=== PATIENT | male | born 1935 | race Caucasian/White ===

== ENCOUNTER 2020-07-29 10:48 | Emergency (ER) | payer MEDICARE, MEDICAID ==
--- NOTE | 2020-07-29 11:31 | EDM.PDOC ---
ED HPI GENERAL MEDICAL PROBLEM - General Chief Complaint: Chest Pain Stated Complaint: chest pain Time Seen by Provider: 07/29/20 11:10 - History of Present Illness INITIAL COMMENTS - FREE TEXT/NARRATIVE: Patient is brought to the emergency department from long-term swing bed for evaluation of chest pain. He was complaining of diffuse tightness and pain in his chest this morning. No cough or shortness of breath. No dizziness or lightheadedness. On arrival in the emergency department nurses stated he did not seem to be himself but after a few minutes, seemed fine. At this time, he denies any chest pain or tightness. No shortness of breath. No cough. No numbness or tingling. No dizziness or lightheadedness. At the time of my interview he is completely without complaints. He does have underlying dementia which is why he is in long-term swing swing bed unit. No recent illnesses. - Related Data Allergies Allergy/AdvReac Type Severity Reaction Status Date / Time iodine Allergy Hives Verified 07/29/20 10:58 Home Meds: Home Meds Pentoxifylline [TRENtal] 400 mg PO DAILY 07/21/13 [History] Memantine HCl 10 mg PO BID 07/14/19 [History] allopurinoL [Zyloprim] 300 mg PO DAILY 07/14/19 [History] Past Medical History HEENT History: Reports: Cataract, Hard of Hearing Cardiovascular History: Reports: PVD Gastrointestinal History: Reports: GERD Genitourinary History: Reports: Renal Calculus Musculoskeletal History: Reports: Gout Psychiatric History: Reports: Dementia - Infectious Disease History Infectious Disease History: Reports: Measles - Past Surgical History HEENT Surgical History: Reports: Cataract Surgery GI Surgical History: Reports: Cholecystectomy, Colonoscopy, Hernia, Inguinal Male Surgical History: Reports: Kidney Stone Extraction Musculoskeletal Surgical History: Reports: Other (See Below) Social & Family History - Family History : Reports: None Oncologic: Reports: Esophageal - Caffeine Use Caffeine Use: Reports: Coffee Other Caffeine Use: 1/2 cup occasionalloy - Living Situation & Occupation Living situation: Reports: Occupation: Retired ED ROS GENERAL - Review of Systems Review Of Systems: See Below Constitutional: Denies: Fever, Chills HEENT: Denies: Ear Pain, Rhinitis, Throat Pain Respiratory: Denies: Shortness of Breath, Pleuritic Chest Pain, Cough Cardiovascular: Reports: Chest Pain (Chest pain earlier today, he denies any pain at this time.). Denies: Palpitations GI/Abdominal: Denies: Abdominal Pain, Diarrhea, Nausea, Vomiting Neurological: Reports: Confusion. Denies: Dizziness, Headache, Paresthesia Psychiatric: Reports: Confusion. Denies: Anxiety, Depression ED EXAM, GENERAL - Physical Exam Exam: See Below Exam Limited By: No Limitations General Appearance: Alert, WD/WN, No Apparent Distress Ears: Normal External Exam, Other (Hearing aids in place) Nose: Normal Inspection Throat/Mouth: Normal Inspection Head: Atraumatic, Normocephalic Neck: No: Lymphadenopathy (L), Lymphadenopathy (R) Respiratory/Chest: No Respiratory Distress, Lungs Clear, Normal Breath Sounds Cardiovascular: Regular Rate, Rhythm, No Edema, No Murmur GI/Abdominal: Normal Bowel Sounds, Soft, Non-Tender, No Mass Neurological: Alert, Oriented (Oriented to person and place.), Memory Loss Recent Events Psychiatric: Normal Affect, Normal Mood Skin Exam: Warm, Dry #1 Interpretation EKG Date: 07/29/20 Time: 11:05 Rhythm: NSR Rate (Beats/Min): 60 QRS: Wide ST-T: Normal QT: Normal Comparison: NA - No Prior EKG EKG Interpretation Comments: First-degree A-V block right bundle branch block. Course - Vital Signs Last Recorded V/S: Last Vital Signs Temp 36.4 C 07/29/20 10:52 Pulse 61 07/29/20 10:52 Resp 16 07/29/20 10:52 BP 149/89 H 07/29/20 10:52 Pulse Ox 98 07/29/20 10:52 - Orders/Labs/Meds Orders: Active Orders 24 hr Category Date Time Status Cardiac Monitoring [RC] . DIRECTED Care 07/29/20 11:53 Active EKG Documentation Completion [RC] ASDIRECTED Care 07/29/20 10:52 Active CXR [Chest 2V] [CR] Stat Exams 07/29/20 11:26 Ordered CBC WITH AUTO DIFF [HEME] Stat Lab 07/29/20 11:10 Ordered CMP [COMPREHENSIVE METABOLIC PN,CMP] [CHEM] Stat Lab 07/29/20 11:10 Ordered INR,PT,PROTHROMBIN TIME [COAG] Stat Lab 07/29/20 12:00 Ordered TROPONIN I [CHEM] Stat Lab 07/29/20 11:10 Ordered Sodium Chloride 0.9% [Saline Flush] Med 07/29/20 11:53 Active 10 ml FLUSH ASDIRECTED PRN Saline Lock Insert [OM.PC] Routine Oth 07/29/20 11:53 Ordered Medication Orders Sodium Chloride (Saline Flush) 10 ml FLUSH ASDIRECTED PRN PRN Reason: Keep Vein Open Labs: Laboratory Tests 07/29/20 07/29/20 07/29/20 Range/Units 11:11 11:11 11:11 WBC 8.4 (4.0-10.2) K/uL RBC 4.78 (4.33-5.41) M/uL Hgb 15.5 (13.1-16.8) g/dL Hct 46.7 (39.0-49.0) % MCV 97.7 (84.0-98.0) fL MCH 32.4 (28.2-33.3) pg MCHC 33.2 (31.7-36.0) g/dL RDW 12.7 (11.2-14.1) % Plt Count 151 (150-350) K/uL Neut % (Auto) 73.1 (45.0-80.0) % Lymph % (Auto) 11.7 (10.0-50.0) % [place] % (Auto) 11.0 (2.0-14.0) % Eos % (Auto) 3.7 (0.0-5.0) % Baso % (Auto) 0.5 (0.0-2.0) % Neut # (Auto) 6.10 (1.40-7.00) K/uL Lymph # (Auto) 0.98 (0.50-3.50) K/uL [place] # (Auto) 0.92 (0.00-1.00) K/uL Eos # (Auto) 0.31 (0.00-0.50) K/uL Baso # (Auto) 0.04 (0.00-0.20) K/uL PT 10.4 (9.5-12.0) SEC INR 1.0 Sodium 138 (136-145) mmol/L Potassium 4.0 (3.5-5.1) mmol/L Chloride 103 (98-107) mmol/L Carbon Dioxide 28.5 (21.0-32.0) mmol/L BUN 21 H (7-18) mg/dL Creatinine 1.07 (0.51-1.17) mg/dL Est Cr Clr Drug Dosing TNP Estimated GFR (MDRD) > 60 mL/min Glucose 105 (74-106) mg/dL Calcium 8.9 (8.5-10.1) mg/dL Total Bilirubin 0.4 (0.2-1.0) mg/dL AST 36 (15-37) U/L ALT 23 (12-78) U/L Alkaline Phosphatase 80 (46-116) IU/L Troponin I 0.140 H* (0.000-0.056) ng/mL Total Protein 6.7 (6.4-8.2) g/dL Albumin 3.5 (3.4-5.0) g/dL Meds: Medications Generic Name Dose Route Start Last Admin Trade Name Freq PRN Reason Stop Dose Admin Sodium Chloride 10 ml 07/29/20 11:53 Saline Flush FLUSH ASDIRECTED PRN Keep Vein Open - Radiology Interpretation Free Text/Narrative:: 2 views of the chest show normal cardiac silhouette. Lungs are well expanded. No infiltrates. No masses. No free air. - Re-Assessments/Exams Free Text/Narrative Re-Assessment/Exam: 07/29/20 12:03 Patient remain completely asymptomatic in the emergency department with no complaints of chest pain or tightness. Labs are fairly unremarkable other than elevated troponin I at 0.140. Will discharge back to swing bed unit, and repeat EKG and troponin IN 3 hours. Departure - Departure Time of Disposition: 12:04 Disposition: DC/Tfer W/I [facility] [place] [id number] Condition: Good Clinical Impression: Chest pain - Discharge Information *PRESCRIPTION DRUG MONITORING PROGRAM REVIEWED*: Not Applicable *COPY OF PRESCRIPTION DRUG MONITORING REPORT IN PATIENT BRANN[place]: Not Applicable Instructions: Nonspecific Chest Pain, Adult Referrals: Roseann Neil NP [Primary Care Provider] - Forms: ED Department Discharge Additional Instructions: Discharge to swing bed unit. Repeat EKG and troponin I approximately 2 PM. 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 SNOMED Code(s): 09760147 Code(s): G30.9 - ALZHEIMER'S DISEASE, UNSPECIFIED; F02.80 - DEMENTIA IN OTH DISEASES CLASSD ELSWHR W/O BEHAVRL DISTURB Status: Acute Qualifiers: Alzheimer's disease onset: unspecified onset Qualified Code(s): G30.9 - Alzheimer's disease, unspecified; F02.80 - Dementia in other diseases classified elsewhere without behavioral disturbance (2) Chest pain SNOMED Code(s): 34678367 Code(s): R07.9 - CHEST PAIN, UNSPECIFIED Status: Acute - Problem List Review Problem List Initiated/Reviewed/Updated: Yes - My Orders Last 24 Hours: My Active Orders 07/29/20 10:52 EKG Documentation Completion [RC] ASDIRECTED 07/29/20 11:10 CBC WITH AUTO DIFF [HEME] Stat CMP [COMPREHENSIVE METABOLIC PN,CMP] [CHEM] Stat TROPONIN I [CHEM] Stat 07/29/20 11:26 CXR [Chest 2V] [CR] Stat 07/29/20 11:53 Cardiac Monitoring [RC] . DIRECTED Sodium Chloride 0.9% [Saline Flush] 10 ml FLUSH ASDIRECTED PRN Saline Lock Insert [OM.PC] Routine 07/29/20 12:00 INR,PT,PROTHROMBIN TIME [COAG] Stat - Assessment/Plan Last 24 Hours: My Active Orders 07/29/20 10:52 EKG Documentation Completion [RC] ASDIRECTED 07/29/20 11:10 CBC WITH AUTO DIFF [HEME] Stat CMP [COMPREHENSIVE METABOLIC PN,CMP] [CHEM] Stat TROPONIN I [CHEM] Stat 07/29/20 11:26 CXR [Chest 2V] [CR] Stat 07/29/20 11:53 Cardiac Monitoring [RC] . DIRECTED Sodium Chloride 0.9% [Saline Flush] 10 ml FLUSH ASDIRECTED PRN Saline Lock Insert [OM.PC] Routine 07/29/20 12:00 INR,PT,PROTHROMBIN TIME [COAG] Stat Plan: Discharge to swing bed unit. Repeat EKG and troponin I approximately 2 PM.
[2020-07-29 11:41] LABS: CHLORIDE,CL 103 mmol/L (98-107); SODIUM,NA 138 mmol/L (136-145)
[2020-07-29] MEDS ORDERED: Sodium Chloride 0.9% 10 ML Syringe FLUSH PRN (11:53)
[2020-07-29 12:48] VITALS: BP 149/70; PULSE 68
== END 2020-07-29 12:25 | disposition swing bed (61) ==
LOC: LL.ED 10:48
DX: R07.89 Other chest pain (principal); F03.90 Unspecified dementia, unspecified severity, without behavioral disturbance, psychotic disturbance, mood disturbance, and anxiety; M10.9 Gout, unspecified; Z91.048 Other nonmedicinal substance allergy status; Z79.899 Other long term (current) drug therapy
CPT/HCPCS: 36415; 71046; 80053; 84484; 85025; 85610; 93005; 93010; 99284; 99285-25

== ENCOUNTER 2020-08-02 12:13 | Emergency (ER) | payer MEDICARE, MEDICAID ==
[2020-08-02 12:59] LABS: CHLORIDE,CL 101 mmol/L (98-107); SODIUM,NA 135 mmol/L (136-145)
--- NOTE | 2020-08-02 13:07 | EDM.PDOC ---
ED HPI GENERAL MEDICAL PROBLEM - General Chief Complaint: Chest Pain Stated Complaint: SOB, CP Time Seen by Provider: 08/02/20 12:23 Source of Information: Reports: Patient, RN Notes Reviewed - History of Present Illness INITIAL COMMENTS - FREE TEXT/NARRATIVE: Pt sent to ER from swing bed for chest pain Pt states he currently is not having any pain Pt seen in ER several days ago for same Troponin then was 0.140 Pt evaluated and sent back to swing bed at that time Onset: Gradual Duration: Intermittent Location: Reports: Chest - Related Data Allergies Allergy/AdvReac Type Severity Reaction Status Date / Time iodine Allergy Hives Verified 08/02/20 12:15 Home Meds: Home Meds Pentoxifylline [TRENtal] 400 mg PO DAILY 07/21/13 [History] Memantine HCl 10 mg PO BID 07/14/19 [History] allopurinoL [Zyloprim] 300 mg PO DAILY 07/14/19 [History] Past Medical History HEENT History: Reports: Cataract, Hard of Hearing Cardiovascular History: Reports: PVD Gastrointestinal History: Reports: GERD Genitourinary History: Reports: Renal Calculus Musculoskeletal History: Reports: Gout Psychiatric History: Reports: Dementia - Infectious Disease History Infectious Disease History: Reports: Measles - Past Surgical History HEENT Surgical History: Reports: Cataract Surgery GI Surgical History: Reports: Cholecystectomy, Colonoscopy, Hernia, Inguinal Male Surgical History: Reports: Kidney Stone Extraction Musculoskeletal Surgical History: Reports: Other (See Below) Other Musculoskeletal Surgeries/Procedures:: left elbow Social & Family History - Family History : Reports: None Oncologic: Reports: Esophageal - Tobacco Use Tobacco Use Status *Q: Former Tobacco User Years of Tobacco use: 40 Used Tobacco, but Quit: Yes Month/Year Tobacco Last Used: 1979 - Caffeine Use Caffeine Use: Reports: Coffee Other Caffeine Use: 1/2 cup occasionalloy - Recreational Drug Use Recreational Drug Use: No - Living Situation & Occupation Living situation: Reports: Occupation: Retired ED ROS GENERAL - Review of Systems Review Of Systems: See Below HEENT: Reports: No Symptoms Respiratory: Reports: No Symptoms Cardiovascular: Reports: Chest Pain GI/Abdominal: Reports: No Symptoms Musculoskeletal: Reports: No Symptoms ED EXAM, GENERAL - Physical Exam Exam: See Below General Appearance: Alert, WD/WN, No Apparent Distress Neck: Supple Respiratory/Chest: Lungs Clear Cardiovascular: Regular Rate, Rhythm GI/Abdominal: Soft, Non-Tender Course - Vital Signs Last Recorded V/S: Last Vital Signs Temp 97.7 F 08/02/20 12:16 Pulse 63 08/02/20 12:16 Resp 18 08/02/20 12:16 BP 143/85 H 08/02/20 12:16 Pulse Ox 99 08/02/20 12:16 - Orders/Labs/Meds Orders: Active Orders 24 hr Category Date Time Status EKG Documentation Completion [RC] ASDIRECTED Care 08/02/20 12:21 Active EKG 12 Lead [EK] Stat Ther 08/02/20 12:21 Ordered Labs: Laboratory Tests 08/02/20 08/02/20 Range/Units 12:30 12:30 WBC 8.5 (4.0-10.2) K/uL RBC 4.57 (4.33-5.41) M/uL Hgb 14.9 (13.1-16.8) g/dL Hct 44.2 (39.0-49.0) % MCV 96.7 (84.0-98.0) fL MCH 32.6 (28.2-33.3) pg MCHC 33.7 (31.7-36.0) g/dL RDW 12.4 (11.2-14.1) % Plt Count 155 (150-350) K/uL Neut % (Auto) 73.5 (45.0-80.0) % Lymph % (Auto) 10.9 (10.0-50.0) % [place] % (Auto) 11.7 (2.0-14.0) % Eos % (Auto) 3.4 (0.0-5.0) % Baso % (Auto) 0.5 (0.0-2.0) % Neut # (Auto) 6.22 (1.40-7.00) K/uL Lymph # (Auto) 0.92 (0.50-3.50) K/uL [place] # (Auto) 0.99 (0.00-1.00) K/uL Eos # (Auto) 0.29 (0.00-0.50) K/uL Baso # (Auto) 0.04 (0.00-0.20) K/uL Sodium 135 L (136-145) mmol/L Potassium 3.9 (3.5-5.1) mmol/L Chloride 101 (98-107) mmol/L Carbon Dioxide 26.5 (21.0-32.0) mmol/L BUN 22 H (7-18) mg/dL Creatinine 1.07 (0.51-1.17) mg/dL Est Cr Clr Drug Dosing TNP Estimated GFR (MDRD) > 60 mL/min Glucose 103 (74-106) mg/dL Calcium 8.8 (8.5-10.1) mg/dL Total Bilirubin 0.4 (0.2-1.0) mg/dL AST 37 (15-37) U/L ALT 22 (12-78) U/L Alkaline Phosphatase 76 (46-116) IU/L Troponin I 0.129 H* (0.000-0.056) ng/mL Total Protein 6.6 (6.4-8.2) g/dL Albumin 3.4 (3.4-5.0) g/dL - Re-Assessments/Exams Free Text/Narrative Re-Assessment/Exam: 08/02/20 13:06 Pt asymptomatic in ER Tropnin today 0.124 which is lower than several days ago pt to swing bed Departure - Departure Time of Disposition: 13:10 Disposition: DC/Tfer to SNF 03 Reason for Transfer *Q: Other Clinical Impression: Chest pain Qualifiers: Chest pain type: unspecified Qualified Code(s): R07.9 - Chest pain, unspecified Referrals: Roseann Neil NP [Primary Care Provider] - Additional Instructions: Follow up in clinic Sepsis Event Note (ED) - Evaluation Sepsis Screening Result: No Definite Risk - Focused Exam Vital Signs: Vital Signs Temp Pulse Resp BP Pulse Ox 08/02/20 12:16 97.7 F 63 18 143/85 H 99 - My Orders Last 24 Hours: My Active Orders 08/02/20 12:21 EKG Documentation Completion [RC] ASDIRECTED EKG 12 Lead [EK] Stat - Assessment/Plan Last 24 Hours: My Active Orders 08/02/20 12:21 EKG Documentation Completion [RC] ASDIRECTED EKG 12 Lead [EK] Stat
[2020-08-02 13:39] VITALS: PULSE 64
[2020-08-02 13:42] VITALS: BP 131/75
== END 2020-08-02 13:07 | disposition swing bed (61) ==
LOC: LL.ED 12:13
DX: R07.9 Chest pain, unspecified (principal); M10.9 Gout, unspecified; F03.90 Unspecified dementia, unspecified severity, without behavioral disturbance, psychotic disturbance, mood disturbance, and anxiety; Z91.048 Other nonmedicinal substance allergy status; Z79.899 Other long term (current) drug therapy; Z87.891 Personal history of nicotine dependence
CPT/HCPCS: 36415; 80053; 84484; 85025; 93005; 99283; 99285-25

== ENCOUNTER 2021-01-24 08:40 | Inpatient (IN) | payer MEDICAID, MEDICARE ==
[2021-01-25] MEDS ORDERED: Nitroglycerin 0.4 MG Tab.SL SL PRN (07:41)
[2021-01-25] MEDS ORDERED: guaiFENesin 100 MG/5 ML Soln 10 ML UD Cup PO PRN (08:00)
[2021-01-25] MEDS ORDERED: traMADol 50 MG Tab PO PRN (08:00)
[2021-01-25] MEDS: ALLOPURINOL 300 MG PO SCH (11:51)
[2021-01-25] MEDS: Memantine 10 MG Tab PO SCH (17:23)
[2021-01-26] MEDS: Memantine 10 MG Tab PO SCH ×2 (08:17→17:15)
[2021-01-26] MEDS: ALLOPURINOL 300 MG PO SCH (08:17)
[2021-01-26] MEDS: Pentoxifylline 400 MG Tab.ER PO SCH (08:18)
[2021-01-27] MEDS: ALLOPURINOL 300 MG PO SCH (07:26)
[2021-01-27] MEDS: Memantine 10 MG Tab PO SCH ×2 (07:27→17:10)
[2021-01-27] MEDS: Pentoxifylline 400 MG Tab.ER PO SCH (07:27)
[2021-01-28] MEDS: ALLOPURINOL 300 MG PO SCH (08:25)
[2021-01-28] MEDS: Memantine 10 MG Tab PO SCH ×2 (08:25→17:27)
[2021-01-28] MEDS: Pentoxifylline 400 MG Tab.ER PO SCH (08:25)
[2021-01-29] MEDS: Pentoxifylline 400 MG Tab.ER PO SCH (08:35)
[2021-01-29] MEDS: ALLOPURINOL 300 MG PO SCH (08:35)
[2021-01-29] MEDS: Memantine 10 MG Tab PO SCH ×2 (08:35→17:24)
[2021-01-30] MEDS: ALLOPURINOL 300 MG PO SCH (08:07)
[2021-01-30] MEDS: Memantine 10 MG Tab PO SCH ×2 (08:07→17:44)
[2021-01-30] MEDS: Pentoxifylline 400 MG Tab.ER PO SCH (08:07)
[2021-01-31] MEDS: Pentoxifylline 400 MG Tab.ER PO SCH (07:46)
[2021-01-31] MEDS: Memantine 10 MG Tab PO SCH ×2 (07:46→17:29)
[2021-01-31] MEDS: ALLOPURINOL 300 MG PO SCH (07:46)
[2021-02-01] MEDS: Pentoxifylline 400 MG Tab.ER PO SCH (07:21)
[2021-02-01] MEDS: ALLOPURINOL 300 MG PO SCH (07:21)
[2021-02-01] MEDS: Memantine 10 MG Tab PO SCH ×2 (07:21→17:29)
[2021-02-02] MEDS: ALLOPURINOL 300 MG PO SCH (08:13)
[2021-02-02] MEDS: Memantine 10 MG Tab PO SCH ×2 (08:13→17:30)
[2021-02-02] MEDS: Pentoxifylline 400 MG Tab.ER PO SCH (08:13)
[2021-02-03] MEDS: Pentoxifylline 400 MG Tab.ER PO SCH (08:04)
[2021-02-03] MEDS: ALLOPURINOL 300 MG PO SCH (08:04)
[2021-02-03] MEDS: Memantine 10 MG Tab PO SCH ×2 (08:04→17:24)
[2021-02-04] MEDS: ALLOPURINOL 300 MG PO SCH (08:24)
[2021-02-04] MEDS: Pentoxifylline 400 MG Tab.ER PO SCH (08:24)
[2021-02-04] MEDS: Memantine 10 MG Tab PO SCH ×2 (08:24→17:55)
[2021-02-05] MEDS: Memantine 10 MG Tab PO SCH ×2 (07:37→17:28)
[2021-02-05] MEDS: Pentoxifylline 400 MG Tab.ER PO SCH (07:37)
[2021-02-05] MEDS: ALLOPURINOL 300 MG PO SCH (07:38)
[2021-02-06] MEDS: ALLOPURINOL 300 MG PO SCH (08:08)
[2021-02-06] MEDS: Memantine 10 MG Tab PO SCH ×2 (08:08→17:27)
[2021-02-06] MEDS: Pentoxifylline 400 MG Tab.ER PO SCH (08:08)
[2021-02-07] MEDS: ALLOPURINOL 300 MG PO SCH (07:51)
[2021-02-07] MEDS: Pentoxifylline 400 MG Tab.ER PO SCH (07:51)
[2021-02-07] MEDS: Memantine 10 MG Tab PO SCH ×2 (07:51→17:48)
[2021-02-08] MEDS: Memantine 10 MG Tab PO SCH ×2 (07:40→17:55)
[2021-02-08] MEDS: ALLOPURINOL 300 MG PO SCH (07:40)
[2021-02-08] MEDS: Pentoxifylline 400 MG Tab.ER PO SCH (07:40)
[2021-02-09] MEDS: Memantine 10 MG Tab PO SCH ×2 (10:48→17:14)
[2021-02-09] MEDS: ALLOPURINOL 300 MG PO SCH (10:48)
[2021-02-09] MEDS: Pentoxifylline 400 MG Tab.ER PO SCH (10:48)
[2021-02-10] MEDS: Memantine 10 MG Tab PO SCH ×2 (07:52→17:11)
[2021-02-10] MEDS: Pentoxifylline 400 MG Tab.ER PO SCH (07:52)
[2021-02-10] MEDS: ALLOPURINOL 300 MG PO SCH (07:52)
[2021-02-11] MEDS: Pentoxifylline 400 MG Tab.ER PO SCH (07:35)
[2021-02-11] MEDS: ALLOPURINOL 300 MG PO SCH (07:35)
[2021-02-11] MEDS: Memantine 10 MG Tab PO SCH ×2 (07:35→17:14)
[2021-02-12] MEDS: Pentoxifylline 400 MG Tab.ER PO SCH (08:26)
[2021-02-12] MEDS: ALLOPURINOL 300 MG PO SCH (08:26)
[2021-02-12] MEDS: Memantine 10 MG Tab PO SCH ×2 (08:26→17:55)
[2021-02-13] MEDS: Pentoxifylline 400 MG Tab.ER PO SCH (07:40)
[2021-02-13] MEDS: ALLOPURINOL 300 MG PO SCH (07:40)
[2021-02-13] MEDS: Memantine 10 MG Tab PO SCH ×2 (07:40→17:28)
[2021-02-14] MEDS: Pentoxifylline 400 MG Tab.ER PO SCH (08:17)
[2021-02-14] MEDS: ALLOPURINOL 300 MG PO SCH (08:17)
[2021-02-14] MEDS: Memantine 10 MG Tab PO SCH ×2 (08:17→17:39)
[2021-02-15] MEDS: ALLOPURINOL 300 MG PO SCH (07:43)
[2021-02-15] MEDS: Memantine 10 MG Tab PO SCH ×2 (07:43→17:20)
[2021-02-15] MEDS: Pentoxifylline 400 MG Tab.ER PO SCH (07:43)
[2021-02-16] MEDS: Memantine 10 MG Tab PO SCH ×2 (08:07→17:41)
[2021-02-16] MEDS: Pentoxifylline 400 MG Tab.ER PO SCH (08:07)
[2021-02-16] MEDS: ALLOPURINOL 300 MG PO SCH (08:07)
[2021-02-17] MEDS: Pentoxifylline 400 MG Tab.ER PO SCH (07:37)
[2021-02-17] MEDS: Memantine 10 MG Tab PO SCH ×2 (07:37→17:17)
[2021-02-17] MEDS: ALLOPURINOL 300 MG PO SCH (07:37)
[2021-02-18] MEDS: Pentoxifylline 400 MG Tab.ER PO SCH (07:43)
[2021-02-18] MEDS: ALLOPURINOL 300 MG PO SCH (07:43)
[2021-02-18] MEDS: Memantine 10 MG Tab PO SCH ×2 (07:44→17:05)
[2021-02-19] MEDS: Memantine 10 MG Tab PO SCH ×2 (07:28→17:07)
[2021-02-19] MEDS: ALLOPURINOL 300 MG PO SCH (07:28)
[2021-02-19] MEDS: Pentoxifylline 400 MG Tab.ER PO SCH (07:28)
[2021-02-20] MEDS: Memantine 10 MG Tab PO SCH ×2 (08:14→17:18)
[2021-02-20] MEDS: ALLOPURINOL 300 MG PO SCH (08:14)
[2021-02-20] MEDS: Pentoxifylline 400 MG Tab.ER PO SCH (08:14)
[2021-02-21] MEDS: Memantine 10 MG Tab PO SCH ×2 (08:07→17:34)
[2021-02-21] MEDS: ALLOPURINOL 300 MG PO SCH (08:08)
[2021-02-21] MEDS: Pentoxifylline 400 MG Tab.ER PO SCH (08:08)
[2021-02-22] MEDS: Memantine 10 MG Tab PO SCH ×2 (08:17→17:36)
[2021-02-22] MEDS: ALLOPURINOL 300 MG PO SCH (08:17)
[2021-02-22] MEDS: Pentoxifylline 400 MG Tab.ER PO SCH (08:17)
[2021-02-23] MEDS: ALLOPURINOL 300 MG PO SCH (08:33)
[2021-02-23] MEDS: Pentoxifylline 400 MG Tab.ER PO SCH (08:33)
[2021-02-23] MEDS: Memantine 10 MG Tab PO SCH ×2 (08:34→17:48)
[2021-02-24] MEDS: Memantine 10 MG Tab PO SCH ×2 (08:24→17:43)
[2021-02-24] MEDS: ALLOPURINOL 300 MG PO SCH (08:24)
[2021-02-24] MEDS: Pentoxifylline 400 MG Tab.ER PO SCH (08:24)
[2021-02-25] MEDS: Memantine 10 MG Tab PO SCH ×2 (08:05→17:55)
[2021-02-25] MEDS: Pentoxifylline 400 MG Tab.ER PO SCH (08:05)
[2021-02-25] MEDS: ALLOPURINOL 300 MG PO SCH (08:05)
[2021-02-26] MEDS: Pentoxifylline 400 MG Tab.ER PO SCH (08:16)
[2021-02-26] MEDS: ALLOPURINOL 300 MG PO SCH (08:16)
[2021-02-26] MEDS: Memantine 10 MG Tab PO SCH ×2 (08:16→17:20)
[2021-02-27] MEDS: Pentoxifylline 400 MG Tab.ER PO SCH (08:22)
[2021-02-27] MEDS: Memantine 10 MG Tab PO SCH ×2 (08:23→17:39)
[2021-02-27] MEDS: ALLOPURINOL 300 MG PO SCH (08:23)
[2021-02-28] MEDS: Memantine 10 MG Tab PO SCH ×2 (07:46→17:48)
[2021-02-28] MEDS: Pentoxifylline 400 MG Tab.ER PO SCH (07:46)
[2021-02-28] MEDS: ALLOPURINOL 300 MG PO SCH (07:46)
[2021-03-01] MEDS: Memantine 10 MG Tab PO SCH ×2 (07:39→17:24)
[2021-03-01] MEDS: ALLOPURINOL 300 MG PO SCH (07:39)
[2021-03-01] MEDS: Pentoxifylline 400 MG Tab.ER PO SCH (07:40)
[2021-03-02] MEDS: Memantine 10 MG Tab PO SCH ×2 (07:45→17:43)
[2021-03-02] MEDS: ALLOPURINOL 300 MG PO SCH (07:46)
[2021-03-02] MEDS: Pentoxifylline 400 MG Tab.ER PO SCH (07:46)
[2021-03-03] MEDS: ALLOPURINOL 300 MG PO SCH (07:43)
[2021-03-03] MEDS: Memantine 10 MG Tab PO SCH ×2 (07:43→17:10)
[2021-03-03] MEDS: Pentoxifylline 400 MG Tab.ER PO SCH (07:44)
[2021-03-04] MEDS: Memantine 10 MG Tab PO SCH ×2 (08:04→17:14)
[2021-03-04] MEDS: ALLOPURINOL 300 MG PO SCH (08:04)
[2021-03-04] MEDS: Pentoxifylline 400 MG Tab.ER PO SCH (08:04)
[2021-03-05] MEDS: ALLOPURINOL 300 MG PO SCH (07:47)
[2021-03-05] MEDS: Memantine 10 MG Tab PO SCH ×2 (07:48→17:13)
[2021-03-05] MEDS: Pentoxifylline 400 MG Tab.ER PO SCH (07:48)
[2021-03-06] MEDS: Pentoxifylline 400 MG Tab.ER PO SCH (08:27)
[2021-03-06] MEDS: ALLOPURINOL 300 MG PO SCH (08:27)
[2021-03-06] MEDS: Memantine 10 MG Tab PO SCH ×2 (08:27→17:43)
[2021-03-07] MEDS: ALLOPURINOL 300 MG PO SCH (07:40)
[2021-03-07] MEDS: Memantine 10 MG Tab PO SCH ×2 (07:40→17:34)
[2021-03-07] MEDS: Pentoxifylline 400 MG Tab.ER PO SCH (07:41)
[2021-03-08] MEDS: Pentoxifylline 400 MG Tab.ER PO SCH (08:17)
[2021-03-08] MEDS: Memantine 10 MG Tab PO SCH ×2 (08:17→17:46)
[2021-03-08] MEDS: ALLOPURINOL 300 MG PO SCH (08:17)
[2021-03-09] MEDS: Pentoxifylline 400 MG Tab.ER PO SCH (08:04)
[2021-03-09] MEDS: ALLOPURINOL 300 MG PO SCH (08:04)
[2021-03-09] MEDS: Memantine 10 MG Tab PO SCH ×2 (08:04→17:31)
[2021-03-10] MEDS: ALLOPURINOL 300 MG PO SCH (07:35)
[2021-03-10] MEDS: Pentoxifylline 400 MG Tab.ER PO SCH (07:35)
[2021-03-10] MEDS: Memantine 10 MG Tab PO SCH ×2 (07:35→17:18)
[2021-03-11] MEDS: Pentoxifylline 400 MG Tab.ER PO SCH (07:39)
[2021-03-11] MEDS: ALLOPURINOL 300 MG PO SCH (07:39)
[2021-03-11] MEDS: Memantine 10 MG Tab PO SCH ×2 (07:39→17:20)
[2021-03-12] MEDS: Memantine 10 MG Tab PO SCH ×2 (08:06→17:41)
[2021-03-12] MEDS: Pentoxifylline 400 MG Tab.ER PO SCH (08:06)
[2021-03-12] MEDS: ALLOPURINOL 300 MG PO SCH (08:07)
[2021-03-13] MEDS: ALLOPURINOL 300 MG PO SCH (07:54)
[2021-03-13] MEDS: Memantine 10 MG Tab PO SCH ×2 (07:54→17:57)
[2021-03-13] MEDS: Pentoxifylline 400 MG Tab.ER PO SCH (07:55)
[2021-03-14] MEDS: ALLOPURINOL 300 MG PO SCH (08:32)
[2021-03-14] MEDS: Memantine 10 MG Tab PO SCH ×2 (08:32→17:40)
[2021-03-14] MEDS: Pentoxifylline 400 MG Tab.ER PO SCH (08:32)
[2021-03-15] MEDS: Pentoxifylline 400 MG Tab.ER PO SCH (07:25)
[2021-03-15] MEDS: ALLOPURINOL 300 MG PO SCH (07:25)
[2021-03-15] MEDS: Memantine 10 MG Tab PO SCH ×2 (07:25→17:12)
[2021-03-16] MEDS: ALLOPURINOL 300 MG PO SCH (07:37)
[2021-03-16] MEDS: Pentoxifylline 400 MG Tab.ER PO SCH (07:37)
[2021-03-16] MEDS: Memantine 10 MG Tab PO SCH ×2 (07:37→17:58)
[2021-03-17] MEDS: Memantine 10 MG Tab PO SCH ×2 (08:18→17:55)
[2021-03-17] MEDS: ALLOPURINOL 300 MG PO SCH (08:18)
[2021-03-17] MEDS: Pentoxifylline 400 MG Tab.ER PO SCH (08:19)
[2021-03-18] MEDS: Memantine 10 MG Tab PO SCH ×2 (08:17→17:53)
[2021-03-18] MEDS: ALLOPURINOL 300 MG PO SCH (08:17)
[2021-03-18] MEDS: Pentoxifylline 400 MG Tab.ER PO SCH (08:17)
[2021-03-19] MEDS: ALLOPURINOL 300 MG PO SCH (07:37)
[2021-03-19] MEDS: Memantine 10 MG Tab PO SCH ×2 (07:38→17:11)
[2021-03-19] MEDS: Pentoxifylline 400 MG Tab.ER PO SCH (07:38)
[2021-03-20] MEDS: Memantine 10 MG Tab PO SCH ×2 (08:15→17:22)
[2021-03-20] MEDS: ALLOPURINOL 300 MG PO SCH (08:15)
[2021-03-20] MEDS: Pentoxifylline 400 MG Tab.ER PO SCH (08:16)
[2021-03-21] MEDS: Memantine 10 MG Tab PO SCH ×2 (07:55→17:52)
[2021-03-21] MEDS: ALLOPURINOL 300 MG PO SCH (07:55)
[2021-03-21] MEDS: Pentoxifylline 400 MG Tab.ER PO SCH (07:55)
[2021-03-22] MEDS: Pentoxifylline 400 MG Tab.ER PO SCH (08:09)
[2021-03-22] MEDS: Memantine 10 MG Tab PO SCH ×2 (08:09→17:38)
[2021-03-22] MEDS: ALLOPURINOL 300 MG PO SCH (08:09)
[2021-03-23] MEDS: Memantine 10 MG Tab PO SCH ×2 (08:23→17:03)
[2021-03-23] MEDS: ALLOPURINOL 300 MG PO SCH (08:24)
[2021-03-23] MEDS: Pentoxifylline 400 MG Tab.ER PO SCH (08:24)
[2021-03-24] MEDS: ALLOPURINOL 300 MG PO SCH (07:53)
[2021-03-24] MEDS: Memantine 10 MG Tab PO SCH ×2 (07:53→17:27)
[2021-03-24] MEDS: Pentoxifylline 400 MG Tab.ER PO SCH (07:53)
[2021-03-25] MEDS: ALLOPURINOL 300 MG PO SCH (07:52)
[2021-03-25] MEDS: Memantine 10 MG Tab PO SCH ×2 (07:52→17:15)
[2021-03-25] MEDS: Pentoxifylline 400 MG Tab.ER PO SCH (07:53)
[2021-03-26] MEDS: ALLOPURINOL 300 MG PO SCH (08:12)
[2021-03-26] MEDS: Memantine 10 MG Tab PO SCH ×2 (08:12→17:32)
[2021-03-26] MEDS: Pentoxifylline 400 MG Tab.ER PO SCH (08:13)
[2021-03-27] MEDS: Pentoxifylline 400 MG Tab.ER PO SCH (07:45)
[2021-03-27] MEDS: Memantine 10 MG Tab PO SCH ×2 (07:46→17:38)
[2021-03-27] MEDS: ALLOPURINOL 300 MG PO SCH (07:46)
[2021-03-28] MEDS: Memantine 10 MG Tab PO SCH ×2 (07:59→17:10)
[2021-03-28] MEDS: ALLOPURINOL 300 MG PO SCH (07:59)
[2021-03-28] MEDS: Pentoxifylline 400 MG Tab.ER PO SCH (07:59)
[2021-03-29] MEDS: ALLOPURINOL 300 MG PO SCH (07:43)
[2021-03-29] MEDS: Pentoxifylline 400 MG Tab.ER PO SCH (07:44)
[2021-03-29] MEDS: Memantine 10 MG Tab PO SCH ×2 (07:44→18:02)
[2021-03-30] MEDS: ALLOPURINOL 300 MG PO SCH (08:08)
[2021-03-30] MEDS: Pentoxifylline 400 MG Tab.ER PO SCH (08:08)
[2021-03-30] MEDS: Memantine 10 MG Tab PO SCH ×2 (08:08→17:05)
[2021-03-31] MEDS: ALLOPURINOL 300 MG PO SCH (07:43)
[2021-03-31] MEDS: Pentoxifylline 400 MG Tab.ER PO SCH (07:43)
[2021-03-31] MEDS: Memantine 10 MG Tab PO SCH ×2 (07:44→17:14)
[2021-04-01] MEDS: Memantine 10 MG Tab PO SCH ×2 (07:52→17:06)
[2021-04-01] MEDS: ALLOPURINOL 300 MG PO SCH (07:52)
[2021-04-01] MEDS: Pentoxifylline 400 MG Tab.ER PO SCH (07:53)
[2021-04-02] MEDS: Pentoxifylline 400 MG Tab.ER PO SCH (08:21)
[2021-04-02] MEDS: ALLOPURINOL 300 MG PO SCH (08:21)
[2021-04-02] MEDS: Memantine 10 MG Tab PO SCH ×2 (08:21→18:20)
[2021-04-03] MEDS: Memantine 10 MG Tab PO SCH ×2 (07:27→17:47)
[2021-04-03] MEDS: ALLOPURINOL 300 MG PO SCH (07:27)
[2021-04-03] MEDS: Pentoxifylline 400 MG Tab.ER PO SCH (07:27)
[2021-04-04] MEDS: Pentoxifylline 400 MG Tab.ER PO SCH (08:29)
[2021-04-04] MEDS: ALLOPURINOL 300 MG PO SCH (08:29)
[2021-04-04] MEDS: Memantine 10 MG Tab PO SCH ×2 (08:29→18:06)
[2021-04-05] MEDS: Pentoxifylline 400 MG Tab.ER PO SCH (08:19)
[2021-04-05] MEDS: ALLOPURINOL 300 MG PO SCH (08:19)
[2021-04-05] MEDS: Memantine 10 MG Tab PO SCH ×2 (08:19→17:47)
[2021-04-06] MEDS: Memantine 10 MG Tab PO SCH ×2 (08:06→17:45)
[2021-04-06] MEDS: Pentoxifylline 400 MG Tab.ER PO SCH (08:06)
[2021-04-06] MEDS: ALLOPURINOL 300 MG PO SCH (08:06)
[2021-04-07] MEDS: Memantine 10 MG Tab PO SCH ×2 (08:08→17:31)
[2021-04-07] MEDS: ALLOPURINOL 300 MG PO SCH (08:08)
[2021-04-07] MEDS: Pentoxifylline 400 MG Tab.ER PO SCH (08:09)
[2021-04-08] MEDS: ALLOPURINOL 300 MG PO SCH (07:57)
[2021-04-08] MEDS: Pentoxifylline 400 MG Tab.ER PO SCH (07:57)
[2021-04-08] MEDS: Memantine 10 MG Tab PO SCH ×2 (07:57→17:29)
[2021-04-09] MEDS: ALLOPURINOL 300 MG PO SCH (08:25)
[2021-04-09] MEDS: Pentoxifylline 400 MG Tab.ER PO SCH (08:25)
[2021-04-09] MEDS: Memantine 10 MG Tab PO SCH ×2 (08:25→17:25)
[2021-04-10] MEDS: Pentoxifylline 400 MG Tab.ER PO SCH (08:09)
[2021-04-10] MEDS: Memantine 10 MG Tab PO SCH ×2 (08:09→17:49)
[2021-04-10] MEDS: ALLOPURINOL 300 MG PO SCH (08:09)
[2021-04-11] MEDS: Memantine 10 MG Tab PO SCH ×2 (08:36→18:01)
[2021-04-11] MEDS: ALLOPURINOL 300 MG PO SCH (08:36)
[2021-04-11] MEDS: Pentoxifylline 400 MG Tab.ER PO SCH (08:36)
[2021-04-12] MEDS: ALLOPURINOL 300 MG PO SCH (08:04)
[2021-04-12] MEDS: Pentoxifylline 400 MG Tab.ER PO SCH (08:04)
[2021-04-12] MEDS: Memantine 10 MG Tab PO SCH ×2 (08:04→17:15)
[2021-04-13] MEDS: ALLOPURINOL 300 MG PO SCH (07:44)
[2021-04-13] MEDS: Pentoxifylline 400 MG Tab.ER PO SCH (07:44)
[2021-04-13] MEDS: Memantine 10 MG Tab PO SCH ×2 (07:44→17:15)
[2021-04-14] MEDS: ALLOPURINOL 300 MG PO SCH (07:57)
[2021-04-14] MEDS: Pentoxifylline 400 MG Tab.ER PO SCH (07:57)
[2021-04-14] MEDS: Memantine 10 MG Tab PO SCH ×2 (07:57→17:36)
[2021-04-15] MEDS: Memantine 10 MG Tab PO SCH ×2 (08:01→17:10)
[2021-04-15] MEDS: ALLOPURINOL 300 MG PO SCH (08:01)
[2021-04-15] MEDS: Pentoxifylline 400 MG Tab.ER PO SCH (08:01)
[2021-04-16] MEDS: ALLOPURINOL 300 MG PO SCH (08:16)
[2021-04-16] MEDS: Pentoxifylline 400 MG Tab.ER PO SCH (08:16)
[2021-04-16] MEDS: Memantine 10 MG Tab PO SCH ×2 (08:16→17:11)
[2021-04-17] MEDS: Memantine 10 MG Tab PO SCH ×2 (07:54→17:13)
[2021-04-17] MEDS: Pentoxifylline 400 MG Tab.ER PO SCH (07:54)
[2021-04-17] MEDS: ALLOPURINOL 300 MG PO SCH (07:54)
[2021-04-18] MEDS: ALLOPURINOL 300 MG PO SCH (08:00)
[2021-04-18] MEDS: Pentoxifylline 400 MG Tab.ER PO SCH (08:00)
[2021-04-18] MEDS: Memantine 10 MG Tab PO SCH ×2 (08:00→17:13)
[2021-04-19] MEDS: Memantine 10 MG Tab PO SCH ×2 (07:33→17:15)
[2021-04-19] MEDS: ALLOPURINOL 300 MG PO SCH (07:33)
[2021-04-19] MEDS: Pentoxifylline 400 MG Tab.ER PO SCH (07:33)
[2021-04-20] MEDS: Pentoxifylline 400 MG Tab.ER PO SCH (08:10)
[2021-04-20] MEDS: Memantine 10 MG Tab PO SCH ×2 (08:10→17:24)
[2021-04-20] MEDS: ALLOPURINOL 300 MG PO SCH (08:10)
[2021-04-21] MEDS: Pentoxifylline 400 MG Tab.ER PO SCH (07:24)
[2021-04-21] MEDS: Memantine 10 MG Tab PO SCH ×2 (07:24→17:07)
[2021-04-21] MEDS: ALLOPURINOL 300 MG PO SCH (07:24)
[2021-04-22] MEDS: ALLOPURINOL 300 MG PO SCH (07:39)
[2021-04-22] MEDS: Pentoxifylline 400 MG Tab.ER PO SCH (07:39)
[2021-04-22] MEDS: Memantine 10 MG Tab PO SCH ×2 (07:39→17:14)
[2021-04-23] MEDS: Pentoxifylline 400 MG Tab.ER PO SCH (07:58)
[2021-04-23] MEDS: Memantine 10 MG Tab PO SCH ×2 (07:58→17:13)
[2021-04-23] MEDS: ALLOPURINOL 300 MG PO SCH (07:58)
[2021-04-24] MEDS: Pentoxifylline 400 MG Tab.ER PO SCH (08:06)
[2021-04-24] MEDS: ALLOPURINOL 300 MG PO SCH (08:06)
[2021-04-24] MEDS: Memantine 10 MG Tab PO SCH ×2 (08:06→17:10)
[2021-04-25] MEDS: Pentoxifylline 400 MG Tab.ER PO SCH (07:33)
[2021-04-25] MEDS: ALLOPURINOL 300 MG PO SCH (07:33)
[2021-04-25] MEDS: Memantine 10 MG Tab PO SCH ×2 (07:33→17:20)
[2021-04-26] MEDS: Pentoxifylline 400 MG Tab.ER PO SCH (07:42)
[2021-04-26] MEDS: Memantine 10 MG Tab PO SCH ×2 (07:42→18:02)
[2021-04-26] MEDS: ALLOPURINOL 300 MG PO SCH (07:42)
[2021-04-27] MEDS: ALLOPURINOL 300 MG PO SCH (08:13)
[2021-04-27] MEDS: Pentoxifylline 400 MG Tab.ER PO SCH (08:14)
[2021-04-27] MEDS: Memantine 10 MG Tab PO SCH ×2 (08:14→17:55)
[2021-04-28] MEDS: ALLOPURINOL 300 MG PO SCH (07:53)
[2021-04-28] MEDS: Pentoxifylline 400 MG Tab.ER PO SCH (07:53)
[2021-04-28] MEDS: Memantine 10 MG Tab PO SCH ×2 (07:53→17:03)
[2021-04-29] MEDS: Memantine 10 MG Tab PO SCH ×2 (08:22→18:01)
[2021-04-29] MEDS: ALLOPURINOL 300 MG PO SCH (08:22)
[2021-04-29] MEDS: Pentoxifylline 400 MG Tab.ER PO SCH (08:22)
[2021-04-30] MEDS: Memantine 10 MG Tab PO SCH ×2 (08:07→17:23)
[2021-04-30] MEDS: ALLOPURINOL 300 MG PO SCH (08:07)
[2021-04-30] MEDS: Pentoxifylline 400 MG Tab.ER PO SCH (08:07)
[2021-05-01] MEDS: ALLOPURINOL 300 MG PO SCH (08:21)
[2021-05-01] MEDS: Pentoxifylline 400 MG Tab.ER PO SCH (08:21)
[2021-05-01] MEDS: Memantine 10 MG Tab PO SCH ×2 (08:21→17:51)
[2021-05-02] MEDS: Pentoxifylline 400 MG Tab.ER PO SCH (08:01)
[2021-05-02] MEDS: ALLOPURINOL 300 MG PO SCH (08:01)
[2021-05-02] MEDS: Memantine 10 MG Tab PO SCH ×2 (08:01→17:38)
[2021-05-03] MEDS: ALLOPURINOL 300 MG PO SCH (08:09)
[2021-05-03] MEDS: Pentoxifylline 400 MG Tab.ER PO SCH (08:09)
[2021-05-03] MEDS: Memantine 10 MG Tab PO SCH ×2 (08:09→17:40)
[2021-05-04] MEDS: Pentoxifylline 400 MG Tab.ER PO SCH (07:35)
[2021-05-04] MEDS: Memantine 10 MG Tab PO SCH ×2 (07:35→17:20)
[2021-05-04] MEDS: ALLOPURINOL 300 MG PO SCH (07:35)
[2021-05-05] MEDS: ALLOPURINOL 300 MG PO SCH (07:28)
[2021-05-05] MEDS: Pentoxifylline 400 MG Tab.ER PO SCH (07:28)
[2021-05-05] MEDS: Memantine 10 MG Tab PO SCH ×2 (07:28→17:16)
[2021-05-06] MEDS: Pentoxifylline 400 MG Tab.ER PO SCH (07:43)
[2021-05-06] MEDS: ALLOPURINOL 300 MG PO SCH (07:43)
[2021-05-06] MEDS: Memantine 10 MG Tab PO SCH ×2 (07:43→17:17)
[2021-05-07] MEDS: ALLOPURINOL 300 MG PO SCH (08:21)
[2021-05-07] MEDS: Pentoxifylline 400 MG Tab.ER PO SCH (08:21)
[2021-05-07] MEDS: Memantine 10 MG Tab PO SCH ×2 (08:21→17:33)
[2021-05-08] MEDS: ALLOPURINOL 300 MG PO SCH (08:14)
[2021-05-08] MEDS: Memantine 10 MG Tab PO SCH ×2 (08:14→17:41)
[2021-05-08] MEDS: Pentoxifylline 400 MG Tab.ER PO SCH (08:14)
[2021-05-09] MEDS: Memantine 10 MG Tab PO SCH ×2 (07:51→17:05)
[2021-05-09] MEDS: Pentoxifylline 400 MG Tab.ER PO SCH (07:51)
[2021-05-09] MEDS: ALLOPURINOL 300 MG PO SCH (07:51)
[2021-05-09] MEDS: Acetaminophen 325 MG Tab PO PRN (21:08)
[2021-05-10] MEDS: Memantine 10 MG Tab PO SCH ×2 (07:57→17:21)
[2021-05-10] MEDS: Pentoxifylline 400 MG Tab.ER PO SCH (07:57)
[2021-05-10] MEDS: ALLOPURINOL 300 MG PO SCH (07:57)
[2021-05-11] MEDS: ALLOPURINOL 300 MG PO SCH (08:05)
[2021-05-11] MEDS: Memantine 10 MG Tab PO SCH ×2 (08:06→17:22)
[2021-05-11] MEDS: Pentoxifylline 400 MG Tab.ER PO SCH (08:06)
[2021-05-12] MEDS: Memantine 10 MG Tab PO SCH ×2 (07:55→17:07)
[2021-05-12] MEDS: Pentoxifylline 400 MG Tab.ER PO SCH (07:55)
[2021-05-12] MEDS: ALLOPURINOL 300 MG PO SCH (07:55)
[2021-05-13] MEDS: Memantine 10 MG Tab PO SCH ×2 (08:03→17:09)
[2021-05-13] MEDS: ALLOPURINOL 300 MG PO SCH (08:03)
[2021-05-13] MEDS: Pentoxifylline 400 MG Tab.ER PO SCH (08:03)
[2021-05-14] MEDS: Memantine 10 MG Tab PO SCH ×2 (08:00→17:28)
[2021-05-14] MEDS: Pentoxifylline 400 MG Tab.ER PO SCH (08:00)
[2021-05-14] MEDS: ALLOPURINOL 300 MG PO SCH (08:00)
[2021-05-15] MEDS: ALLOPURINOL 300 MG PO SCH (07:47)
[2021-05-15] MEDS: Pentoxifylline 400 MG Tab.ER PO SCH (07:47)
[2021-05-15] MEDS: Memantine 10 MG Tab PO SCH ×2 (07:47→17:06)
[2021-05-16] MEDS: ALLOPURINOL 300 MG PO SCH (08:18)
[2021-05-16] MEDS: Pentoxifylline 400 MG Tab.ER PO SCH (08:18)
[2021-05-16] MEDS: Memantine 10 MG Tab PO SCH ×2 (08:18→17:13)
[2021-05-17] MEDS: ALLOPURINOL 300 MG PO SCH (07:43)
[2021-05-17] MEDS: Memantine 10 MG Tab PO SCH ×2 (07:44→17:11)
[2021-05-17] MEDS: Pentoxifylline 400 MG Tab.ER PO SCH (07:44)
[2021-05-18] MEDS: Memantine 10 MG Tab PO SCH ×2 (08:16→17:45)
[2021-05-18] MEDS: ALLOPURINOL 300 MG PO SCH (08:16)
[2021-05-18] MEDS: Pentoxifylline 400 MG Tab.ER PO SCH (08:16)
[2021-05-19] MEDS: Pentoxifylline 400 MG Tab.ER PO SCH (07:30)
[2021-05-19] MEDS: ALLOPURINOL 300 MG PO SCH (07:30)
[2021-05-19] MEDS: Memantine 10 MG Tab PO SCH ×2 (07:30→17:29)
[2021-05-20] MEDS: Pentoxifylline 400 MG Tab.ER PO SCH (08:20)
[2021-05-20] MEDS: ALLOPURINOL 300 MG PO SCH (08:20)
[2021-05-20] MEDS: Memantine 10 MG Tab PO SCH ×2 (08:20→17:45)
[2021-05-21] MEDS: ALLOPURINOL 300 MG PO SCH (07:59)
[2021-05-21] MEDS: Pentoxifylline 400 MG Tab.ER PO SCH (07:59)
[2021-05-21] MEDS: Memantine 10 MG Tab PO SCH ×2 (07:59→17:27)
[2021-05-22] MEDS: Pentoxifylline 400 MG Tab.ER PO SCH (08:01)
[2021-05-22] MEDS: ALLOPURINOL 300 MG PO SCH (08:01)
[2021-05-22] MEDS: Memantine 10 MG Tab PO SCH ×2 (08:01→17:09)
[2021-05-23] MEDS: Pentoxifylline 400 MG Tab.ER PO SCH (08:12)
[2021-05-23] MEDS: ALLOPURINOL 300 MG PO SCH (08:12)
[2021-05-23] MEDS: Memantine 10 MG Tab PO SCH ×2 (08:12→17:35)
[2021-05-24] MEDS: Pentoxifylline 400 MG Tab.ER PO SCH (08:21)
[2021-05-24] MEDS: Memantine 10 MG Tab PO SCH ×2 (08:21→17:48)
[2021-05-24] MEDS: ALLOPURINOL 300 MG PO SCH (08:22)
[2021-05-25] MEDS: Pentoxifylline 400 MG Tab.ER PO SCH (07:59)
[2021-05-25] MEDS: ALLOPURINOL 300 MG PO SCH (07:59)
[2021-05-25] MEDS: Memantine 10 MG Tab PO SCH ×2 (07:59→17:26)
[2021-05-26] MEDS: ALLOPURINOL 300 MG PO SCH (08:01)
[2021-05-26] MEDS: Pentoxifylline 400 MG Tab.ER PO SCH (08:02)
[2021-05-26] MEDS: Memantine 10 MG Tab PO SCH ×2 (08:02→17:30)
[2021-05-27] MEDS: Memantine 10 MG Tab PO SCH ×2 (07:46→17:11)
[2021-05-27] MEDS: ALLOPURINOL 300 MG PO SCH (07:46)
[2021-05-27] MEDS: Pentoxifylline 400 MG Tab.ER PO SCH (07:46)
[2021-05-28] MEDS: Pentoxifylline 400 MG Tab.ER PO SCH (07:59)
[2021-05-28] MEDS: ALLOPURINOL 300 MG PO SCH (07:59)
[2021-05-28] MEDS: Memantine 10 MG Tab PO SCH ×2 (07:59→17:21)
[2021-05-29] MEDS: Memantine 10 MG Tab PO SCH ×2 (08:30→17:28)
[2021-05-29] MEDS: ALLOPURINOL 300 MG PO SCH (08:30)
[2021-05-29] MEDS: Pentoxifylline 400 MG Tab.ER PO SCH (08:31)
[2021-05-30] MEDS: ALLOPURINOL 300 MG PO SCH (08:16)
[2021-05-30] MEDS: Pentoxifylline 400 MG Tab.ER PO SCH (08:17)
[2021-05-30] MEDS: Memantine 10 MG Tab PO SCH ×2 (08:17→17:34)
[2021-05-31] MEDS: Memantine 10 MG Tab PO SCH ×2 (07:58→17:15)
[2021-05-31] MEDS: ALLOPURINOL 300 MG PO SCH (07:58)
[2021-05-31] MEDS: Pentoxifylline 400 MG Tab.ER PO SCH (07:59)
[2021-06-01] MEDS: Pentoxifylline 400 MG Tab.ER PO SCH (08:09)
[2021-06-01] MEDS: Memantine 10 MG Tab PO SCH ×2 (08:09→17:16)
[2021-06-01] MEDS: ALLOPURINOL 300 MG PO SCH (08:09)
[2021-06-01] MEDS ORDERED: COVID-19 VACC,MRNA(MODERNA)/PF 100 MCG/0.5 mL - 7.5 mL MDV IM ONE (10:30)
[2021-06-02] MEDS: ALLOPURINOL 300 MG PO SCH (08:05)
[2021-06-02] MEDS: Pentoxifylline 400 MG Tab.ER PO SCH (08:05)
[2021-06-02] MEDS: Memantine 10 MG Tab PO SCH ×2 (08:05→17:04)
[2021-06-03] MEDS: Pentoxifylline 400 MG Tab.ER PO SCH (08:21)
[2021-06-03] MEDS: ALLOPURINOL 300 MG PO SCH (08:21)
[2021-06-03] MEDS: Memantine 10 MG Tab PO SCH ×2 (08:21→17:32)
[2021-06-04] MEDS: Memantine 10 MG Tab PO SCH ×2 (08:04→17:22)
[2021-06-04] MEDS: ALLOPURINOL 300 MG PO SCH (08:04)
[2021-06-04] MEDS: Pentoxifylline 400 MG Tab.ER PO SCH (08:04)
[2021-06-05] MEDS: Memantine 10 MG Tab PO SCH ×2 (07:42→17:18)
[2021-06-05] MEDS: Pentoxifylline 400 MG Tab.ER PO SCH (07:42)
[2021-06-05] MEDS: ALLOPURINOL 300 MG PO SCH (07:42)
[2021-06-06] MEDS: Memantine 10 MG Tab PO SCH ×2 (08:04→17:02)
[2021-06-06] MEDS: ALLOPURINOL 300 MG PO SCH (08:04)
[2021-06-06] MEDS: Pentoxifylline 400 MG Tab.ER PO SCH (08:04)
[2021-06-07] MEDS: ALLOPURINOL 300 MG PO SCH (08:21)
[2021-06-07] MEDS: Memantine 10 MG Tab PO SCH ×2 (08:21→17:41)
[2021-06-07] MEDS: Pentoxifylline 400 MG Tab.ER PO SCH (08:22)
[2021-06-07] MEDS: CEPHALEXIN 500MG CAPS PO SCH (19:28)
[2021-06-08] MEDS: CEPHALEXIN 500MG CAPS PO SCH ×3 (08:14→17:15)
[2021-06-08] MEDS: Memantine 10 MG Tab PO SCH ×2 (08:14→17:15)
[2021-06-08] MEDS: Pentoxifylline 400 MG Tab.ER PO SCH (08:14)
[2021-06-08] MEDS: ALLOPURINOL 300 MG PO SCH (08:14)
[2021-06-09] MEDS: CEPHALEXIN 500MG CAPS PO SCH ×3 (07:46→17:51)
[2021-06-09] MEDS: Pentoxifylline 400 MG Tab.ER PO SCH (07:46)
[2021-06-09] MEDS: Memantine 10 MG Tab PO SCH ×2 (07:46→17:51)
[2021-06-09] MEDS: ALLOPURINOL 300 MG PO SCH (07:47)
[2021-06-10] MEDS: Pentoxifylline 400 MG Tab.ER PO SCH (08:56)
[2021-06-10] MEDS: Memantine 10 MG Tab PO SCH ×2 (08:56→17:39)
[2021-06-10] MEDS: CEPHALEXIN 500MG CAPS PO SCH ×3 (08:56→17:39)
[2021-06-10] MEDS: ALLOPURINOL 300 MG PO SCH (08:56)
[2021-06-11] MEDS: ALLOPURINOL 300 MG PO SCH (08:02)
[2021-06-11] MEDS: CEPHALEXIN 500MG CAPS PO SCH ×3 (08:03→17:13)
[2021-06-11] MEDS: Memantine 10 MG Tab PO SCH ×2 (08:03→17:13)
[2021-06-11] MEDS: Pentoxifylline 400 MG Tab.ER PO SCH (08:03)
[2021-06-12] MEDS: ALLOPURINOL 300 MG PO SCH (08:12)
[2021-06-12] MEDS: Memantine 10 MG Tab PO SCH ×2 (08:12→17:20)
[2021-06-12] MEDS: Pentoxifylline 400 MG Tab.ER PO SCH (08:13)
[2021-06-12] MEDS: CEPHALEXIN 500MG CAPS PO SCH ×3 (08:13→17:21)
[2021-06-13] MEDS: ALLOPURINOL 300 MG PO SCH (08:22)
[2021-06-13] MEDS: CEPHALEXIN 500MG CAPS PO SCH ×3 (08:22→17:37)
[2021-06-13] MEDS: Pentoxifylline 400 MG Tab.ER PO SCH (08:22)
[2021-06-13] MEDS: Memantine 10 MG Tab PO SCH ×2 (08:22→17:38)
[2021-06-14] MEDS: ALLOPURINOL 300 MG PO SCH (08:06)
[2021-06-14] MEDS: Pentoxifylline 400 MG Tab.ER PO SCH (08:06)
[2021-06-14] MEDS: CEPHALEXIN 500MG CAPS PO SCH ×3 (08:06→17:04)
[2021-06-14] MEDS: Memantine 10 MG Tab PO SCH ×2 (08:06→17:04)
[2021-06-14] MEDS: Carbamide Peroxide 6.5% Otic Soln 15 ML Bottle EARBOTH SCH (18:51)
[2021-06-15] MEDS: Carbamide Peroxide 6.5% Otic Soln 15 ML Bottle EARBOTH SCH (07:55)
[2021-06-15] MEDS: ALLOPURINOL 300 MG PO SCH (07:55)
[2021-06-15] MEDS: Memantine 10 MG Tab PO SCH ×2 (07:55→17:18)
[2021-06-15] MEDS: Pentoxifylline 400 MG Tab.ER PO SCH (07:56)
[2021-06-15] MEDS: CEPHALEXIN 500MG CAPS PO SCH ×3 (07:56→17:18)
[2021-06-15] MEDS ORDERED: Carbamide Peroxide 6.5% Otic Soln 15 ML Bottle EARBOTH SCH (20:00)
[2021-06-16] MEDS: ALLOPURINOL 300 MG PO SCH (08:04)
[2021-06-16] MEDS: CEPHALEXIN 500MG CAPS PO SCH ×3 (08:04→17:09)
[2021-06-16] MEDS: Memantine 10 MG Tab PO SCH ×2 (08:04→17:09)
[2021-06-16] MEDS: Pentoxifylline 400 MG Tab.ER PO SCH (08:04)
[2021-06-17] MEDS: Memantine 10 MG Tab PO SCH ×2 (07:59→17:20)
[2021-06-17] MEDS: ALLOPURINOL 300 MG PO SCH (07:59)
[2021-06-17] MEDS: CEPHALEXIN 500MG CAPS PO SCH ×2 (07:59→11:13)
[2021-06-17] MEDS: Pentoxifylline 400 MG Tab.ER PO SCH (08:00)
[2021-06-18] MEDS: Memantine 10 MG Tab PO SCH ×2 (07:57→17:19)
[2021-06-18] MEDS: ALLOPURINOL 300 MG PO SCH (07:57)
[2021-06-18] MEDS: Pentoxifylline 400 MG Tab.ER PO SCH (07:57)
[2021-06-19] MEDS: ALLOPURINOL 300 MG PO SCH (08:02)
[2021-06-19] MEDS: Memantine 10 MG Tab PO SCH ×2 (08:02→17:11)
[2021-06-19] MEDS: Pentoxifylline 400 MG Tab.ER PO SCH (08:02)
[2021-06-20] MEDS: ALLOPURINOL 300 MG PO SCH (08:19)
[2021-06-20] MEDS: Pentoxifylline 400 MG Tab.ER PO SCH (08:20)
[2021-06-20] MEDS: Memantine 10 MG Tab PO SCH ×2 (08:20→17:12)
[2021-06-21] MEDS: Pentoxifylline 400 MG Tab.ER PO SCH (07:32)
[2021-06-21] MEDS: ALLOPURINOL 300 MG PO SCH (07:32)
[2021-06-21] MEDS: Memantine 10 MG Tab PO SCH ×2 (07:32→17:19)
[2021-06-22] MEDS: ALLOPURINOL 300 MG PO SCH (08:07)
[2021-06-22] MEDS: Pentoxifylline 400 MG Tab.ER PO SCH (08:07)
[2021-06-22] MEDS: Memantine 10 MG Tab PO SCH ×2 (08:07→17:04)
[2021-06-23] MEDS: Pentoxifylline 400 MG Tab.ER PO SCH (08:01)
[2021-06-23] MEDS: Memantine 10 MG Tab PO SCH ×2 (08:01→17:06)
[2021-06-23] MEDS: ALLOPURINOL 300 MG PO SCH (08:01)
[2021-06-24] MEDS: Pentoxifylline 400 MG Tab.ER PO SCH (07:41)
[2021-06-24] MEDS: Memantine 10 MG Tab PO SCH ×2 (07:41→17:09)
[2021-06-24] MEDS: ALLOPURINOL 300 MG PO SCH (07:41)
[2021-06-25] MEDS: ALLOPURINOL 300 MG PO SCH (08:26)
[2021-06-25] MEDS: Memantine 10 MG Tab PO SCH ×2 (08:26→17:08)
[2021-06-25] MEDS: Pentoxifylline 400 MG Tab.ER PO SCH (08:26)
[2021-06-26] MEDS: Memantine 10 MG Tab PO SCH ×2 (07:55→17:22)
[2021-06-26] MEDS: ALLOPURINOL 300 MG PO SCH (07:55)
[2021-06-26] MEDS: Pentoxifylline 400 MG Tab.ER PO SCH (07:55)
[2021-06-27] MEDS: ALLOPURINOL 300 MG PO SCH (08:07)
[2021-06-27] MEDS: Pentoxifylline 400 MG Tab.ER PO SCH (08:07)
[2021-06-27] MEDS: Memantine 10 MG Tab PO SCH ×2 (08:07→17:11)
[2021-06-28] MEDS: ALLOPURINOL 300 MG PO SCH (08:05)
[2021-06-28] MEDS: Pentoxifylline 400 MG Tab.ER PO SCH (08:06)
[2021-06-28] MEDS: Memantine 10 MG Tab PO SCH ×2 (08:06→17:21)
[2021-06-29] MEDS: Pentoxifylline 400 MG Tab.ER PO SCH (08:00)
[2021-06-29] MEDS: Memantine 10 MG Tab PO SCH ×2 (08:00→17:00)
[2021-06-29] MEDS: ALLOPURINOL 300 MG PO SCH (08:00)
[2021-06-30] MEDS: Memantine 10 MG Tab PO SCH ×2 (08:12→17:31)
[2021-06-30] MEDS: ALLOPURINOL 300 MG PO SCH (08:12)
[2021-06-30] MEDS: Pentoxifylline 400 MG Tab.ER PO SCH (08:13)
[2021-07-01] MEDS: ALLOPURINOL 300 MG PO SCH (08:15)
[2021-07-01] MEDS: Pentoxifylline 400 MG Tab.ER PO SCH (08:15)
[2021-07-01] MEDS: Memantine 10 MG Tab PO SCH ×2 (08:15→17:39)
[2021-07-02] MEDS: Memantine 10 MG Tab PO SCH ×2 (08:28→17:34)
[2021-07-02] MEDS: ALLOPURINOL 300 MG PO SCH (08:28)
[2021-07-02] MEDS: Pentoxifylline 400 MG Tab.ER PO SCH (08:28)
[2021-07-03] MEDS: ALLOPURINOL 300 MG PO SCH (08:06)
[2021-07-03] MEDS: Pentoxifylline 400 MG Tab.ER PO SCH (08:06)
[2021-07-03] MEDS: Memantine 10 MG Tab PO SCH ×2 (08:06→17:30)
[2021-07-04] MEDS: Pentoxifylline 400 MG Tab.ER PO SCH (08:07)
[2021-07-04] MEDS: Memantine 10 MG Tab PO SCH ×2 (08:07→17:31)
[2021-07-04] MEDS: ALLOPURINOL 300 MG PO SCH (08:07)
[2021-07-05] MEDS: ALLOPURINOL 300 MG PO SCH (08:23)
[2021-07-05] MEDS: Memantine 10 MG Tab PO SCH ×2 (08:23→17:52)
[2021-07-05] MEDS: Pentoxifylline 400 MG Tab.ER PO SCH (08:24)
[2021-07-06] MEDS: ALLOPURINOL 300 MG PO SCH (08:09)
[2021-07-06] MEDS: Pentoxifylline 400 MG Tab.ER PO SCH (08:10)
[2021-07-06] MEDS: Memantine 10 MG Tab PO SCH ×2 (08:10→17:13)
[2021-07-07] MEDS: Memantine 10 MG Tab PO SCH ×2 (08:06→17:09)
[2021-07-07] MEDS: Pentoxifylline 400 MG Tab.ER PO SCH (08:06)
[2021-07-07] MEDS: ALLOPURINOL 300 MG PO SCH (08:06)
[2021-07-08] MEDS: ALLOPURINOL 300 MG PO SCH (07:36)
[2021-07-08] MEDS: Pentoxifylline 400 MG Tab.ER PO SCH (07:37)
[2021-07-08] MEDS: Memantine 10 MG Tab PO SCH ×2 (07:37→17:10)
[2021-07-09] MEDS: Memantine 10 MG Tab PO SCH ×2 (08:04→17:12)
[2021-07-09] MEDS: Pentoxifylline 400 MG Tab.ER PO SCH (08:04)
[2021-07-09] MEDS: ALLOPURINOL 300 MG PO SCH (08:04)
[2021-07-10] MEDS: Pentoxifylline 400 MG Tab.ER PO SCH (08:03)
[2021-07-10] MEDS: Memantine 10 MG Tab PO SCH ×2 (08:03→17:08)
[2021-07-10] MEDS: ALLOPURINOL 300 MG PO SCH (08:03)
[2021-07-11] MEDS: Memantine 10 MG Tab PO SCH ×2 (07:55→17:23)
[2021-07-11] MEDS: ALLOPURINOL 300 MG PO SCH (07:55)
[2021-07-11] MEDS: Pentoxifylline 400 MG Tab.ER PO SCH (07:56)
[2021-07-12] MEDS: ALLOPURINOL 300 MG PO SCH (08:16)
[2021-07-12] MEDS: Pentoxifylline 400 MG Tab.ER PO SCH (08:17)
[2021-07-12] MEDS: Memantine 10 MG Tab PO SCH ×2 (08:17→17:29)
[2021-07-13] MEDS: ALLOPURINOL 300 MG PO SCH (07:52)
[2021-07-13] MEDS: Pentoxifylline 400 MG Tab.ER PO SCH (07:52)
[2021-07-13] MEDS: Memantine 10 MG Tab PO SCH ×2 (07:52→17:06)
[2021-07-14] MEDS: Memantine 10 MG Tab PO SCH ×2 (07:41→17:01)
[2021-07-14] MEDS: ALLOPURINOL 300 MG PO SCH (07:41)
[2021-07-14] MEDS: Pentoxifylline 400 MG Tab.ER PO SCH (07:41)
[2021-07-15] MEDS: Memantine 10 MG Tab PO SCH ×2 (08:11→17:37)
[2021-07-15] MEDS: ALLOPURINOL 300 MG PO SCH (08:11)
[2021-07-15] MEDS: Pentoxifylline 400 MG Tab.ER PO SCH (08:11)
[2021-07-16] MEDS: ALLOPURINOL 300 MG PO SCH (07:55)
[2021-07-16] MEDS: Memantine 10 MG Tab PO SCH ×2 (07:56→17:29)
[2021-07-16] MEDS: Pentoxifylline 400 MG Tab.ER PO SCH (07:56)
[2021-07-17] MEDS: ALLOPURINOL 300 MG PO SCH (08:03)
[2021-07-17] MEDS: Pentoxifylline 400 MG Tab.ER PO SCH (08:04)
[2021-07-17] MEDS: Memantine 10 MG Tab PO SCH ×2 (08:04→17:19)
[2021-07-18] MEDS: Memantine 10 MG Tab PO SCH ×2 (08:01→17:20)
[2021-07-18] MEDS: ALLOPURINOL 300 MG PO SCH (08:01)
[2021-07-18] MEDS: Pentoxifylline 400 MG Tab.ER PO SCH (08:01)
[2021-07-19] MEDS: Pentoxifylline 400 MG Tab.ER PO SCH (08:12)
[2021-07-19] MEDS: ALLOPURINOL 300 MG PO SCH (08:13)
[2021-07-19] MEDS: Memantine 10 MG Tab PO SCH ×2 (08:13→17:44)
[2021-07-20] MEDS: ALLOPURINOL 300 MG PO SCH (08:07)
[2021-07-20] MEDS: Memantine 10 MG Tab PO SCH ×2 (08:08→17:38)
[2021-07-20] MEDS: Pentoxifylline 400 MG Tab.ER PO SCH (08:08)
[2021-07-21] MEDS: Memantine 10 MG Tab PO SCH ×2 (08:08→17:25)
[2021-07-21] MEDS: Pentoxifylline 400 MG Tab.ER PO SCH (08:08)
[2021-07-21] MEDS: ALLOPURINOL 300 MG PO SCH (08:08)
[2021-07-22] MEDS: Memantine 10 MG Tab PO SCH ×2 (08:25→17:33)
[2021-07-22] MEDS: Pentoxifylline 400 MG Tab.ER PO SCH (08:25)
[2021-07-22] MEDS: ALLOPURINOL 300 MG PO SCH (08:25)
[2021-07-23] MEDS: Pentoxifylline 400 MG Tab.ER PO SCH (07:59)
[2021-07-23] MEDS: ALLOPURINOL 300 MG PO SCH (07:59)
[2021-07-23] MEDS: Memantine 10 MG Tab PO SCH ×2 (07:59→17:11)
[2021-07-24] MEDS: Pentoxifylline 400 MG Tab.ER PO SCH (08:03)
[2021-07-24] MEDS: Memantine 10 MG Tab PO SCH ×2 (08:03→17:00)
[2021-07-24] MEDS: ALLOPURINOL 300 MG PO SCH (08:03)
[2021-07-25] MEDS: ALLOPURINOL 300 MG PO SCH (08:13)
[2021-07-25] MEDS: Pentoxifylline 400 MG Tab.ER PO SCH (08:14)
[2021-07-25] MEDS: Memantine 10 MG Tab PO SCH ×2 (08:14→17:21)
[2021-07-26] MEDS: ALLOPURINOL 300 MG PO SCH (08:00)
[2021-07-26] MEDS: Memantine 10 MG Tab PO SCH ×2 (08:00→17:53)
[2021-07-26] MEDS: Pentoxifylline 400 MG Tab.ER PO SCH (08:00)
[2021-07-27] MEDS: ALLOPURINOL 300 MG PO SCH (07:47)
[2021-07-27] MEDS: Memantine 10 MG Tab PO SCH ×2 (07:47→17:15)
[2021-07-27] MEDS: Pentoxifylline 400 MG Tab.ER PO SCH (07:47)
[2021-07-28] MEDS: ALLOPURINOL 300 MG PO SCH (07:25)
[2021-07-28] MEDS: Memantine 10 MG Tab PO SCH ×2 (07:25→17:12)
[2021-07-28] MEDS: Pentoxifylline 400 MG Tab.ER PO SCH (07:25)
[2021-07-29] MEDS: Memantine 10 MG Tab PO SCH ×2 (07:30→17:09)
[2021-07-29] MEDS: Pentoxifylline 400 MG Tab.ER PO SCH (07:30)
[2021-07-29] MEDS: ALLOPURINOL 300 MG PO SCH (07:30)
[2021-07-30] MEDS: Memantine 10 MG Tab PO SCH ×2 (07:41→17:21)
[2021-07-30] MEDS: ALLOPURINOL 300 MG PO SCH (07:41)
[2021-07-30] MEDS: Pentoxifylline 400 MG Tab.ER PO SCH (07:42)
[2021-07-31] MEDS: ALLOPURINOL 300 MG PO SCH (07:55)
[2021-07-31] MEDS: Pentoxifylline 400 MG Tab.ER PO SCH (07:56)
[2021-07-31] MEDS: Memantine 10 MG Tab PO SCH ×2 (07:56→17:01)
[2021-08-01] MEDS: ALLOPURINOL 300 MG PO SCH (08:01)
[2021-08-01] MEDS: Pentoxifylline 400 MG Tab.ER PO SCH (08:01)
[2021-08-01] MEDS: Memantine 10 MG Tab PO SCH ×2 (08:01→17:11)
[2021-08-02] MEDS: ALLOPURINOL 300 MG PO SCH (08:03)
[2021-08-02] MEDS: Memantine 10 MG Tab PO SCH ×2 (08:04→17:10)
[2021-08-02] MEDS: Pentoxifylline 400 MG Tab.ER PO SCH (08:04)
[2021-08-03] MEDS: ALLOPURINOL 300 MG PO SCH (08:04)
[2021-08-03] MEDS: Memantine 10 MG Tab PO SCH ×2 (08:05→17:03)
[2021-08-03] MEDS: Pentoxifylline 400 MG Tab.ER PO SCH (08:05)
[2021-08-04] MEDS: Memantine 10 MG Tab PO SCH ×2 (08:04→17:01)
[2021-08-04] MEDS: ALLOPURINOL 300 MG PO SCH (08:04)
[2021-08-04] MEDS: Pentoxifylline 400 MG Tab.ER PO SCH (08:04)
[2021-08-05] MEDS: ALLOPURINOL 300 MG PO SCH (07:44)
[2021-08-05] MEDS: Memantine 10 MG Tab PO SCH ×2 (07:44→17:05)
[2021-08-05] MEDS: Pentoxifylline 400 MG Tab.ER PO SCH (07:45)
[2021-08-06] MEDS: Pentoxifylline 400 MG Tab.ER PO SCH (07:37)
[2021-08-06] MEDS: ALLOPURINOL 300 MG PO SCH (07:37)
[2021-08-06] MEDS: Memantine 10 MG Tab PO SCH ×2 (07:37→17:04)
[2021-08-06] MEDS ORDERED: Bacitracin/Neomycin/Polymyxin B Oint 0.9 GM U/D Packet TOP PRN (20:50)
[2021-08-07] MEDS: Memantine 10 MG Tab PO SCH ×2 (07:48→17:08)
[2021-08-07] MEDS: ALLOPURINOL 300 MG PO SCH (07:48)
[2021-08-07] MEDS: Pentoxifylline 400 MG Tab.ER PO SCH (07:48)
[2021-08-08] MEDS: Memantine 10 MG Tab PO SCH ×2 (08:01→17:21)
[2021-08-08] MEDS: Pentoxifylline 400 MG Tab.ER PO SCH (08:01)
[2021-08-08] MEDS: ALLOPURINOL 300 MG PO SCH (08:01)
[2021-08-09] MEDS: ALLOPURINOL 300 MG PO SCH (08:07)
[2021-08-09] MEDS: Memantine 10 MG Tab PO SCH ×2 (08:07→17:12)
[2021-08-09] MEDS: Pentoxifylline 400 MG Tab.ER PO SCH (08:07)
[2021-08-10] MEDS: Memantine 10 MG Tab PO SCH ×2 (07:53→17:04)
[2021-08-10] MEDS: Pentoxifylline 400 MG Tab.ER PO SCH (07:53)
[2021-08-10] MEDS: ALLOPURINOL 300 MG PO SCH (07:53)
[2021-08-11] MEDS: ALLOPURINOL 300 MG PO SCH (08:18)
[2021-08-11] MEDS: Memantine 10 MG Tab PO SCH ×2 (08:18→17:59)
[2021-08-11] MEDS: Pentoxifylline 400 MG Tab.ER PO SCH (08:18)
[2021-08-12] MEDS: Pentoxifylline 400 MG Tab.ER PO SCH (08:25)
[2021-08-12] MEDS: ALLOPURINOL 300 MG PO SCH (08:25)
[2021-08-12] MEDS: Memantine 10 MG Tab PO SCH ×2 (08:25→17:33)
[2021-08-13] MEDS: Pentoxifylline 400 MG Tab.ER PO SCH (07:56)
[2021-08-13] MEDS: Memantine 10 MG Tab PO SCH ×2 (07:56→17:16)
[2021-08-13] MEDS: ALLOPURINOL 300 MG PO SCH (07:56)
[2021-08-14] MEDS: ALLOPURINOL 300 MG PO SCH (08:31)
[2021-08-14] MEDS: Pentoxifylline 400 MG Tab.ER PO SCH (08:31)
[2021-08-14] MEDS: Memantine 10 MG Tab PO SCH ×2 (08:31→17:39)
[2021-08-15] MEDS: Memantine 10 MG Tab PO SCH ×2 (08:46→18:04)
[2021-08-15] MEDS: Pentoxifylline 400 MG Tab.ER PO SCH (08:46)
[2021-08-15] MEDS: ALLOPURINOL 300 MG PO SCH (08:46)
[2021-08-16] MEDS: ALLOPURINOL 300 MG PO SCH (08:17)
[2021-08-16] MEDS: Memantine 10 MG Tab PO SCH ×2 (08:17→17:37)
[2021-08-16] MEDS: Pentoxifylline 400 MG Tab.ER PO SCH (08:17)
[2021-08-17] MEDS: ALLOPURINOL 300 MG PO SCH (07:45)
[2021-08-17] MEDS: Pentoxifylline 400 MG Tab.ER PO SCH (07:46)
[2021-08-17] MEDS: Memantine 10 MG Tab PO SCH ×2 (07:46→17:34)
[2021-08-18] MEDS: ALLOPURINOL 300 MG PO SCH (07:34)
[2021-08-18] MEDS: Memantine 10 MG Tab PO SCH ×2 (07:34→17:16)
[2021-08-18] MEDS: Pentoxifylline 400 MG Tab.ER PO SCH (07:34)
[2021-08-19] MEDS: Pentoxifylline 400 MG Tab.ER PO SCH (08:13)
[2021-08-19] MEDS: ALLOPURINOL 300 MG PO SCH (08:13)
[2021-08-19] MEDS: Memantine 10 MG Tab PO SCH ×2 (08:13→17:24)
[2021-08-20] MEDS: Memantine 10 MG Tab PO SCH ×2 (08:00→17:11)
[2021-08-20] MEDS: ALLOPURINOL 300 MG PO SCH (08:00)
[2021-08-20] MEDS: Pentoxifylline 400 MG Tab.ER PO SCH (08:00)
[2021-08-21] MEDS: Pentoxifylline 400 MG Tab.ER PO SCH (08:20)
[2021-08-21] MEDS: Memantine 10 MG Tab PO SCH ×2 (08:20→17:13)
[2021-08-21] MEDS: ALLOPURINOL 300 MG PO SCH (08:20)
[2021-08-22] MEDS: ALLOPURINOL 300 MG PO SCH (08:11)
[2021-08-22] MEDS: Pentoxifylline 400 MG Tab.ER PO SCH (08:11)
[2021-08-22] MEDS: Memantine 10 MG Tab PO SCH ×2 (08:11→17:17)
[2021-08-23] MEDS: ALLOPURINOL 300 MG PO SCH (08:17)
[2021-08-23] MEDS: Memantine 10 MG Tab PO SCH ×2 (08:17→17:31)
[2021-08-23] MEDS: Pentoxifylline 400 MG Tab.ER PO SCH (08:18)
[2021-08-24] MEDS: Pentoxifylline 400 MG Tab.ER PO SCH (07:51)
[2021-08-24] MEDS: Memantine 10 MG Tab PO SCH ×2 (07:51→17:04)
[2021-08-24] MEDS: ALLOPURINOL 300 MG PO SCH (07:51)
[2021-08-25] MEDS: Memantine 10 MG Tab PO SCH ×2 (07:52→17:01)
[2021-08-25] MEDS: ALLOPURINOL 300 MG PO SCH (07:52)
[2021-08-25] MEDS: Pentoxifylline 400 MG Tab.ER PO SCH (07:52)
[2021-08-26] MEDS: Pentoxifylline 400 MG Tab.ER PO SCH (08:03)
[2021-08-26] MEDS: Memantine 10 MG Tab PO SCH ×2 (08:03→17:01)
[2021-08-26] MEDS: ALLOPURINOL 300 MG PO SCH (08:03)
[2021-08-27] MEDS: Pentoxifylline 400 MG Tab.ER PO SCH (07:48)
[2021-08-27] MEDS: ALLOPURINOL 300 MG PO SCH (07:48)
[2021-08-27] MEDS: Memantine 10 MG Tab PO SCH ×2 (07:48→17:20)
[2021-08-28] MEDS: ALLOPURINOL 300 MG PO SCH (07:49)
[2021-08-28] MEDS: Memantine 10 MG Tab PO SCH ×2 (07:49→17:12)
[2021-08-28] MEDS: Pentoxifylline 400 MG Tab.ER PO SCH (07:50)
[2021-08-29] MEDS: ALLOPURINOL 300 MG PO SCH (08:00)
[2021-08-29] MEDS: Pentoxifylline 400 MG Tab.ER PO SCH (08:00)
[2021-08-29] MEDS: Memantine 10 MG Tab PO SCH ×2 (08:00→17:23)
[2021-08-30] MEDS: Pentoxifylline 400 MG Tab.ER PO SCH (07:35)
[2021-08-30] MEDS: Memantine 10 MG Tab PO SCH ×2 (07:35→17:24)
[2021-08-30] MEDS: ALLOPURINOL 300 MG PO SCH (07:35)
[2021-08-31] MEDS: Memantine 10 MG Tab PO SCH ×2 (07:39→17:53)
[2021-08-31] MEDS: Pentoxifylline 400 MG Tab.ER PO SCH (07:39)
[2021-08-31] MEDS: ALLOPURINOL 300 MG PO SCH (07:39)
[2021-09-01] MEDS: Pentoxifylline 400 MG Tab.ER PO SCH (08:11)
[2021-09-01] MEDS: Memantine 10 MG Tab PO SCH ×2 (08:11→17:35)
[2021-09-01] MEDS: ALLOPURINOL 300 MG PO SCH (08:11)
[2021-09-02] MEDS: ALLOPURINOL 300 MG PO SCH (08:10)
[2021-09-02] MEDS: Pentoxifylline 400 MG Tab.ER PO SCH (08:11)
[2021-09-02] MEDS: Memantine 10 MG Tab PO SCH ×2 (08:11→17:18)
[2021-09-03] MEDS: ALLOPURINOL 300 MG PO SCH (07:35)
[2021-09-03] MEDS: Memantine 10 MG Tab PO SCH ×2 (07:35→17:15)
[2021-09-03] MEDS: Pentoxifylline 400 MG Tab.ER PO SCH (07:35)
[2021-09-04] MEDS: Memantine 10 MG Tab PO SCH ×2 (07:56→17:15)
[2021-09-04] MEDS: Pentoxifylline 400 MG Tab.ER PO SCH (07:56)
[2021-09-04] MEDS: ALLOPURINOL 300 MG PO SCH (07:56)
[2021-09-05] MEDS: Memantine 10 MG Tab PO SCH ×2 (08:01→17:39)
[2021-09-05] MEDS: ALLOPURINOL 300 MG PO SCH (08:01)
[2021-09-05] MEDS: Pentoxifylline 400 MG Tab.ER PO SCH (08:02)
[2021-09-06] MEDS: Pentoxifylline 400 MG Tab.ER PO SCH (08:00)
[2021-09-06] MEDS: ALLOPURINOL 300 MG PO SCH (08:01)
[2021-09-06] MEDS: Memantine 10 MG Tab PO SCH ×2 (08:01→17:17)
[2021-09-07] MEDS: ALLOPURINOL 300 MG PO SCH (08:03)
[2021-09-07] MEDS: Memantine 10 MG Tab PO SCH ×2 (08:03→17:04)
[2021-09-07] MEDS: Pentoxifylline 400 MG Tab.ER PO SCH (08:03)
[2021-09-08] MEDS: Memantine 10 MG Tab PO SCH ×2 (07:39→17:06)
[2021-09-08] MEDS: Pentoxifylline 400 MG Tab.ER PO SCH (07:39)
[2021-09-08] MEDS: ALLOPURINOL 300 MG PO SCH (07:39)
[2021-09-09] MEDS: Pentoxifylline 400 MG Tab.ER PO SCH (07:34)
[2021-09-09] MEDS: Memantine 10 MG Tab PO SCH ×2 (07:34→17:09)
[2021-09-09] MEDS: ALLOPURINOL 300 MG PO SCH (07:34)
[2021-09-10] MEDS: ALLOPURINOL 300 MG PO SCH (07:44)
[2021-09-10] MEDS: Memantine 10 MG Tab PO SCH ×2 (07:45→17:32)
[2021-09-10] MEDS: Pentoxifylline 400 MG Tab.ER PO SCH (07:45)
[2021-09-11] MEDS: Memantine 10 MG Tab PO SCH ×2 (07:54→17:27)
[2021-09-11] MEDS: ALLOPURINOL 300 MG PO SCH (07:54)
[2021-09-11] MEDS: Pentoxifylline 400 MG Tab.ER PO SCH (07:55)
[2021-09-12] MEDS: ALLOPURINOL 300 MG PO SCH (08:00)
[2021-09-12] MEDS: Pentoxifylline 400 MG Tab.ER PO SCH (08:00)
[2021-09-12] MEDS: Memantine 10 MG Tab PO SCH ×2 (08:00→17:17)
[2021-09-12] MEDS: Bacitracin/Neomycin/Polymyxin B Oint 0.9 GM U/D Packet TOP SCH (19:56)
[2021-09-13] MEDS: Memantine 10 MG Tab PO SCH ×2 (08:00→17:18)
[2021-09-13] MEDS: ALLOPURINOL 300 MG PO SCH (08:00)
[2021-09-13] MEDS: Pentoxifylline 400 MG Tab.ER PO SCH (08:00)
[2021-09-13] MEDS: Bacitracin/Neomycin/Polymyxin B Oint 0.9 GM U/D Packet TOP SCH ×2 (08:01→19:55)
[2021-09-14] MEDS: Memantine 10 MG Tab PO SCH ×2 (07:34→17:41)
[2021-09-14] MEDS: Pentoxifylline 400 MG Tab.ER PO SCH (07:34)
[2021-09-14] MEDS: ALLOPURINOL 300 MG PO SCH (07:34)
[2021-09-14] MEDS: Bacitracin/Neomycin/Polymyxin B Oint 0.9 GM U/D Packet TOP SCH ×2 (07:35→19:53)
[2021-09-14] MEDS: CEPHALEXIN 500MG CAPSULES PO SCH (17:41)
[2021-09-15] MEDS: ALLOPURINOL 300 MG PO SCH (08:08)
[2021-09-15] MEDS: Memantine 10 MG Tab PO SCH ×2 (08:08→17:00)
[2021-09-15] MEDS: Pentoxifylline 400 MG Tab.ER PO SCH (08:08)
[2021-09-15] MEDS: CEPHALEXIN 500MG CAPSULES PO SCH ×3 (08:10→17:00)
[2021-09-15] MEDS: Bacitracin/Neomycin/Polymyxin B Oint 0.9 GM U/D Packet TOP SCH ×2 (08:11→19:31)
[2021-09-16] MEDS: Pentoxifylline 400 MG Tab.ER PO SCH (07:57)
[2021-09-16] MEDS: ALLOPURINOL 300 MG PO SCH (07:57)
[2021-09-16] MEDS: Memantine 10 MG Tab PO SCH ×2 (07:57→17:00)
[2021-09-16] MEDS: CEPHALEXIN 500MG CAPSULES PO SCH ×3 (07:58→17:00)
[2021-09-16] MEDS: Bacitracin/Neomycin/Polymyxin B Oint 0.9 GM U/D Packet TOP SCH ×2 (07:58→19:52)
[2021-09-17] MEDS: Pentoxifylline 400 MG Tab.ER PO SCH (07:54)
[2021-09-17] MEDS: CEPHALEXIN 500MG CAPSULES PO SCH ×3 (07:54→17:07)
[2021-09-17] MEDS: ALLOPURINOL 300 MG PO SCH (07:54)
[2021-09-17] MEDS: Memantine 10 MG Tab PO SCH ×2 (07:54→17:07)
[2021-09-17] MEDS: Bacitracin/Neomycin/Polymyxin B Oint 0.9 GM U/D Packet TOP SCH ×2 (07:55→19:32)
[2021-09-18] MEDS: Memantine 10 MG Tab PO SCH ×2 (08:12→17:25)
[2021-09-18] MEDS: ALLOPURINOL 300 MG PO SCH (08:12)
[2021-09-18] MEDS: CEPHALEXIN 500MG CAPSULES PO SCH ×3 (08:12→17:26)
[2021-09-18] MEDS: Pentoxifylline 400 MG Tab.ER PO SCH (08:12)
[2021-09-18] MEDS: Bacitracin/Neomycin/Polymyxin B Oint 0.9 GM U/D Packet TOP SCH (08:18)
[2021-09-18] MEDS ORDERED: Hydrocortisone 1% Crm 30 GM Tube TOP SCH (18:00)
[2021-09-18] MEDS: Hydrocortisone 1% Crm 30 GM Tube TOP SCH (20:06)
[2021-09-19] MEDS: ALLOPURINOL 300 MG PO SCH (07:55)
[2021-09-19] MEDS: Memantine 10 MG Tab PO SCH ×2 (07:55→17:05)
[2021-09-19] MEDS: Pentoxifylline 400 MG Tab.ER PO SCH (07:56)
[2021-09-19] MEDS: CEPHALEXIN 500MG CAPSULES PO SCH ×3 (07:56→17:05)
[2021-09-19] MEDS: Hydrocortisone 1% Crm 30 GM Tube TOP SCH ×2 (07:56→20:04)
[2021-09-19 08:59] LABS: ANION GAP 8.2 meq/L (7-15)
[2021-09-20] MEDS: Hydrocortisone 1% Crm 30 GM Tube TOP SCH ×2 (08:03→19:53)
[2021-09-20] MEDS: ALLOPURINOL 300 MG PO SCH (08:03)
[2021-09-20] MEDS: Memantine 10 MG Tab PO SCH ×2 (08:03→17:22)
[2021-09-20] MEDS: CEPHALEXIN 500MG CAPSULES PO SCH ×3 (08:04→17:22)
[2021-09-20] MEDS: Pentoxifylline 400 MG Tab.ER PO SCH (08:04)
[2021-09-21] MEDS: Memantine 10 MG Tab PO SCH ×2 (08:20→17:26)
[2021-09-21] MEDS: CEPHALEXIN 500MG CAPSULES PO SCH ×3 (08:20→17:25)
[2021-09-21] MEDS: Pentoxifylline 400 MG Tab.ER PO SCH (08:20)
[2021-09-21] MEDS: ALLOPURINOL 300 MG PO SCH (08:20)
[2021-09-21] MEDS: Hydrocortisone 1% Crm 30 GM Tube TOP SCH ×2 (08:21→20:20)
[2021-09-22] MEDS: Memantine 10 MG Tab PO SCH ×2 (07:31→17:14)
[2021-09-22] MEDS: ALLOPURINOL 300 MG PO SCH (07:31)
[2021-09-22] MEDS: Pentoxifylline 400 MG Tab.ER PO SCH (07:31)
[2021-09-22] MEDS: CEPHALEXIN 500MG CAPSULES PO SCH ×3 (07:31→17:14)
[2021-09-22] MEDS: Hydrocortisone 1% Crm 30 GM Tube TOP SCH ×2 (07:32→20:19)
[2021-09-23] MEDS: Hydrocortisone 1% Crm 30 GM Tube TOP SCH ×2 (08:07→20:17)
[2021-09-23] MEDS: CEPHALEXIN 500MG CAPSULES PO SCH ×3 (08:07→17:02)
[2021-09-23] MEDS: ALLOPURINOL 300 MG PO SCH (08:07)
[2021-09-23] MEDS: Pentoxifylline 400 MG Tab.ER PO SCH (08:07)
[2021-09-23] MEDS: Memantine 10 MG Tab PO SCH ×2 (08:07→17:02)
[2021-09-24] MEDS: Pentoxifylline 400 MG Tab.ER PO SCH (07:52)
[2021-09-24] MEDS: Hydrocortisone 1% Crm 30 GM Tube TOP SCH (07:52)
[2021-09-24] MEDS: Memantine 10 MG Tab PO SCH ×2 (07:52→17:05)
[2021-09-24] MEDS: ALLOPURINOL 300 MG PO SCH (07:52)
[2021-09-24] MEDS: CEPHALEXIN 500MG CAPSULES PO SCH ×2 (07:52→11:04)
[2021-09-25] MEDS: ALLOPURINOL 300 MG PO SCH (08:21)
[2021-09-25] MEDS: Memantine 10 MG Tab PO SCH ×2 (08:21→17:34)
[2021-09-25] MEDS: Pentoxifylline 400 MG Tab.ER PO SCH (08:21)
[2021-09-26] MEDS: ALLOPURINOL 300 MG PO SCH (07:45)
[2021-09-26] MEDS: Pentoxifylline 400 MG Tab.ER PO SCH (07:45)
[2021-09-26] MEDS: Memantine 10 MG Tab PO SCH ×2 (07:45→17:15)
[2021-09-27] MEDS: Pentoxifylline 400 MG Tab.ER PO SCH (07:45)
[2021-09-27] MEDS: ALLOPURINOL 300 MG PO SCH (07:45)
[2021-09-27] MEDS: Memantine 10 MG Tab PO SCH ×2 (07:45→17:33)
[2021-09-28] MEDS: ALLOPURINOL 300 MG PO SCH (07:58)
[2021-09-28] MEDS: Pentoxifylline 400 MG Tab.ER PO SCH (07:58)
[2021-09-28] MEDS: Memantine 10 MG Tab PO SCH ×2 (07:58→17:10)
[2021-09-29] MEDS: ALLOPURINOL 300 MG PO SCH (07:54)
[2021-09-29] MEDS: Memantine 10 MG Tab PO SCH ×2 (07:54→17:21)
[2021-09-29] MEDS: Pentoxifylline 400 MG Tab.ER PO SCH (07:54)
[2021-09-30] MEDS: Pentoxifylline 400 MG Tab.ER PO SCH (08:02)
[2021-09-30] MEDS: Memantine 10 MG Tab PO SCH ×2 (08:02→17:09)
[2021-09-30] MEDS: ALLOPURINOL 300 MG PO SCH (08:02)
[2021-10-01] MEDS: Memantine 10 MG Tab PO SCH ×2 (08:01→17:09)
[2021-10-01] MEDS: ALLOPURINOL 300 MG PO SCH (08:01)
[2021-10-01] MEDS: Pentoxifylline 400 MG Tab.ER PO SCH (08:01)
[2021-10-02] MEDS: Pentoxifylline 400 MG Tab.ER PO SCH (08:09)
[2021-10-02] MEDS: ALLOPURINOL 300 MG PO SCH (08:10)
[2021-10-02] MEDS: Memantine 10 MG Tab PO SCH ×2 (08:10→17:51)
[2021-10-03] MEDS: Memantine 10 MG Tab PO SCH ×2 (07:37→17:23)
[2021-10-03] MEDS: ALLOPURINOL 300 MG PO SCH (07:37)
[2021-10-03] MEDS: Pentoxifylline 400 MG Tab.ER PO SCH (07:37)
[2021-10-04] MEDS: ALLOPURINOL 300 MG PO SCH (07:58)
[2021-10-04] MEDS: Memantine 10 MG Tab PO SCH ×2 (07:58→17:01)
[2021-10-04] MEDS: Pentoxifylline 400 MG Tab.ER PO SCH (07:59)
[2021-10-05] MEDS: ALLOPURINOL 300 MG PO SCH (08:04)
[2021-10-05] MEDS: Pentoxifylline 400 MG Tab.ER PO SCH (08:04)
[2021-10-05] MEDS: Memantine 10 MG Tab PO SCH ×2 (08:04→16:59)
[2021-10-06] MEDS: ALLOPURINOL 300 MG PO SCH (07:23)
[2021-10-06] MEDS: Pentoxifylline 400 MG Tab.ER PO SCH (07:23)
[2021-10-06] MEDS: Memantine 10 MG Tab PO SCH ×2 (07:23→17:09)
[2021-10-07] MEDS: Memantine 10 MG Tab PO SCH ×2 (07:54→17:03)
[2021-10-07] MEDS: Pentoxifylline 400 MG Tab.ER PO SCH (07:54)
[2021-10-07] MEDS: ALLOPURINOL 300 MG PO SCH (07:54)
[2021-10-07] MEDS: Carbamide Peroxide 6.5% Otic Soln 15 ML Bottle EARBOTH SCH (20:17)
[2021-10-08] MEDS: ALLOPURINOL 300 MG PO SCH (08:25)
[2021-10-08] MEDS: Carbamide Peroxide 6.5% Otic Soln 15 ML Bottle EARBOTH SCH ×3 (08:26→21:39)
[2021-10-08] MEDS: Pentoxifylline 400 MG Tab.ER PO SCH (08:26)
[2021-10-08] MEDS: Memantine 10 MG Tab PO SCH ×2 (08:26→17:48)
[2021-10-09] MEDS: ALLOPURINOL 300 MG PO SCH (08:02)
[2021-10-09] MEDS: Pentoxifylline 400 MG Tab.ER PO SCH (08:02)
[2021-10-09] MEDS: Memantine 10 MG Tab PO SCH ×2 (08:02→17:17)
[2021-10-09] MEDS: Carbamide Peroxide 6.5% Otic Soln 15 ML Bottle EARBOTH SCH ×2 (08:03→17:16)
[2021-10-10] MEDS: ALLOPURINOL 300 MG PO SCH (08:16)
[2021-10-10] MEDS: Memantine 10 MG Tab PO SCH ×2 (08:16→17:48)
[2021-10-10] MEDS: Carbamide Peroxide 6.5% Otic Soln 15 ML Bottle EARBOTH SCH (08:17)
[2021-10-10] MEDS: Pentoxifylline 400 MG Tab.ER PO SCH (08:17)
[2021-10-11] MEDS: Memantine 10 MG Tab PO SCH ×2 (08:19→17:19)
[2021-10-11] MEDS: ALLOPURINOL 300 MG PO SCH (08:19)
[2021-10-11] MEDS: Pentoxifylline 400 MG Tab.ER PO SCH (08:20)
[2021-10-12] MEDS: ALLOPURINOL 300 MG PO SCH (08:12)
[2021-10-12] MEDS: Pentoxifylline 400 MG Tab.ER PO SCH (08:12)
[2021-10-12] MEDS: Memantine 10 MG Tab PO SCH ×2 (08:12→17:01)
[2021-10-13] MEDS: Memantine 10 MG Tab PO SCH ×2 (08:25→17:09)
[2021-10-13] MEDS: Pentoxifylline 400 MG Tab.ER PO SCH (08:25)
[2021-10-13] MEDS: ALLOPURINOL 300 MG PO SCH (08:25)
[2021-10-14] MEDS: Pentoxifylline 400 MG Tab.ER PO SCH (07:56)
[2021-10-14] MEDS: Memantine 10 MG Tab PO SCH ×2 (07:56→16:59)
[2021-10-14] MEDS: ALLOPURINOL 300 MG PO SCH (07:56)
[2021-10-15] MEDS: ALLOPURINOL 300 MG PO SCH (07:39)
[2021-10-15] MEDS: Pentoxifylline 400 MG Tab.ER PO SCH (07:40)
[2021-10-15] MEDS: Memantine 10 MG Tab PO SCH ×2 (07:40→17:25)
[2021-10-16] MEDS: Memantine 10 MG Tab PO SCH ×2 (08:30→17:13)
[2021-10-16] MEDS: ALLOPURINOL 300 MG PO SCH (08:30)
[2021-10-16] MEDS: Pentoxifylline 400 MG Tab.ER PO SCH (08:30)
[2021-10-17] MEDS: Pentoxifylline 400 MG Tab.ER PO SCH (07:56)
[2021-10-17] MEDS: ALLOPURINOL 300 MG PO SCH (07:56)
[2021-10-17] MEDS: Memantine 10 MG Tab PO SCH ×2 (07:56→17:01)
[2021-10-18] MEDS: ALLOPURINOL 300 MG PO SCH (07:46)
[2021-10-18] MEDS: Memantine 10 MG Tab PO SCH ×2 (07:46→17:04)
[2021-10-18] MEDS: Pentoxifylline 400 MG Tab.ER PO SCH (07:47)
[2021-10-19] MEDS: Memantine 10 MG Tab PO SCH ×2 (07:51→17:14)
[2021-10-19] MEDS: ALLOPURINOL 300 MG PO SCH (07:51)
[2021-10-19] MEDS: Pentoxifylline 400 MG Tab.ER PO SCH (07:51)
[2021-10-20] MEDS: ALLOPURINOL 300 MG PO SCH (07:43)
[2021-10-20] MEDS: Pentoxifylline 400 MG Tab.ER PO SCH (07:44)
[2021-10-20] MEDS: Memantine 10 MG Tab PO SCH ×2 (07:44→17:03)
[2021-10-21] MEDS: Pentoxifylline 400 MG Tab.ER PO SCH (07:40)
[2021-10-21] MEDS: Memantine 10 MG Tab PO SCH ×2 (07:40→16:59)
[2021-10-21] MEDS: ALLOPURINOL 300 MG PO SCH (07:40)
[2021-10-22] MEDS: Memantine 10 MG Tab PO SCH ×2 (07:33→17:15)
[2021-10-22] MEDS: Pentoxifylline 400 MG Tab.ER PO SCH (07:33)
[2021-10-22] MEDS: ALLOPURINOL 300 MG PO SCH (07:33)
[2021-10-23] MEDS: ALLOPURINOL 300 MG PO SCH (07:21)
[2021-10-23] MEDS: Pentoxifylline 400 MG Tab.ER PO SCH (07:22)
[2021-10-23] MEDS: Memantine 10 MG Tab PO SCH ×2 (07:22→17:15)
[2021-10-24] MEDS: Memantine 10 MG Tab PO SCH ×2 (08:11→17:49)
[2021-10-24] MEDS: ALLOPURINOL 300 MG PO SCH (08:11)
[2021-10-24] MEDS: Pentoxifylline 400 MG Tab.ER PO SCH (08:11)
[2021-10-25] MEDS: Memantine 10 MG Tab PO SCH ×2 (07:28→17:20)
[2021-10-25] MEDS: Pentoxifylline 400 MG Tab.ER PO SCH (07:29)
[2021-10-25] MEDS: ALLOPURINOL 300 MG PO SCH (07:29)
[2021-10-26] MEDS: ALLOPURINOL 300 MG PO SCH (07:45)
[2021-10-26] MEDS: Memantine 10 MG Tab PO SCH ×2 (07:45→17:00)
[2021-10-26] MEDS: Pentoxifylline 400 MG Tab.ER PO SCH (07:46)
[2021-10-26] MEDS ORDERED: Tamsulosin 0.4 MG Cap.ER PO ONE (20:00)
[2021-10-27] MEDS: ALLOPURINOL 300 MG PO SCH (07:44)
[2021-10-27] MEDS: Pentoxifylline 400 MG Tab.ER PO SCH (07:44)
[2021-10-27] MEDS: Memantine 10 MG Tab PO SCH ×2 (07:44→17:32)
[2021-10-27] MEDS: Oseltamivir 30 MG Cap PO SCH (12:26)
[2021-10-28] MEDS: Pentoxifylline 400 MG Tab.ER PO SCH (07:42)
[2021-10-28] MEDS: Memantine 10 MG Tab PO SCH ×2 (07:42→17:31)
[2021-10-28] MEDS: ALLOPURINOL 300 MG PO SCH (07:42)
[2021-10-28] MEDS: Oseltamivir 30 MG Cap PO SCH (11:28)
[2021-10-29] MEDS: ALLOPURINOL 300 MG PO SCH (07:50)
[2021-10-29] MEDS: Pentoxifylline 400 MG Tab.ER PO SCH (07:50)
[2021-10-29] MEDS: Memantine 10 MG Tab PO SCH ×2 (07:50→17:06)
[2021-10-29] MEDS: Oseltamivir 30 MG Cap PO SCH (13:08)
[2021-10-30] MEDS: ALLOPURINOL 300 MG PO SCH (07:56)
[2021-10-30] MEDS: Memantine 10 MG Tab PO SCH ×2 (07:57→17:54)
[2021-10-30] MEDS: Pentoxifylline 400 MG Tab.ER PO SCH (07:57)
[2021-10-30] MEDS: Oseltamivir 30 MG Cap PO SCH (11:06)
[2021-10-30] MEDS ORDERED: Tamsulosin 0.4 MG Cap.ER PO SCH (17:15)
[2021-10-31] MEDS: Tamsulosin 0.4 MG Cap.ER #OWN MED# PO SCH (07:57)
[2021-10-31] MEDS: ALLOPURINOL 300 MG PO SCH (07:57)
[2021-10-31] MEDS: Pentoxifylline 400 MG Tab.ER PO SCH (07:57)
[2021-10-31] MEDS: Memantine 10 MG Tab PO SCH ×2 (07:57→17:24)
[2021-10-31] MEDS: Oseltamivir 30 MG Cap PO SCH (11:31)
[2021-11-01] MEDS: Memantine 10 MG Tab PO SCH ×2 (07:39→17:26)
[2021-11-01] MEDS: ALLOPURINOL 300 MG PO SCH (07:39)
[2021-11-01] MEDS: Pentoxifylline 400 MG Tab.ER PO SCH (07:39)
[2021-11-01] MEDS: Tamsulosin 0.4 MG Cap.ER #OWN MED# PO SCH (07:39)
[2021-11-01] MEDS: Oseltamivir 30 MG Cap PO SCH (11:34)
[2021-11-02] MEDS: Tamsulosin 0.4 MG Cap.ER #OWN MED# PO SCH (07:29)
[2021-11-02] MEDS: Pentoxifylline 400 MG Tab.ER PO SCH (07:29)
[2021-11-02] MEDS: ALLOPURINOL 300 MG PO SCH (07:29)
[2021-11-02] MEDS: Memantine 10 MG Tab PO SCH ×2 (07:29→17:08)
[2021-11-02] MEDS: Oseltamivir 30 MG Cap PO SCH (11:09)
[2021-11-03] MEDS: Pentoxifylline 400 MG Tab.ER PO SCH (08:05)
[2021-11-03] MEDS: Tamsulosin 0.4 MG Cap.ER #OWN MED# PO SCH (08:05)
[2021-11-03] MEDS: ALLOPURINOL 300 MG PO SCH (08:05)
[2021-11-03] MEDS: Memantine 10 MG Tab PO SCH ×2 (08:05→17:15)
[2021-11-04] MEDS: Tamsulosin 0.4 MG Cap.ER #OWN MED# PO SCH (08:07)
[2021-11-04] MEDS: ALLOPURINOL 300 MG PO SCH (08:08)
[2021-11-04] MEDS: Pentoxifylline 400 MG Tab.ER PO SCH (08:08)
[2021-11-04] MEDS: Memantine 10 MG Tab PO SCH ×2 (08:08→17:50)
[2021-11-05] MEDS: ALLOPURINOL 300 MG PO SCH (07:22)
[2021-11-05] MEDS: Tamsulosin 0.4 MG Cap.ER #OWN MED# PO SCH (07:22)
[2021-11-05] MEDS: Pentoxifylline 400 MG Tab.ER PO SCH (07:23)
[2021-11-05] MEDS: Memantine 10 MG Tab PO SCH ×2 (07:23→17:39)
[2021-11-06] MEDS: Memantine 10 MG Tab PO SCH ×2 (07:57→17:32)
[2021-11-06] MEDS: Tamsulosin 0.4 MG Cap.ER #OWN MED# PO SCH (07:57)
[2021-11-06] MEDS: ALLOPURINOL 300 MG PO SCH (07:57)
[2021-11-06] MEDS: Pentoxifylline 400 MG Tab.ER PO SCH (07:58)
[2021-11-07] MEDS: Tamsulosin 0.4 MG Cap.ER #OWN MED# PO SCH (08:27)
[2021-11-07] MEDS: Pentoxifylline 400 MG Tab.ER PO SCH (08:28)
[2021-11-07] MEDS: ALLOPURINOL 300 MG PO SCH (08:28)
[2021-11-07] MEDS: Memantine 10 MG Tab PO SCH ×2 (08:28→18:06)
[2021-11-08] MEDS: Tamsulosin 0.4 MG Cap.ER #OWN MED# PO SCH (08:26)
[2021-11-08] MEDS: Memantine 10 MG Tab PO SCH ×2 (08:26→17:15)
[2021-11-08] MEDS: Pentoxifylline 400 MG Tab.ER PO SCH (08:26)
[2021-11-08] MEDS: ALLOPURINOL 300 MG PO SCH (08:26)
[2021-11-09] MEDS: ALLOPURINOL 300 MG PO SCH (07:34)
[2021-11-09] MEDS: Memantine 10 MG Tab PO SCH ×2 (07:34→17:13)
[2021-11-09] MEDS: Tamsulosin 0.4 MG Cap.ER #OWN MED# PO SCH (07:34)
[2021-11-09] MEDS: Pentoxifylline 400 MG Tab.ER PO SCH (07:34)
[2021-11-10] MEDS: Tamsulosin 0.4 MG Cap.ER #OWN MED# PO SCH (07:44)
[2021-11-10] MEDS: ALLOPURINOL 300 MG PO SCH (07:44)
[2021-11-10] MEDS: Memantine 10 MG Tab PO SCH ×2 (07:44→17:05)
[2021-11-10] MEDS: Pentoxifylline 400 MG Tab.ER PO SCH (07:44)
[2021-11-11] MEDS: Memantine 10 MG Tab PO SCH ×2 (08:01→17:09)
[2021-11-11] MEDS: Tamsulosin 0.4 MG Cap.ER #OWN MED# PO SCH (08:01)
[2021-11-11] MEDS: ALLOPURINOL 300 MG PO SCH (08:01)
[2021-11-11] MEDS: Pentoxifylline 400 MG Tab.ER PO SCH (08:01)
[2021-11-12] MEDS: Memantine 10 MG Tab PO SCH ×2 (07:50→17:11)
[2021-11-12] MEDS: Tamsulosin 0.4 MG Cap.ER #OWN MED# PO SCH (07:50)
[2021-11-12] MEDS: ALLOPURINOL 300 MG PO SCH (07:50)
[2021-11-12] MEDS: Pentoxifylline 400 MG Tab.ER PO SCH (07:50)
[2021-11-13] MEDS: ALLOPURINOL 300 MG PO SCH (07:53)
[2021-11-13] MEDS: Tamsulosin 0.4 MG Cap.ER #OWN MED# PO SCH (07:53)
[2021-11-13] MEDS: Memantine 10 MG Tab PO SCH ×2 (07:53→17:15)
[2021-11-13] MEDS: Pentoxifylline 400 MG Tab.ER PO SCH (07:53)
[2021-11-14] MEDS: Pentoxifylline 400 MG Tab.ER PO SCH (08:22)
[2021-11-14] MEDS: Memantine 10 MG Tab PO SCH ×2 (08:22→17:38)
[2021-11-14] MEDS: Tamsulosin 0.4 MG Cap.ER #OWN MED# PO SCH (08:22)
[2021-11-14] MEDS: ALLOPURINOL 300 MG PO SCH (08:22)
[2021-11-15] MEDS: Memantine 10 MG Tab PO SCH ×2 (07:44→17:04)
[2021-11-15] MEDS: Tamsulosin 0.4 MG Cap.ER #OWN MED# PO SCH (07:44)
[2021-11-15] MEDS: ALLOPURINOL 300 MG PO SCH (07:44)
[2021-11-15] MEDS: Pentoxifylline 400 MG Tab.ER PO SCH (07:45)
[2021-11-16] MEDS: Memantine 10 MG Tab PO SCH ×2 (07:59→17:08)
[2021-11-16] MEDS: Pentoxifylline 400 MG Tab.ER PO SCH (07:59)
[2021-11-16] MEDS: ALLOPURINOL 300 MG PO SCH (07:59)
[2021-11-16] MEDS: Tamsulosin 0.4 MG Cap.ER #OWN MED# PO SCH (07:59)
[2021-11-17] MEDS: Tamsulosin 0.4 MG Cap.ER #OWN MED# PO SCH (08:51)
[2021-11-17] MEDS: Memantine 10 MG Tab PO SCH ×2 (08:51→17:06)
[2021-11-17] MEDS: ALLOPURINOL 300 MG PO SCH (08:51)
[2021-11-17] MEDS: Pentoxifylline 400 MG Tab.ER PO SCH (08:51)
[2021-11-18] MEDS: Pentoxifylline 400 MG Tab.ER PO SCH (07:50)
[2021-11-18] MEDS: ALLOPURINOL 300 MG PO SCH (07:50)
[2021-11-18] MEDS: Tamsulosin 0.4 MG Cap.ER #OWN MED# PO SCH (07:50)
[2021-11-18] MEDS: Memantine 10 MG Tab PO SCH ×2 (07:50→17:09)
[2021-11-19] MEDS: ALLOPURINOL 300 MG PO SCH (07:44)
[2021-11-19] MEDS: Tamsulosin 0.4 MG Cap.ER #OWN MED# PO SCH (07:44)
[2021-11-19] MEDS: Memantine 10 MG Tab PO SCH ×2 (07:45→17:02)
[2021-11-19] MEDS: Pentoxifylline 400 MG Tab.ER PO SCH (07:45)
[2021-11-20] MEDS: Tamsulosin 0.4 MG Cap.ER #OWN MED# PO SCH (07:59)
[2021-11-20] MEDS: Memantine 10 MG Tab PO SCH ×2 (07:59→17:08)
[2021-11-20] MEDS: Pentoxifylline 400 MG Tab.ER PO SCH (07:59)
[2021-11-20] MEDS: ALLOPURINOL 300 MG PO SCH (07:59)
[2021-11-21] MEDS: ALLOPURINOL 300 MG PO SCH (08:22)
[2021-11-21] MEDS: Tamsulosin 0.4 MG Cap.ER #OWN MED# PO SCH (08:22)
[2021-11-21] MEDS: Memantine 10 MG Tab PO SCH ×2 (08:23→17:24)
[2021-11-21] MEDS: Pentoxifylline 400 MG Tab.ER PO SCH (08:23)
[2021-11-21] MEDS: Carbamide Peroxide 6.5% Otic Soln 15 ML Bottle EARBOTH SCH (16:49)
[2021-11-22] MEDS: Carbamide Peroxide 6.5% Otic Soln 15 ML Bottle EARBOTH SCH ×2 (07:36→19:20)
[2021-11-22] MEDS: Tamsulosin 0.4 MG Cap.ER #OWN MED# PO SCH (07:36)
[2021-11-22] MEDS: ALLOPURINOL 300 MG PO SCH (07:37)
[2021-11-22] MEDS: Pentoxifylline 400 MG Tab.ER PO SCH (07:37)
[2021-11-22] MEDS: Memantine 10 MG Tab PO SCH ×2 (07:37→17:00)
[2021-11-23] MEDS: Memantine 10 MG Tab PO SCH ×2 (08:06→17:26)
[2021-11-23] MEDS: Pentoxifylline 400 MG Tab.ER PO SCH (08:06)
[2021-11-23] MEDS: Tamsulosin 0.4 MG Cap.ER #OWN MED# PO SCH (08:06)
[2021-11-23] MEDS: ALLOPURINOL 300 MG PO SCH (08:06)
[2021-11-23] MEDS: Carbamide Peroxide 6.5% Otic Soln 15 ML Bottle EARBOTH SCH ×2 (08:07→19:47)
[2021-11-24] MEDS: Tamsulosin 0.4 MG Cap.ER #OWN MED# PO SCH (07:48)
[2021-11-24] MEDS: Carbamide Peroxide 6.5% Otic Soln 15 ML Bottle EARBOTH SCH (07:48)
[2021-11-24] MEDS: Memantine 10 MG Tab PO SCH ×2 (07:48→17:03)
[2021-11-24] MEDS: ALLOPURINOL 300 MG PO SCH (07:48)
[2021-11-24] MEDS: Pentoxifylline 400 MG Tab.ER PO SCH (07:49)
[2021-11-25] MEDS: ALLOPURINOL 300 MG PO SCH (07:40)
[2021-11-25] MEDS: Tamsulosin 0.4 MG Cap.ER #OWN MED# PO SCH (07:40)
[2021-11-25] MEDS: Memantine 10 MG Tab PO SCH ×2 (07:40→17:08)
[2021-11-25] MEDS: Pentoxifylline 400 MG Tab.ER PO SCH (07:40)
[2021-11-26] MEDS: ALLOPURINOL 300 MG PO SCH (08:36)
[2021-11-26] MEDS: Pentoxifylline 400 MG Tab.ER PO SCH (08:36)
[2021-11-26] MEDS: Memantine 10 MG Tab PO SCH ×2 (08:36→17:28)
[2021-11-26] MEDS: Tamsulosin 0.4 MG Cap.ER #OWN MED# PO SCH (08:36)
[2021-11-27] MEDS: ALLOPURINOL 300 MG PO SCH (07:41)
[2021-11-27] MEDS: Memantine 10 MG Tab PO SCH ×2 (07:41→17:12)
[2021-11-27] MEDS: Pentoxifylline 400 MG Tab.ER PO SCH (07:41)
[2021-11-27] MEDS: Tamsulosin 0.4 MG Cap.ER #OWN MED# PO SCH (07:42)
[2021-11-28] MEDS: Memantine 10 MG Tab PO SCH ×2 (07:54→17:06)
[2021-11-28] MEDS: ALLOPURINOL 300 MG PO SCH (07:54)
[2021-11-28] MEDS: Tamsulosin 0.4 MG Cap.ER #OWN MED# PO SCH (07:54)
[2021-11-28] MEDS: Pentoxifylline 400 MG Tab.ER PO SCH (07:54)
[2021-11-29] MEDS: ALLOPURINOL 300 MG PO SCH (07:59)
[2021-11-29] MEDS: Pentoxifylline 400 MG Tab.ER PO SCH (07:59)
[2021-11-29] MEDS: Memantine 10 MG Tab PO SCH ×2 (07:59→17:08)
[2021-11-29] MEDS: Tamsulosin 0.4 MG Cap.ER #OWN MED# PO SCH (07:59)
[2021-11-30] MEDS: Memantine 10 MG Tab PO SCH ×2 (07:50→17:00)
[2021-11-30] MEDS: ALLOPURINOL 300 MG PO SCH (07:50)
[2021-11-30] MEDS: Tamsulosin 0.4 MG Cap.ER #OWN MED# PO SCH (07:50)
[2021-11-30] MEDS: Pentoxifylline 400 MG Tab.ER PO SCH (07:50)
[2021-12-01] MEDS: Tamsulosin 0.4 MG Cap.ER #OWN MED# PO SCH (07:58)
[2021-12-01] MEDS: ALLOPURINOL 300 MG PO SCH (07:59)
[2021-12-01] MEDS: Pentoxifylline 400 MG Tab.ER PO SCH (07:59)
[2021-12-01] MEDS: Memantine 10 MG Tab PO SCH ×2 (07:59→17:46)
[2021-12-02] MEDS: Memantine 10 MG Tab PO SCH ×2 (07:28→17:30)
[2021-12-02] MEDS: ALLOPURINOL 300 MG PO SCH (07:28)
[2021-12-02] MEDS: Pentoxifylline 400 MG Tab.ER PO SCH (07:28)
[2021-12-02] MEDS: Tamsulosin 0.4 MG Cap.ER #OWN MED# PO SCH (07:28)
[2021-12-02] MEDS: Acetaminophen 325 MG Tab PO PRN ×3 (08:09→17:35)
[2021-12-03] MEDS: Tamsulosin 0.4 MG Cap.ER #OWN MED# PO SCH (07:45)
[2021-12-03] MEDS: Memantine 10 MG Tab PO SCH ×2 (07:45→17:53)
[2021-12-03] MEDS: ALLOPURINOL 300 MG PO SCH (07:45)
[2021-12-03] MEDS: Pentoxifylline 400 MG Tab.ER PO SCH (07:46)
[2021-12-04] MEDS: ALLOPURINOL 300 MG PO SCH (08:03)
[2021-12-04] MEDS: Tamsulosin 0.4 MG Cap.ER #OWN MED# PO SCH (08:03)
[2021-12-04] MEDS: Pentoxifylline 400 MG Tab.ER PO SCH (08:04)
[2021-12-04] MEDS: Memantine 10 MG Tab PO SCH ×2 (08:04→17:14)
[2021-12-05] MEDS: Tamsulosin 0.4 MG Cap.ER #OWN MED# PO SCH (08:05)
[2021-12-05] MEDS: Pentoxifylline 400 MG Tab.ER PO SCH (08:05)
[2021-12-05] MEDS: ALLOPURINOL 300 MG PO SCH (08:05)
[2021-12-05] MEDS: Memantine 10 MG Tab PO SCH ×2 (08:05→17:16)
[2021-12-06] MEDS: Tamsulosin 0.4 MG Cap.ER #OWN MED# PO SCH (08:13)
[2021-12-06] MEDS: ALLOPURINOL 300 MG PO SCH (08:13)
[2021-12-06] MEDS: Memantine 10 MG Tab PO SCH ×2 (08:14→17:18)
[2021-12-06] MEDS: Pentoxifylline 400 MG Tab.ER PO SCH (08:14)
[2021-12-07] MEDS: Pentoxifylline 400 MG Tab.ER PO SCH (07:58)
[2021-12-07] MEDS: Memantine 10 MG Tab PO SCH ×2 (07:58→17:03)
[2021-12-07] MEDS: ALLOPURINOL 300 MG PO SCH (07:58)
[2021-12-07] MEDS: Tamsulosin 0.4 MG Cap.ER #OWN MED# PO SCH (07:58)
[2021-12-08] MEDS: Tamsulosin 0.4 MG Cap.ER #OWN MED# PO SCH (07:59)
[2021-12-08] MEDS: ALLOPURINOL 300 MG PO SCH (08:00)
[2021-12-08] MEDS: Memantine 10 MG Tab PO SCH ×2 (08:00→17:12)
[2021-12-08] MEDS: Pentoxifylline 400 MG Tab.ER PO SCH (08:00)
[2021-12-09] MEDS: Pentoxifylline 400 MG Tab.ER PO SCH (07:59)
[2021-12-09] MEDS: Tamsulosin 0.4 MG Cap.ER #OWN MED# PO SCH (07:59)
[2021-12-09] MEDS: ALLOPURINOL 300 MG PO SCH (07:59)
[2021-12-09] MEDS: Memantine 10 MG Tab PO SCH ×2 (07:59→17:05)
[2021-12-10] MEDS: Tamsulosin 0.4 MG Cap.ER #OWN MED# PO SCH (07:59)
[2021-12-10] MEDS: Memantine 10 MG Tab PO SCH ×2 (07:59→17:05)
[2021-12-10] MEDS: ALLOPURINOL 300 MG PO SCH (07:59)
[2021-12-10] MEDS: Pentoxifylline 400 MG Tab.ER PO SCH (07:59)
[2021-12-11] MEDS: Tamsulosin 0.4 MG Cap.ER #OWN MED# PO SCH (08:03)
[2021-12-11] MEDS: Memantine 10 MG Tab PO SCH ×2 (08:03→17:03)
[2021-12-11] MEDS: ALLOPURINOL 300 MG PO SCH (08:03)
[2021-12-11] MEDS: Pentoxifylline 400 MG Tab.ER PO SCH (08:04)
[2021-12-12] MEDS: Memantine 10 MG Tab PO SCH ×2 (08:01→17:45)
[2021-12-12] MEDS: Pentoxifylline 400 MG Tab.ER PO SCH (08:01)
[2021-12-12] MEDS: Tamsulosin 0.4 MG Cap.ER #OWN MED# PO SCH (08:01)
[2021-12-12] MEDS: ALLOPURINOL 300 MG PO SCH (08:01)
[2021-12-13] MEDS: Tamsulosin 0.4 MG Cap.ER #OWN MED# PO SCH (08:02)
[2021-12-13] MEDS: Memantine 10 MG Tab PO SCH ×2 (08:03→17:33)
[2021-12-13] MEDS: Pentoxifylline 400 MG Tab.ER PO SCH (08:03)
[2021-12-13] MEDS: ALLOPURINOL 300 MG PO SCH (08:03)
[2021-12-14] MEDS: Memantine 10 MG Tab PO SCH ×2 (07:35→17:17)
[2021-12-14] MEDS: Tamsulosin 0.4 MG Cap.ER #OWN MED# PO SCH (07:35)
[2021-12-14] MEDS: ALLOPURINOL 300 MG PO SCH (07:35)
[2021-12-14] MEDS: Pentoxifylline 400 MG Tab.ER PO SCH (07:36)
[2021-12-15] MEDS: ALLOPURINOL 300 MG PO SCH (07:44)
[2021-12-15] MEDS: Pentoxifylline 400 MG Tab.ER PO SCH (07:44)
[2021-12-15] MEDS: Memantine 10 MG Tab PO SCH ×2 (07:44→17:29)
[2021-12-15] MEDS: Tamsulosin 0.4 MG Cap.ER #OWN MED# PO SCH (07:44)
[2021-12-16] MEDS: Memantine 10 MG Tab PO SCH ×2 (07:37→17:28)
[2021-12-16] MEDS: Pentoxifylline 400 MG Tab.ER PO SCH (07:37)
[2021-12-16] MEDS: ALLOPURINOL 300 MG PO SCH (07:37)
[2021-12-16] MEDS: Tamsulosin 0.4 MG Cap.ER #OWN MED# PO SCH (07:37)
[2021-12-17] MEDS: ALLOPURINOL 300 MG PO SCH (08:09)
[2021-12-17] MEDS: Tamsulosin 0.4 MG Cap.ER #OWN MED# PO SCH (08:09)
[2021-12-17] MEDS: Memantine 10 MG Tab PO SCH ×2 (08:09→17:42)
[2021-12-17] MEDS: Pentoxifylline 400 MG Tab.ER PO SCH (08:10)
[2021-12-18] MEDS: Tamsulosin 0.4 MG Cap.ER #OWN MED# PO SCH (08:06)
[2021-12-18] MEDS: Memantine 10 MG Tab PO SCH ×2 (08:06→16:59)
[2021-12-18] MEDS: ALLOPURINOL 300 MG PO SCH (08:06)
[2021-12-18] MEDS: Pentoxifylline 400 MG Tab.ER PO SCH (08:07)
[2021-12-19] MEDS: Pentoxifylline 400 MG Tab.ER PO SCH (08:14)
[2021-12-19] MEDS: Memantine 10 MG Tab PO SCH ×2 (08:14→17:25)
[2021-12-19] MEDS: Tamsulosin 0.4 MG Cap.ER #OWN MED# PO SCH (08:14)
[2021-12-19] MEDS: ALLOPURINOL 300 MG PO SCH (08:14)
[2021-12-20] MEDS: Tamsulosin 0.4 MG Cap.ER #OWN MED# PO SCH (08:04)
[2021-12-20] MEDS: Memantine 10 MG Tab PO SCH ×2 (08:04→17:34)
[2021-12-20] MEDS: ALLOPURINOL 300 MG PO SCH (08:04)
[2021-12-20] MEDS: Pentoxifylline 400 MG Tab.ER PO SCH (08:04)
[2021-12-21] MEDS: Memantine 10 MG Tab PO SCH ×2 (07:59→17:31)
[2021-12-21] MEDS: ALLOPURINOL 300 MG PO SCH (07:59)
[2021-12-21] MEDS: Pentoxifylline 400 MG Tab.ER PO SCH (07:59)
[2021-12-21] MEDS: Tamsulosin 0.4 MG Cap.ER #OWN MED# PO SCH (07:59)
[2021-12-22] MEDS: Memantine 10 MG Tab PO SCH ×2 (08:01→17:10)
[2021-12-22] MEDS: Tamsulosin 0.4 MG Cap.ER #OWN MED# PO SCH (08:01)
[2021-12-22] MEDS: Pentoxifylline 400 MG Tab.ER PO SCH (08:01)
[2021-12-22] MEDS: ALLOPURINOL 300 MG PO SCH (08:01)
[2021-12-23] MEDS: Pentoxifylline 400 MG Tab.ER PO SCH (08:10)
[2021-12-23] MEDS: Memantine 10 MG Tab PO SCH ×2 (08:10→17:09)
[2021-12-23] MEDS: Tamsulosin 0.4 MG Cap.ER #OWN MED# PO SCH (08:10)
[2021-12-23] MEDS: ALLOPURINOL 300 MG PO SCH (08:10)
[2021-12-24] MEDS: Tamsulosin 0.4 MG Cap.ER #OWN MED# PO SCH (07:40)
[2021-12-24] MEDS: ALLOPURINOL 300 MG PO SCH (07:40)
[2021-12-24] MEDS: Memantine 10 MG Tab PO SCH ×2 (07:40→17:07)
[2021-12-24] MEDS: Pentoxifylline 400 MG Tab.ER PO SCH (07:41)
[2021-12-25] MEDS: ALLOPURINOL 300 MG PO SCH (07:55)
[2021-12-25] MEDS: Tamsulosin 0.4 MG Cap.ER #OWN MED# PO SCH (07:55)
[2021-12-25] MEDS: Pentoxifylline 400 MG Tab.ER PO SCH (07:55)
[2021-12-25] MEDS: Memantine 10 MG Tab PO SCH ×2 (07:55→17:10)
[2021-12-26] MEDS: Pentoxifylline 400 MG Tab.ER PO SCH (07:50)
[2021-12-26] MEDS: Tamsulosin 0.4 MG Cap.ER #OWN MED# PO SCH (07:50)
[2021-12-26] MEDS: ALLOPURINOL 300 MG PO SCH (07:50)
[2021-12-26] MEDS: Memantine 10 MG Tab PO SCH ×2 (07:50→17:29)
[2021-12-27] MEDS: Memantine 10 MG Tab PO SCH ×2 (07:59→17:29)
[2021-12-27] MEDS: Pentoxifylline 400 MG Tab.ER PO SCH (07:59)
[2021-12-27] MEDS: Tamsulosin 0.4 MG Cap.ER #OWN MED# PO SCH (07:59)
[2021-12-27] MEDS: Allopurinol 100 MG Tab PO SCH (13:21)
[2021-12-28] MEDS: Allopurinol 100 MG Tab PO SCH (07:29)
[2021-12-28] MEDS: Tamsulosin 0.4 MG Cap.ER #OWN MED# PO SCH (07:29)
[2021-12-28] MEDS: Memantine 10 MG Tab PO SCH ×2 (07:30→17:03)
[2021-12-28] MEDS: Pentoxifylline 400 MG Tab.ER PO SCH (07:30)
[2021-12-29] MEDS: Tamsulosin 0.4 MG Cap.ER #OWN MED# PO SCH (07:30)
[2021-12-29] MEDS: Pentoxifylline 400 MG Tab.ER PO SCH (07:31)
[2021-12-29] MEDS: Memantine 10 MG Tab PO SCH ×2 (07:31→17:09)
[2021-12-29] MEDS: Allopurinol 100 MG Tab PO SCH (07:31)
[2021-12-30] MEDS: Pentoxifylline 400 MG Tab.ER PO SCH (07:35)
[2021-12-30] MEDS: Tamsulosin 0.4 MG Cap.ER #OWN MED# PO SCH (07:35)
[2021-12-30] MEDS: Memantine 10 MG Tab PO SCH ×2 (07:35→17:16)
[2021-12-30] MEDS: Allopurinol 100 MG Tab PO SCH (07:35)
[2021-12-31] MEDS: Memantine 10 MG Tab PO SCH ×2 (08:26→17:57)
[2021-12-31] MEDS: Pentoxifylline 400 MG Tab.ER PO SCH (08:26)
[2021-12-31] MEDS: Tamsulosin 0.4 MG Cap.ER #OWN MED# PO SCH (08:26)
[2021-12-31] MEDS: Allopurinol 100 MG Tab PO SCH (08:26)
[2022-01-01] MEDS: Allopurinol 100 MG Tab PO SCH (07:34)
[2022-01-01] MEDS: Tamsulosin 0.4 MG Cap.ER #OWN MED# PO SCH (07:34)
[2022-01-01] MEDS: Pentoxifylline 400 MG Tab.ER PO SCH (07:34)
[2022-01-01] MEDS: Memantine 10 MG Tab PO SCH ×2 (07:34→17:28)
[2022-01-02] MEDS: Pentoxifylline 400 MG Tab.ER PO SCH (07:58)
[2022-01-02] MEDS: Memantine 10 MG Tab PO SCH ×2 (07:58→17:08)
[2022-01-02] MEDS: Allopurinol 100 MG Tab PO SCH (07:58)
[2022-01-02] MEDS: Tamsulosin 0.4 MG Cap.ER #OWN MED# PO SCH (07:58)
[2022-01-03] MEDS: Tamsulosin 0.4 MG Cap.ER #OWN MED# PO SCH (07:53)
[2022-01-03] MEDS: Pentoxifylline 400 MG Tab.ER PO SCH (07:54)
[2022-01-03] MEDS: Memantine 10 MG Tab PO SCH ×2 (07:54→17:09)
[2022-01-03] MEDS: Allopurinol 100 MG Tab PO SCH (07:54)
[2022-01-04] MEDS: Pentoxifylline 400 MG Tab.ER PO SCH (07:46)
[2022-01-04] MEDS: Memantine 10 MG Tab PO SCH ×2 (07:46→17:15)
[2022-01-04] MEDS: Tamsulosin 0.4 MG Cap.ER #OWN MED# PO SCH (07:46)
[2022-01-04] MEDS: Allopurinol 100 MG Tab PO SCH (07:47)
[2022-01-05] MEDS: Memantine 10 MG Tab PO SCH ×2 (07:40→17:07)
[2022-01-05] MEDS: Tamsulosin 0.4 MG Cap.ER #OWN MED# PO SCH (07:40)
[2022-01-05] MEDS: Pentoxifylline 400 MG Tab.ER PO SCH (07:40)
[2022-01-05] MEDS: Allopurinol 100 MG Tab PO SCH (07:40)
[2022-01-06] MEDS: Allopurinol 100 MG Tab PO SCH (07:36)
[2022-01-06] MEDS: Pentoxifylline 400 MG Tab.ER PO SCH (07:36)
[2022-01-06] MEDS: Memantine 10 MG Tab PO SCH ×2 (07:36→17:06)
[2022-01-06] MEDS: Tamsulosin 0.4 MG Cap.ER #OWN MED# PO SCH (07:36)
[2022-01-07] MEDS: Allopurinol 100 MG Tab PO SCH (07:41)
[2022-01-07] MEDS: Memantine 10 MG Tab PO SCH ×2 (07:41→17:22)
[2022-01-07] MEDS: Tamsulosin 0.4 MG Cap.ER #OWN MED# PO SCH (07:41)
[2022-01-07] MEDS: Pentoxifylline 400 MG Tab.ER PO SCH (07:41)
[2022-01-08] MEDS: Tamsulosin 0.4 MG Cap.ER #OWN MED# PO SCH (07:47)
[2022-01-08] MEDS: Pentoxifylline 400 MG Tab.ER PO SCH (07:47)
[2022-01-08] MEDS: Allopurinol 100 MG Tab PO SCH (07:47)
[2022-01-08] MEDS: Memantine 10 MG Tab PO SCH ×2 (07:47→17:26)
[2022-01-09] MEDS: Pentoxifylline 400 MG Tab.ER PO SCH (07:57)
[2022-01-09] MEDS: Tamsulosin 0.4 MG Cap.ER #OWN MED# PO SCH (07:57)
[2022-01-09] MEDS: Memantine 10 MG Tab PO SCH ×2 (07:57→17:03)
[2022-01-09] MEDS: Allopurinol 100 MG Tab PO SCH (07:58)
[2022-01-10] MEDS: Memantine 10 MG Tab PO SCH ×2 (09:12→17:51)
[2022-01-10] MEDS: Tamsulosin 0.4 MG Cap.ER #OWN MED# PO SCH (09:12)
[2022-01-10] MEDS: Pentoxifylline 400 MG Tab.ER PO SCH (09:12)
[2022-01-10] MEDS: Allopurinol 100 MG Tab PO SCH (09:13)
[2022-01-11] MEDS: Allopurinol 100 MG Tab PO SCH (08:02)
[2022-01-11] MEDS: Pentoxifylline 400 MG Tab.ER PO SCH (08:02)
[2022-01-11] MEDS: Tamsulosin 0.4 MG Cap.ER #OWN MED# PO SCH (08:02)
[2022-01-11] MEDS: Memantine 10 MG Tab PO SCH ×2 (08:02→17:09)
[2022-01-12] MEDS: Pentoxifylline 400 MG Tab.ER PO SCH (07:23)
[2022-01-12] MEDS: Memantine 10 MG Tab PO SCH ×2 (07:23→17:56)
[2022-01-12] MEDS: Tamsulosin 0.4 MG Cap.ER #OWN MED# PO SCH (07:23)
[2022-01-12] MEDS: Allopurinol 100 MG Tab PO SCH (07:24)
[2022-01-13] MEDS: Memantine 10 MG Tab PO SCH ×2 (07:57→17:06)
[2022-01-13] MEDS: Tamsulosin 0.4 MG Cap.ER #OWN MED# PO SCH (07:57)
[2022-01-13] MEDS: Pentoxifylline 400 MG Tab.ER PO SCH (07:57)
[2022-01-13] MEDS: Allopurinol 100 MG Tab PO SCH (07:57)
[2022-01-14] MEDS: Pentoxifylline 400 MG Tab.ER PO SCH (08:00)
[2022-01-14] MEDS: Memantine 10 MG Tab PO SCH ×2 (08:00→17:45)
[2022-01-14] MEDS: Allopurinol 100 MG Tab PO SCH (08:00)
[2022-01-14] MEDS: Tamsulosin 0.4 MG Cap.ER #OWN MED# PO SCH (08:00)
[2022-01-15] MEDS: Tamsulosin 0.4 MG Cap.ER #OWN MED# PO SCH (08:12)
[2022-01-15] MEDS: Pentoxifylline 400 MG Tab.ER PO SCH (08:13)
[2022-01-15] MEDS: Memantine 10 MG Tab PO SCH ×2 (08:13→17:58)
[2022-01-15] MEDS: Allopurinol 100 MG Tab PO SCH (08:13)
[2022-01-15] MEDS: Acetaminophen 325 MG Tab PO PRN (12:59)
[2022-01-16] MEDS: Pentoxifylline 400 MG Tab.ER PO SCH (08:25)
[2022-01-16] MEDS: Allopurinol 100 MG Tab PO SCH (08:25)
[2022-01-16] MEDS: Tamsulosin 0.4 MG Cap.ER #OWN MED# PO SCH (08:25)
[2022-01-16] MEDS: Memantine 10 MG Tab PO SCH ×2 (08:25→17:12)
[2022-01-16 11:28] VITALS: BP 124/67; PULSE 78
[2022-01-17] MEDS: Memantine 10 MG Tab PO SCH ×2 (08:06→17:09)
[2022-01-17] MEDS: Tamsulosin 0.4 MG Cap.ER #OWN MED# PO SCH (08:06)
[2022-01-17] MEDS: Allopurinol 100 MG Tab PO SCH (08:06)
[2022-01-17] MEDS: Pentoxifylline 400 MG Tab.ER PO SCH (08:06)
[2022-01-18] MEDS: Pentoxifylline 400 MG Tab.ER PO SCH (07:59)
[2022-01-18] MEDS: Allopurinol 100 MG Tab PO SCH (07:59)
[2022-01-18] MEDS: Memantine 10 MG Tab PO SCH ×2 (07:59→17:28)
[2022-01-18] MEDS: Tamsulosin 0.4 MG Cap.ER #OWN MED# PO SCH (07:59)
[2022-01-19] MEDS: Allopurinol 100 MG Tab PO SCH (08:05)
[2022-01-19] MEDS: Memantine 10 MG Tab PO SCH ×2 (08:05→17:12)
[2022-01-19] MEDS: Pentoxifylline 400 MG Tab.ER PO SCH (08:05)
[2022-01-19] MEDS: Tamsulosin 0.4 MG Cap.ER #OWN MED# PO SCH (08:06)
[2022-01-20] MEDS: Allopurinol 100 MG Tab PO SCH (08:04)
[2022-01-20] MEDS: Pentoxifylline 400 MG Tab.ER PO SCH (08:04)
[2022-01-20] MEDS: Tamsulosin 0.4 MG Cap.ER #OWN MED# PO SCH (08:05)
[2022-01-20] MEDS: Memantine 10 MG Tab PO SCH ×2 (08:05→17:24)
[2022-01-21] MEDS: Memantine 10 MG Tab PO SCH ×2 (07:54→17:23)
[2022-01-21] MEDS: Allopurinol 100 MG Tab PO SCH (07:54)
[2022-01-21] MEDS: Tamsulosin 0.4 MG Cap.ER #OWN MED# PO SCH (07:54)
[2022-01-21] MEDS: Pentoxifylline 400 MG Tab.ER PO SCH (07:54)
[2022-01-22] MEDS: Pentoxifylline 400 MG Tab.ER PO SCH (07:47)
[2022-01-22] MEDS: Tamsulosin 0.4 MG Cap.ER #OWN MED# PO SCH (07:47)
[2022-01-22] MEDS: Allopurinol 100 MG Tab PO SCH (07:47)
[2022-01-22] MEDS: Memantine 10 MG Tab PO SCH ×2 (07:47→17:19)
[2022-01-23] MEDS: Memantine 10 MG Tab PO SCH (07:15)
[2022-01-23] MEDS: Pentoxifylline 400 MG Tab.ER PO SCH (07:15)
[2022-01-23] MEDS: Allopurinol 100 MG Tab PO SCH (07:15)
[2022-01-23] MEDS: Tamsulosin 0.4 MG Cap.ER #OWN MED# PO SCH (07:15)
== END 2022-01-23 08:48 | disposition swing bed (61) | DRG 57 ==
LOC: LL.SWG 01-25 10:43 → UNDODISIN 01-04 22:22
PROVIDERS: ADMIT Nurse Practitioner Family; ATTEND Nurse Practitioner Family
DX: G30.1 Alzheimer's disease with late onset (principal); I20.0 Unstable angina; L03.116 Cellulitis of left lower limb; F02.80 Dementia in other diseases classified elsewhere, unspecified severity, without behavioral disturbance, psychotic disturbance, mood disturbance, and anxiety; M1A.40X0 Other secondary chronic gout, unspecified site, without tophus (tophi); I73.9 Peripheral vascular disease, unspecified; Z66 Do not resuscitate; Z23 Encounter for immunization; M17.0 Bilateral primary osteoarthritis of knee; R41.3 Other amnesia; K21.9 Gastro-esophageal reflux disease without esophagitis; K52.9 Noninfective gastroenteritis and colitis, unspecified; M19.012 Primary osteoarthritis, left shoulder; M19.011 Primary osteoarthritis, right shoulder; Z88.8 Allergy status to other drugs, medicaments and biological substances; Z79.899 Other long term (current) drug therapy; Z87.442 Personal history of urinary calculi; Z90.49 Acquired absence of other specified parts of digestive tract
CPT/HCPCS: 0064A; 36415; 80053; 81001; 84153; 84443; 84550; 85025; 90662; 91301; A9270-GY; G0008

== ENCOUNTER → 2021-01-25 10:42 | Inpatient (IN) | payer MEDICARE, MEDICAID ==
--- NOTE | 2019-07-14 14:14 | PCM.HP.2 ---
H&P History of Present Illness - General Date of Service: 07/14/19 Admit Problem/Dx: Admission Diagnosis/Problem Admission Diagnosis/Problem Alzheimer'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 Source of Information: Patient, EMS Notes Reviewed, Family History Limitations: Reports: Altered Mental Status - History of Present Illness Initial Comments - Free Text/Narative: The patient is admitted to [facility] for his Alzheimer's dementia. His is the main historian, however the patient is able to partake in a conversation. He is confused to time and place. He is known to me, he has been declining in his memory over the last couple months. He has been forgetting to take medications and needing frequent reminders with daily cares. His is a resident in [facility]. - Related Data Allergies/Adverse Reactions: Allergies Allergy/AdvReac Type Severity Reaction Status Date / Time iodine Allergy Hives Verified 07/14/14 11:07 Home Medications: Home Meds Pentoxifylline [TRENtal] 400 mg PO DAILY 07/21/13 [History] allopurinoL [Zyloprim] 100 mg PO DAILY 07/21/13 [History] Memantine HCl 5 mg PO DAILY 07/14/19 [History] allopurinoL [Zyloprim] 300 mg PO DAILY 07/14/19 [History] Past Medical History HEENT History: Reports: Cataract, Hard of Hearing Cardiovascular History: Reports: PVD Gastrointestinal History: Reports: GERD Genitourinary History: Reports: Renal Calculus Musculoskeletal History: Reports: Gout Psychiatric History: Reports: Dementia - Infectious Disease History Infectious Disease History: Reports: Measles - Past Surgical History HEENT Surgical History: Reports: Cataract Surgery GI Surgical History: Reports: Cholecystectomy, Colonoscopy, Hernia, Inguinal Male Surgical History: Reports: Kidney Stone Extraction Musculoskeletal Surgical History: Reports: Other (See Below) Social & Family History - Family History : Reports: None Oncologic: Reports: Esophageal - Tobacco Use Smoking Status *Q: Former Smoker Years of Tobacco use: 40 Packs/Tins Daily: 1 Used Tobacco, but Quit: No Second Hand Smoke Exposure: No - Caffeine Use Caffeine Use: Reports: Coffee Other Caffeine Use: 1/2 cup occasionalloy - Recreational Drug Use Recreational Drug Use: No - Living Situation & Occupation Living situation: Reports: Occupation: Retired H&P Review of Systems - Review of Systems: Review Of Systems: See Below General: Reports: No Symptoms HEENT: Reports: No Symptoms Pulmonary: Reports: No Symptoms Cardiovascular: Reports: No Symptoms Gastrointestinal: Reports: No Symptoms Genitourinary: Reports: No Symptoms Musculoskeletal: Reports: No Symptoms Skin: Reports: No Symptoms Psychiatric: Reports: Confusion Neurological: Reports: Confusion Hematologic/Lymphatic: Reports: No Symptoms Immunologic: Reports: No Symptoms Exam - Exam Exam: See Below - Vital Signs Vital Signs: Last Vital Signs Temp 98.9 F 07/14/19 13:33 Pulse 71 07/14/19 13:33 Resp 18 07/14/19 13:33 BP 133/62 07/14/19 13:33 Pulse Ox 93 L 07/14/19 13:33 Weight: 178 lb 3.2 oz - Exam General: Alert, Cooperative HEENT: Hearing Intact, Mucosa Moist & [place], Nares Patent, Normal Nasal Septum, Posterior Pharynx Clear Neck: Supple, Trachea Midline Lungs: Clear to Auscultation, Normal Respiratory Effort Cardiovascular: Regular Rate, Regular Rhythm, Normal S1, Normal S2 GI/Abdominal Exam: Normal Bowel Sounds, Soft, Non-Tender Back Exam: Normal Inspection, Full Range of Motion Extremities: Normal Inspection, Normal Range of Motion, Non-Tender, No Pedal Edema, Normal Capillary Refill Peripheral Pulses: 1+: Dorsalis Pedis (L), Dorsalis Pedis (R) Skin: Warm, Dry, Intact Neurological: Reflexes Equal Bilateral Neuro Extensive - Mental Status: Alert, Normal Mood/Affect, Disorientation to Place, Disorientation to Time, Memory Loss-Recent Events Neuro Extensive - Motor, Sensory, Reflexes: Normal Gait, Normal Reflexes Psychiatric: Alert, Normal Affect, Normal Mood Sepsis Event Note - Evaluation Sepsis Screening Result: No Definite Risk - Focused Exam Vital Signs: Vital Signs Temp Pulse Resp BP Pulse Ox 07/14/19 13:33 98.9 F 71 18 133/62 93 L Date Exam was Performed: 07/14/19 Time Exam was Performed: 14:09 - Problem List (1) Alzheimer'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 SNOMED Code(s): 89676345 ICD Code: G30.9 - ALZHEIMER'S DISEASE, UNSPECIFIED; F02.80 - DEMENTIA IN OTH DISEASES CLASSD ELSWHR W/O BEHAVRL DISTURB Status: Acute Current Visit: Yes Qualifiers: Alzheimer's disease onset: unspecified onset Qualified Code(s): G30.9 - Alzheimer's disease, unspecified; F02.80 - Dementia in other diseases classified elsewhere without behavioral disturbance (2) PAD (peripheral artery disease) SNOMED Code(s): 635159849 ICD Code: I73.9 - PERIPHERAL VASCULAR DISEASE, UNSPECIFIED Status: Acute Current Visit: Yes (3) Gout SNOMED Code(s): 08557007 ICD Code: M10.9 - GOUT, UNSPECIFIED Status: Acute Current Visit: Yes Qualifiers: Gout site: multiple sites Gout etiology: unspecified cause Chronicity: chronic Qualified Code(s): M1A.09X0 - Idiopathic chronic gout, multiple sites , without tophus (tophi) Problem List Initiated/Reviewed/Updated: Yes Orders Last 24hrs: Active Orders 24 hr Category Date Time Status Patient Status [ADT] Routine ADT 07/14/19 14:00 Ordered Ambulate [RC] ASDIRECTED Care 07/14/19 13:59 Ordered Ambulate [RC] ASDIRECTED Care 07/14/19 13:59 Ordered Intake and Output [RC] ASDIRECTED Care 07/14/19 13:59 Ordered Oxygen Therapy [RC] PRN Care 07/14/19 14:00 Ordered VTE/DVT Education [RC] PER UNIT ROUTINE Care 07/14/19 14:00 Ordered Vital Signs [RC] PER UNIT ROUTINE Care 07/14/19 14:00 Ordered Regular Diet [DIET] Diet 07/14/19 Dinner Ordered Acetaminophen [Tylenol] Med 07/14/19 13:59 Ordered 650 mg PO Q4H PRN Memantine HCl [Memantine HCl] Med 07/14/19 18:00 Ordered 5 mg PO BID Pentoxifylline [TRENtal] Med 07/15/19 08:00 Ordered 400 mg PO DAILY Sennosides [Senna] Med 07/14/19 13:59 Ordered 1 mg PO BID PRN Temazepam [Restoril] Med 07/14/19 13:59 Ordered 15 mg PO BEDTIME PRN allopurinoL [Zyloprim] Med 07/15/19 08:00 Ordered 300 mg PO DAILY guaiFENesin [Robitussin] Med 07/14/19 13:59 Ordered 100 mg PO Q4H PRN Patient May [OM.PC] Click To Edit Oth 07/14/19 13:59 Ordered Resuscitation Status Routine Resus Stat 07/14/19 13:59 Ordered Assessment/Plan Comment:: 1. Alzheimer's dementia: the patient will continue on Namenda, increase dose to 5mg twice a day. Will continue to increase the dose if the patient tolerates 2. PAD: continue on trental for the intermittent claudication 3. Gout: continue on allopurinol. Monitor kidney function PLAN: The [facility] diagnoses. The patient will continue to decline with his memory and need more assistance with daily cares. Consulted with Dr Azalia Stovall in regards to this patient and plan of care. Roseann Neil,VISUAL DISPLAY MANAGER
[2019-07-14] MEDS: MEMANTINE HCL 5 MG PO SCH (17:35)
[2019-07-15] MEDS: Pentoxifylline 400 MG Tab.ER PO SCH (07:38)
[2019-07-15] MEDS: MEMANTINE HCL 5 MG PO SCH ×2 (07:38→17:18)
[2019-07-15] MEDS: ALLOPURINOL 300 MG PO SCH (07:38)
[2019-07-15 08:03] LABS: CHLORIDE,CL 106 mmol/L (98-107); SODIUM,NA 142 mmol/L (136-145)
[2019-07-16] MEDS: MEMANTINE HCL 5 MG PO SCH ×2 (07:59→17:48)
[2019-07-16] MEDS: Pentoxifylline 400 MG Tab.ER PO SCH (07:59)
[2019-07-16] MEDS: ALLOPURINOL 300 MG PO SCH (07:59)
[2019-07-17] MEDS: MEMANTINE HCL 5 MG PO SCH ×2 (08:03→17:18)
[2019-07-17] MEDS: Pentoxifylline 400 MG Tab.ER PO SCH (08:03)
[2019-07-17] MEDS: ALLOPURINOL 300 MG PO SCH (08:03)
[2019-07-18] MEDS: Pentoxifylline 400 MG Tab.ER PO SCH (07:13)
[2019-07-18] MEDS: ALLOPURINOL 300 MG PO SCH (07:13)
[2019-07-18] MEDS: MEMANTINE HCL 5 MG PO SCH ×2 (07:13→17:09)
[2019-07-19] MEDS: Pentoxifylline 400 MG Tab.ER PO SCH (07:51)
[2019-07-19] MEDS: MEMANTINE HCL 5 MG PO SCH ×2 (07:51→17:15)
[2019-07-19] MEDS: ALLOPURINOL 300 MG PO SCH (07:51)
[2019-07-20] MEDS: MEMANTINE HCL 5 MG PO SCH ×2 (07:29→17:10)
[2019-07-20] MEDS: Pentoxifylline 400 MG Tab.ER PO SCH (07:29)
[2019-07-20] MEDS: ALLOPURINOL 300 MG PO SCH (07:29)
[2019-07-21] MEDS: MEMANTINE HCL 5 MG PO SCH ×2 (07:20→17:25)
[2019-07-21] MEDS: ALLOPURINOL 300 MG PO SCH (07:20)
[2019-07-21] MEDS: Pentoxifylline 400 MG Tab.ER PO SCH (07:21)
[2019-07-22] MEDS: MEMANTINE HCL 5 MG PO SCH ×2 (07:43→17:05)
[2019-07-22] MEDS: ALLOPURINOL 300 MG PO SCH (07:43)
[2019-07-22] MEDS: Pentoxifylline 400 MG Tab.ER PO SCH (07:44)
[2019-07-23] MEDS: ALLOPURINOL 300 MG PO SCH (08:18)
[2019-07-23] MEDS: MEMANTINE HCL 5 MG PO SCH ×2 (08:18→17:30)
[2019-07-23] MEDS: Pentoxifylline 400 MG Tab.ER PO SCH (08:19)
[2019-07-24] MEDS: ALLOPURINOL 300 MG PO SCH (07:57)
[2019-07-24] MEDS: MEMANTINE HCL 5 MG PO SCH ×2 (07:58→17:05)
[2019-07-24] MEDS: Pentoxifylline 400 MG Tab.ER PO SCH (07:58)
[2019-07-25] MEDS: MEMANTINE HCL 5 MG PO SCH ×2 (07:41→17:04)
[2019-07-25] MEDS: ALLOPURINOL 300 MG PO SCH (07:41)
[2019-07-25] MEDS: Pentoxifylline 400 MG Tab.ER PO SCH (07:41)
[2019-07-26] MEDS: MEMANTINE HCL 5 MG PO SCH ×2 (07:37→17:03)
[2019-07-26] MEDS: Pentoxifylline 400 MG Tab.ER PO SCH (07:37)
[2019-07-26] MEDS: ALLOPURINOL 300 MG PO SCH (07:37)
[2019-07-27] MEDS: ALLOPURINOL 300 MG PO SCH (07:42)
[2019-07-27] MEDS: Pentoxifylline 400 MG Tab.ER PO SCH (07:43)
[2019-07-27] MEDS: MEMANTINE HCL 5 MG PO SCH ×2 (07:43→17:22)
[2019-07-28] MEDS: Pentoxifylline 400 MG Tab.ER PO SCH (08:29)
[2019-07-28] MEDS: ALLOPURINOL 300 MG PO SCH (08:29)
[2019-07-28] MEDS: MEMANTINE HCL 5 MG PO SCH ×2 (08:29→17:13)
[2019-07-29] MEDS: ALLOPURINOL 300 MG PO SCH (07:57)
[2019-07-29] MEDS: MEMANTINE HCL 5 MG PO SCH ×2 (07:57→17:06)
[2019-07-29] MEDS: Pentoxifylline 400 MG Tab.ER PO SCH (07:58)
[2019-07-30] MEDS: ALLOPURINOL 300 MG PO SCH (08:09)
[2019-07-30] MEDS: MEMANTINE HCL 5 MG PO SCH ×2 (08:09→17:59)
[2019-07-30] MEDS: Pentoxifylline 400 MG Tab.ER PO SCH (08:09)
[2019-07-31] MEDS: MEMANTINE HCL 5 MG PO SCH ×2 (07:45→17:47)
[2019-07-31] MEDS: ALLOPURINOL 300 MG PO SCH (07:45)
[2019-07-31] MEDS: Pentoxifylline 400 MG Tab.ER PO SCH (07:45)
[2019-08-01] MEDS: ALLOPURINOL 300 MG PO SCH (08:06)
[2019-08-01] MEDS: MEMANTINE HCL 5 MG PO SCH ×2 (08:06→17:40)
[2019-08-01] MEDS: Pentoxifylline 400 MG Tab.ER PO SCH (08:07)
[2019-08-02] MEDS: ALLOPURINOL 300 MG PO SCH (07:21)
[2019-08-02] MEDS: MEMANTINE HCL 5 MG PO SCH ×2 (07:21→17:16)
[2019-08-02] MEDS: Pentoxifylline 400 MG Tab.ER PO SCH (07:22)
[2019-08-03] MEDS: MEMANTINE HCL 5 MG PO SCH ×2 (08:03→17:18)
[2019-08-03] MEDS: ALLOPURINOL 300 MG PO SCH (08:03)
[2019-08-03] MEDS: Pentoxifylline 400 MG Tab.ER PO SCH (08:04)
[2019-08-04] MEDS: MEMANTINE HCL 5 MG PO SCH ×2 (07:52→17:35)
[2019-08-04] MEDS: ALLOPURINOL 300 MG PO SCH (07:52)
[2019-08-04] MEDS: Pentoxifylline 400 MG Tab.ER PO SCH (07:53)
[2019-08-05] MEDS: ALLOPURINOL 300 MG PO SCH (08:01)
[2019-08-05] MEDS: MEMANTINE HCL 5 MG PO SCH ×2 (08:02→17:51)
[2019-08-05] MEDS: Pentoxifylline 400 MG Tab.ER PO SCH (08:02)
[2019-08-06] MEDS: MEMANTINE HCL 5 MG PO SCH ×2 (08:35→17:46)
[2019-08-06] MEDS: ALLOPURINOL 300 MG PO SCH (08:35)
[2019-08-06] MEDS: Pentoxifylline 400 MG Tab.ER PO SCH (08:36)
[2019-08-07] MEDS: MEMANTINE HCL 5 MG PO SCH ×2 (07:23→17:53)
[2019-08-07] MEDS: ALLOPURINOL 300 MG PO SCH (07:23)
[2019-08-07] MEDS: Pentoxifylline 400 MG Tab.ER PO SCH (07:24)
[2019-08-08] MEDS: ALLOPURINOL 300 MG PO SCH (07:11)
[2019-08-08] MEDS: MEMANTINE HCL 5 MG PO SCH ×2 (07:11→17:30)
[2019-08-08] MEDS: Pentoxifylline 400 MG Tab.ER PO SCH (07:12)
[2019-08-09] MEDS: ALLOPURINOL 300 MG PO SCH (08:01)
[2019-08-09] MEDS: MEMANTINE HCL 5 MG PO SCH ×2 (08:02→17:45)
[2019-08-09] MEDS: Pentoxifylline 400 MG Tab.ER PO SCH (08:02)
[2019-08-10] MEDS: ALLOPURINOL 300 MG PO SCH (08:06)
[2019-08-10] MEDS: MEMANTINE HCL 5 MG PO SCH ×2 (08:06→17:52)
[2019-08-10] MEDS: Pentoxifylline 400 MG Tab.ER PO SCH (08:07)
[2019-08-11] MEDS: ALLOPURINOL 300 MG PO SCH (08:39)
[2019-08-11] MEDS: MEMANTINE HCL 5 MG PO SCH ×2 (08:40→18:03)
[2019-08-11] MEDS: Pentoxifylline 400 MG Tab.ER PO SCH (08:40)
[2019-08-12] MEDS: ALLOPURINOL 300 MG PO SCH (07:53)
[2019-08-12] MEDS: Pentoxifylline 400 MG Tab.ER PO SCH (07:54)
[2019-08-12] MEDS: MEMANTINE HCL 5 MG PO SCH ×2 (07:54→17:11)
[2019-08-13] MEDS: ALLOPURINOL 300 MG PO SCH (07:42)
[2019-08-13] MEDS: MEMANTINE HCL 5 MG PO SCH ×2 (07:42→17:11)
[2019-08-13] MEDS: Pentoxifylline 400 MG Tab.ER PO SCH (07:43)
[2019-08-14] MEDS: ALLOPURINOL 300 MG PO SCH (07:14)
[2019-08-14] MEDS: MEMANTINE HCL 5 MG PO SCH ×2 (07:14→17:11)
[2019-08-14] MEDS: Pentoxifylline 400 MG Tab.ER PO SCH (07:15)
[2019-08-15] MEDS: ALLOPURINOL 300 MG PO SCH (07:12)
[2019-08-15] MEDS: MEMANTINE HCL 5 MG PO SCH ×2 (07:12→17:04)
[2019-08-15] MEDS: Pentoxifylline 400 MG Tab.ER PO SCH (07:12)
[2019-08-16] MEDS: ALLOPURINOL 300 MG PO SCH (07:56)
[2019-08-16] MEDS: Pentoxifylline 400 MG Tab.ER PO SCH (07:56)
[2019-08-16] MEDS: MEMANTINE HCL 5 MG PO SCH ×2 (07:56→17:07)
[2019-08-17] MEDS: ALLOPURINOL 300 MG PO SCH (07:45)
[2019-08-17] MEDS: Pentoxifylline 400 MG Tab.ER PO SCH (07:45)
[2019-08-17] MEDS: MEMANTINE HCL 5 MG PO SCH ×2 (07:45→17:27)
[2019-08-18] MEDS: ALLOPURINOL 300 MG PO SCH (07:10)
[2019-08-18] MEDS: Pentoxifylline 400 MG Tab.ER PO SCH (07:10)
[2019-08-18] MEDS: MEMANTINE HCL 5 MG PO SCH ×2 (11:32→17:03)
[2019-08-19] MEDS: Pentoxifylline 400 MG Tab.ER PO SCH (07:34)
[2019-08-19] MEDS: MEMANTINE HCL 5 MG PO SCH ×2 (07:34→17:09)
[2019-08-19] MEDS: ALLOPURINOL 300 MG PO SCH (07:34)
[2019-08-20] MEDS: Pentoxifylline 400 MG Tab.ER PO SCH (07:53)
[2019-08-20] MEDS: MEMANTINE HCL 5 MG PO SCH ×2 (07:53→17:14)
[2019-08-20] MEDS: ALLOPURINOL 300 MG PO SCH (07:53)
--- NOTE | 2019-08-20 13:55 | PCM.PN ---
- General Info Date of Service: 08/20/19 Admission Dx/Problem (Free Text): Admission Diagnosis/Problem Admission Diagnosis/Problem Alzheimer'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 Functional Status: Reports: Pain Controlled, Tolerating Diet, Ambulating - Review of Systems General: Reports: No Symptoms HEENT: Reports: No Symptoms Pulmonary: Reports: No Symptoms Cardiovascular: Reports: No Symptoms Gastrointestinal: Reports: No Symptoms Genitourinary: Reports: No Symptoms Musculoskeletal: Reports: No Symptoms Skin: Reports: No Symptoms Neurological: Reports: Confusion, Other (short term memory loss) Psychiatric: Reports: Confusion - Patient Data Vitals - Most Recent: Last Vital Signs Temp 98.4 F 08/18/19 08:00 Pulse 69 08/18/19 08:00 Resp 17 08/11/19 08:00 BP 135/65 08/18/19 08:00 Pulse Ox 90 L 08/18/19 08:00 Weight - Most Recent: 183 lb 9.615 oz I&O - Last 24 Hours: Intake & Output 08/19/19 08/20/19 08/20/19 22:59 06:59 14:59 Intake Total 420 960 Balance 420 960 Med Orders - Current: Current Medications Acetaminophen (Tylenol) 650 mg PO Q4H PRN PRN Reason: Pain (Mild 1-3)/fever Guaifenesin (Robitussin) 100 mg PO Q4H PRN PRN Reason: cough Allopurinol [ (Zyloprim] 300 Mg Tab) 300 mg PO DAILY [facility] Last Admin: 08/20/19 07:53 Dose: 300 mg Memantine Hcl [ Memantine Hcl] 5 Mg Tab 5 mg PO BID [facility] Last Admin: 08/20/19 07:53 Dose: 5 mg Pentoxifylline (Trental) 400 mg PO DAILY [facility] Last Admin: 08/20/19 07:53 Dose: 400 mg Senna (Senna) 1 mg PO BID PRN PRN Reason: Constipation Temazepam (Restoril) 15 mg PO BEDTIME PRN PRN Reason: Sleep - Exam General: Alert, Cooperative (confused to the year) HEENT: Pupils Equal Neck: Supple Lungs: Clear to Auscultation, Normal Respiratory Effort Cardiovascular: Regular Rate, Regular Rhythm GI/Abdominal Exam: Normal Bowel Sounds, Soft, Non-Tender Back Exam: Normal Inspection, Full Range of Motion Extremities: Normal Inspection, Normal Range of Motion, Non-Tender, No Pedal Edema, Normal Capillary Refill Peripheral Pulses: 1+: Dorsalis Pedis (L), Dorsalis Pedis (R) Skin: Warm, Dry, Intact Neurological: No New Focal Deficit Psy/Mental Status: Alert, Normal Affect, Normal Mood Sepsis Event Note - Evaluation Sepsis Screening Result: No Definite Risk - Problem List & Annotations (1) Alzheimer'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 SNOMED Code(s): 13853944 Code(s): G30.9 - ALZHEIMER'S DISEASE, UNSPECIFIED; F02.80 - DEMENTIA IN OTH DISEASES CLASSD ELSWHR W/O BEHAVRL DISTURB Status: Acute Current Visit: Yes Qualifiers: Alzheimer's disease onset: unspecified onset Qualified Code(s): G30.9 - Alzheimer's disease, unspecified; F02.80 - Dementia in other diseases classified elsewhere without behavioral disturbance (2) PAD (peripheral artery disease) SNOMED Code(s): 097036355 Code(s): I73.9 - PERIPHERAL VASCULAR DISEASE, UNSPECIFIED Status: Acute Current Visit: Yes (3) Gout SNOMED Code(s): 47055271 Code(s): M10.9 - GOUT, UNSPECIFIED Status: Acute Current Visit: Yes Qualifiers: Gout site: multiple sites Gout etiology: unspecified cause Chronicity: chronic Qualified Code(s): M1A.09X0 - Idiopathic chronic gout, multiple sites , without tophus (tophi) - Problem List Review Problem List Initiated/Reviewed/Updated: Yes - Plan Plan:: 1. Alzheimer's dementia: the patient will continue on Namenda, increase dose to 5mg twice a day. Will continue to increase the dose if the patient tolerates 2. PAD: continue on trental for the intermittent claudication 3. Gout: continue on allopurinol. Monitor kidney function PLAN: The patient is needing swingbed status [facility] [employer] due to his current diagnoses. The patient will continue to decline with his memory and need more assistance with daily cares. Consulted with Dr Azalia Stovall in regards to this patient and plan of care. Roseann Neil CNP 08/20/2019: 1. Alzheimer's: continue on the Namenda. It is not medically recommended for the patient to be driving due to his memory loss. The patient needs daily reminders for his ADL's and medications need to be given to him by the nurse 2. PAD: continue on Trental, patient is asymptomatic 3. Gout: Continue on Allopurinol. Last BMP was 06/2019 The patient's condition will continue to decline due to his Alzheimer's. He is needing skilled care. Roseann Neil,PUTTIER
[2019-08-21] MEDS: Pentoxifylline 400 MG Tab.ER PO SCH (08:37)
[2019-08-21] MEDS: ALLOPURINOL 300 MG PO SCH (08:37)
[2019-08-21] MEDS: MEMANTINE HCL 5 MG PO SCH ×2 (08:37→17:16)
[2019-08-22] MEDS: MEMANTINE HCL 5 MG PO SCH ×2 (08:09→17:16)
[2019-08-22] MEDS: Pentoxifylline 400 MG Tab.ER PO SCH (08:09)
[2019-08-22] MEDS: ALLOPURINOL 300 MG PO SCH (08:09)
[2019-08-23] MEDS: MEMANTINE HCL 5 MG PO SCH ×2 (07:36→17:19)
[2019-08-23] MEDS: Pentoxifylline 400 MG Tab.ER PO SCH (07:36)
[2019-08-23] MEDS: ALLOPURINOL 300 MG PO SCH (07:36)
[2019-08-24] MEDS: MEMANTINE HCL 5 MG PO SCH ×2 (07:28→17:16)
[2019-08-24] MEDS: Pentoxifylline 400 MG Tab.ER PO SCH (07:28)
[2019-08-24] MEDS: ALLOPURINOL 300 MG PO SCH (07:28)
[2019-08-25] MEDS: ALLOPURINOL 300 MG PO SCH (07:09)
[2019-08-25] MEDS: MEMANTINE HCL 5 MG PO SCH ×2 (07:09→17:09)
[2019-08-25] MEDS: Pentoxifylline 400 MG Tab.ER PO SCH (07:09)
[2019-08-26] MEDS: Pentoxifylline 400 MG Tab.ER PO SCH (07:37)
[2019-08-26] MEDS: ALLOPURINOL 300 MG PO SCH (07:37)
[2019-08-26] MEDS: MEMANTINE HCL 5 MG PO SCH ×2 (07:37→17:23)
[2019-08-27] MEDS: ALLOPURINOL 300 MG PO SCH (07:56)
[2019-08-27] MEDS: MEMANTINE HCL 5 MG PO SCH ×2 (07:56→17:45)
[2019-08-27] MEDS: Pentoxifylline 400 MG Tab.ER PO SCH (07:56)
[2019-08-28] MEDS: Pentoxifylline 400 MG Tab.ER PO SCH (07:20)
[2019-08-28] MEDS: ALLOPURINOL 300 MG PO SCH (07:20)
[2019-08-28] MEDS: MEMANTINE HCL 5 MG PO SCH ×2 (07:20→17:37)
[2019-08-29] MEDS: Pentoxifylline 400 MG Tab.ER PO SCH (07:53)
[2019-08-29] MEDS: MEMANTINE HCL 5 MG PO SCH ×2 (07:53→17:18)
[2019-08-29] MEDS: ALLOPURINOL 300 MG PO SCH (07:53)
[2019-08-30] MEDS: ALLOPURINOL 300 MG PO SCH (07:53)
[2019-08-30] MEDS: MEMANTINE HCL 5 MG PO SCH ×2 (07:54→17:18)
[2019-08-30] MEDS: Pentoxifylline 400 MG Tab.ER PO SCH (07:54)
[2019-08-31] MEDS: Pentoxifylline 400 MG Tab.ER PO SCH (07:51)
[2019-08-31] MEDS: MEMANTINE HCL 5 MG PO SCH ×2 (07:51→17:29)
[2019-08-31] MEDS: ALLOPURINOL 300 MG PO SCH (07:51)
[2019-09-01] MEDS: MEMANTINE HCL 5 MG PO SCH ×2 (08:12→17:10)
[2019-09-01] MEDS: ALLOPURINOL 300 MG PO SCH (08:12)
[2019-09-01] MEDS: Pentoxifylline 400 MG Tab.ER PO SCH (08:13)
[2019-09-02] MEDS: ALLOPURINOL 300 MG PO SCH (08:20)
[2019-09-02] MEDS: MEMANTINE HCL 5 MG PO SCH ×2 (08:21→17:51)
[2019-09-02] MEDS: Pentoxifylline 400 MG Tab.ER PO SCH (08:21)
[2019-09-03] MEDS: ALLOPURINOL 300 MG PO SCH (09:03)
[2019-09-03] MEDS: MEMANTINE HCL 5 MG PO SCH ×2 (09:03→17:45)
[2019-09-03] MEDS: Pentoxifylline 400 MG Tab.ER PO SCH (09:04)
[2019-09-04] MEDS: ALLOPURINOL 300 MG PO SCH (07:17)
[2019-09-04] MEDS: MEMANTINE HCL 5 MG PO SCH ×2 (07:17→17:10)
[2019-09-04] MEDS: Pentoxifylline 400 MG Tab.ER PO SCH (07:17)
[2019-09-05] MEDS: ALLOPURINOL 300 MG PO SCH (08:07)
[2019-09-05] MEDS: MEMANTINE HCL 5 MG PO SCH ×2 (08:08→17:43)
[2019-09-05] MEDS: Pentoxifylline 400 MG Tab.ER PO SCH (08:09)
[2019-09-06] MEDS: Pentoxifylline 400 MG Tab.ER PO SCH (08:08)
[2019-09-06] MEDS: MEMANTINE HCL 5 MG PO SCH ×2 (08:09→18:24)
[2019-09-06] MEDS: ALLOPURINOL 300 MG PO SCH (08:09)
[2019-09-07] MEDS: Pentoxifylline 400 MG Tab.ER PO SCH (08:04)
[2019-09-07] MEDS: MEMANTINE HCL 5 MG PO SCH ×2 (08:04→17:26)
[2019-09-07] MEDS: ALLOPURINOL 300 MG PO SCH (08:04)
[2019-09-08] MEDS: ALLOPURINOL 300 MG PO SCH (07:06)
[2019-09-08] MEDS: Pentoxifylline 400 MG Tab.ER PO SCH (07:06)
[2019-09-08] MEDS: MEMANTINE HCL 5 MG PO SCH ×2 (07:06→17:39)
[2019-09-09] MEDS: Pentoxifylline 400 MG Tab.ER PO SCH (08:20)
[2019-09-09] MEDS: ALLOPURINOL 300 MG PO SCH (08:20)
[2019-09-09] MEDS: MEMANTINE HCL 5 MG PO SCH ×2 (08:20→17:42)
[2019-09-10] MEDS: MEMANTINE HCL 5 MG PO SCH ×2 (07:50→17:45)
[2019-09-10] MEDS: ALLOPURINOL 300 MG PO SCH (07:50)
[2019-09-10] MEDS: Pentoxifylline 400 MG Tab.ER PO SCH (07:50)
[2019-09-11] MEDS: Pentoxifylline 400 MG Tab.ER PO SCH (08:16)
[2019-09-11] MEDS: ALLOPURINOL 300 MG PO SCH (08:16)
[2019-09-11] MEDS: MEMANTINE HCL 5 MG PO SCH ×2 (08:16→17:39)
[2019-09-12] MEDS: Pentoxifylline 400 MG Tab.ER PO SCH (08:22)
[2019-09-12] MEDS: ALLOPURINOL 300 MG PO SCH (08:23)
[2019-09-12] MEDS: MEMANTINE HCL 5 MG PO SCH ×2 (08:23→17:12)
[2019-09-13] MEDS: Pentoxifylline 400 MG Tab.ER PO SCH (08:28)
[2019-09-13] MEDS: ALLOPURINOL 300 MG PO SCH (08:28)
[2019-09-13] MEDS: MEMANTINE HCL 5 MG PO SCH ×2 (08:29→17:45)
[2019-09-14] MEDS: ALLOPURINOL 300 MG PO SCH (07:39)
[2019-09-14] MEDS: Pentoxifylline 400 MG Tab.ER PO SCH (07:39)
[2019-09-14] MEDS: MEMANTINE HCL 5 MG PO SCH ×2 (07:39→17:19)
[2019-09-15] MEDS: MEMANTINE HCL 5 MG PO SCH ×2 (08:44→17:48)
[2019-09-15] MEDS: Pentoxifylline 400 MG Tab.ER PO SCH (08:45)
[2019-09-15] MEDS: ALLOPURINOL 300 MG PO SCH (08:45)
[2019-09-16] MEDS: ALLOPURINOL 300 MG PO SCH (07:53)
[2019-09-16] MEDS: MEMANTINE HCL 5 MG PO SCH ×2 (07:54→17:43)
[2019-09-16] MEDS: Pentoxifylline 400 MG Tab.ER PO SCH (07:54)
[2019-09-17] MEDS: MEMANTINE HCL 5 MG PO SCH ×2 (07:41→17:48)
[2019-09-17] MEDS: ALLOPURINOL 300 MG PO SCH (07:41)
[2019-09-17] MEDS: Pentoxifylline 400 MG Tab.ER PO SCH (07:41)
[2019-09-18] MEDS: MEMANTINE HCL 5 MG PO SCH ×2 (07:20→18:12)
[2019-09-18] MEDS: ALLOPURINOL 300 MG PO SCH (07:20)
[2019-09-18] MEDS: Pentoxifylline 400 MG Tab.ER PO SCH (07:20)
[2019-09-19] MEDS: ALLOPURINOL 300 MG PO SCH (08:04)
[2019-09-19] MEDS: MEMANTINE HCL 5 MG PO SCH ×2 (08:04→18:02)
[2019-09-19] MEDS: Pentoxifylline 400 MG Tab.ER PO SCH (08:05)
[2019-09-20] MEDS: ALLOPURINOL 300 MG PO SCH (08:11)
[2019-09-20] MEDS: MEMANTINE HCL 5 MG PO SCH ×2 (08:12→17:01)
[2019-09-20] MEDS: Pentoxifylline 400 MG Tab.ER PO SCH (08:12)
[2019-09-21] MEDS: ALLOPURINOL 300 MG PO SCH (08:02)
[2019-09-21] MEDS: MEMANTINE HCL 5 MG PO SCH ×2 (08:02→17:13)
[2019-09-21] MEDS: Pentoxifylline 400 MG Tab.ER PO SCH (08:02)
--- NOTE | 2019-09-21 18:01 | PCM.PN ---
- General Info Date of Service: 09/21/19 Admission Dx/Problem (Free Text): Admission Diagnosis/Problem Admission Diagnosis/Problem Alzheimer'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 Functional Status: Reports: Pain Controlled, Tolerating Diet, Ambulating - Review of Systems General: Reports: No Symptoms HEENT: Reports: No Symptoms Pulmonary: Reports: No Symptoms Cardiovascular: Reports: No Symptoms Gastrointestinal: Reports: No Symptoms Genitourinary: Reports: No Symptoms Musculoskeletal: Reports: No Symptoms Skin: Reports: No Symptoms Neurological: Reports: Confusion Psychiatric: Reports: Confusion - Patient Data Vitals - Most Recent: Last Vital Signs Temp 98.1 F 09/15/19 08:00 Pulse 70 09/15/19 08:00 Resp 18 09/15/19 08:00 BP 138/70 09/15/19 08:00 Pulse Ox 95 09/15/19 08:00 Weight - Most Recent: 184 lb 10.194 oz I&O - Last 24 Hours: Intake & Output 09/21/19 09/21/19 09/21/19 06:59 14:59 22:59 Intake Total 960 480 Balance 960 480 Med Orders - Current: Current Medications Acetaminophen (Tylenol) 650 mg PO Q4H PRN PRN Reason: Pain (Mild 1-3)/fever Guaifenesin (Robitussin) 100 mg PO Q4H PRN PRN Reason: cough Allopurinol [ (Zyloprim] 300 Mg Tab) 300 mg PO DAILY [facility] Last Admin: 09/21/19 08:02 Dose: 300 mg Memantine Hcl [ Memantine Hcl] 5 Mg Tab 5 mg PO BID [facility] Last Admin: 09/21/19 17:13 Dose: 5 mg Pentoxifylline (Trental) 400 mg PO DAILY [facility] Last Admin: 09/21/19 08:02 Dose: 400 mg Senna (Senna) 1 mg PO BID PRN PRN Reason: Constipation Temazepam (Restoril) 15 mg PO BEDTIME PRN PRN Reason: Sleep - Exam General: Alert, Cooperative, No Acute Distress Neck: Supple Lungs: Clear to Auscultation, Normal Respiratory Effort Cardiovascular: Regular Rate, Regular Rhythm GI/Abdominal Exam: Normal Bowel Sounds, Soft, Non-Tender, No Organomegaly Extremities: Normal Inspection, Normal Range of Motion, Non-Tender, No Pedal Edema, Normal Capillary Refill Skin: Warm, Dry, Intact Neurological: No New Focal Deficit Psy/Mental Status: Alert, Normal Affect, Normal Mood Sepsis Event Note - Evaluation Sepsis Screening Result: No Definite Risk - Problem List & Annotations (1) Alzheimer'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 SNOMED Code(s): 89116372 Code(s): G30.9 - ALZHEIMER'S DISEASE, UNSPECIFIED; F02.80 - DEMENTIA IN OTH DISEASES CLASSD ELSWHR W/O BEHAVRL DISTURB Status: Acute Current Visit: Yes Qualifiers: Alzheimer's disease onset: unspecified onset Qualified Code(s): G30.9 - Alzheimer's disease, unspecified; F02.80 - Dementia in other diseases classified elsewhere without behavioral disturbance (2) PAD (peripheral artery disease) SNOMED Code(s): 065400104 Code(s): I73.9 - PERIPHERAL VASCULAR DISEASE, UNSPECIFIED Status: Acute Current Visit: Yes (3) Gout SNOMED Code(s): 62709433 Code(s): M10.9 - GOUT, UNSPECIFIED Status: Acute Current Visit: Yes Qualifiers: Gout site: multiple sites Gout etiology: unspecified cause Chronicity: chronic Qualified Code(s): M1A.09X0 - Idiopathic chronic gout, multiple sites , without tophus (tophi) - Problem List Review Problem List Initiated/Reviewed/Updated: Yes - Plan Plan:: 1. Alzheimer's dementia: the patient will continue on Namenda, increase dose to 5mg twice a day. Will continue to increase the dose if the patient tolerates 2. PAD: continue on trental for the intermittent claudication 3. Gout: continue on allopurinol. Monitor kidney function PLAN: The patient is needing [facility]bed [facility] due to his current diagnoses. The patient will continue to decline with his memory and need more assistance with daily cares. Consulted with Dr Azalia Stovall in regards to this patient and plan of care. Roseann Neil CNP 08/20/2019: 1. Alzheimer's: continue on the Namenda. It is not medically recommended for the patient to be driving due to his memory loss. The patient needs daily reminders for his ADL's and medications need to be given to him by the nurse 2. PAD: continue on Trental, patient is asymptomatic 3. Gout: Continue on Allopurinol. Last BMP was 06/2019 The patient's condition will continue to decline due to his Alzheimer's. He is needing skilled care. Roseann Neil CNP 09/21/2019 Patient is doing well adjusting to the swingbed. He would like to drive but he has not and it is not medically recommended for the patient to be driving. Will continue on the current medications. No behaviors noted from the nursing staff. Roseann NeilSAMPLE CARD MAKER
[2019-09-22] MEDS: MEMANTINE HCL 5 MG PO SCH ×2 (08:00→17:13)
[2019-09-22] MEDS: Pentoxifylline 400 MG Tab.ER PO SCH (08:00)
[2019-09-22] MEDS: ALLOPURINOL 300 MG PO SCH (08:00)
[2019-09-23] MEDS: MEMANTINE HCL 5 MG PO SCH ×2 (07:34→17:23)
[2019-09-23] MEDS: ALLOPURINOL 300 MG PO SCH (07:34)
[2019-09-23] MEDS: Pentoxifylline 400 MG Tab.ER PO SCH (07:34)
[2019-09-24] MEDS: MEMANTINE HCL 5 MG PO SCH ×2 (08:05→17:34)
[2019-09-24] MEDS: ALLOPURINOL 300 MG PO SCH (08:05)
[2019-09-24] MEDS: Pentoxifylline 400 MG Tab.ER PO SCH (08:05)
[2019-09-25] MEDS: ALLOPURINOL 300 MG PO SCH (07:40)
[2019-09-25] MEDS: Pentoxifylline 400 MG Tab.ER PO SCH (07:40)
[2019-09-25] MEDS: MEMANTINE HCL 5 MG PO SCH ×2 (07:40→17:10)
[2019-09-26] MEDS: MEMANTINE HCL 5 MG PO SCH ×2 (07:53→17:06)
[2019-09-26] MEDS: Pentoxifylline 400 MG Tab.ER PO SCH (07:53)
[2019-09-26] MEDS: ALLOPURINOL 300 MG PO SCH (07:53)
[2019-09-27] MEDS: MEMANTINE HCL 5 MG PO SCH ×2 (08:05→17:20)
[2019-09-27] MEDS: Pentoxifylline 400 MG Tab.ER PO SCH (08:05)
[2019-09-27] MEDS: ALLOPURINOL 300 MG PO SCH (08:05)
[2019-09-28] MEDS: Pentoxifylline 400 MG Tab.ER PO SCH (08:02)
[2019-09-28] MEDS: ALLOPURINOL 300 MG PO SCH (08:02)
[2019-09-28] MEDS: MEMANTINE HCL 5 MG PO SCH ×2 (08:02→17:10)
[2019-09-29] MEDS: MEMANTINE HCL 5 MG PO SCH ×2 (07:52→17:33)
[2019-09-29] MEDS: ALLOPURINOL 300 MG PO SCH (07:52)
[2019-09-29] MEDS: Pentoxifylline 400 MG Tab.ER PO SCH (07:53)
[2019-09-30] MEDS: Pentoxifylline 400 MG Tab.ER PO SCH (07:54)
[2019-09-30] MEDS: ALLOPURINOL 300 MG PO SCH (07:54)
[2019-09-30] MEDS: MEMANTINE HCL 5 MG PO SCH ×2 (07:54→17:24)
[2019-10-01] MEDS: ALLOPURINOL 300 MG PO SCH (07:51)
[2019-10-01] MEDS: MEMANTINE HCL 5 MG PO SCH ×2 (07:52→17:49)
[2019-10-01] MEDS: Pentoxifylline 400 MG Tab.ER PO SCH (07:52)
[2019-10-02] MEDS: Pentoxifylline 400 MG Tab.ER PO SCH (07:57)
[2019-10-02] MEDS: MEMANTINE HCL 5 MG PO SCH ×2 (07:57→17:10)
[2019-10-02] MEDS: ALLOPURINOL 300 MG PO SCH (07:58)
[2019-10-03] MEDS: ALLOPURINOL 300 MG PO SCH (08:04)
[2019-10-03] MEDS: Pentoxifylline 400 MG Tab.ER PO SCH (08:04)
[2019-10-03] MEDS: MEMANTINE HCL 5 MG PO SCH ×2 (08:04→17:17)
[2019-10-04] MEDS: ALLOPURINOL 300 MG PO SCH (07:40)
[2019-10-04] MEDS: Pentoxifylline 400 MG Tab.ER PO SCH (07:41)
[2019-10-04] MEDS: MEMANTINE HCL 5 MG PO SCH ×2 (07:41→17:44)
[2019-10-05] MEDS: ALLOPURINOL 300 MG PO SCH (07:47)
[2019-10-05] MEDS: Pentoxifylline 400 MG Tab.ER PO SCH (07:48)
[2019-10-05] MEDS: MEMANTINE HCL 5 MG PO SCH ×2 (07:48→17:04)
[2019-10-06] MEDS: MEMANTINE HCL 5 MG PO SCH ×2 (08:08→17:17)
[2019-10-06] MEDS: Pentoxifylline 400 MG Tab.ER PO SCH (08:08)
[2019-10-06] MEDS: ALLOPURINOL 300 MG PO SCH (08:08)
[2019-10-07] MEDS: MEMANTINE HCL 5 MG PO SCH ×2 (08:19→17:51)
[2019-10-07] MEDS: ALLOPURINOL 300 MG PO SCH (08:19)
[2019-10-07] MEDS: Pentoxifylline 400 MG Tab.ER PO SCH (08:20)
[2019-10-08] MEDS: Pentoxifylline 400 MG Tab.ER PO SCH (07:43)
[2019-10-08] MEDS: MEMANTINE HCL 5 MG PO SCH ×2 (07:44→17:42)
[2019-10-08] MEDS: ALLOPURINOL 300 MG PO SCH (07:44)
[2019-10-09] MEDS: MEMANTINE HCL 5 MG PO SCH ×2 (08:26→17:48)
[2019-10-09] MEDS: Pentoxifylline 400 MG Tab.ER PO SCH (08:26)
[2019-10-09] MEDS: ALLOPURINOL 300 MG PO SCH (08:26)
[2019-10-10] MEDS: ALLOPURINOL 300 MG PO SCH (08:27)
[2019-10-10] MEDS: MEMANTINE HCL 5 MG PO SCH ×2 (08:27→17:46)
[2019-10-10] MEDS: Pentoxifylline 400 MG Tab.ER PO SCH (08:27)
[2019-10-11] MEDS: MEMANTINE HCL 5 MG PO SCH ×2 (08:36→17:25)
[2019-10-11] MEDS: ALLOPURINOL 300 MG PO SCH (08:36)
[2019-10-11] MEDS: Pentoxifylline 400 MG Tab.ER PO SCH (08:36)
[2019-10-12] MEDS: MEMANTINE HCL 5 MG PO SCH ×2 (07:52→17:04)
[2019-10-12] MEDS: Pentoxifylline 400 MG Tab.ER PO SCH (07:52)
[2019-10-12] MEDS: ALLOPURINOL 300 MG PO SCH (07:52)
[2019-10-13] MEDS: MEMANTINE HCL 5 MG PO SCH ×2 (08:27→17:26)
[2019-10-13] MEDS: Pentoxifylline 400 MG Tab.ER PO SCH (08:27)
[2019-10-13] MEDS: ALLOPURINOL 300 MG PO SCH (08:27)
[2019-10-14] MEDS: Pentoxifylline 400 MG Tab.ER PO SCH (07:39)
[2019-10-14] MEDS: ALLOPURINOL 300 MG PO SCH (07:39)
[2019-10-14] MEDS: MEMANTINE HCL 5 MG PO SCH ×2 (07:39→17:48)
[2019-10-15] MEDS: MEMANTINE HCL 5 MG PO SCH ×2 (08:03→17:07)
[2019-10-15] MEDS: Pentoxifylline 400 MG Tab.ER PO SCH (08:03)
[2019-10-15] MEDS: ALLOPURINOL 300 MG PO SCH (08:03)
[2019-10-16] MEDS: MEMANTINE HCL 5 MG PO SCH ×2 (08:11→17:26)
[2019-10-16] MEDS: ALLOPURINOL 300 MG PO SCH (08:11)
[2019-10-16] MEDS: Pentoxifylline 400 MG Tab.ER PO SCH (08:11)
[2019-10-17] MEDS: MEMANTINE HCL 5 MG PO SCH ×2 (08:05→17:20)
[2019-10-17] MEDS: Pentoxifylline 400 MG Tab.ER PO SCH (08:05)
[2019-10-17] MEDS: ALLOPURINOL 300 MG PO SCH (08:05)
[2019-10-18] MEDS: Pentoxifylline 400 MG Tab.ER PO SCH (08:25)
[2019-10-18] MEDS: ALLOPURINOL 300 MG PO SCH (08:25)
[2019-10-18] MEDS: MEMANTINE HCL 5 MG PO SCH ×2 (08:25→17:26)
[2019-10-19] MEDS: ALLOPURINOL 300 MG PO SCH (08:11)
[2019-10-19] MEDS: Pentoxifylline 400 MG Tab.ER PO SCH (08:11)
[2019-10-19] MEDS: MEMANTINE HCL 5 MG PO SCH ×2 (08:11→17:14)
[2019-10-20] MEDS: MEMANTINE HCL 5 MG PO SCH ×2 (08:10→17:16)
[2019-10-20] MEDS: ALLOPURINOL 300 MG PO SCH (08:10)
[2019-10-20] MEDS: Pentoxifylline 400 MG Tab.ER PO SCH (08:10)
[2019-10-21] MEDS: ALLOPURINOL 300 MG PO SCH (08:15)
[2019-10-21] MEDS: MEMANTINE HCL 5 MG PO SCH ×2 (08:16→17:19)
[2019-10-21] MEDS: Pentoxifylline 400 MG Tab.ER PO SCH (08:16)
[2019-10-22] MEDS: Pentoxifylline 400 MG Tab.ER PO SCH (07:44)
[2019-10-22] MEDS: MEMANTINE HCL 5 MG PO SCH ×2 (07:44→17:16)
[2019-10-22] MEDS: ALLOPURINOL 300 MG PO SCH (07:44)
[2019-10-23] MEDS: ALLOPURINOL 300 MG PO SCH (08:04)
[2019-10-23] MEDS: MEMANTINE HCL 5 MG PO SCH ×2 (08:05→17:39)
[2019-10-23] MEDS: Pentoxifylline 400 MG Tab.ER PO SCH (08:05)
[2019-10-24] MEDS: Pentoxifylline 400 MG Tab.ER PO SCH (07:44)
[2019-10-24] MEDS: MEMANTINE HCL 5 MG PO SCH ×2 (07:44→17:36)
[2019-10-24] MEDS: ALLOPURINOL 300 MG PO SCH (07:45)
[2019-10-25] MEDS: Pentoxifylline 400 MG Tab.ER PO SCH (08:08)
[2019-10-25] MEDS: ALLOPURINOL 300 MG PO SCH (08:08)
[2019-10-25] MEDS: MEMANTINE HCL 5 MG PO SCH ×2 (08:08→17:17)
--- NOTE | 2019-10-25 17:18 | PCM.PN ---
- General Info Date of Service: 10/25/19 Admission Dx/Problem (Free Text): Admission Diagnosis/Problem Admission Diagnosis/Problem Alzheimer'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 Subjective Update: The patient is seen as Facetime visit due to the mead virus pandemic. History is obtained from the nurse and the patient. - Review of Systems General: Reports: No Symptoms HEENT: Reports: No Symptoms Pulmonary: Reports: No Symptoms Cardiovascular: Reports: No Symptoms Gastrointestinal: Reports: No Symptoms Genitourinary: Reports: No Symptoms Musculoskeletal: Reports: Joint Pain Skin: Reports: No Symptoms Neurological: Reports: Confusion Psychiatric: Reports: Confusion - Patient Data Vitals - Most Recent: Last Vital Signs Temp 98.5 F 10/20/19 08:00 Pulse 68 10/20/19 08:00 Resp 20 10/20/19 08:00 BP 146/80 H 10/20/19 08:00 Pulse Ox 98 10/20/19 08:00 Weight - Most Recent: 192 lb 14.4 oz I&O - Last 24 Hours: Intake & Output 10/25/19 10/25/19 10/25/19 06:59 14:59 22:59 Intake Total 1440 Balance 1440 Med Orders - Current: Current Medications Acetaminophen (Tylenol) 650 mg PO Q4H PRN PRN Reason: Pain (Mild 1-3)/fever Guaifenesin (Robitussin) 100 mg PO Q4H PRN PRN Reason: cough Allopurinol [ (Zyloprim] 300 Mg Tab) 300 mg PO DAILY [facility] Last Admin: 10/25/19 08:08 Dose: 300 mg Memantine Hcl [ Memantine Hcl] 5 Mg Tab 5 mg PO BID [facility] Last Admin: 10/25/19 08:08 Dose: 5 mg Pentoxifylline (Trental) 400 mg PO DAILY [facility] Last Admin: 10/25/19 08:08 Dose: 400 mg Senna (Senna) 1 mg PO BID PRN PRN Reason: Constipation Temazepam (Restoril) 15 mg PO BEDTIME PRN PRN Reason: Sleep Comments:: Unable to do physical examination due to FaceTime visit and pandemic - Exam General: Alert, Cooperative Psy/Mental Status: Alert, Normal Affect (patient appears happy and no concerns per nursing staff) Sepsis Event Note - Evaluation Sepsis Screening Result: No Definite Risk - Problem List & Annotations (1) Alzheimer'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 SNOMED Code(s): 90824276 Code(s): G30.9 - ALZHEIMER'S DISEASE, UNSPECIFIED; F02.80 - DEMENTIA IN OTH DISEASES CLASSD ELSWHR W/O BEHAVRL DISTURB Status: Acute Current Visit: Yes Qualifiers: Alzheimer's disease onset: unspecified onset Qualified Code(s): G30.9 - Alzheimer's disease, unspecified; F02.80 - Dementia in other diseases classified elsewhere without behavioral disturbance (2) PAD (peripheral artery disease) SNOMED Code(s): 213957101 Code(s): I73.9 - PERIPHERAL VASCULAR DISEASE, UNSPECIFIED Status: Acute Current Visit: Yes (3) Gout SNOMED Code(s): 43349486 Code(s): M10.9 - GOUT, UNSPECIFIED Status: Acute Current Visit: Yes Qualifiers: Gout site: multiple sites Gout etiology: unspecified cause Chronicity: chronic Qualified Code(s): M1A.09X0 - Idiopathic chronic gout, multiple sites , without tophus (tophi) - Problem List Review Problem List Initiated/Reviewed/Updated: Yes - Plan Plan:: 1. Alzheimer's dementia: the patient will continue on Namenda, increase dose to 5mg twice a day. Will continue to increase the dose if the patient tolerates 2. PAD: continue on trental for the intermittent claudication 3. Gout: continue on allopurinol. Monitor kidney function PLAN: The patient is needing swingbed status [employer] due to his current diagnoses. The patient will continue to decline with his memory and need more assistance with daily cares. Consulted with Dr Azalia Stovall in regards to this patient and plan of care. Roseann Neil CNP 08/20/2019: 1. Alzheimer's: continue on the Namenda. It is not medically recommended for the patient to be driving due to his memory loss. The patient needs daily reminders for his ADL's and medications need to be given to him by the nurse 2. PAD: continue on Trental, patient is asymptomatic 3. Gout: Continue on Allopurinol. Last BMP was 06/2019 The patient's condition will continue to decline due to his Alzheimer's. He is needing skilled care. Roseann Neil CNP 09/21/2019 Patient is doing well adjusting to the swingbed. He would like to drive but he has not and it is not medically recommended for the patient to be driving. Will continue on the current medications. No behaviors noted from the nursing staff. Roseann Neil CNP 10/25/2019 Patient seen by face time visit due to the mead virus pandemic. The patient is smiling and joking and does not have any concerns however he is a limited historian due to his Alzheimer's. The nurse is available during the face time visit denies any concerns with the patient. The nurse states that the patient' s moods have been stable. He recently went for a long walk and complained of his legs hurting other than that there are no concerns per the nursing staff. 1. Alzheimer's dementia continue on the Namenda 2. PAD continue on Trental, no issues at this time 3. Gout continue on allopurinol and monitor kidney function. Patient does continue to need alf care due to his Alzheimer's which will progressively worsened. Roseann NeilCOMPENSATION ADMINISTRATOR
[2019-10-26] MEDS: ALLOPURINOL 300 MG PO SCH (07:53)
[2019-10-26] MEDS: MEMANTINE HCL 5 MG PO SCH ×2 (07:54→17:25)
[2019-10-26] MEDS: Pentoxifylline 400 MG Tab.ER PO SCH (07:55)
[2019-10-27] MEDS: Pentoxifylline 400 MG Tab.ER PO SCH (08:35)
[2019-10-27] MEDS: MEMANTINE HCL 5 MG PO SCH ×2 (08:35→17:41)
[2019-10-27] MEDS: ALLOPURINOL 300 MG PO SCH (08:35)
[2019-10-28] MEDS: Pentoxifylline 400 MG Tab.ER PO SCH (08:23)
[2019-10-28] MEDS: MEMANTINE HCL 5 MG PO SCH ×2 (08:23→17:20)
[2019-10-28] MEDS: ALLOPURINOL 300 MG PO SCH (08:23)
[2019-10-29] MEDS: MEMANTINE HCL 5 MG PO SCH ×2 (07:49→17:27)
[2019-10-29] MEDS: Pentoxifylline 400 MG Tab.ER PO SCH (07:50)
[2019-10-29] MEDS: ALLOPURINOL 300 MG PO SCH (07:51)
[2019-10-30] MEDS: ALLOPURINOL 300 MG PO SCH (08:11)
[2019-10-30] MEDS: Pentoxifylline 400 MG Tab.ER PO SCH (08:11)
[2019-10-30] MEDS: MEMANTINE HCL 5 MG PO SCH ×2 (08:11→17:33)
[2019-10-31] MEDS: ALLOPURINOL 300 MG PO SCH (07:35)
[2019-10-31] MEDS: MEMANTINE HCL 5 MG PO SCH ×2 (07:36→17:27)
[2019-10-31] MEDS: Pentoxifylline 400 MG Tab.ER PO SCH (07:36)
[2019-11-01] MEDS: Pentoxifylline 400 MG Tab.ER PO SCH (07:39)
[2019-11-01] MEDS: ALLOPURINOL 300 MG PO SCH (07:39)
[2019-11-01] MEDS: MEMANTINE HCL 5 MG PO SCH ×2 (07:39→17:09)
[2019-11-02] MEDS: ALLOPURINOL 300 MG PO SCH (07:59)
[2019-11-02] MEDS: Pentoxifylline 400 MG Tab.ER PO SCH (07:59)
[2019-11-02] MEDS: MEMANTINE HCL 5 MG PO SCH ×2 (07:59→17:35)
[2019-11-03] MEDS: Pentoxifylline 400 MG Tab.ER PO SCH (08:51)
[2019-11-03] MEDS: MEMANTINE HCL 5 MG PO SCH ×2 (08:51→17:21)
[2019-11-03] MEDS: ALLOPURINOL 300 MG PO SCH (08:51)
[2019-11-04] MEDS: ALLOPURINOL 300 MG PO SCH (08:27)
[2019-11-04] MEDS: MEMANTINE HCL 5 MG PO SCH ×2 (08:27→17:41)
[2019-11-04] MEDS: Pentoxifylline 400 MG Tab.ER PO SCH (08:27)
[2019-11-05] MEDS: MEMANTINE HCL 5 MG PO SCH ×2 (07:42→17:47)
[2019-11-05] MEDS: Pentoxifylline 400 MG Tab.ER PO SCH (07:42)
[2019-11-05] MEDS: ALLOPURINOL 300 MG PO SCH (07:43)
[2019-11-06] MEDS: ALLOPURINOL 300 MG PO SCH (07:51)
[2019-11-06] MEDS: Pentoxifylline 400 MG Tab.ER PO SCH (07:51)
[2019-11-06] MEDS: MEMANTINE HCL 5 MG PO SCH ×2 (07:51→17:07)
[2019-11-07] MEDS: MEMANTINE HCL 5 MG PO SCH ×2 (08:03→17:07)
[2019-11-07] MEDS: ALLOPURINOL 300 MG PO SCH (08:03)
[2019-11-07] MEDS: Pentoxifylline 400 MG Tab.ER PO SCH (08:03)
[2019-11-08] MEDS: ALLOPURINOL 300 MG PO SCH (07:48)
[2019-11-08] MEDS: MEMANTINE HCL 5 MG PO SCH ×2 (07:48→17:29)
[2019-11-08] MEDS: Pentoxifylline 400 MG Tab.ER PO SCH (07:49)
[2019-11-09] MEDS: ALLOPURINOL 300 MG PO SCH (08:11)
[2019-11-09] MEDS: MEMANTINE HCL 5 MG PO SCH ×2 (08:12→17:06)
[2019-11-09] MEDS: Pentoxifylline 400 MG Tab.ER PO SCH (08:12)
[2019-11-10] MEDS: ALLOPURINOL 300 MG PO SCH (08:25)
[2019-11-10] MEDS: MEMANTINE HCL 5 MG PO SCH ×2 (08:25→17:24)
[2019-11-10] MEDS: Pentoxifylline 400 MG Tab.ER PO SCH (08:25)
[2019-11-11] MEDS: Pentoxifylline 400 MG Tab.ER PO SCH (08:07)
[2019-11-11] MEDS: MEMANTINE HCL 5 MG PO SCH ×2 (08:08→17:11)
[2019-11-11] MEDS: ALLOPURINOL 300 MG PO SCH (08:08)
[2019-11-12] MEDS: ALLOPURINOL 300 MG PO SCH (07:49)
[2019-11-12] MEDS: MEMANTINE HCL 5 MG PO SCH ×2 (07:50→17:07)
[2019-11-12] MEDS: Pentoxifylline 400 MG Tab.ER PO SCH (07:50)
[2019-11-13] MEDS: MEMANTINE HCL 5 MG PO SCH ×2 (08:41→17:22)
[2019-11-13] MEDS: Pentoxifylline 400 MG Tab.ER PO SCH (08:41)
[2019-11-13] MEDS: ALLOPURINOL 300 MG PO SCH (08:42)
[2019-11-14] MEDS: ALLOPURINOL 300 MG PO SCH (08:10)
[2019-11-14] MEDS: MEMANTINE HCL 5 MG PO SCH ×2 (08:10→17:37)
[2019-11-14] MEDS: Pentoxifylline 400 MG Tab.ER PO SCH (08:10)
[2019-11-15] MEDS: ALLOPURINOL 300 MG PO SCH (08:19)
[2019-11-15] MEDS: MEMANTINE HCL 5 MG PO SCH ×2 (08:19→17:09)
[2019-11-15] MEDS: Pentoxifylline 400 MG Tab.ER PO SCH (08:19)
[2019-11-16] MEDS: ALLOPURINOL 300 MG PO SCH (08:13)
[2019-11-16] MEDS: Pentoxifylline 400 MG Tab.ER PO SCH (08:13)
[2019-11-16] MEDS: MEMANTINE HCL 5 MG PO SCH ×2 (08:13→17:06)
[2019-11-17] MEDS: ALLOPURINOL 300 MG PO SCH (08:12)
[2019-11-17] MEDS: Pentoxifylline 400 MG Tab.ER PO SCH (08:13)
[2019-11-17] MEDS: MEMANTINE HCL 5 MG PO SCH ×2 (08:13→17:34)
[2019-11-18] MEDS: ALLOPURINOL 300 MG PO SCH (08:29)
[2019-11-18] MEDS: Pentoxifylline 400 MG Tab.ER PO SCH (08:29)
[2019-11-18] MEDS: MEMANTINE HCL 5 MG PO SCH ×2 (08:29→17:39)
[2019-11-19] MEDS: Pentoxifylline 400 MG Tab.ER PO SCH (07:42)
[2019-11-19] MEDS: MEMANTINE HCL 5 MG PO SCH ×2 (07:43→17:10)
[2019-11-19] MEDS: ALLOPURINOL 300 MG PO SCH (07:43)
[2019-11-20] MEDS: MEMANTINE HCL 5 MG PO SCH ×2 (08:16→17:53)
[2019-11-20] MEDS: Pentoxifylline 400 MG Tab.ER PO SCH (08:16)
[2019-11-20] MEDS: ALLOPURINOL 300 MG PO SCH (08:16)
[2019-11-21] MEDS: Pentoxifylline 400 MG Tab.ER PO SCH (08:01)
[2019-11-21] MEDS: ALLOPURINOL 300 MG PO SCH (08:01)
[2019-11-21] MEDS: MEMANTINE HCL 5 MG PO SCH ×2 (08:01→17:19)
[2019-11-22] MEDS: MEMANTINE HCL 5 MG PO SCH ×2 (07:55→17:13)
[2019-11-22] MEDS: ALLOPURINOL 300 MG PO SCH (07:55)
[2019-11-22] MEDS: Pentoxifylline 400 MG Tab.ER PO SCH (07:55)
[2019-11-23] MEDS: MEMANTINE HCL 5 MG PO SCH ×2 (08:05→17:10)
[2019-11-23] MEDS: Pentoxifylline 400 MG Tab.ER PO SCH (08:05)
[2019-11-23] MEDS: ALLOPURINOL 300 MG PO SCH (08:05)
[2019-11-24] MEDS: ALLOPURINOL 300 MG PO SCH (08:14)
[2019-11-24] MEDS: Pentoxifylline 400 MG Tab.ER PO SCH (08:14)
[2019-11-24] MEDS: MEMANTINE HCL 5 MG PO SCH ×2 (08:15→17:10)
[2019-11-25] MEDS: ALLOPURINOL 300 MG PO SCH (08:02)
[2019-11-25] MEDS: Pentoxifylline 400 MG Tab.ER PO SCH (08:02)
[2019-11-25] MEDS: MEMANTINE HCL 5 MG PO SCH ×2 (08:03→17:39)
[2019-11-26] MEDS: MEMANTINE HCL 5 MG PO SCH ×2 (08:13→17:26)
[2019-11-26] MEDS: ALLOPURINOL 300 MG PO SCH (08:13)
[2019-11-26] MEDS: Pentoxifylline 400 MG Tab.ER PO SCH (08:13)
[2019-11-27] MEDS: ALLOPURINOL 300 MG PO SCH (07:46)
[2019-11-27] MEDS: Pentoxifylline 400 MG Tab.ER PO SCH (07:47)
[2019-11-27] MEDS: MEMANTINE HCL 5 MG PO SCH ×2 (07:47→17:11)
[2019-11-28] MEDS: ALLOPURINOL 300 MG PO SCH (07:35)
[2019-11-28] MEDS: MEMANTINE HCL 5 MG PO SCH ×2 (07:35→17:14)
[2019-11-28] MEDS: Pentoxifylline 400 MG Tab.ER PO SCH (07:35)
[2019-11-29] MEDS: Pentoxifylline 400 MG Tab.ER PO SCH (08:16)
[2019-11-29] MEDS: ALLOPURINOL 300 MG PO SCH (08:16)
[2019-11-29] MEDS: MEMANTINE HCL 5 MG PO SCH ×2 (08:16→17:18)
[2019-11-30] MEDS: Pentoxifylline 400 MG Tab.ER PO SCH (08:01)
[2019-11-30] MEDS: MEMANTINE HCL 5 MG PO SCH ×2 (08:01→17:03)
[2019-11-30] MEDS: ALLOPURINOL 300 MG PO SCH (08:01)
[2019-12-01] MEDS: Pentoxifylline 400 MG Tab.ER PO SCH (08:11)
[2019-12-01] MEDS: MEMANTINE HCL 5 MG PO SCH ×2 (08:11→17:25)
[2019-12-01] MEDS: ALLOPURINOL 300 MG PO SCH (08:11)
[2019-12-02] MEDS: MEMANTINE HCL 5 MG PO SCH ×2 (08:33→17:32)
[2019-12-02] MEDS: Pentoxifylline 400 MG Tab.ER PO SCH (08:33)
[2019-12-02] MEDS: ALLOPURINOL 300 MG PO SCH (08:33)
[2019-12-03] MEDS: Pentoxifylline 400 MG Tab.ER PO SCH (07:20)
[2019-12-03] MEDS: ALLOPURINOL 300 MG PO SCH (07:21)
[2019-12-03] MEDS: MEMANTINE HCL 5 MG PO SCH ×2 (07:21→17:15)
[2019-12-04] MEDS: ALLOPURINOL 300 MG PO SCH (07:36)
[2019-12-04] MEDS: Pentoxifylline 400 MG Tab.ER PO SCH (07:36)
[2019-12-04] MEDS: MEMANTINE HCL 5 MG PO SCH ×2 (07:36→17:21)
[2019-12-05] MEDS: ALLOPURINOL 300 MG PO SCH (07:48)
[2019-12-05] MEDS: Pentoxifylline 400 MG Tab.ER PO SCH (07:48)
[2019-12-05] MEDS: MEMANTINE HCL 5 MG PO SCH ×2 (07:48→17:07)
[2019-12-06] MEDS: ALLOPURINOL 300 MG PO SCH (08:15)
[2019-12-06] MEDS: MEMANTINE HCL 5 MG PO SCH ×2 (08:16→17:05)
[2019-12-06] MEDS: Pentoxifylline 400 MG Tab.ER PO SCH (08:16)
[2019-12-07] MEDS: Pentoxifylline 400 MG Tab.ER PO SCH (07:54)
[2019-12-07] MEDS: MEMANTINE HCL 5 MG PO SCH ×2 (07:54→17:16)
[2019-12-07] MEDS: ALLOPURINOL 300 MG PO SCH (07:55)
[2019-12-08] MEDS: ALLOPURINOL 300 MG PO SCH (07:52)
[2019-12-08] MEDS: MEMANTINE HCL 5 MG PO SCH ×2 (07:53→17:15)
[2019-12-08] MEDS: Pentoxifylline 400 MG Tab.ER PO SCH (07:53)
--- NOTE | 2019-12-08 16:53 | PCM.PN ---
- General Info Date of Service: 12/08/19 Admission Dx/Problem (Free Text): Admission Diagnosis/Problem Admission Diagnosis/Problem Alzheimer'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 Subjective Update: The patient is seen as Facetime visit due to the mead virus pandemic. History is obtained from the nurse and the patient.The nurse states that the patient has been having increased agitation at times. his who is a resident in [facility] states the patient does become upset with her at times and then will go back to his room. Functional Status: Reports: Pain Controlled, Tolerating Diet, Ambulating - Review of Systems General: Reports: No Symptoms HEENT: Reports: No Symptoms Pulmonary: Reports: No Symptoms Cardiovascular: Reports: No Symptoms Gastrointestinal: Reports: No Symptoms Genitourinary: Reports: No Symptoms Musculoskeletal: Reports: No Symptoms Skin: Reports: No Symptoms Neurological: Reports: No Symptoms Psychiatric: Reports: Confusion, Agitation - Patient Data Vitals - Most Recent: Last Vital Signs Temp 99.1 F 12/08/19 13:20 Pulse 61 12/08/19 13:20 Resp 20 12/08/19 13:20 BP 141/75 H 12/08/19 13:20 Pulse Ox 97 12/08/19 13:20 Weight - Most Recent: 195 lb I&O - Last 24 Hours: Intake & Output 12/08/19 12/08/19 12/08/19 06:59 14:59 22:59 Intake Total 660 Balance 660 Med Orders - Current: Current Medications Acetaminophen (Tylenol) 650 mg PO Q4H PRN PRN Reason: Pain (Mild 1-3)/fever Guaifenesin (Robitussin) 100 mg PO Q4H PRN PRN Reason: cough Allopurinol [ (Zyloprim] 300 Mg Tab) 300 mg PO DAILY [facility] Last Admin: 12/08/19 07:52 Dose: 300 mg Memantine Hcl [ Memantine Hcl] 5 Mg Tab 5 mg PO BID [facility] Last Admin: 12/08/19 07:53 Dose: 5 mg Pentoxifylline (Trental) 400 mg PO DAILY [facility] Last Admin: 12/08/19 07:53 Dose: 400 mg Senna (Senna) 1 mg PO BID PRN PRN Reason: Constipation Temazepam (Restoril) 15 mg PO BEDTIME PRN PRN Reason: Sleep - Exam General: Alert, Cooperative, No Acute Distress HEENT: Pupils Equal Lungs: Normal Respiratory Effort GI/Abdominal Exam: Normal Bowel Sounds, Soft, Non-Tender Extremities: Normal Inspection, No Pedal Edema Skin: Warm, Dry, Intact Psy/Mental Status: Alert, Normal Affect, Normal Mood Sepsis Event Note - Evaluation Sepsis Screening Result: No Definite Risk - Focused Exam Vital Signs: Vital Signs Temp Pulse Resp BP Pulse Ox 12/08/19 13:20 99.1 F 61 20 141/75 H 97 12/08/19 08:00 98 F Date Exam was Performed: 12/08/19 Time Exam was Performed: 17:24 - Problem List & Annotations (1) Alzheimer'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 SNOMED Code(s): 61139936 Code(s): G30.9 - ALZHEIMER'S DISEASE, UNSPECIFIED; F02.80 - DEMENTIA IN OTH DISEASES CLASSD ELSWHR W/O BEHAVRL DISTURB Status: Acute Current Visit: Yes Qualifiers: Alzheimer's disease onset: unspecified onset Qualified Code(s): G30.9 - Alzheimer's disease, unspecified; F02.80 - Dementia in other diseases classified elsewhere without behavioral disturbance (2) PAD (peripheral artery disease) SNOMED Code(s): 615150553 Code(s): I73.9 - PERIPHERAL VASCULAR DISEASE, UNSPECIFIED Status: Acute Current Visit: Yes (3) Gout SNOMED Code(s): 19627139 Code(s): M10.9 - GOUT, UNSPECIFIED Status: Acute Current Visit: Yes Qualifiers: Gout site: multiple sites Gout etiology: unspecified cause Chronicity: chronic Qualified Code(s): M1A.09X0 - Idiopathic chronic gout, multiple sites, without tophus (tophi) - Problem List Review Problem List Initiated/Reviewed/Updated: Yes - Plan Plan:: 1. Alzheimer's dementia: the patient will continue on Namenda, increase dose to 5mg twice a day. Will continue to increase the dose if the patient tolerates 2. PAD: continue on trental for the intermittent claudication 3. Gout: continue on allopurinol. 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 The patient will continue to decline with his memory and need more assistance with daily cares. Consulted with Dr Azalia Stovall in regards to this patient and plan of care. Roseann Neil CNP 08/20/2019: 1. Alzheimer's: continue on the Namenda. It is not medically recommended for the patient to be driving due to his memory loss. The patient needs daily reminders for his ADL's and medications need to be given to him by the nurse 2. PAD: continue on Trental, patient is asymptomatic 3. Gout: Continue on Allopurinol. Last BMP was 06/2019 The patient's condition will continue to decline due to his Alzheimer's. He is needing skilled care. Roseann Neil CNP 09/21/2019 Patient is doing well adjusting to the swingbed. He would like to drive but he has not and it is not medically recommended for the patient to be driving. Will continue on the current medications. No behaviors noted from the nursing staff. Roseann Neil CNP 10/25/2019 Patient seen by face time visit due to the mead virus pandemic. The patient is smiling and joking and does not have any concerns however he is a limited historian due to his Alzheimer's. The nurse is available during the face time visit denies any concerns with the patient. The nurse states that the patient's moods have been stable. He recently went for a long walk and complained of his legs hurting other than that there are no concerns per the nursing staff. 1. Alzheimer's dementia continue on the Namenda 2. PAD continue on Trental, no issues at this time 3. Gout continue on allopurinol and monitor kidney function. Patient does continue to need snf care due to his Alzheimer's which will progressively worsened. Roseann Neil CNP 12/08/2019 Patient seen by face time visit due to the mead virus. The patient is a limited historian due to his Alzheimer's. The nurse is available during the face time visit states the patient has been more agitated with not being able to go outside and drive his car. The nursing staff does try to take the patient out for a walk when they can. This helps to settle his moods. 1. Alzheimer's dementia continue on the Namenda but increase slowly to 10mg twice a day. 2. PAD continue on Trental, no issues at this time 3. Gout continue on allopurinol and monitor kidney function. Continue to monitor moods and hopefully the patient will show improvement with h is agitation with the increase dose of Namenda, Total time 1625 is start time and end time is 1645. Roseann Neil,EQUIPMENT DRIVER
[2019-12-09] MEDS: ALLOPURINOL 300 MG PO SCH (08:06)
[2019-12-09] MEDS: Pentoxifylline 400 MG Tab.ER PO SCH (08:06)
[2019-12-09] MEDS: MEMANTINE 5 MG PO SCH (17:10)
[2019-12-10] MEDS: ALLOPURINOL 300 MG PO SCH (08:08)
[2019-12-10] MEDS: Pentoxifylline 400 MG Tab.ER PO SCH (08:09)
[2019-12-10] MEDS: Memantine 10 MG Tab PO SCH (08:11)
[2019-12-10] MEDS: MEMANTINE 5 MG PO SCH (17:26)
[2019-12-11] MEDS: Pentoxifylline 400 MG Tab.ER PO SCH (08:26)
[2019-12-11] MEDS: ALLOPURINOL 300 MG PO SCH (08:26)
[2019-12-11] MEDS: Memantine 10 MG Tab PO SCH (08:26)
[2019-12-11] MEDS: MEMANTINE 5 MG PO SCH (17:39)
[2019-12-12] MEDS: ALLOPURINOL 300 MG PO SCH (08:04)
[2019-12-12] MEDS: Memantine 10 MG Tab PO SCH (08:04)
[2019-12-12] MEDS: Pentoxifylline 400 MG Tab.ER PO SCH (08:05)
[2019-12-12] MEDS: MEMANTINE 5 MG PO SCH (17:40)
[2019-12-13] MEDS: Memantine 10 MG Tab PO SCH (07:42)
[2019-12-13] MEDS: ALLOPURINOL 300 MG PO SCH (07:42)
[2019-12-13] MEDS: Pentoxifylline 400 MG Tab.ER PO SCH (07:43)
[2019-12-13] MEDS: MEMANTINE 5 MG PO SCH (17:07)
[2019-12-14] MEDS: Pentoxifylline 400 MG Tab.ER PO SCH (07:28)
[2019-12-14] MEDS: Memantine 10 MG Tab PO SCH (07:28)
[2019-12-14] MEDS: ALLOPURINOL 300 MG PO SCH (07:28)
[2019-12-14] MEDS: MEMANTINE 5 MG PO SCH (17:19)
[2019-12-15] MEDS: Pentoxifylline 400 MG Tab.ER PO SCH (08:45)
[2019-12-15] MEDS: Memantine 10 MG Tab PO SCH (08:45)
[2019-12-15] MEDS: ALLOPURINOL 300 MG PO SCH (08:45)
[2019-12-15] MEDS: MEMANTINE 5 MG PO SCH (17:18)
[2019-12-16] MEDS: ALLOPURINOL 300 MG PO SCH (07:33)
[2019-12-16] MEDS: Memantine 10 MG Tab PO SCH ×2 (07:34→17:38)
[2019-12-16] MEDS: Pentoxifylline 400 MG Tab.ER PO SCH (07:34)
[2019-12-17] MEDS: ALLOPURINOL 300 MG PO SCH (08:07)
[2019-12-17] MEDS: Memantine 10 MG Tab PO SCH ×2 (08:07→17:36)
[2019-12-17] MEDS: Pentoxifylline 400 MG Tab.ER PO SCH (08:07)
[2019-12-18] MEDS: Pentoxifylline 400 MG Tab.ER PO SCH (07:50)
[2019-12-18] MEDS: ALLOPURINOL 300 MG PO SCH (07:50)
[2019-12-18] MEDS: Memantine 10 MG Tab PO SCH ×2 (07:50→17:13)
[2019-12-19] MEDS: Memantine 10 MG Tab PO SCH ×2 (07:51→17:07)
[2019-12-19] MEDS: ALLOPURINOL 300 MG PO SCH (07:51)
[2019-12-19] MEDS: Pentoxifylline 400 MG Tab.ER PO SCH (07:51)
[2019-12-20] MEDS: Memantine 10 MG Tab PO SCH ×2 (07:41→17:15)
[2019-12-20] MEDS: ALLOPURINOL 300 MG PO SCH (07:41)
[2019-12-20] MEDS: Pentoxifylline 400 MG Tab.ER PO SCH (07:42)
[2019-12-21] MEDS: Pentoxifylline 400 MG Tab.ER PO SCH (07:39)
[2019-12-21] MEDS: ALLOPURINOL 300 MG PO SCH (07:39)
[2019-12-21] MEDS: Memantine 10 MG Tab PO SCH ×2 (07:39→17:15)
[2019-12-22] MEDS: Pentoxifylline 400 MG Tab.ER PO SCH (07:51)
[2019-12-22] MEDS: Memantine 10 MG Tab PO SCH ×2 (07:51→17:25)
[2019-12-22] MEDS: ALLOPURINOL 300 MG PO SCH (07:51)
[2019-12-23] MEDS: Memantine 10 MG Tab PO SCH ×2 (07:57→17:36)
[2019-12-23] MEDS: Pentoxifylline 400 MG Tab.ER PO SCH (07:57)
[2019-12-23] MEDS: ALLOPURINOL 300 MG PO SCH (07:57)
[2019-12-24] MEDS: ALLOPURINOL 300 MG PO SCH (07:54)
[2019-12-24] MEDS: Pentoxifylline 400 MG Tab.ER PO SCH (07:54)
[2019-12-24] MEDS: Memantine 10 MG Tab PO SCH ×2 (07:54→17:33)
[2019-12-25] MEDS: Pentoxifylline 400 MG Tab.ER PO SCH (07:49)
[2019-12-25] MEDS: ALLOPURINOL 300 MG PO SCH (07:49)
[2019-12-25] MEDS: Memantine 10 MG Tab PO SCH ×2 (07:49→17:16)
[2019-12-26] MEDS: ALLOPURINOL 300 MG PO SCH (08:00)
[2019-12-26] MEDS: Pentoxifylline 400 MG Tab.ER PO SCH (08:00)
[2019-12-26] MEDS: Memantine 10 MG Tab PO SCH ×2 (08:00→17:29)
[2019-12-27] MEDS: ALLOPURINOL 300 MG PO SCH (07:25)
[2019-12-27] MEDS: Pentoxifylline 400 MG Tab.ER PO SCH (07:25)
[2019-12-27] MEDS: Memantine 10 MG Tab PO SCH ×2 (07:25→17:18)
[2019-12-28] MEDS: Pentoxifylline 400 MG Tab.ER PO SCH (07:35)
[2019-12-28] MEDS: ALLOPURINOL 300 MG PO SCH (07:35)
[2019-12-28] MEDS: Memantine 10 MG Tab PO SCH ×2 (07:35→17:11)
[2019-12-29] MEDS: ALLOPURINOL 300 MG PO SCH (08:01)
[2019-12-29] MEDS: Memantine 10 MG Tab PO SCH ×2 (08:01→17:09)
[2019-12-29] MEDS: Pentoxifylline 400 MG Tab.ER PO SCH (08:01)
[2019-12-30] MEDS: ALLOPURINOL 300 MG PO SCH (07:35)
[2019-12-30] MEDS: Memantine 10 MG Tab PO SCH ×2 (07:36→17:34)
[2019-12-30] MEDS: Pentoxifylline 400 MG Tab.ER PO SCH (07:36)
[2019-12-31] MEDS: Memantine 10 MG Tab PO SCH ×2 (07:41→17:54)
[2019-12-31] MEDS: Pentoxifylline 400 MG Tab.ER PO SCH (07:41)
[2019-12-31] MEDS: ALLOPURINOL 300 MG PO SCH (07:41)
[2020-01-01] MEDS: Pentoxifylline 400 MG Tab.ER PO SCH (07:41)
[2020-01-01] MEDS: Memantine 10 MG Tab PO SCH ×2 (07:42→17:20)
[2020-01-01] MEDS: ALLOPURINOL 300 MG PO SCH (07:42)
[2020-01-02] MEDS: Memantine 10 MG Tab PO SCH ×2 (07:33→18:10)
[2020-01-02] MEDS: ALLOPURINOL 300 MG PO SCH (07:33)
[2020-01-02] MEDS: Pentoxifylline 400 MG Tab.ER PO SCH (07:33)
[2020-01-03] MEDS: Pentoxifylline 400 MG Tab.ER PO SCH (07:25)
[2020-01-03] MEDS: Memantine 10 MG Tab PO SCH ×2 (07:25→17:18)
[2020-01-03] MEDS: ALLOPURINOL 300 MG PO SCH (07:25)
[2020-01-04] MEDS: Memantine 10 MG Tab PO SCH ×2 (07:27→17:09)
[2020-01-04] MEDS: Pentoxifylline 400 MG Tab.ER PO SCH (07:27)
[2020-01-04] MEDS: ALLOPURINOL 300 MG PO SCH (07:27)
[2020-01-05] MEDS: Pentoxifylline 400 MG Tab.ER PO SCH (08:18)
[2020-01-05] MEDS: ALLOPURINOL 300 MG PO SCH (08:18)
[2020-01-05] MEDS: Memantine 10 MG Tab PO SCH ×2 (08:18→17:04)
[2020-01-06] MEDS: Memantine 10 MG Tab PO SCH ×2 (08:10→17:27)
[2020-01-06] MEDS: Pentoxifylline 400 MG Tab.ER PO SCH (08:10)
[2020-01-06] MEDS: ALLOPURINOL 300 MG PO SCH (08:10)
[2020-01-07] MEDS: Pentoxifylline 400 MG Tab.ER PO SCH (07:45)
[2020-01-07] MEDS: ALLOPURINOL 300 MG PO SCH (07:45)
[2020-01-07] MEDS: Memantine 10 MG Tab PO SCH ×2 (07:45→17:10)
[2020-01-08] MEDS: Memantine 10 MG Tab PO SCH ×2 (08:01→17:16)
[2020-01-08] MEDS: ALLOPURINOL 300 MG PO SCH (08:01)
[2020-01-08] MEDS: Pentoxifylline 400 MG Tab.ER PO SCH (08:01)
[2020-01-09] MEDS: Pentoxifylline 400 MG Tab.ER PO SCH (07:35)
[2020-01-09] MEDS: ALLOPURINOL 300 MG PO SCH (07:35)
[2020-01-09] MEDS: Memantine 10 MG Tab PO SCH ×2 (07:35→17:30)
[2020-01-10] MEDS: Pentoxifylline 400 MG Tab.ER PO SCH (07:50)
[2020-01-10] MEDS: ALLOPURINOL 300 MG PO SCH (07:50)
[2020-01-10] MEDS: Memantine 10 MG Tab PO SCH ×2 (07:50→17:18)
[2020-01-11] MEDS: ALLOPURINOL 300 MG PO SCH (07:58)
[2020-01-11] MEDS: Pentoxifylline 400 MG Tab.ER PO SCH (07:58)
[2020-01-11] MEDS: Memantine 10 MG Tab PO SCH ×2 (07:58→17:17)
[2020-01-12] MEDS: Memantine 10 MG Tab PO SCH ×2 (08:23→17:15)
[2020-01-12] MEDS: Pentoxifylline 400 MG Tab.ER PO SCH (08:23)
[2020-01-12] MEDS: ALLOPURINOL 300 MG PO SCH (08:23)
[2020-01-13] MEDS: ALLOPURINOL 300 MG PO SCH (07:50)
[2020-01-13] MEDS: Pentoxifylline 400 MG Tab.ER PO SCH (07:50)
[2020-01-13] MEDS: Memantine 10 MG Tab PO SCH ×2 (07:50→17:43)
[2020-01-14] MEDS: Memantine 10 MG Tab PO SCH ×2 (07:49→17:38)
[2020-01-14] MEDS: ALLOPURINOL 300 MG PO SCH (07:49)
[2020-01-14] MEDS: Pentoxifylline 400 MG Tab.ER PO SCH (07:49)
[2020-01-15] MEDS: Memantine 10 MG Tab PO SCH ×2 (08:08→17:42)
[2020-01-15] MEDS: ALLOPURINOL 300 MG PO SCH (08:08)
[2020-01-15] MEDS: Pentoxifylline 400 MG Tab.ER PO SCH (08:08)
[2020-01-16] MEDS: Pentoxifylline 400 MG Tab.ER PO SCH (08:07)
[2020-01-16] MEDS: Memantine 10 MG Tab PO SCH ×2 (08:07→17:32)
[2020-01-16] MEDS: ALLOPURINOL 300 MG PO SCH (08:07)
[2020-01-17] MEDS: ALLOPURINOL 300 MG PO SCH (07:23)
[2020-01-17] MEDS: Pentoxifylline 400 MG Tab.ER PO SCH (07:23)
[2020-01-17] MEDS: Memantine 10 MG Tab PO SCH ×2 (07:23→17:16)
[2020-01-18] MEDS: Pentoxifylline 400 MG Tab.ER PO SCH (07:48)
[2020-01-18] MEDS: ALLOPURINOL 300 MG PO SCH (07:48)
[2020-01-18] MEDS: Memantine 10 MG Tab PO SCH ×2 (07:48→17:02)
[2020-01-19] MEDS: ALLOPURINOL 300 MG PO SCH (07:59)
[2020-01-19] MEDS: Memantine 10 MG Tab PO SCH ×2 (08:00→17:48)
[2020-01-19] MEDS: Pentoxifylline 400 MG Tab.ER PO SCH (08:00)
[2020-01-20] MEDS: Memantine 10 MG Tab PO SCH ×2 (07:59→17:13)
[2020-01-20] MEDS: Pentoxifylline 400 MG Tab.ER PO SCH (07:59)
[2020-01-20] MEDS: ALLOPURINOL 300 MG PO SCH (07:59)
[2020-01-21] MEDS: Memantine 10 MG Tab PO SCH ×2 (07:49→17:32)
[2020-01-21] MEDS: Pentoxifylline 400 MG Tab.ER PO SCH (07:49)
[2020-01-21] MEDS: ALLOPURINOL 300 MG PO SCH (07:49)
[2020-01-22] MEDS: Memantine 10 MG Tab PO SCH ×2 (07:30→17:26)
[2020-01-22] MEDS: ALLOPURINOL 300 MG PO SCH (07:30)
[2020-01-22] MEDS: Pentoxifylline 400 MG Tab.ER PO SCH (07:30)
[2020-01-23] MEDS: Pentoxifylline 400 MG Tab.ER PO SCH (08:19)
[2020-01-23] MEDS: ALLOPURINOL 300 MG PO SCH (08:19)
[2020-01-23] MEDS: Memantine 10 MG Tab PO SCH ×2 (08:19→17:32)
[2020-01-24] MEDS: ALLOPURINOL 300 MG PO SCH (08:04)
[2020-01-24] MEDS: Memantine 10 MG Tab PO SCH ×2 (08:04→17:20)
[2020-01-24] MEDS: Pentoxifylline 400 MG Tab.ER PO SCH (08:05)
[2020-01-25] MEDS: Memantine 10 MG Tab PO SCH ×2 (08:06→17:24)
[2020-01-25] MEDS: Pentoxifylline 400 MG Tab.ER PO SCH (08:06)
[2020-01-25] MEDS: ALLOPURINOL 300 MG PO SCH (08:06)
[2020-01-26] MEDS: Pentoxifylline 400 MG Tab.ER PO SCH (08:17)
[2020-01-26] MEDS: ALLOPURINOL 300 MG PO SCH (08:17)
[2020-01-26] MEDS: Memantine 10 MG Tab PO SCH ×2 (08:17→17:51)
[2020-01-27] MEDS: Pentoxifylline 400 MG Tab.ER PO SCH (08:18)
[2020-01-27] MEDS: Memantine 10 MG Tab PO SCH ×2 (08:18→17:43)
[2020-01-27] MEDS: ALLOPURINOL 300 MG PO SCH (08:18)
[2020-01-28] MEDS: ALLOPURINOL 300 MG PO SCH (07:51)
[2020-01-28] MEDS: Memantine 10 MG Tab PO SCH ×2 (07:52→17:23)
[2020-01-28] MEDS: Pentoxifylline 400 MG Tab.ER PO SCH (07:52)
[2020-01-29] MEDS: ALLOPURINOL 300 MG PO SCH (07:12)
[2020-01-29] MEDS: Pentoxifylline 400 MG Tab.ER PO SCH (07:12)
[2020-01-29] MEDS: Memantine 10 MG Tab PO SCH ×2 (07:12→17:15)
[2020-01-30] MEDS: Pentoxifylline 400 MG Tab.ER PO SCH (07:38)
[2020-01-30] MEDS: ALLOPURINOL 300 MG PO SCH (07:38)
[2020-01-30] MEDS: Memantine 10 MG Tab PO SCH ×2 (07:38→17:10)
[2020-01-31] MEDS: Pentoxifylline 400 MG Tab.ER PO SCH (07:40)
[2020-01-31] MEDS: ALLOPURINOL 300 MG PO SCH (07:40)
[2020-01-31] MEDS: Memantine 10 MG Tab PO SCH ×2 (07:40→17:13)
[2020-02-01] MEDS: Memantine 10 MG Tab PO SCH ×2 (08:03→17:13)
[2020-02-01] MEDS: ALLOPURINOL 300 MG PO SCH (08:03)
[2020-02-01] MEDS: Pentoxifylline 400 MG Tab.ER PO SCH (08:03)
[2020-02-02] MEDS: Pentoxifylline 400 MG Tab.ER PO SCH (08:39)
[2020-02-02] MEDS: Memantine 10 MG Tab PO SCH ×2 (08:39→17:47)
[2020-02-02] MEDS: ALLOPURINOL 300 MG PO SCH (08:39)
[2020-02-03] MEDS: Pentoxifylline 400 MG Tab.ER PO SCH (07:44)
[2020-02-03] MEDS: Memantine 10 MG Tab PO SCH ×2 (07:44→17:47)
[2020-02-03] MEDS: ALLOPURINOL 300 MG PO SCH (07:44)
[2020-02-04] MEDS: Memantine 10 MG Tab PO SCH ×2 (07:48→17:22)
[2020-02-04] MEDS: ALLOPURINOL 300 MG PO SCH (07:48)
[2020-02-04] MEDS: Pentoxifylline 400 MG Tab.ER PO SCH (07:48)
[2020-02-05] MEDS: Pentoxifylline 400 MG Tab.ER PO SCH (08:07)
[2020-02-05] MEDS: ALLOPURINOL 300 MG PO SCH (08:07)
[2020-02-05] MEDS: Memantine 10 MG Tab PO SCH ×2 (08:07→17:13)
[2020-02-06] MEDS: ALLOPURINOL 300 MG PO SCH (07:48)
[2020-02-06] MEDS: Pentoxifylline 400 MG Tab.ER PO SCH (07:48)
[2020-02-06] MEDS: Memantine 10 MG Tab PO SCH ×2 (07:48→17:34)
[2020-02-07] MEDS: Memantine 10 MG Tab PO SCH ×2 (07:31→18:37)
[2020-02-07] MEDS: Pentoxifylline 400 MG Tab.ER PO SCH (07:31)
[2020-02-07] MEDS: ALLOPURINOL 300 MG PO SCH (07:31)
[2020-02-08] MEDS: Pentoxifylline 400 MG Tab.ER PO SCH (08:11)
[2020-02-08] MEDS: ALLOPURINOL 300 MG PO SCH (08:11)
[2020-02-08] MEDS: Memantine 10 MG Tab PO SCH ×2 (08:11→17:33)
[2020-02-09] MEDS: ALLOPURINOL 300 MG PO SCH (08:00)
[2020-02-09] MEDS: Pentoxifylline 400 MG Tab.ER PO SCH (08:00)
[2020-02-09] MEDS: Memantine 10 MG Tab PO SCH ×2 (08:00→17:36)
[2020-02-10] MEDS: Pentoxifylline 400 MG Tab.ER PO SCH (07:54)
[2020-02-10] MEDS: ALLOPURINOL 300 MG PO SCH (07:54)
[2020-02-10] MEDS: Memantine 10 MG Tab PO SCH ×2 (07:54→17:12)
[2020-02-11] MEDS: Pentoxifylline 400 MG Tab.ER PO SCH (08:13)
[2020-02-11] MEDS: ALLOPURINOL 300 MG PO SCH (08:13)
[2020-02-11] MEDS: Memantine 10 MG Tab PO SCH ×2 (08:13→17:08)
[2020-02-12] MEDS: ALLOPURINOL 300 MG PO SCH (08:18)
[2020-02-12] MEDS: Pentoxifylline 400 MG Tab.ER PO SCH (08:18)
[2020-02-12] MEDS: Memantine 10 MG Tab PO SCH ×2 (08:18→17:44)
[2020-02-13] MEDS: Pentoxifylline 400 MG Tab.ER PO SCH (07:53)
[2020-02-13] MEDS: ALLOPURINOL 300 MG PO SCH (07:53)
[2020-02-13] MEDS: Memantine 10 MG Tab PO SCH ×2 (07:54→17:35)
[2020-02-14] MEDS: Memantine 10 MG Tab PO SCH ×2 (08:17→17:09)
[2020-02-14] MEDS: ALLOPURINOL 300 MG PO SCH (08:18)
[2020-02-14] MEDS: Pentoxifylline 400 MG Tab.ER PO SCH (08:18)
[2020-02-15] MEDS: Pentoxifylline 400 MG Tab.ER PO SCH (08:26)
[2020-02-15] MEDS: Memantine 10 MG Tab PO SCH ×2 (08:26→17:34)
[2020-02-15] MEDS: ALLOPURINOL 300 MG PO SCH (08:26)
--- NOTE | 2020-02-15 17:17 | PCM.PN ---
- General Info Date of Service: 02/15/20 Admission Dx/Problem (Free Text): Admission Diagnosis/Problem Admission Diagnosis/Problem Alzheimer'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 Subjective Update: Patient states he is feeling good, he has some short term memory loss but has no other complaints. He likes to go out and sit outside. He states having a small garden outside. His states his memory is declining especially being in isolation with the COVID virus. Functional Status: Reports: Pain Controlled, Tolerating Diet - Review of Systems General: Reports: No Symptoms HEENT: Reports: No Symptoms Pulmonary: Reports: No Symptoms Cardiovascular: Reports: No Symptoms Gastrointestinal: Reports: No Symptoms Genitourinary: Reports: No Symptoms Musculoskeletal: Reports: No Symptoms Skin: Reports: No Symptoms Neurological: Reports: Confusion Psychiatric: Reports: Confusion - Patient Data Vitals - Most Recent: Last Vital Signs Temp 96.8 F L 02/15/20 08:00 Pulse 76 02/09/20 13:18 Resp 16 02/09/20 13:18 BP 140/84 02/09/20 13:18 Pulse Ox 96 02/09/20 13:18 Weight - Most Recent: 199 lb 8 oz I&O - Last 24 Hours: Intake & Output 02/15/20 02/15/20 02/15/20 06:59 14:59 22:59 Intake Total 356 Balance 356 Med Orders - Current: Current Medications Acetaminophen (Tylenol) 650 mg PO Q4H PRN PRN Reason: Pain (Mild 1-3)/fever Guaifenesin (Robitussin) 100 mg PO Q4H PRN PRN Reason: cough Memantine (Namenda) 10 mg PO BID [facility] Last Admin: 02/15/20 08:26 Dose: 10 mg Documented by: Allopurinol [ (Zyloprim] 300 Mg Tab) 300 mg PO DAILY [facility] Last Admin: 02/15/20 08:26 Dose: 300 mg Documented by: Pentoxifylline (Trental) 400 mg PO DAILY [facility] Last Admin: 02/15/20 08:26 Dose: 400 mg Documented by: Senna (Senna) 1 mg PO BID PRN PRN Reason: Constipation Temazepam (Restoril) 15 mg PO BEDTIME PRN PRN Reason: Sleep Discontinued Medications Memantine (Namenda) 10 mg PO DAILY [facility] Memantine (Namenda) 10 mg PO DAILY [facility] Stop: 12/14/19 08:00 Memantine (Namenda) 10 mg PO BID [facility] Stop: 12/15/19 08:00 Last Admin: 12/08/19 18:20 Dose: Not Given Documented by: Memantine (Namenda) 10 mg PO DAILY [facility] Stop: 12/15/19 08:01 Last Admin: 12/15/19 08:45 Dose: 10 mg Documented by: Memantine Hcl [ Memantine Hcl] 5 Mg Tab 5 mg PO BID [facility] Last Admin: 12/08/19 17:15 Dose: 5 mg Documented by: Non-Formulary Medication (Memantine Hcl [Memantine Hcl]) 5 mg PO BEDTIME [facility] Stop: 12/14/19 20:00 Memantine 5 Mg Tab* Patient's Own Medication* 0 each PO DAILY [facility] Stop: 12/15/19 08:01 Last Admin: 12/09/19 08:07 Dose: 1 each Documented by: Memantine 5 Mg Tab* Patient's Own Medication* 0 each PO BID [facility] Memantine 5 Mg Tab* Patient's Own Medication* 0 each PO DAILY@1800 [facility] Stop: 12/15/19 18:01 Last Admin: 12/15/19 17:18 Dose: 1 each Documented by: - Exam General: Alert, No Acute Distress (confused to place and year) HEENT: Pupils Equal Neck: Supple Lungs: Clear to Auscultation, Normal Respiratory Effort Cardiovascular: Regular Rate, Regular Rhythm GI/Abdominal Exam: Normal Bowel Sounds, Soft, Non-Tender Back Exam: Normal Inspection, Full Range of Motion Extremities: Normal Inspection, Normal Range of Motion, Non-Tender, No Pedal Edema Skin: Warm Neurological: No New Focal Deficit Psy/Mental Status: Normal Affect, Normal Mood (confused with short term memory loss) Sepsis Event Note - Evaluation Sepsis Screening Result: No Definite Risk - Focused Exam Vital Signs: Vital Signs Temp 02/15/20 08:00 96.8 F L Date Exam was Performed: 02/15/20 Time Exam was Performed: 17:17 - Problem List & Annotations (1) Alzheimer'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 SNOMED Code(s): 61668517 Code(s): G30.9 - ALZHEIMER'S DISEASE, UNSPECIFIED; F02.80 - DEMENTIA IN OTH DISEASES CLASSD ELSWHR W/O BEHAVRL DISTURB Status: Acute Current Visit: Yes Qualifiers: Alzheimer's disease onset: unspecified onset Qualified Code(s): G30.9 - Alzheimer's disease, unspecified; F02.80 - Dementia in other diseases classified elsewhere without behavioral disturbance (2) PAD (peripheral artery disease) SNOMED Code(s): 695534399 Code(s): I73.9 - PERIPHERAL VASCULAR DISEASE, UNSPECIFIED Status: Acute Current Visit: Yes (3) Gout SNOMED Code(s): 68274695 Code(s): M10.9 - GOUT, UNSPECIFIED Status: Acute Current Visit: Yes Qualifiers: Gout site: multiple sites Gout etiology: unspecified cause Chronicity: chronic Qualified Code(s): M1A.09X0 - Idiopathic chronic gout, multiple sites, without tophus (tophi) - Problem List Review Problem List Initiated/Reviewed/Updated: Yes - My Orders Last 24 Hours: My Active Orders 02/16/20 05:11 CBC WITH AUTO DIFF [HEME] Routine COMPREHENSIVE METABOLIC PN,CMP [CHEM] Routine URIC ACID [CHEM] Routine - Plan Plan:: 1. Alzheimer's dementia: the patient will continue on Namenda, increase dose to 5mg twice a day. Will continue to increase the dose if the patient tolerates 2. PAD: continue on trental for the intermittent claudication 3. Gout: continue on allopurinol. 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 The patient will continue to decline with his memory and need more assistance with daily cares. Consulted with Dr Azalia Stovall in regards to this patient and plan of care. Roseann Neil CNP 08/20/2019: 1. Alzheimer's: continue on the Namenda. It is not medically recommended for the patient to be driving due to his memory loss. The patient needs daily reminders for his ADL's and medications need to be given to him by the nurse 2. PAD: continue on Trental, patient is asymptomatic 3. Gout: Continue on Allopurinol. Last BMP was 06/2019 The patient's condition will continue to decline due to his Alzheimer's. He is needing skilled care. Roseann Neil CNP 09/21/2019 Patient is doing well adjusting to the swingbed. He would like to drive but he has not and it is not medically recommended for the patient to be driving. Will continue on the current medications. No behaviors noted from the nursing staff. Roseann Neil CNP 10/25/2019 Patient seen by face time visit due to the mead virus pandemic. The patient is smiling and joking and does not have any concerns however he is a limited historian due to his Alzheimer's. The nurse is available during the face time visit denies any concerns with the patient. The nurse states that the patient's moods have been stable. He recently went for a long walk and complained of his legs hurting other than that there are no concerns per the nursing staff. 1. Alzheimer's dementia continue on the Namenda 2. PAD continue on Trental, no issues at this time 3. Gout continue on allopurinol and monitor kidney function. Patient does continue to need penitentiary care due to his Alzheimer's which will progressively worsened. Roseann Neil CNP 12/08/2019 Patient seen by face time visit due to the mead virus. The patient is a limi josue historian due to his Alzheimer's. The nurse is available during the face time visit states the patient has been more agitated with not being able to go outside and drive his car. The nursing staff does try to take the patient out for a walk when they can. This helps to settle his moods. 1. Alzheimer's dementia continue on the Namenda but increase slowly to 10mg twice a day. 2. PAD continue on Trental, no issues at this time 3. Gout continue on allopurinol and monitor kidney function. Continue to monitor moods and hopefully the patient will show improvement with his agitation with the increase dose of Namenda, Total time 1625 is start time and end time is 1645. Roseann Neil CNP 02/15/2020 1. Alzheimer's dementia: continue on Namenda dose 2. PAD continue on Trental, no issues or symptoms at this time 3. Gout: will check uric acid level, continue on allopurinol Lab work ordered since it was last drawn in 06/2019. Patient is not in any distress and states enjoying life that he has left. He would like to be driving but realizes he can not. Moods have been stable, little agitation noted with his Alzheimer's Roseann Neil CNP
[2020-02-16 07:44] LABS: CHLORIDE,CL 103 mmol/L (98-107); SODIUM,NA 139 mmol/L (136-145)
[2020-02-16] MEDS: Pentoxifylline 400 MG Tab.ER PO SCH (08:01)
[2020-02-16] MEDS: ALLOPURINOL 300 MG PO SCH (08:01)
[2020-02-16] MEDS: Memantine 10 MG Tab PO SCH ×2 (08:01→17:14)
[2020-02-17] MEDS: ALLOPURINOL 300 MG PO SCH (07:44)
[2020-02-17] MEDS: Pentoxifylline 400 MG Tab.ER PO SCH (07:45)
[2020-02-17] MEDS: Memantine 10 MG Tab PO SCH ×2 (07:45→17:23)
[2020-02-18] MEDS: ALLOPURINOL 300 MG PO SCH (08:10)
[2020-02-18] MEDS: Memantine 10 MG Tab PO SCH ×2 (08:10→17:13)
[2020-02-18] MEDS: Pentoxifylline 400 MG Tab.ER PO SCH (08:10)
[2020-02-19] MEDS: ALLOPURINOL 300 MG PO SCH (07:56)
[2020-02-19] MEDS: Memantine 10 MG Tab PO SCH ×2 (07:57→17:18)
[2020-02-19] MEDS: Pentoxifylline 400 MG Tab.ER PO SCH (07:57)
[2020-02-20] MEDS: ALLOPURINOL 300 MG PO SCH (07:59)
[2020-02-20] MEDS: Memantine 10 MG Tab PO SCH ×2 (07:59→17:24)
[2020-02-20] MEDS: Pentoxifylline 400 MG Tab.ER PO SCH (07:59)
[2020-02-21] MEDS: ALLOPURINOL 300 MG PO SCH (08:42)
[2020-02-21] MEDS: Memantine 10 MG Tab PO SCH ×2 (08:43→17:06)
[2020-02-21] MEDS: Pentoxifylline 400 MG Tab.ER PO SCH (08:44)
[2020-02-22] MEDS: ALLOPURINOL 300 MG PO SCH (08:06)
[2020-02-22] MEDS: Pentoxifylline 400 MG Tab.ER PO SCH (08:06)
[2020-02-22] MEDS: Memantine 10 MG Tab PO SCH ×2 (08:06→17:12)
[2020-02-23] MEDS: Pentoxifylline 400 MG Tab.ER PO SCH (08:04)
[2020-02-23] MEDS: Memantine 10 MG Tab PO SCH ×2 (08:04→17:20)
[2020-02-23] MEDS: ALLOPURINOL 300 MG PO SCH (08:04)
[2020-02-24] MEDS: Pentoxifylline 400 MG Tab.ER PO SCH (08:23)
[2020-02-24] MEDS: Memantine 10 MG Tab PO SCH ×2 (08:23→17:28)
[2020-02-24] MEDS: ALLOPURINOL 300 MG PO SCH (08:23)
[2020-02-25] MEDS: Memantine 10 MG Tab PO SCH ×2 (07:56→17:25)
[2020-02-25] MEDS: ALLOPURINOL 300 MG PO SCH (07:56)
[2020-02-25] MEDS: Pentoxifylline 400 MG Tab.ER PO SCH (07:56)
[2020-02-26] MEDS: Memantine 10 MG Tab PO SCH ×2 (08:12→17:19)
[2020-02-26] MEDS: Pentoxifylline 400 MG Tab.ER PO SCH (08:12)
[2020-02-26] MEDS: ALLOPURINOL 300 MG PO SCH (08:12)
[2020-02-27] MEDS: Memantine 10 MG Tab PO SCH ×2 (07:43→17:45)
[2020-02-27] MEDS: ALLOPURINOL 300 MG PO SCH (07:43)
[2020-02-27] MEDS: Pentoxifylline 400 MG Tab.ER PO SCH (07:44)
[2020-02-28] MEDS: ALLOPURINOL 300 MG PO SCH (08:04)
[2020-02-28] MEDS: Pentoxifylline 400 MG Tab.ER PO SCH (08:05)
[2020-02-28] MEDS: Memantine 10 MG Tab PO SCH ×2 (08:05→17:31)
[2020-02-29] MEDS: Pentoxifylline 400 MG Tab.ER PO SCH (07:50)
[2020-02-29] MEDS: Memantine 10 MG Tab PO SCH ×2 (07:50→17:09)
[2020-02-29] MEDS: ALLOPURINOL 300 MG PO SCH (07:51)
[2020-03-01] MEDS: ALLOPURINOL 300 MG PO SCH (07:35)
[2020-03-01] MEDS: Pentoxifylline 400 MG Tab.ER PO SCH (07:36)
[2020-03-01] MEDS: Memantine 10 MG Tab PO SCH ×2 (07:36→17:10)
[2020-03-02] MEDS: ALLOPURINOL 300 MG PO SCH (08:13)
[2020-03-02] MEDS: Pentoxifylline 400 MG Tab.ER PO SCH (08:13)
[2020-03-02] MEDS: Memantine 10 MG Tab PO SCH ×2 (08:13→17:42)
[2020-03-03] MEDS: Pentoxifylline 400 MG Tab.ER PO SCH (08:22)
[2020-03-03] MEDS: ALLOPURINOL 300 MG PO SCH (08:22)
[2020-03-03] MEDS: Memantine 10 MG Tab PO SCH ×2 (08:22→17:38)
[2020-03-04] MEDS: ALLOPURINOL 300 MG PO SCH (08:44)
[2020-03-04] MEDS: Memantine 10 MG Tab PO SCH ×2 (08:44→17:14)
[2020-03-04] MEDS: Pentoxifylline 400 MG Tab.ER PO SCH (08:45)
[2020-03-04] MEDS: Acetaminophen 325 MG Tab PO PRN (08:46)
[2020-03-05] MEDS: ALLOPURINOL 300 MG PO SCH (08:53)
[2020-03-05] MEDS: Memantine 10 MG Tab PO SCH ×2 (08:53→17:28)
[2020-03-05] MEDS: Pentoxifylline 400 MG Tab.ER PO SCH (08:54)
[2020-03-06] MEDS: Pentoxifylline 400 MG Tab.ER PO SCH (08:13)
[2020-03-06] MEDS: ALLOPURINOL 300 MG PO SCH (08:13)
[2020-03-06] MEDS: Memantine 10 MG Tab PO SCH ×2 (08:13→17:40)
[2020-03-07] MEDS: ALLOPURINOL 300 MG PO SCH (08:12)
[2020-03-07] MEDS: Pentoxifylline 400 MG Tab.ER PO SCH (08:12)
[2020-03-07] MEDS: Memantine 10 MG Tab PO SCH ×2 (08:12→17:31)
[2020-03-08] MEDS: Pentoxifylline 400 MG Tab.ER PO SCH (09:01)
[2020-03-08] MEDS: ALLOPURINOL 300 MG PO SCH (09:01)
[2020-03-08] MEDS: Memantine 10 MG Tab PO SCH ×2 (09:01→17:39)
[2020-03-09] MEDS: Memantine 10 MG Tab PO SCH ×2 (08:41→17:48)
[2020-03-09] MEDS: ALLOPURINOL 300 MG PO SCH (08:41)
[2020-03-09] MEDS: Pentoxifylline 400 MG Tab.ER PO SCH (08:41)
[2020-03-10] MEDS: ALLOPURINOL 300 MG PO SCH (08:06)
[2020-03-10] MEDS: Memantine 10 MG Tab PO SCH ×2 (08:06→17:04)
[2020-03-10] MEDS: Pentoxifylline 400 MG Tab.ER PO SCH (08:06)
[2020-03-11] MEDS: Pentoxifylline 400 MG Tab.ER PO SCH (07:39)
[2020-03-11] MEDS: Memantine 10 MG Tab PO SCH ×2 (07:39→17:17)
[2020-03-11] MEDS: ALLOPURINOL 300 MG PO SCH (07:39)
[2020-03-12] MEDS: Memantine 10 MG Tab PO SCH ×2 (07:42→17:05)
[2020-03-12] MEDS: Pentoxifylline 400 MG Tab.ER PO SCH (07:42)
[2020-03-12] MEDS: ALLOPURINOL 300 MG PO SCH (07:42)
[2020-03-13] MEDS: ALLOPURINOL 300 MG PO SCH (08:35)
[2020-03-13] MEDS: Memantine 10 MG Tab PO SCH ×2 (08:36→17:52)
[2020-03-13] MEDS: Pentoxifylline 400 MG Tab.ER PO SCH (08:36)
[2020-03-14] MEDS: ALLOPURINOL 300 MG PO SCH (08:24)
[2020-03-14] MEDS: Pentoxifylline 400 MG Tab.ER PO SCH (08:24)
[2020-03-14] MEDS: Memantine 10 MG Tab PO SCH ×2 (08:24→17:15)
[2020-03-15] MEDS: ALLOPURINOL 300 MG PO SCH (08:17)
[2020-03-15] MEDS: Pentoxifylline 400 MG Tab.ER PO SCH (08:17)
[2020-03-15] MEDS: Memantine 10 MG Tab PO SCH ×2 (08:17→17:29)
[2020-03-16] MEDS: Pentoxifylline 400 MG Tab.ER PO SCH (08:01)
[2020-03-16] MEDS: ALLOPURINOL 300 MG PO SCH (08:01)
[2020-03-16] MEDS: Memantine 10 MG Tab PO SCH ×2 (08:01→18:18)
[2020-03-17] MEDS: Memantine 10 MG Tab PO SCH ×2 (08:13→17:39)
[2020-03-17] MEDS: ALLOPURINOL 300 MG PO SCH (08:13)
[2020-03-17] MEDS: Pentoxifylline 400 MG Tab.ER PO SCH (08:13)
[2020-03-18] MEDS: Memantine 10 MG Tab PO SCH ×2 (08:30→17:32)
[2020-03-18] MEDS: ALLOPURINOL 300 MG PO SCH (08:30)
[2020-03-18] MEDS: Pentoxifylline 400 MG Tab.ER PO SCH (08:30)
[2020-03-19] MEDS: Pentoxifylline 400 MG Tab.ER PO SCH (07:55)
[2020-03-19] MEDS: Memantine 10 MG Tab PO SCH ×2 (07:55→17:28)
[2020-03-19] MEDS: ALLOPURINOL 300 MG PO SCH (07:55)
[2020-03-20] MEDS: ALLOPURINOL 300 MG PO SCH (07:45)
[2020-03-20] MEDS: Memantine 10 MG Tab PO SCH ×2 (07:46→17:21)
[2020-03-20] MEDS: Pentoxifylline 400 MG Tab.ER PO SCH (07:46)
[2020-03-21] MEDS: Pentoxifylline 400 MG Tab.ER PO SCH (09:03)
[2020-03-21] MEDS: Memantine 10 MG Tab PO SCH ×2 (09:03→18:02)
[2020-03-21] MEDS: ALLOPURINOL 300 MG PO SCH (09:03)
[2020-03-22] MEDS: ALLOPURINOL 300 MG PO SCH (08:15)
[2020-03-22] MEDS: Memantine 10 MG Tab PO SCH ×2 (08:16→17:34)
[2020-03-22] MEDS: Pentoxifylline 400 MG Tab.ER PO SCH (08:16)
[2020-03-23] MEDS: Memantine 10 MG Tab PO SCH ×2 (08:25→17:29)
[2020-03-23] MEDS: Pentoxifylline 400 MG Tab.ER PO SCH (08:25)
[2020-03-23] MEDS: ALLOPURINOL 300 MG PO SCH (08:25)
[2020-03-23] MEDS: Acetaminophen 325 MG Tab PO PRN (12:27)
[2020-03-24] MEDS: ALLOPURINOL 300 MG PO SCH (07:48)
[2020-03-24] MEDS: Memantine 10 MG Tab PO SCH ×2 (07:48→17:34)
[2020-03-24] MEDS: Pentoxifylline 400 MG Tab.ER PO SCH (07:48)
[2020-03-25] MEDS: ALLOPURINOL 300 MG PO SCH (08:15)
[2020-03-25] MEDS: Memantine 10 MG Tab PO SCH ×2 (08:16→17:53)
[2020-03-25] MEDS: Pentoxifylline 400 MG Tab.ER PO SCH (08:16)
[2020-03-26] MEDS: ALLOPURINOL 300 MG PO SCH (08:21)
[2020-03-26] MEDS: Memantine 10 MG Tab PO SCH ×2 (08:22→17:28)
[2020-03-26] MEDS: Pentoxifylline 400 MG Tab.ER PO SCH (08:22)
[2020-03-27] MEDS: ALLOPURINOL 300 MG PO SCH (08:13)
[2020-03-27] MEDS: Pentoxifylline 400 MG Tab.ER PO SCH (08:14)
[2020-03-27] MEDS: Memantine 10 MG Tab PO SCH ×2 (08:14→17:44)
[2020-03-28] MEDS: ALLOPURINOL 300 MG PO SCH (07:39)
[2020-03-28] MEDS: Pentoxifylline 400 MG Tab.ER PO SCH (07:39)
[2020-03-28] MEDS: Memantine 10 MG Tab PO SCH ×2 (07:39→17:19)
[2020-03-29] MEDS: Memantine 10 MG Tab PO SCH ×2 (08:39→18:09)
[2020-03-29] MEDS: Pentoxifylline 400 MG Tab.ER PO SCH (08:39)
[2020-03-29] MEDS: ALLOPURINOL 300 MG PO SCH (12:08)
[2020-03-30] MEDS: Pentoxifylline 400 MG Tab.ER PO SCH (07:48)
[2020-03-30] MEDS: ALLOPURINOL 300 MG PO SCH (07:48)
[2020-03-30] MEDS: Memantine 10 MG Tab PO SCH ×2 (07:48→17:37)
[2020-03-31] MEDS: Pentoxifylline 400 MG Tab.ER PO SCH (08:04)
[2020-03-31] MEDS: ALLOPURINOL 300 MG PO SCH (08:04)
[2020-03-31] MEDS: Memantine 10 MG Tab PO SCH ×2 (08:04→17:08)
[2020-04-01] MEDS: ALLOPURINOL 300 MG PO SCH (07:44)
[2020-04-01] MEDS: Memantine 10 MG Tab PO SCH ×2 (07:44→17:34)
[2020-04-01] MEDS: Pentoxifylline 400 MG Tab.ER PO SCH (07:44)
[2020-04-02] MEDS: ALLOPURINOL 300 MG PO SCH (07:59)
[2020-04-02] MEDS: Pentoxifylline 400 MG Tab.ER PO SCH (08:00)
[2020-04-02] MEDS: Memantine 10 MG Tab PO SCH ×2 (08:00→17:35)
[2020-04-03] MEDS: Pentoxifylline 400 MG Tab.ER PO SCH (08:40)
[2020-04-03] MEDS: Memantine 10 MG Tab PO SCH ×2 (08:40→18:00)
[2020-04-03] MEDS: ALLOPURINOL 300 MG PO SCH (08:40)
[2020-04-04] MEDS: ALLOPURINOL 300 MG PO SCH (07:29)
[2020-04-04] MEDS: Pentoxifylline 400 MG Tab.ER PO SCH (07:29)
[2020-04-04] MEDS: Memantine 10 MG Tab PO SCH ×2 (07:29→17:10)
[2020-04-05] MEDS: Memantine 10 MG Tab PO SCH ×2 (07:51→17:14)
[2020-04-05] MEDS: ALLOPURINOL 300 MG PO SCH (07:51)
[2020-04-05] MEDS: Pentoxifylline 400 MG Tab.ER PO SCH (07:51)
[2020-04-06] MEDS: Pentoxifylline 400 MG Tab.ER PO SCH (08:09)
[2020-04-06] MEDS: ALLOPURINOL 300 MG PO SCH (08:09)
[2020-04-06] MEDS: Memantine 10 MG Tab PO SCH ×2 (08:09→17:38)
[2020-04-07] MEDS: ALLOPURINOL 300 MG PO SCH (08:33)
[2020-04-07] MEDS: Pentoxifylline 400 MG Tab.ER PO SCH (08:33)
[2020-04-07] MEDS: Memantine 10 MG Tab PO SCH ×2 (08:33→17:44)
[2020-04-08] MEDS: Memantine 10 MG Tab PO SCH ×2 (08:17→17:40)
[2020-04-08] MEDS: Pentoxifylline 400 MG Tab.ER PO SCH (08:17)
[2020-04-08] MEDS: ALLOPURINOL 300 MG PO SCH (08:17)
[2020-04-09] MEDS: ALLOPURINOL 300 MG PO SCH (07:47)
[2020-04-09] MEDS: Memantine 10 MG Tab PO SCH ×2 (07:47→17:33)
[2020-04-09] MEDS: Pentoxifylline 400 MG Tab.ER PO SCH (07:47)
[2020-04-10] MEDS: Pentoxifylline 400 MG Tab.ER PO SCH (07:44)
[2020-04-10] MEDS: Memantine 10 MG Tab PO SCH ×2 (07:44→17:11)
[2020-04-10] MEDS: ALLOPURINOL 300 MG PO SCH (07:44)
[2020-04-11] MEDS: ALLOPURINOL 300 MG PO SCH (08:00)
[2020-04-11] MEDS: Pentoxifylline 400 MG Tab.ER PO SCH (08:01)
[2020-04-11] MEDS: Memantine 10 MG Tab PO SCH ×2 (08:01→17:06)
[2020-04-12] MEDS: ALLOPURINOL 300 MG PO SCH (07:43)
[2020-04-12] MEDS: Memantine 10 MG Tab PO SCH ×2 (07:43→17:10)
[2020-04-12] MEDS: Pentoxifylline 400 MG Tab.ER PO SCH (07:44)
[2020-04-13] MEDS: Pentoxifylline 400 MG Tab.ER PO SCH (08:08)
[2020-04-13] MEDS: ALLOPURINOL 300 MG PO SCH (08:08)
[2020-04-13] MEDS: Memantine 10 MG Tab PO SCH ×2 (08:08→17:17)
[2020-04-14] MEDS: Pentoxifylline 400 MG Tab.ER PO SCH (08:25)
[2020-04-14] MEDS: ALLOPURINOL 300 MG PO SCH (08:26)
[2020-04-14] MEDS: Memantine 10 MG Tab PO SCH ×2 (08:26→17:49)
[2020-04-15] MEDS: Pentoxifylline 400 MG Tab.ER PO SCH (08:26)
[2020-04-15] MEDS: ALLOPURINOL 300 MG PO SCH (08:27)
[2020-04-15] MEDS: Memantine 10 MG Tab PO SCH ×2 (08:27→17:44)
[2020-04-16] MEDS: Pentoxifylline 400 MG Tab.ER PO SCH (08:17)
[2020-04-16] MEDS: ALLOPURINOL 300 MG PO SCH (08:18)
[2020-04-16] MEDS: Memantine 10 MG Tab PO SCH ×2 (08:18→17:53)
[2020-04-17] MEDS: Pentoxifylline 400 MG Tab.ER PO SCH (08:28)
[2020-04-17] MEDS: ALLOPURINOL 300 MG PO SCH (08:28)
[2020-04-17] MEDS: Memantine 10 MG Tab PO SCH ×2 (08:28→17:44)
[2020-04-18] MEDS: Memantine 10 MG Tab PO SCH ×2 (08:06→17:12)
[2020-04-18] MEDS: Pentoxifylline 400 MG Tab.ER PO SCH (08:06)
[2020-04-18] MEDS: ALLOPURINOL 300 MG PO SCH (08:06)
[2020-04-19] MEDS: Memantine 10 MG Tab PO SCH ×2 (08:21→21:39)
[2020-04-19] MEDS: Pentoxifylline 400 MG Tab.ER PO SCH (08:21)
[2020-04-19] MEDS: ALLOPURINOL 300 MG PO SCH (08:22)
[2020-04-20] MEDS: ALLOPURINOL 300 MG PO SCH (08:24)
[2020-04-20] MEDS: Memantine 10 MG Tab PO SCH ×2 (08:25→17:47)
[2020-04-20] MEDS: Pentoxifylline 400 MG Tab.ER PO SCH (08:25)
[2020-04-21] MEDS: ALLOPURINOL 300 MG PO SCH (08:25)
[2020-04-21] MEDS: Memantine 10 MG Tab PO SCH ×2 (08:26→18:56)
[2020-04-21] MEDS: Pentoxifylline 400 MG Tab.ER PO SCH (08:26)
[2020-04-22] MEDS: ALLOPURINOL 300 MG PO SCH (07:39)
[2020-04-22] MEDS: Pentoxifylline 400 MG Tab.ER PO SCH (07:40)
[2020-04-22] MEDS: Memantine 10 MG Tab PO SCH ×2 (07:40→17:11)
[2020-04-23] MEDS: Pentoxifylline 400 MG Tab.ER PO SCH (07:58)
[2020-04-23] MEDS: ALLOPURINOL 300 MG PO SCH (07:58)
[2020-04-23] MEDS: Memantine 10 MG Tab PO SCH ×2 (07:58→17:09)
[2020-04-24] MEDS: Pentoxifylline 400 MG Tab.ER PO SCH (07:44)
[2020-04-24] MEDS: ALLOPURINOL 300 MG PO SCH (07:44)
[2020-04-24] MEDS: Memantine 10 MG Tab PO SCH ×2 (07:44→17:15)
[2020-04-25] MEDS: Memantine 10 MG Tab PO SCH ×2 (08:26→20:14)
[2020-04-25] MEDS: Pentoxifylline 400 MG Tab.ER PO SCH (08:26)
[2020-04-25] MEDS: ALLOPURINOL 300 MG PO SCH (08:26)
[2020-04-26] MEDS: Memantine 10 MG Tab PO SCH ×2 (08:38→17:46)
[2020-04-26] MEDS: ALLOPURINOL 300 MG PO SCH (08:38)
[2020-04-26] MEDS: Pentoxifylline 400 MG Tab.ER PO SCH (08:38)
[2020-04-27] MEDS: Memantine 10 MG Tab PO SCH ×2 (08:18→17:37)
[2020-04-27] MEDS: ALLOPURINOL 300 MG PO SCH (08:18)
[2020-04-27] MEDS: Pentoxifylline 400 MG Tab.ER PO SCH (08:18)
[2020-04-28] MEDS: Memantine 10 MG Tab PO SCH ×2 (08:42→17:45)
[2020-04-28] MEDS: ALLOPURINOL 300 MG PO SCH (08:42)
[2020-04-28] MEDS: Pentoxifylline 400 MG Tab.ER PO SCH (08:42)
[2020-04-29] MEDS: ALLOPURINOL 300 MG PO SCH (08:07)
[2020-04-29] MEDS: Pentoxifylline 400 MG Tab.ER PO SCH (08:07)
[2020-04-29] MEDS: Memantine 10 MG Tab PO SCH ×2 (08:07→17:13)
[2020-04-30] MEDS: Memantine 10 MG Tab PO SCH ×2 (07:42→17:37)
[2020-04-30] MEDS: ALLOPURINOL 300 MG PO SCH (07:42)
[2020-04-30] MEDS: Pentoxifylline 400 MG Tab.ER PO SCH (07:43)
[2020-05-01] MEDS: Pentoxifylline 400 MG Tab.ER PO SCH (07:48)
[2020-05-01] MEDS: ALLOPURINOL 300 MG PO SCH (07:48)
[2020-05-01] MEDS: Memantine 10 MG Tab PO SCH ×2 (07:48→17:11)
--- NOTE | 2020-05-02 07:50 | PCM.PN ---
- General Info Date of Service: 05/01/20 (late entry) Admission Dx/Problem (Free Text): Admission Diagnosis/Problem Admission Diagnosis/Problem Alzheimer'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 Subjective Update: Patient is a 84-year-old male who is seen by telemedicine due to the pandemic. Patient is a limited historian due to his dementia. The patient recently had some increased moods due to the quarantine of the cold adenovirus, Namenda was increased to twice a day. The nursing staff states that this has helped significantly. The patient's also lives at the swing bed unit and states that he has been doing much better with his moods. Patient was seen on 05/01/2020, late entry being done on 05/02/2020 Functional Status: Reports: Pain Controlled, Tolerating Diet, Ambulating - Review of Systems General: Reports: No Symptoms HEENT: Reports: No Symptoms Pulmonary: Reports: No Symptoms Cardiovascular: Reports: No Symptoms Gastrointestinal: Reports: No Symptoms Genitourinary: Reports: No Symptoms Musculoskeletal: Reports: No Symptoms Skin: Reports: No Symptoms Neurological: Reports: Confusion Psychiatric: Reports: Confusion - Patient Data Vitals - Most Recent: Last Vital Signs Temp 97.1 F 05/01/20 20:00 Pulse 74 04/26/20 08:00 Resp 18 04/12/20 09:55 BP 138/82 04/26/20 08:00 Pulse Ox 91 L 04/26/20 08:00 Weight - Most Recent: 199 lb 12.8 oz I&O - Last 24 Hours: Intake & Output 05/01/20 05/02/20 05/02/20 22:59 06:59 14:59 Intake Total 356 Balance 356 Med Orders - Current: Current Medications Acetaminophen (Tylenol) 650 mg PO Q4H PRN PRN Reason: Pain (Mild 1-3)/fever Last Admin: 03/23/20 12:27 Dose: 650 mg Documented by: Guaifenesin (Robitussin) 100 mg PO Q4H PRN PRN Reason: cough Memantine (Namenda) 10 mg PO BID [facility] Last Admin: 05/01/20 17:11 Dose: 10 mg Documented by: Allopurinol [ (Zyloprim] 300 Mg Tab) 300 mg PO DAILY [facility] Last Admin: 05/01/20 07:48 Dose: 300 mg Documented by: Pentoxifylline (Trental) 400 mg PO DAILY [facility] Last Admin: 05/01/20 07:48 Dose: 400 mg Documented by: Senna (Senna) 1 mg PO BID PRN PRN Reason: Constipation Temazepam (Restoril) 15 mg PO BEDTIME PRN PRN Reason: Sleep Discontinued Medications Memantine (Namenda) 10 mg PO DAILY [facility] Memantine (Namenda) 10 mg PO DAILY [facility] Stop: 12/14/19 08:00 Memantine (Namenda) 10 mg PO BID [facility] Stop: 12/15/19 08:00 Last Admin: 12/08/19 18:20 Dose: Not Given Documented by: Memantine (Namenda) 10 mg PO DAILY [facility] Stop: 12/15/19 08:01 Last Admin: 12/15/19 08:45 Dose: 10 mg Documented by: Memantine Hcl [ Memantine Hcl] 5 Mg Tab 5 mg PO BID [facility] Last Admin: 12/08/19 17:15 Dose: 5 mg Documented by: Non-Formulary Medication (Memantine Hcl [Memantine Hcl]) 5 mg PO BEDTIME [facility] Stop: 12/14/19 20:00 Memantine 5 Mg Tab* Patient's Own Medication* 0 each PO DAILY [facility] Stop: 12/15/19 08:01 Last Admin: 12/09/19 08:07 Dose: 1 each Documented by: Memantine 5 Mg Tab* Patient's Own Medication* 0 each PO BID [facility] Memantine 5 Mg Tab* Patient's Own Medication* 0 each PO DAILY@1800 [facility] Stop: 12/15/19 18:01 Last Admin: 12/15/19 17:18 Dose: 1 each Documented by: - Exam General: Alert, Cooperative, No Acute Distress HEENT: Pupils Equal Neck: Supple Lungs: Clear to Auscultation, Normal Respiratory Effort Cardiovascular: Regular Rate, Regular Rhythm (per nursing staff) GI/Abdominal Exam: Normal Bowel Sounds, Soft, Non-Tender (per nursing staff) Back Exam: Normal Inspection Extremities: Normal Inspection, Normal Range of Motion, Non-Tender, No Pedal Edema Neurological: Normal Gait Psy/Mental Status: Normal Affect, Normal Mood (confusion to date due to dementia) Sepsis Event Note - Evaluation Sepsis Screening Result: No Definite Risk - Focused Exam Vital Signs: Vital Signs Temp 05/01/20 20:00 97.1 F - Problem List & Annotations (1) Alzheimer'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 SNOMED Code(s): 47353055 Code(s): G30.9 - ALZHEIMER'S DISEASE, UNSPECIFIED; F02.80 - DEMENTIA IN OTH DISEASES CLASSD ELSWHR W/O BEHAVRL DISTURB Status: Acute Current Visit: Yes Qualifiers: Alzheimer's disease onset: unspecified onset Qualified Code(s): G30.9 - Alzheimer's disease, unspecified; F02.80 - Dementia in other diseases classified elsewhere without behavioral disturbance (2) PAD (peripheral artery disease) SNOMED Code(s): 952134322 Code(s): I73.9 - PERIPHERAL VASCULAR DISEASE, UNSPECIFIED Status: Acute Current Visit: Yes (3) Gout SNOMED Code(s): 79234952 Code(s): M10.9 - GOUT, UNSPECIFIED Status: Acute Current Visit: Yes Qualifiers: Gout site: multiple sites Gout etiology: unspecified cause Chronicity: chronic Qualified Code(s): M1A.09X0 - Idiopathic chronic gout, multiple sites, without tophus (tophi) - Problem List Review Problem List Initiated/Reviewed/Updated: Yes - Plan Plan:: 1. Alzheimer's dementia: the patient will continue on Namenda, increase dose to 5mg twice a day. Will continue to increase the dose if the patient tolerates 2. PAD: continue on trental for the intermittent claudication 3. Gout: continue on allopurinol. 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 The patient will continue to decline with his memory and need more assistance with daily cares. Consulted with Dr Azalia Stovall in regards to this patient and plan of care. Roseann Neil CNP 08/20/2019: 1. Alzheimer's: continue on the Namenda. It is not medically recommended for the patient to be driving due to his memory loss. The patient needs daily reminders for his ADL's and medications need to be given to him by the nurse 2. PAD: continue on Trental, patient is asymptomatic 3. Gout: Continue on Allopurinol. Last BMP was 06/2019 The patient's condition will continue to decline due to his Alzheimer's. He is needing skilled care. Roseann Neil CNP 09/21/2019 Patient is doing well adjusting to the swingbed. He would like to drive but he has not and it is not medically recommended for the patient to be driving. Will continue on the current medications. No behaviors noted from the nursing staff. Roseann Neil CNP 10/25/2019 Patient seen by face time visit due to the mead virus pandemic. The patient is smiling and joking and does not have any concerns however he is a limited historian due to his Alzheimer's. The nurse is available during the face time visit denies any concerns with the patient. The nurse states that the patient's moods have been stable. He recently went for a long walk and complained of his legs hurting other than that there are no concerns per the nursing staff. 1. Alzheimer's dementia continue on the Namenda 2. PAD continue on Trental, no issues at this time 3. Gout continue on allopurinol and monitor kidney function. Patient does continue to need senior care care due to his Alzheimer's which will progressively worsened. Roseann Neil CNP 12/08/2019 Patient seen by face time visit due to the mead virus. The patient is a limited historian due to his Alzheimer's. The nurse is available during the face time visit states the patient has been more agitated with not being able to go outside and drive his car. The nursing staff does try to take the patient out for a walk when they can. This helps to settle his moods. 1. Alzheimer's dementia continue on the Namenda but increase slowly to 10mg twice a day. 2. PAD continue on Trental, no issues at this time 3. Gout continue on allopurinol and monitor kidney function. Continue to monitor moods and hopefully the patient will show improvement with his agitation with the increase dose of Namenda, Total time 1625 is start time and end time is 1645. Roseann Neil CNP 02/15/2020 1. Alzheimer's dementia: continue on Namenda dose 2. PAD continue on Trental, no issues or symptoms at this time 3. Gout: will check uric acid level, continue on allopurinol Lab work ordered since it was last drawn in 06/2019. Patient is not in any distress and states enjoying life that he has left. He would like to be driving but realizes he can not. Moods have been stable, little agitation noted with his Alzheimer's Roseann Neil CNP 05/02/2020 1. Alzheimer dementia continue on the current dose of the Namenda. 2. Gout: Patient has had recent uric acid level which was within normal limits. Patient will be continued on the allopurinol. 3. Patient does have known carotid stenosis, blood pressures have been controlled as well as cholesterol levels. 4. Peripheral arterial disease continue on Trental no issues noted at this time. Patient's past medical history medications are reviewed. The patient's last laboratory tests are also reviewed. Roseann Neil CNP
[2020-05-02] MEDS: ALLOPURINOL 300 MG PO SCH (08:16)
[2020-05-02] MEDS: Memantine 10 MG Tab PO SCH ×2 (08:17→17:52)
[2020-05-02] MEDS: Pentoxifylline 400 MG Tab.ER PO SCH (08:17)
[2020-05-03] MEDS: Memantine 10 MG Tab PO SCH ×2 (08:12→17:49)
[2020-05-03] MEDS: Pentoxifylline 400 MG Tab.ER PO SCH (08:12)
[2020-05-03] MEDS: ALLOPURINOL 300 MG PO SCH (08:12)
[2020-05-04] MEDS: Pentoxifylline 400 MG Tab.ER PO SCH (08:03)
[2020-05-04] MEDS: Memantine 10 MG Tab PO SCH ×2 (08:03→17:25)
[2020-05-04] MEDS: ALLOPURINOL 300 MG PO SCH (08:03)
[2020-05-05] MEDS: Pentoxifylline 400 MG Tab.ER PO SCH (07:46)
[2020-05-05] MEDS: ALLOPURINOL 300 MG PO SCH (07:46)
[2020-05-05] MEDS: Memantine 10 MG Tab PO SCH ×2 (07:46→17:07)
[2020-05-06] MEDS: Memantine 10 MG Tab PO SCH ×2 (08:29→17:47)
[2020-05-06] MEDS: ALLOPURINOL 300 MG PO SCH (08:29)
[2020-05-06] MEDS: Pentoxifylline 400 MG Tab.ER PO SCH (08:29)
[2020-05-07] MEDS: Pentoxifylline 400 MG Tab.ER PO SCH (08:23)
[2020-05-07] MEDS: Memantine 10 MG Tab PO SCH ×2 (08:23→17:47)
[2020-05-07] MEDS: ALLOPURINOL 300 MG PO SCH (08:23)
[2020-05-08] MEDS: Pentoxifylline 400 MG Tab.ER PO SCH (08:24)
[2020-05-08] MEDS: Memantine 10 MG Tab PO SCH ×2 (08:24→17:48)
[2020-05-08] MEDS: ALLOPURINOL 300 MG PO SCH (08:24)
[2020-05-09] MEDS: Memantine 10 MG Tab PO SCH ×2 (07:47→17:24)
[2020-05-09] MEDS: ALLOPURINOL 300 MG PO SCH (07:47)
[2020-05-09] MEDS: Pentoxifylline 400 MG Tab.ER PO SCH (07:48)
[2020-05-10] MEDS: Memantine 10 MG Tab PO SCH ×2 (07:57→17:09)
[2020-05-10] MEDS: ALLOPURINOL 300 MG PO SCH (07:57)
[2020-05-10] MEDS: Pentoxifylline 400 MG Tab.ER PO SCH (07:58)
[2020-05-11] MEDS: Pentoxifylline 400 MG Tab.ER PO SCH (08:11)
[2020-05-11] MEDS: Memantine 10 MG Tab PO SCH ×2 (08:11→17:30)
[2020-05-11] MEDS: ALLOPURINOL 300 MG PO SCH (08:11)
[2020-05-12] MEDS: ALLOPURINOL 300 MG PO SCH (07:57)
[2020-05-12] MEDS: Memantine 10 MG Tab PO SCH ×2 (07:58→17:11)
[2020-05-12] MEDS: Pentoxifylline 400 MG Tab.ER PO SCH (07:58)
[2020-05-13] MEDS: Memantine 10 MG Tab PO SCH ×2 (08:02→17:17)
[2020-05-13] MEDS: Pentoxifylline 400 MG Tab.ER PO SCH (08:02)
[2020-05-13] MEDS: ALLOPURINOL 300 MG PO SCH (08:02)
[2020-05-14] MEDS: ALLOPURINOL 300 MG PO SCH (08:06)
[2020-05-14] MEDS: Memantine 10 MG Tab PO SCH ×2 (08:07→17:24)
[2020-05-14] MEDS: Pentoxifylline 400 MG Tab.ER PO SCH (08:07)
[2020-05-15] MEDS: ALLOPURINOL 300 MG PO SCH (08:10)
[2020-05-15] MEDS: Memantine 10 MG Tab PO SCH ×2 (08:10→17:06)
[2020-05-15] MEDS: Pentoxifylline 400 MG Tab.ER PO SCH (08:10)
[2020-05-16] MEDS: Memantine 10 MG Tab PO SCH ×2 (08:15→17:21)
[2020-05-16] MEDS: Pentoxifylline 400 MG Tab.ER PO SCH (08:15)
[2020-05-16] MEDS: ALLOPURINOL 300 MG PO SCH (08:15)
[2020-05-17] MEDS: Memantine 10 MG Tab PO SCH ×2 (08:07→17:15)
[2020-05-17] MEDS: ALLOPURINOL 300 MG PO SCH (08:07)
[2020-05-17] MEDS: Pentoxifylline 400 MG Tab.ER PO SCH (08:08)
[2020-05-18] MEDS: ALLOPURINOL 300 MG PO SCH (08:02)
[2020-05-18] MEDS: Pentoxifylline 400 MG Tab.ER PO SCH (08:02)
[2020-05-18] MEDS: Memantine 10 MG Tab PO SCH ×2 (08:02→17:14)
[2020-05-19] MEDS: ALLOPURINOL 300 MG PO SCH (08:12)
[2020-05-19] MEDS: Memantine 10 MG Tab PO SCH ×2 (08:12→17:50)
[2020-05-19] MEDS: Pentoxifylline 400 MG Tab.ER PO SCH (08:12)
[2020-05-19] MEDS: Carbamide Peroxide 6.5% Otic Soln 15 ML Bottle EARRT SCH ×2 (10:00→17:49)
[2020-05-20] MEDS: ALLOPURINOL 300 MG PO SCH (07:43)
[2020-05-20] MEDS: Memantine 10 MG Tab PO SCH ×2 (07:44→17:20)
[2020-05-20] MEDS: Carbamide Peroxide 6.5% Otic Soln 15 ML Bottle EARRT SCH ×2 (07:44→17:20)
[2020-05-20] MEDS: Pentoxifylline 400 MG Tab.ER PO SCH (07:44)
[2020-05-21] MEDS: ALLOPURINOL 300 MG PO SCH (07:51)
[2020-05-21] MEDS: Carbamide Peroxide 6.5% Otic Soln 15 ML Bottle EARRT SCH ×2 (07:51→17:21)
[2020-05-21] MEDS: Memantine 10 MG Tab PO SCH ×2 (07:52→17:20)
[2020-05-21] MEDS: Pentoxifylline 400 MG Tab.ER PO SCH (07:52)
[2020-05-22] MEDS: Pentoxifylline 400 MG Tab.ER PO SCH (08:20)
[2020-05-22] MEDS: Memantine 10 MG Tab PO SCH ×2 (08:20→17:54)
[2020-05-22] MEDS: ALLOPURINOL 300 MG PO SCH (08:20)
[2020-05-23] MEDS: Pentoxifylline 400 MG Tab.ER PO SCH (07:56)
[2020-05-23] MEDS: Memantine 10 MG Tab PO SCH ×2 (07:56→17:26)
[2020-05-23] MEDS: ALLOPURINOL 300 MG PO SCH (07:57)
[2020-05-24] MEDS: Pentoxifylline 400 MG Tab.ER PO SCH (07:20)
[2020-05-24] MEDS: ALLOPURINOL 300 MG PO SCH (07:20)
[2020-05-24] MEDS: Memantine 10 MG Tab PO SCH ×2 (07:20→17:14)
[2020-05-25] MEDS: Memantine 10 MG Tab PO SCH ×2 (07:57→17:17)
[2020-05-25] MEDS: ALLOPURINOL 300 MG PO SCH (07:57)
[2020-05-25] MEDS: Pentoxifylline 400 MG Tab.ER PO SCH (07:58)
[2020-05-26] MEDS: Memantine 10 MG Tab PO SCH ×2 (08:10→17:39)
[2020-05-26] MEDS: Pentoxifylline 400 MG Tab.ER PO SCH (08:10)
[2020-05-26] MEDS: ALLOPURINOL 300 MG PO SCH (08:10)
[2020-05-27] MEDS: Memantine 10 MG Tab PO SCH ×2 (08:33→17:42)
[2020-05-27] MEDS: ALLOPURINOL 300 MG PO SCH (08:33)
[2020-05-27] MEDS: Pentoxifylline 400 MG Tab.ER PO SCH (08:34)
[2020-05-28] MEDS: ALLOPURINOL 300 MG PO SCH (08:17)
[2020-05-28] MEDS: Memantine 10 MG Tab PO SCH ×2 (08:17→17:20)
[2020-05-28] MEDS: Pentoxifylline 400 MG Tab.ER PO SCH (08:17)
[2020-05-29] MEDS: Pentoxifylline 400 MG Tab.ER PO SCH (07:47)
[2020-05-29] MEDS: Memantine 10 MG Tab PO SCH ×2 (07:47→17:09)
[2020-05-29] MEDS: ALLOPURINOL 300 MG PO SCH (07:47)
[2020-05-30] MEDS: Pentoxifylline 400 MG Tab.ER PO SCH (08:04)
[2020-05-30] MEDS: ALLOPURINOL 300 MG PO SCH (08:04)
[2020-05-30] MEDS: Memantine 10 MG Tab PO SCH ×2 (08:04→17:09)
[2020-05-31] MEDS: ALLOPURINOL 300 MG PO SCH (08:03)
[2020-05-31] MEDS: Pentoxifylline 400 MG Tab.ER PO SCH (08:04)
[2020-05-31] MEDS: Memantine 10 MG Tab PO SCH ×2 (08:04→17:01)
[2020-06-01] MEDS: ALLOPURINOL 300 MG PO SCH (07:48)
[2020-06-01] MEDS: Memantine 10 MG Tab PO SCH ×2 (07:48→17:07)
[2020-06-01] MEDS: Pentoxifylline 400 MG Tab.ER PO SCH (07:48)
[2020-06-02] MEDS: Memantine 10 MG Tab PO SCH ×2 (08:08→17:40)
[2020-06-02] MEDS: Pentoxifylline 400 MG Tab.ER PO SCH (08:08)
[2020-06-02] MEDS: ALLOPURINOL 300 MG PO SCH (08:09)
[2020-06-03] MEDS: ALLOPURINOL 300 MG PO SCH (08:13)
[2020-06-03] MEDS: Memantine 10 MG Tab PO SCH ×2 (08:13→17:30)
[2020-06-03] MEDS: Pentoxifylline 400 MG Tab.ER PO SCH (08:13)
[2020-06-04] MEDS: Memantine 10 MG Tab PO SCH ×2 (07:31→17:40)
[2020-06-04] MEDS: Pentoxifylline 400 MG Tab.ER PO SCH (07:31)
[2020-06-04] MEDS: ALLOPURINOL 300 MG PO SCH (07:31)
[2020-06-05] MEDS: ALLOPURINOL 300 MG PO SCH (07:40)
[2020-06-05] MEDS: Pentoxifylline 400 MG Tab.ER PO SCH (07:40)
[2020-06-05] MEDS: Memantine 10 MG Tab PO SCH ×2 (07:40→17:11)
[2020-06-06] MEDS: ALLOPURINOL 300 MG PO SCH (07:52)
[2020-06-06] MEDS: Pentoxifylline 400 MG Tab.ER PO SCH (07:53)
[2020-06-06] MEDS: Memantine 10 MG Tab PO SCH ×2 (07:53→17:44)
[2020-06-07] MEDS: Pentoxifylline 400 MG Tab.ER PO SCH (08:03)
[2020-06-07] MEDS: Memantine 10 MG Tab PO SCH ×2 (08:03→17:15)
[2020-06-07] MEDS: ALLOPURINOL 300 MG PO SCH (08:03)
[2020-06-08] MEDS: Memantine 10 MG Tab PO SCH ×2 (08:06→17:12)
[2020-06-08] MEDS: Pentoxifylline 400 MG Tab.ER PO SCH (08:07)
[2020-06-08] MEDS: ALLOPURINOL 300 MG PO SCH (08:07)
[2020-06-09] MEDS: Memantine 10 MG Tab PO SCH ×2 (08:10→17:45)
[2020-06-09] MEDS: Pentoxifylline 400 MG Tab.ER PO SCH (08:10)
[2020-06-09] MEDS: ALLOPURINOL 300 MG PO SCH (08:10)
[2020-06-10] MEDS: Memantine 10 MG Tab PO SCH ×2 (07:53→17:36)
[2020-06-10] MEDS: ALLOPURINOL 300 MG PO SCH (07:53)
[2020-06-10] MEDS: Pentoxifylline 400 MG Tab.ER PO SCH (07:54)
[2020-06-11] MEDS: Memantine 10 MG Tab PO SCH ×2 (07:37→17:07)
[2020-06-11] MEDS: Pentoxifylline 400 MG Tab.ER PO SCH (07:38)
[2020-06-11] MEDS: ALLOPURINOL 300 MG PO SCH (07:38)
[2020-06-12] MEDS: Pentoxifylline 400 MG Tab.ER PO SCH (08:01)
[2020-06-12] MEDS: Memantine 10 MG Tab PO SCH ×2 (08:01→17:06)
[2020-06-12] MEDS: ALLOPURINOL 300 MG PO SCH (08:01)
[2020-06-13] MEDS: Pentoxifylline 400 MG Tab.ER PO SCH (07:59)
[2020-06-13] MEDS: ALLOPURINOL 300 MG PO SCH (07:59)
[2020-06-13] MEDS: Memantine 10 MG Tab PO SCH ×2 (07:59→17:06)
[2020-06-14] MEDS: ALLOPURINOL 300 MG PO SCH (08:20)
[2020-06-14] MEDS: Memantine 10 MG Tab PO SCH ×2 (08:20→17:39)
[2020-06-14] MEDS: Pentoxifylline 400 MG Tab.ER PO SCH (08:20)
[2020-06-15] MEDS: Memantine 10 MG Tab PO SCH ×2 (08:05→17:07)
[2020-06-15] MEDS: Pentoxifylline 400 MG Tab.ER PO SCH (08:05)
[2020-06-15] MEDS: ALLOPURINOL 300 MG PO SCH (08:05)
[2020-06-16] MEDS: ALLOPURINOL 300 MG PO SCH (07:54)
[2020-06-16] MEDS: Pentoxifylline 400 MG Tab.ER PO SCH (07:54)
[2020-06-16] MEDS: Memantine 10 MG Tab PO SCH ×2 (07:54→17:38)
[2020-06-17] MEDS: ALLOPURINOL 300 MG PO SCH (08:15)
[2020-06-17] MEDS: Memantine 10 MG Tab PO SCH ×2 (08:15→18:06)
[2020-06-17] MEDS: Pentoxifylline 400 MG Tab.ER PO SCH (08:15)
[2020-06-18] MEDS: Pentoxifylline 400 MG Tab.ER PO SCH (08:11)
[2020-06-18] MEDS: ALLOPURINOL 300 MG PO SCH (08:11)
[2020-06-18] MEDS: Memantine 10 MG Tab PO SCH ×2 (08:12→17:43)
[2020-06-19] MEDS: Memantine 10 MG Tab PO SCH ×2 (08:03→17:32)
[2020-06-19] MEDS: Pentoxifylline 400 MG Tab.ER PO SCH (08:03)
[2020-06-19] MEDS: ALLOPURINOL 300 MG PO SCH (08:03)
[2020-06-20] MEDS: Memantine 10 MG Tab PO SCH ×2 (08:01→17:15)
[2020-06-20] MEDS: ALLOPURINOL 300 MG PO SCH (08:01)
[2020-06-20] MEDS: Pentoxifylline 400 MG Tab.ER PO SCH (08:02)
[2020-06-21] MEDS: ALLOPURINOL 300 MG PO SCH (07:51)
[2020-06-21] MEDS: Memantine 10 MG Tab PO SCH ×2 (07:51→17:45)
[2020-06-21] MEDS: Pentoxifylline 400 MG Tab.ER PO SCH (07:51)
[2020-06-22] MEDS: ALLOPURINOL 300 MG PO SCH (08:17)
[2020-06-22] MEDS: Pentoxifylline 400 MG Tab.ER PO SCH (08:17)
[2020-06-22] MEDS: Memantine 10 MG Tab PO SCH ×2 (08:17→17:47)
[2020-06-23] MEDS: ALLOPURINOL 300 MG PO SCH (07:47)
[2020-06-23] MEDS: Memantine 10 MG Tab PO SCH ×2 (07:47→17:01)
[2020-06-23] MEDS: Pentoxifylline 400 MG Tab.ER PO SCH (07:48)
[2020-06-24] MEDS: Memantine 10 MG Tab PO SCH ×2 (08:11→17:08)
[2020-06-24] MEDS: Pentoxifylline 400 MG Tab.ER PO SCH (08:11)
[2020-06-24] MEDS: ALLOPURINOL 300 MG PO SCH (08:11)
[2020-06-25] MEDS: Memantine 10 MG Tab PO SCH ×2 (07:37→17:12)
[2020-06-25] MEDS: Pentoxifylline 400 MG Tab.ER PO SCH (07:37)
[2020-06-25] MEDS: ALLOPURINOL 300 MG PO SCH (07:37)
[2020-06-26] MEDS: Memantine 10 MG Tab PO SCH ×2 (07:51→17:08)
[2020-06-26] MEDS: ALLOPURINOL 300 MG PO SCH (07:51)
[2020-06-26] MEDS: Pentoxifylline 400 MG Tab.ER PO SCH (07:51)
[2020-06-27] MEDS: ALLOPURINOL 300 MG PO SCH (07:59)
[2020-06-27] MEDS: Pentoxifylline 400 MG Tab.ER PO SCH (07:59)
[2020-06-27] MEDS: Memantine 10 MG Tab PO SCH ×2 (07:59→17:22)
[2020-06-28] MEDS: Memantine 10 MG Tab PO SCH ×2 (07:56→17:11)
[2020-06-28] MEDS: Pentoxifylline 400 MG Tab.ER PO SCH (07:56)
[2020-06-28] MEDS: ALLOPURINOL 300 MG PO SCH (07:56)
[2020-06-28] MEDS: Acetaminophen 325 MG Tab PO PRN (08:25)
[2020-06-29] MEDS: Pentoxifylline 400 MG Tab.ER PO SCH (08:43)
[2020-06-29] MEDS: Memantine 10 MG Tab PO SCH ×2 (08:43→17:22)
[2020-06-29] MEDS: ALLOPURINOL 300 MG PO SCH (08:43)
--- NOTE | 2020-06-29 17:19 | PCM.TH.PN ---
- General Info Date of Service: 06/29/20 Admission Dx/Problem (Free Text): Admission Diagnosis/Problem Admission Diagnosis/Problem Alzheimer'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 Subjective Update: Patient is a 84-year-old male who is seen by telemedicine due to the pandemic. Patient is a limited historian due to his dementia. The patient recently had some increased moods due to the quarantine of the cold adenovirus, Namenda was increased to twice a day. The nursing staff states that this has helped significantly. The patient's also lives at the swing bed unit and states that he has been doing much better with his moods. Patient was seen on 05/01/2020, late entry being done on 05/02/2020 Functional Status: Reports: Pain Controlled, Tolerating Diet - Review of Systems General: Reports: No Symptoms, Weakness, Fatigue HEENT: Reports: No Symptoms Pulmonary: Reports: No Symptoms Cardiovascular: Reports: No Symptoms Gastrointestinal: Reports: No Symptoms Genitourinary: Reports: No Symptoms Musculoskeletal: Reports: No Symptoms, Shoulder Pain (yesterday had shoulder pain, today denies) Skin: Reports: No Symptoms, Other Neurological: Reports: No Symptoms Psychiatric: Reports: Confusion - Patient Data Vitals - Most Recent: Last Vital Signs Temp 97.0 F 06/29/20 08:00 Pulse 78 06/28/20 08:00 Resp 20 06/28/20 08:00 BP 136/73 06/28/20 08:00 Pulse Ox 97 06/28/20 08:00 Weight - Most Recent: 198 lb 3.2 oz I&O - Last 24 Hours: Intake & Output 06/29/20 06/29/20 06/29/20 06:59 14:59 22:59 Intake Total 592 Balance 592 Med Orders - Current: Current Medications Acetaminophen (Tylenol) 650 mg PO Q4H PRN PRN Reason: Pain (Mild 1-3)/fever Last Admin: 06/28/20 08:25 Dose: 650 mg Documented by: Guaifenesin (Robitussin) 100 mg PO Q4H PRN PRN Reason: cough Memantine (Namenda) 10 mg PO BID [facility] [place] Last Admin: 06/29/20 08:43 Dose: 10 mg Documented by: Allopurinol [ (Zyloprim] 300 Mg Tab) 300 mg PO DAILY [facility] Last Admin: 06/29/20 08:43 Dose: 300 mg Documented by: Pentoxifylline (Trental) 400 mg PO DAILY [facility] Last Admin: 06/29/20 08:43 Dose: 400 mg Documented by: Senna (Senna) 1 mg PO BID PRN PRN Reason: Constipation Temazepam (Restoril) 15 mg PO BEDTIME PRN PRN Reason: Sleep Tramadol HCl (Ultram) 50 mg PO Q8H PRN PRN Reason: Pain (moderate 4-6) Discontinued Medications Carbamide Perox/Anhydrous Glycerin (Debrox 6.5% Otic Soln) 5 ml EARRT BID [facility] [place] Stop: 05/21/20 18:01 Last Admin: 05/21/20 17:21 Dose: 5 drop Documented by: Influenza Virus Vaccine (Fluad Quad Syringe) 60 mcg IM .ONCE ONE Stop: 05/09/20 10:01 Last Admin: 05/09/20 09:59 Dose: 60 mcg Documented by: Memantine (Namenda) 10 mg PO DAILY [facility] [place] Memantine (Namenda) 10 mg PO DAILY [facility] Stop: 12/14/19 08:00 Memantine (Namenda) 10 mg PO BID [facility] Stop: 12/15/19 08:00 Last Admin: 12/08/19 18:20 Dose: Not Given Documented by: Memantine (Namenda) 10 mg PO DAILY [facility] [place] Stop: 12/15/19 08:01 Last Admin: 12/15/19 08:45 Dose: 10 mg Documented by: Memantine Hcl [ Memantine Hcl] 5 Mg Tab 5 mg PO BID [facility] [place] Last Admin: 12/08/19 17:15 Dose: 5 mg Documented by: Non-Formulary Medication (Memantine Hcl [Memantine Hcl]) 5 mg PO BEDTIME [facility] Stop: 12/14/19 20:00 Memantine 5 Mg Tab* Patient's Own Medication* 0 each PO DAILY [facility] Stop: 12/15/19 08:01 Last Admin: 12/09/19 08:07 Dose: 1 each Documented by: Memantine 5 Mg Tab* Patient's Own Medication* 0 each PO BID [facility] Memantine 5 Mg Tab* Patient's Own Medication* 0 each PO DAILY@1800 [facility] [place] Stop: 12/15/19 18:01 Last Admin: 12/15/19 17:18 Dose: 1 each Documented by: - Exam Quality Assessment: Skin Breakdown General: Alert, Oriented, Cooperative Neck: Supple Lungs: Clear to Auscultation, Normal Respiratory Effort Cardiovascular: Regular Rate, Regular Rhythm GI/Abdominal Exam: Normal Bowel Sounds, Soft, Non-Tender Back Exam: Normal Inspection Extremities: Normal Inspection, Normal Range of Motion Skin: Warm, Dry Neurological: No New Focal Deficit Psy/Mental Status: Normal Affect, Normal Mood Sepsis Event Note - Evaluation Sepsis Screening Result: No Definite Risk - Focused Exam Vital Signs: Vital Signs Temp 06/29/20 08:00 97.0 F - Problem List & Annotations (1) Alzheimer'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 SNOMED Code(s): 64287063 Code(s): G30.9 - ALZHEIMER'S DISEASE, UNSPECIFIED; F02.80 - DEMENTIA IN OTH DISEASES CLASSD ELSWHR W/O BEHAVRL DISTURB Status: Acute Current Visit: Yes Qualifiers: Alzheimer's disease onset: unspecified onset Qualified Code(s): G30.9 - Alzheimer's disease, unspecified; F02.80 - Dementia in other diseases classified elsewhere without behavioral disturbance (2) PAD (peripheral artery disease) SNOMED Code(s): 820673865 Code(s): I73.9 - PERIPHERAL VASCULAR DISEASE, UNSPECIFIED Status: Acute Current Visit: Yes (3) Gout SNOMED Code(s): 79342473 Code(s): M10.9 - GOUT, UNSPECIFIED Status: Acute Current Visit: Yes Qualifiers: Gout site: multiple sites Gout etiology: unspecified cause Chronicity: chronic Qualified Code(s): M1A.09X0 - Idiopathic chronic gout, multiple sites, without tophus (tophi) - Problem List Review Problem List Initiated/Reviewed/Updated: Yes - Plan Plan:: 1. Alzheimer's dementia: the patient will continue on Namenda, increase dose to 5mg twice a day. Will continue to increase the dose if the patient tolerates 2. PAD: continue on trental for the intermittent claudication 3. Gout: continue on allopurinol. Monitor kidney function PLAN: The patient is needing swingbed status skilled nursing due to his current diagnoses. The patient will continue to decline with his memory and need more assistance with daily cares. Consulted with Dr Azalia Stovall in regards to this patient and plan of care. Roseann Neil CNP 08/20/2019: 1. Alzheimer's: continue on the Namenda. It is not medically recommended for the patient to be driving due to his memory loss. The patient needs daily reminders for his ADL's and medications need to be given to him by the nurse 2. PAD: continue on Trental, patient is asymptomatic 3. Gout: Continue on Allopurinol. Last BMP was 06/2019 The patient's condition will continue to decline due to his Alzheimer's. He is needing skilled care. Roseann Neil CNP 09/21/2019 Patient is doing well adjusting to the swingbed. He would like to drive but he has not and it is not medically recommended for the patient to be driving. Will continue on the current medications. No behaviors noted from the nursing staff. Roseann Neil CNP 10/25/2019 Patient seen by face time visit due to the mead virus pandemic. The patient is smiling and joking and does not have any concerns however he is a limited historian due to his Alzheimer's. The nurse is available during the face time visit denies any concerns with the patient. The nurse states that the patient's moods have been stable. He recently went for a long walk and complained of his legs hurting other than that there are no concerns per the nursing staff. 1. Alzheimer's dementia continue on the Namenda 2. PAD continue on Trental, no issues at this time 3. Gout continue on allopurinol and monitor kidney function. Patient does continue to need [facility] care due to his Alzheimer's which will progressively worsened. Roseann Neil CNP 12/08/2019 Patient seen by face time visit due to the mead virus. The patient is a limited historian due to his Alzheimer's. The nurse is available during the face time visit states the patient has been more agitated with not being able to go outside and drive his car. The nursing staff does try to take the patient out for a walk when they can. This helps to settle his moods. 1. Alzheimer's dementia continue on the Namenda but increase slowly to 10mg twice a day. 2. PAD continue on Trental, no issues at this time 3. Gout continue on allopurinol and monitor kidney function. Continue to monitor moods and hopefully the patient will show improvement with his agitation with the increase dose of Namenda, Total time 1625 is start time and end time is 1645. Roseann Neil CNP 02/15/2020 1. Alzheimer's dementia: continue on Namenda dose 2. PAD continue on Trental, no issues or symptoms at this time 3. Gout: will check uric acid level, continue on allopurinol Lab work ordered since it was last drawn in 06/2019. Patient is not in any distress and states enjoying life that he has left. He would like to be driving but realizes he can not. Moods have been stable, little agitation noted with his Alzheimer's Roseann Neil CNP 05/02/2020 1. Alzheimer dementia continue on the current dose of the Namenda. 2. Gout: Patient has had recent uric acid level which was within normal limits. Patient will be continued on the allopurinol. 3. Patient does have known carotid stenosis, blood pressures have been controlled as well as cholesterol levels. 4. Peripheral arterial disease continue on Trental no issues noted at this time. Patient's past medical history medications are reviewed. The patient's last laboratory tests are also reviewed. Roseann Neil CNP 06/29/2020 1. Wait with physical therapy as patient does not agree and not having shoulder pain 2. Alzheimer dementia continue on the current dose of the Namenda. 2. Gout: will be continue on the allopurinol. 3. Patient does have known carotid stenosis, blood pressures and cholesterol levels reviewed. 4. Peripheral arterial disease continue on Trental. Patient's past medical history medications are reviewed. start time 1545 stop time 1600 Roseann Neil CNP TeleHealth - TeleHealth Patient Service Facility: [facility] Informed Consent: Telemedicine Audio/Visual Informed Consent: The risks, benefits, and alternatives to the telehealth visit were explained to the patient and the patient consented to this modality of care. The telehealth visit was carried out via a secure, web-based conferencing system. This telemedicine service was a real-time, two-way interactive video and communication between the patient and the provider. All the parties involved were identified and approved by the patient prior to the visit. Any physical exam was assisted by the patient. Unless noted otherwise, the provider was located at their usual clinic location, and the patient was at their place of residence. Patient identity was confirmed by having the patient state their name and date of . All communications with the patient (verbal, audiovisual, and written) were documented in the patients medical record per documentation standards.
[2020-06-30] MEDS: Pentoxifylline 400 MG Tab.ER PO SCH (08:05)
[2020-06-30] MEDS: Memantine 10 MG Tab PO SCH ×2 (08:05→17:37)
[2020-06-30] MEDS: ALLOPURINOL 300 MG PO SCH (08:05)
[2020-07-01] MEDS: traMADol 50 MG Tab PO PRN ×2 (00:13→11:59)
[2020-07-01] MEDS: Acetaminophen 325 MG Tab PO PRN (03:43)
[2020-07-01] MEDS: ALLOPURINOL 300 MG PO SCH (07:59)
[2020-07-01] MEDS: Memantine 10 MG Tab PO SCH ×2 (07:59→17:38)
[2020-07-01] MEDS: Pentoxifylline 400 MG Tab.ER PO SCH (08:00)
[2020-07-02] MEDS: ALLOPURINOL 300 MG PO SCH (07:36)
[2020-07-02] MEDS: Memantine 10 MG Tab PO SCH ×2 (07:36→17:28)
[2020-07-02] MEDS: Pentoxifylline 400 MG Tab.ER PO SCH (07:36)
[2020-07-02] MEDS: traMADol 50 MG Tab PO PRN ×2 (07:38→19:20)
[2020-07-03] MEDS: Pentoxifylline 400 MG Tab.ER PO SCH (07:48)
[2020-07-03] MEDS: ALLOPURINOL 300 MG PO SCH (07:48)
[2020-07-03] MEDS: Memantine 10 MG Tab PO SCH ×2 (07:48→17:00)
[2020-07-03] MEDS: traMADol 50 MG Tab PO PRN (17:00)
[2020-07-03] MEDS: Acetaminophen 325 MG Tab PO PRN (19:34)
[2020-07-04] MEDS: ALLOPURINOL 300 MG PO SCH (07:40)
[2020-07-04] MEDS: Pentoxifylline 400 MG Tab.ER PO SCH (07:41)
[2020-07-04] MEDS: traMADol 50 MG Tab PO PRN (07:41)
[2020-07-04] MEDS: Memantine 10 MG Tab PO SCH ×2 (07:41→17:09)
[2020-07-04] MEDS: Acetaminophen 325 MG Tab PO PRN (11:17)
--- NOTE | 2020-07-04 17:30 | PCM.SN.2 ---
- Free Text/Narrative Note: Nursing called, patient had a fever today and a cough. COVID was negative. CBC and CRP elevated, Chest Xray ordered, pneumonia noted and radiologist report is pending. started Levaquin 500mg one tablet daily for 7 days. Follow up labs ordered Roseann Neil CNP 07/04/2020
[2020-07-05] MEDS: Memantine 10 MG Tab PO SCH ×2 (07:32→17:08)
[2020-07-05] MEDS: ALLOPURINOL 300 MG PO SCH (07:32)
[2020-07-05] MEDS: Pentoxifylline 400 MG Tab.ER PO SCH (07:32)
[2020-07-05] MEDS: traMADol 50 MG Tab PO PRN (07:33)
[2020-07-05] MEDS: LEVOFLOXACIN 250 MG PO SCH (17:08)
[2020-07-06] MEDS: ALLOPURINOL 300 MG PO SCH (08:11)
[2020-07-06] MEDS: Memantine 10 MG Tab PO SCH ×2 (08:11→17:40)
[2020-07-06] MEDS: Pentoxifylline 400 MG Tab.ER PO SCH (08:12)
[2020-07-06] MEDS: LEVOFLOXACIN 250 MG PO SCH (17:41)
[2020-07-07] MEDS: ALLOPURINOL 300 MG PO SCH (07:29)
[2020-07-07] MEDS: Pentoxifylline 400 MG Tab.ER PO SCH (07:29)
[2020-07-07] MEDS: Memantine 10 MG Tab PO SCH ×2 (07:29→17:19)
[2020-07-07] MEDS: traMADol 50 MG Tab PO PRN (07:30)
[2020-07-07 07:50] LABS: CHLORIDE,CL 103 mmol/L (98-107); SODIUM,NA 135 mmol/L (136-145)
[2020-07-07] MEDS: LEVOFLOXACIN 250 MG PO SCH (17:19)
[2020-07-08] MEDS: Memantine 10 MG Tab PO SCH ×2 (08:10→17:43)
[2020-07-08] MEDS: Pentoxifylline 400 MG Tab.ER PO SCH (08:10)
[2020-07-08] MEDS: ALLOPURINOL 300 MG PO SCH (08:10)
[2020-07-08] MEDS: LEVOFLOXACIN 250 MG PO SCH (17:43)
[2020-07-09] MEDS: Memantine 10 MG Tab PO SCH ×2 (08:12→17:46)
[2020-07-09] MEDS: ALLOPURINOL 300 MG PO SCH (08:12)
[2020-07-09] MEDS: Pentoxifylline 400 MG Tab.ER PO SCH (08:12)
[2020-07-09] MEDS: LEVOFLOXACIN 250 MG PO SCH (17:46)
[2020-07-10] MEDS: Pentoxifylline 400 MG Tab.ER PO SCH (08:03)
[2020-07-10] MEDS: Memantine 10 MG Tab PO SCH ×2 (08:03→17:34)
[2020-07-10] MEDS: ALLOPURINOL 300 MG PO SCH (08:03)
[2020-07-10] MEDS: LEVOFLOXACIN 250 MG PO SCH (17:34)
[2020-07-10] MEDS: Acetaminophen 325 MG Tab PO PRN (20:18)
[2020-07-10] MEDS: guaiFENesin 100 MG/5 ML Soln 10 ML UD Cup PO PRN (20:26)
[2020-07-11] MEDS: ALLOPURINOL 300 MG PO SCH (07:58)
[2020-07-11] MEDS: Memantine 10 MG Tab PO SCH ×2 (07:58→17:16)
[2020-07-11] MEDS: Pentoxifylline 400 MG Tab.ER PO SCH (07:59)
[2020-07-11] MEDS: traMADol 50 MG Tab PO PRN (08:00)
[2020-07-11] MEDS: guaiFENesin 100 MG/5 ML Soln 10 ML UD Cup PO PRN (19:33)
[2020-07-12] MEDS: Memantine 10 MG Tab PO SCH ×2 (08:09→17:05)
[2020-07-12] MEDS: ALLOPURINOL 300 MG PO SCH (08:09)
[2020-07-12] MEDS: Pentoxifylline 400 MG Tab.ER PO SCH (08:09)
--- NOTE | 2020-07-12 12:18 | PCM.PN ---
- General Info Date of Service: 07/12/20 Admission Dx/Problem (Free Text): Admission Diagnosis/Problem Admission Diagnosis/Problem Alzheimer'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 Subjective Update: Patient was diagnosed with pneumonia, treated with Levaquin. Follow up lab and Chest Xray were done and reviewed. Patient continues to have episodes of not feeling well on and off. He is seen at lunch and eating his lunch. He is a limited historian due to his Alzheimer's. He states feeling fine. Functional Status: Reports: Pain Controlled, Tolerating Diet, Ambulating - Review of Systems General: Reports: No Symptoms HEENT: Reports: No Symptoms Pulmonary: Reports: No Symptoms Cardiovascular: Reports: No Symptoms Gastrointestinal: Reports: No Symptoms Genitourinary: Reports: No Symptoms Musculoskeletal: Reports: No Symptoms Skin: Reports: No Symptoms Neurological: Reports: No Symptoms Psychiatric: Reports: Confusion - Patient Data Vitals - Most Recent: Last Vital Signs Temp 97.9 F 07/11/20 20:00 Pulse 66 07/05/20 17:39 Resp 16 07/10/20 20:00 BP 148/76 H 07/10/20 20:00 Pulse Ox 93 L 07/05/20 17:39 Weight - Most Recent: 197 lb 4.8 oz I&O - Last 24 Hours: Intake & Output 07/11/20 07/12/20 07/12/20 22:59 06:59 14:59 Intake Total 640 356 Balance 640 356 Med Orders - Current: Current Medications Acetaminophen (Tylenol) 650 mg PO Q4H PRN PRN Reason: Pain (Mild 1-3)/fever Last Admin: 07/10/20 20:18 Dose: 650 mg Documented by: Guaifenesin (Robitussin) 100 mg PO Q4H PRN PRN Reason: cough Last Admin: 07/11/20 19:33 Dose: 100 mg Documented by: Memantine (Namenda) 10 mg PO BID [facility] Last Admin: 07/12/20 08:09 Dose: 10 mg Documented by: Allopurinol [ (Zyloprim] 300 Mg Tab) 300 mg PO DAILY [facility] Last Admin: 07/12/20 08:09 Dose: 300 mg Documented by: Pentoxifylline (Trental) 400 mg PO DAILY [facility] Last Admin: 07/12/20 08:09 Dose: 400 mg Documented by: Senna (Senna) 1 mg PO BID PRN PRN Reason: Constipation Tramadol HCl (Ultram) 50 mg PO Q8H PRN PRN Reason: Pain (moderate 4-6) Last Admin: 07/11/20 08:00 Dose: 50 mg Documented by: Discontinued Medications Carbamide Perox/Anhydrous Glycerin (Debrox 6.5% Otic Soln) 5 ml EARRT BID [facility] Stop: 05/21/20 18:01 Last Admin: 05/21/20 17:21 Dose: 5 drop Documented by: Influenza Virus Vaccine (Fluad Quad [id number] Syringe) 60 mcg IM .ONCE ONE Stop: 05/09/20 10:01 Last Admin: 05/09/20 09:59 Dose: 60 mcg Documented by: Levofloxacin (Levaquin) 500 mg PO Q24H [facility] Last Admin: 07/04/20 18:02 Dose: Not Given Documented by: Memantine (Namenda) 10 mg PO DAILY [facility] Memantine (Namenda) 10 mg PO DAILY [facility] Stop: 12/14/19 08:00 Memantine (Namenda) 10 mg PO BID [facility] Stop: 12/15/19 08:00 Last Admin: 12/08/19 18:20 Dose: Not Given Documented by: Memantine (Namenda) 10 mg PO DAILY [facility] Stop: 12/15/19 08:01 Last Admin: 12/15/19 08:45 Dose: 10 mg Documented by: Memantine Hcl [ Memantine Hcl] 5 Mg Tab 5 mg PO BID [facility] Last Admin: 12/08/19 17:15 Dose: 5 mg Documented by: Non-Formulary Medication (Memantine Hcl [Memantine Hcl]) 5 mg PO BEDTIME [facility] Stop: 12/14/19 20:00 Levofloxacin 500 Mg (Tab *Pt Own Med*) 0 each PO ONETIME ONE Stop: 07/04/20 18:01 Last Admin: 07/04/20 17:57 Dose: 1 each Documented by: Levofloxacin 250 Mg (Tab *Pt Own Med*) 0 each PO Q24H [facility] Stop: 07/10/20 18:01 Last Admin: 07/10/20 17:34 Dose: 1 each Documented by: Memantine 5 Mg Tab* Patient's Own Medication* 0 each PO DAILY [facility] Stop: 12/15/19 08:01 Last Admin: 12/09/19 08:07 Dose: 1 each Documented by: Memantine 5 Mg Tab* Patient's Own Medication* 0 each PO BID [facility] Memantine 5 Mg Tab* Patient's Own Medication* 0 each PO DAILY@1800 [facility] Stop: 12/15/19 18:01 Last Admin: 12/15/19 17:18 Dose: 1 each Documented by: Temazepam (Restoril) 15 mg PO BEDTIME PRN PRN Reason: Sleep - Exam General: Alert, Cooperative, No Acute Distress HEENT: Pupils Equal Neck: Supple Lungs: Clear to Auscultation, Decreased Breath Sounds Cardiovascular: Regular Rate, Regular Rhythm GI/Abdominal Exam: Normal Bowel Sounds, Soft, Non-Tender Back Exam: Normal Inspection Extremities: No Pedal Edema Skin: Warm, Dry, Intact Neurological: No New Focal Deficit Psy/Mental Status: Normal Affect, Normal Mood Sepsis Event Note - Evaluation Sepsis Screening Result: No Definite Risk - Problem List & Annotations (1) Alzheimer'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 SNOMED Code(s): 06876906 Code(s): G30.9 - ALZHEIMER'S DISEASE, UNSPECIFIED; F02.80 - DEMENTIA IN OTH DISEASES CLASSD ELSWHR W/O BEHAVRL DISTURB Status: Acute Current Visit: Yes Qualifiers: Alzheimer's disease onset: unspecified onset Qualified Code(s): G30.9 - Alzheimer's disease, unspecified; F02.80 - Dementia in other diseases classified elsewhere without behavioral disturbance (2) PAD (peripheral artery disease) SNOMED Code(s): 828983718 Code(s): I73.9 - PERIPHERAL VASCULAR DISEASE, UNSPECIFIED Status: Acute Current Visit: Yes (3) Gout SNOMED Code(s): 54713706 Code(s): M10.9 - GOUT, UNSPECIFIED Status: Acute Current Visit: Yes Qualifiers: Gout site: multiple sites Gout etiology: unspecified cause Chronicity: chronic Qualified Code(s): M1A.09X0 - Idiopathic chronic gout, multiple sites, without tophus (tophi) - Problem List Review Problem List Initiated/Reviewed/Updated: Yes - Plan Plan:: 1. Alzheimer's dementia: the patient will continue on Namenda, increase dose to 5mg twice a day. Will continue to increase the dose if the patient tolerates 2. PAD: continue on trental for the intermittent claudication 3. Gout: continue on allopurinol. Monitor kidney function PLAN: The patient is needing swingbed status alf due to his current diagnoses. The patient will continue to decline with his memory and need more assistance with daily cares. Consulted with Dr Azalia Stovall in regards to this patient and plan of care. Roseann Neil CNP 08/20/2019: 1. Alzheimer's: continue on the Namenda. It is not medically recommended for the patient to be driving due to his memory loss. The patient needs daily reminders for his ADL's and medications need to be given to him by the nurse 2. PAD: continue on Trental, patient is asymptomatic 3. Gout: Continue on Allopurinol. Last BMP was 06/2019 The patient's condition will continue to decline due to his Alzheimer's. He is needing skilled care. Roseann Neil CNP 09/21/2019 Patient is doing well adjusting to the swingbed. He would like to drive but he has not and it is not medically recommended for the patient to be driving. Will continue on the current medications. No behaviors noted from the nursing staff. Roseann Neil CNP 10/25/2019 Patient seen by face time visit due to the mead virus pandemic. The patient is smiling and joking and does not have any concerns however he is a limited historian due to his Alzheimer's. The nurse is available during the face time visit denies any concerns with the patient. The nurse states that the patient's moods have been stable. He recently went for a long walk and complained of his legs hurting other than that there are no concerns per the nursing staff. 1. Alzheimer's dementia continue on the Namenda 2. PAD continue on Trental, no issues at this time 3. Gout continue on allopurinol and monitor kidney function. Patient does continue to need [facility] care due to his Alzheimer's which will progressively worsened. Roseann Neil CNP 12/08/2019 Patient seen by face time visit due to the mead virus. The patient is a limited historian due to his Alzheimer's. The nurse is available during the face time visit states the patient has been more agitated with not being able to go outside and drive his car. The nursing staff does try to take the patient out for a walk when they can. This helps to settle his moods. 1. Alzheimer's dementia continue on the Namenda but increase slowly to 10mg twice a day. 2. PAD continue on Trental, no issues at this time 3. Gout continue on allopurinol and monitor kidney function. Continue to monitor moods and hopefully the patient will show improvement with his agitation with the increase dose of Namenda, Total time 1625 is start time and end time is 1645. Roseann Neil CNP 02/15/2020 1. Alzheimer's dementia: continue on Namenda dose 2. PAD continue on Trental, no issues or symptoms at this time 3. Gout: will check uric acid level, continue on allopurinol Lab work ordered since it was last drawn in 06/2019. Patient is not in any distress and states enjoying life that he has left. He would like to be driving but realizes he can not. Moods have been stable, little agitation noted with his Alzheimer's Roseann Neil CNP 05/02/2020 1. Alzheimer dementia continue on the current dose of the Namenda. 2. Gout: Patient has had recent uric acid level which was within normal limits. Patient will be continued on the allopurinol. 3. Patient does have known carotid stenosis, blood pressures have been controlled as well as cholesterol levels. 4. Peripheral arterial disease continue on Trental no issues noted at this time. Patient's past medical history medications are reviewed. The patient's last laboratory tests are also reviewed. Roseann Neil CNP 06/29/2020 1. Wait with physical therapy as patient does not agree and not having shoulder pain 2. Alzheimer dementia continue on the current dose of the Namenda. 2. Gout: will be continue on the allopurinol. 3. Patient does have known carotid stenosis, blood pressures and cholesterol levels reviewed. 4. Peripheral arterial disease continue on Trental. Patient's past medical history medications are reviewed. start time 1545 stop time 1600 Roseann Neil CNP 07/12/2020 1. Monitor for worsening symptoms, labs and chest Xray are improved no more antibiotics needed at this time. 2. Continue current medications. Discussed with patient and in the room upcoming COVID vaccination and possible side effects. Both verbalized understanding and had no further questions. Roseann Neil CNP
[2020-07-13] MEDS: ALLOPURINOL 300 MG PO SCH (08:14)
[2020-07-13] MEDS: Pentoxifylline 400 MG Tab.ER PO SCH (08:15)
[2020-07-13] MEDS: Memantine 10 MG Tab PO SCH ×2 (08:15→17:01)
[2020-07-14] MEDS: Pentoxifylline 400 MG Tab.ER PO SCH (07:56)
[2020-07-14] MEDS: ALLOPURINOL 300 MG PO SCH (07:56)
[2020-07-14] MEDS: Memantine 10 MG Tab PO SCH ×2 (07:56→17:13)
[2020-07-14] MEDS: traMADol 50 MG Tab PO PRN (07:57)
[2020-07-15] MEDS: Memantine 10 MG Tab PO SCH ×2 (07:05→17:10)
[2020-07-15] MEDS: Pentoxifylline 400 MG Tab.ER PO SCH (07:05)
[2020-07-15] MEDS: ALLOPURINOL 300 MG PO SCH (07:05)
[2020-07-15] MEDS: traMADol 50 MG Tab PO PRN (07:06)
[2020-07-16] MEDS: traMADol 50 MG Tab PO PRN (07:14)
[2020-07-16] MEDS: ALLOPURINOL 300 MG PO SCH (07:14)
[2020-07-16] MEDS: Memantine 10 MG Tab PO SCH ×2 (07:14→17:09)
[2020-07-16] MEDS: Pentoxifylline 400 MG Tab.ER PO SCH (07:14)
[2020-07-17] MEDS: ALLOPURINOL 300 MG PO SCH (08:11)
[2020-07-17] MEDS: Pentoxifylline 400 MG Tab.ER PO SCH (08:12)
[2020-07-17] MEDS: Memantine 10 MG Tab PO SCH ×2 (08:12→17:48)
[2020-07-17] MEDS: traMADol 50 MG Tab PO PRN (08:13)
[2020-07-18] MEDS: Memantine 10 MG Tab PO SCH ×2 (08:28→17:29)
[2020-07-18] MEDS: ALLOPURINOL 300 MG PO SCH (08:28)
[2020-07-18] MEDS: Pentoxifylline 400 MG Tab.ER PO SCH (08:28)
[2020-07-19] MEDS: Memantine 10 MG Tab PO SCH ×2 (07:29→17:11)
[2020-07-19] MEDS: Pentoxifylline 400 MG Tab.ER PO SCH (07:29)
[2020-07-19] MEDS: ALLOPURINOL 300 MG PO SCH (07:29)
[2020-07-20] MEDS: Pentoxifylline 400 MG Tab.ER PO SCH (08:25)
[2020-07-20] MEDS: Memantine 10 MG Tab PO SCH ×2 (08:25→17:43)
[2020-07-20] MEDS: ALLOPURINOL 300 MG PO SCH (08:25)
[2020-07-21] MEDS: Pentoxifylline 400 MG Tab.ER PO SCH (07:23)
[2020-07-21] MEDS: Memantine 10 MG Tab PO SCH ×2 (07:23→17:06)
[2020-07-21] MEDS: ALLOPURINOL 300 MG PO SCH (07:23)
[2020-07-22] MEDS: Pentoxifylline 400 MG Tab.ER PO SCH (08:11)
[2020-07-22] MEDS: ALLOPURINOL 300 MG PO SCH (08:11)
[2020-07-22] MEDS: Memantine 10 MG Tab PO SCH ×2 (08:11→17:53)
[2020-07-22] MEDS: guaiFENesin 100 MG/5 ML Soln 10 ML UD Cup PO PRN (19:50)
[2020-07-23] MEDS: ALLOPURINOL 300 MG PO SCH (08:13)
[2020-07-23] MEDS: Memantine 10 MG Tab PO SCH ×2 (08:13→17:30)
[2020-07-23] MEDS: Pentoxifylline 400 MG Tab.ER PO SCH (08:14)
[2020-07-23] MEDS: guaiFENesin 100 MG/5 ML Soln 10 ML UD Cup PO PRN (19:22)
[2020-07-24] MEDS: Memantine 10 MG Tab PO SCH ×2 (07:50→17:20)
[2020-07-24] MEDS: ALLOPURINOL 300 MG PO SCH (07:50)
[2020-07-24] MEDS: Pentoxifylline 400 MG Tab.ER PO SCH (07:50)
[2020-07-25] MEDS: Memantine 10 MG Tab PO SCH ×2 (07:24→17:11)
[2020-07-25] MEDS: Pentoxifylline 400 MG Tab.ER PO SCH (07:24)
[2020-07-25] MEDS: ALLOPURINOL 300 MG PO SCH (07:24)
[2020-07-25] MEDS: traMADol 50 MG Tab PO PRN (07:25)
[2020-07-25] MEDS: guaiFENesin 100 MG/5 ML Soln 10 ML UD Cup PO PRN (19:29)
[2020-07-26] MEDS: ALLOPURINOL 300 MG PO SCH (07:20)
[2020-07-26] MEDS: Memantine 10 MG Tab PO SCH ×2 (07:20→17:09)
[2020-07-26] MEDS: Pentoxifylline 400 MG Tab.ER PO SCH (07:20)
[2020-07-27] MEDS: ALLOPURINOL 300 MG PO SCH (07:55)
[2020-07-27] MEDS: Pentoxifylline 400 MG Tab.ER PO SCH (07:55)
[2020-07-27] MEDS: Memantine 10 MG Tab PO SCH ×2 (07:55→17:13)
[2020-07-28] MEDS: ALLOPURINOL 300 MG PO SCH (08:20)
[2020-07-28] MEDS: Pentoxifylline 400 MG Tab.ER PO SCH (08:20)
[2020-07-28] MEDS: Memantine 10 MG Tab PO SCH ×2 (08:20→17:21)
[2020-07-29] MEDS: ALLOPURINOL 300 MG PO SCH (07:57)
[2020-07-29] MEDS: Memantine 10 MG Tab PO SCH ×2 (07:58→17:12)
[2020-07-29] MEDS: Pentoxifylline 400 MG Tab.ER PO SCH (07:58)
[2020-07-30] MEDS: ALLOPURINOL 300 MG PO SCH (08:23)
[2020-07-30] MEDS: Memantine 10 MG Tab PO SCH ×2 (08:23→17:45)
[2020-07-30] MEDS: Pentoxifylline 400 MG Tab.ER PO SCH (08:23)
[2020-07-31] MEDS: Pentoxifylline 400 MG Tab.ER PO SCH (07:57)
[2020-07-31] MEDS: Memantine 10 MG Tab PO SCH ×2 (07:57→17:11)
[2020-07-31] MEDS: ALLOPURINOL 300 MG PO SCH (07:57)
[2020-08-01] MEDS: Pentoxifylline 400 MG Tab.ER PO SCH (08:00)
[2020-08-01] MEDS: ALLOPURINOL 300 MG PO SCH (08:00)
[2020-08-01] MEDS: Memantine 10 MG Tab PO SCH ×2 (08:00→17:25)
[2020-08-01] MEDS: guaiFENesin 100 MG/5 ML Soln 10 ML UD Cup PO PRN (19:28)
[2020-08-02] MEDS: ALLOPURINOL 300 MG PO SCH (07:41)
[2020-08-02] MEDS: Pentoxifylline 400 MG Tab.ER PO SCH (07:41)
[2020-08-02] MEDS: Memantine 10 MG Tab PO SCH ×2 (07:41→17:29)
[2020-08-03] MEDS: Memantine 10 MG Tab PO SCH ×2 (08:18→17:25)
[2020-08-03] MEDS: Pentoxifylline 400 MG Tab.ER PO SCH (08:19)
[2020-08-03] MEDS: ALLOPURINOL 300 MG PO SCH (08:19)
--- NOTE | 2020-08-03 17:32 | PCM.PN ---
- General Info Date of Service: 08/03/20 Admission Dx/Problem (Free Text): Admission Diagnosis/Problem Admission Diagnosis/Problem Alzheimer'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 Subjective Update: Patient was diagnosed with pneumonia, treated with Levaquin. Follow up lab and Chest Xray were done and reviewed. Patient continues to have episodes of not feeling well on and off. He is seen at lunch and eating his lunch. He is a limited historian due to his Alzheimer's. He states feeling fine. Functional Status: Reports: Pain Controlled, Tolerating Diet, Ambulating - Review of Systems General: Reports: No Symptoms HEENT: Reports: No Symptoms Pulmonary: Reports: No Symptoms, Shortness of Breath, Cough Cardiovascular: Reports: No Symptoms Gastrointestinal: Reports: No Symptoms Genitourinary: Reports: No Symptoms Musculoskeletal: Reports: No Symptoms Skin: Reports: No Symptoms Neurological: Reports: No Symptoms Psychiatric: Reports: Confusion (known Alzheimer's dementia) - Patient Data Vitals - Most Recent: Last Vital Signs Temp 97.4 F 08/03/20 08:00 Pulse 64 08/02/20 08:00 Resp 18 08/02/20 08:00 BP 114/77 08/02/20 08:00 Pulse Ox 98 08/02/20 08:00 Weight - Most Recent: 200 lb 11.2 oz I&O - Last 24 Hours: Intake & Output 08/03/20 08/03/20 08/03/20 06:59 14:59 22:59 Intake Total 656 Balance 656 Med Orders - Current: Current Medications Acetaminophen (Tylenol) 650 mg PO Q4H PRN PRN Reason: Pain (Mild 1-3)/fever Last Admin: 07/10/20 20:18 Dose: 650 mg Documented by: Guaifenesin (Robitussin) 200 mg PO Q4H PRN PRN Reason: cough Last Admin: 08/01/20 19:28 Dose: 200 mg Documented by: Memantine (Namenda) 10 mg PO BID [facility] Last Admin: 08/03/20 17:25 Dose: 10 mg Documented by: Nitroglycerin (Nitrostat) 0.4 mg SL Q5M PRN PRN Reason: Chest Pain Allopurinol [ (Zyloprim] 300 Mg Tab) 300 mg PO DAILY [facility] Last Admin: 08/03/20 08:19 Dose: 300 mg Documented by: Pentoxifylline (Trental) 400 mg PO DAILY [facility] Last Admin: 08/03/20 08:19 Dose: 400 mg Documented by: Senna (Senna) 1 mg PO BID PRN PRN Reason: Constipation Tramadol HCl (Ultram) 50 mg PO Q8H PRN PRN Reason: Pain (moderate 4-6) Last Admin: 07/25/20 07:25 Dose: 50 mg Documented by: Discontinued Medications COVID-19 Vaccine mRNA LNP-S (MOD) (PF) (Moderna Covid19 Vacc(Unapprov)) 100 mcg IM .ONCE ONE Stop: 07/25/20 10:01 Last Admin: 07/25/20 10:36 Dose: 100 mcg Documented by: Carbamide Perox/Anhydrous Glycerin (Debrox 6.5% Otic Soln) 5 ml EARRT BID [facility] Stop: 05/21/20 18:01 Last Admin: 05/21/20 17:21 Dose: 5 drop Documented by: Guaifenesin (Robitussin) 100 mg PO Q4H PRN PRN Reason: cough Last Admin: 07/11/20 19:33 Dose: 100 mg Documented by: Influenza Virus Vaccine (Fluad Quad [id number] Syringe) 60 mcg IM .ONCE ONE Stop: 05/09/20 10:01 Last Admin: 05/09/20 09:59 Dose: 60 mcg Documented by: Levofloxacin (Levaquin) 500 mg PO Q24H [facility] Last Admin: 07/04/20 18:02 Dose: Not Given Documented by: Memantine (Namenda) 10 mg PO DAILY [facility] Memantine (Namenda) 10 mg PO DAILY [facility] Stop: 12/14/19 08:00 Memantine (Namenda) 10 mg PO BID [facility] Stop: 12/15/19 08:00 Last Admin: 12/08/19 18:20 Dose: Not Given Documented by: Memantine (Namenda) 10 mg PO DAILY [facility] Stop: 12/15/19 08:01 Last Admin: 12/15/19 08:45 Dose: 10 mg Documented by: Memantine Hcl [ Memantine Hcl] 5 Mg Tab 5 mg PO BID [facility] Last Admin: 12/08/19 17:15 Dose: 5 mg Documented by: Non-Formulary Medication (Memantine Hcl [Memantine Hcl]) 5 mg PO BEDTIME [facility] Stop: 12/14/19 20:00 Levofloxacin 500 Mg (Tab *Pt Own Med*) 0 each PO ONETIME ONE Stop: 07/04/20 18:01 Last Admin: 07/04/20 17:57 Dose: 1 each Documented by: Levofloxacin 250 Mg (Tab *Pt Own Med*) 0 each PO Q24H [facility] Stop: 07/10/20 18:01 Last Admin: 07/10/20 17:34 Dose: 1 each Documented by: Memantine 5 Mg Tab* Patient's Own Medication* 0 each PO DAILY [facility] Stop: 12/15/19 08:01 Last Admin: 12/09/19 08:07 Dose: 1 each Documented by: Memantine 5 Mg Tab* Patient's Own Medication* 0 each PO BID [facility] Memantine 5 Mg Tab* Patient's Own Medication* 0 each PO DAILY@1800 [facility] Stop: 12/15/19 18:01 Last Admin: 12/15/19 17:18 Dose: 1 each Documented by: Temazepam (Restoril) 15 mg PO BEDTIME PRN PRN Reason: Sleep - Exam General: Alert, Cooperative, No Acute Distress Neck: Supple Lungs: Clear to Auscultation, Normal Respiratory Effort Cardiovascular: Regular Rate, Regular Rhythm, No Murmurs GI/Abdominal Exam: Normal Bowel Sounds, Soft, Non-Tender Back Exam: Normal Inspection, Full Range of Motion Extremities: Normal Inspection, Normal Range of Motion, Non-Tender, No Pedal Edema, Normal Capillary Refill Skin: Warm, Dry, Intact Neurological: No New Focal Deficit Psy/Mental Status: Alert, Normal Affect, Normal Mood Sepsis Event Note - Evaluation Sepsis Screening Result: No Definite Risk - Focused Exam Vital Signs: Vital Signs Temp 08/03/20 08:00 97.4 F - Problem List & Annotations (1) Alzheimer'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 SNOMED Code(s): 52580194 Code(s): G30.9 - ALZHEIMER'S DISEASE, UNSPECIFIED; F02.80 - DEMENTIA IN OTH DISEASES CLASSD ELSWHR W/O BEHAVRL DISTURB Status: Acute Current Visit: Yes Qualifiers: Alzheimer's disease onset: unspecified onset Qualified Code(s): G30.9 - Alzheimer's disease, unspecified; F02.80 - Dementia in other diseases classified elsewhere without behavioral disturbance (2) PAD (peripheral artery disease) SNOMED Code(s): 678840513 Code(s): I73.9 - PERIPHERAL VASCULAR DISEASE, UNSPECIFIED Status: Acute Current Visit: Yes (3) Gout SNOMED Code(s): 17305500 Code(s): M10.9 - GOUT, UNSPECIFIED Status: Acute Current Visit: Yes Qualifiers: Gout site: multiple sites Gout etiology: unspecified cause Chronicity: chronic Qualified Code(s): M1A.09X0 - Idiopathic chronic gout, multiple sites, without tophus (tophi) - Problem List Review Problem List Initiated/Reviewed/Updated: Yes - Plan Plan:: 1. Alzheimer's dementia: the patient will continue on Namenda, increase dose to 5mg twice a day. Will continue to increase the dose if the patient tolerates 2. PAD: continue on trental for the intermittent claudication 3. Gout: continue on allopurinol. Monitor kidney function PLAN: The patient is needing swingbed status intermediate due to his current diagnoses. The patient will continue to decline with his memory and need more assistance with daily cares. Consulted with Dr Azalia Stovall in regards to this patient and plan of care. Roseann Neil CNP 08/20/2019: 1. Alzheimer's: continue on the Namenda. It is not medically recommended for the patient to be driving due to his memory loss. The patient needs daily reminders for his ADL's and medications need to be given to him by the nurse 2. PAD: continue on Trental, patient is asymptomatic 3. Gout: Continue on Allopurinol. Last BMP was 06/2019 The patient's condition will continue to decline due to his Alzheimer's. He is needing skilled care. Roseann Neil CNP 09/21/2019 Patient is doing well adjusting to the swingbed. He would like to drive but he has not and it is not medically recommended for the patient to be driving. Will continue on the current medications. No behaviors noted from the nursing staff. Roseann Neil CNP 10/25/2019 Patient seen by face time visit due to the mead virus pandemic. The patient is smiling and joking and does not have any concerns however he is a limited historian due to his Alzheimer's. The nurse is available during the face time visit denies any concerns with the patient. The nurse states that the patient's moods have been stable. He recently went for a long walk and complained of his legs hurting other than that there are no concerns per the nursing staff. 1. Alzheimer's dementia continue on the Namenda 2. PAD continue on Trental, no issues at this time 3. Gout continue on allopurinol and monitor kidney function. Patient does continue to need senior care care due to his Alzheimer's which will progressively worsened. Roseann Neil CNP 12/08/2019 Patient seen by face time visit due to the mead virus. The patient is a limited historian due to his Alzheimer's. The nurse is available during the face time visit states the patient has been more agitated with not being able to go outside and drive his car. The nursing staff does try to take the patient out for a walk when they can. This helps to settle his moods. 1. Alzheimer's dementia continue on the Namenda but increase slowly to 10mg twice a day. 2. PAD continue on Trental, no issues at this time 3. Gout continue on allopurinol and monitor kidney function. Continue to monitor moods and hopefully the patient will show improvement with his agitation with the increase dose of Namenda, Total time 1625 is start time and end time is 1645. Roseann Neil CNP 02/15/2020 1. Alzheimer's dementia: continue on Namenda dose 2. PAD continue on Trental, no issues or symptoms at this time 3. Gout: will check uric acid level, continue on allopurinol Lab work ordered since it was last drawn in 06/2019. Patient is not in any distress and states enjoying life that he has left. He would like to be driving but realizes he can not. Moods have been stable, little agitation noted with his Alzheimer's Roseann Neil CNP 05/02/2020 1. Alzheimer dementia continue on the current dose of the Namenda. 2. Gout: Patient has had recent uric acid level which was within normal limits. Patient will be continued on the allopurinol. 3. Patient does have known carotid stenosis, blood pressures have been controlled as well as cholesterol levels. 4. Peripheral arterial disease continue on Trental no issues noted at this time. Patient's past medical history medications are reviewed. The patient's last laboratory tests are also reviewed. Roseann Niel CNP 06/29/2020 1. Wait with physical therapy as patient does not agree and not having shoulder pain 2. Alzheimer dementia continue on the current dose of the Namenda. 3. Gout: will be continue on the allopurinol. 4. Patient does have known carotid stenosis, blood pressures and cholesterol levels reviewed. 5. Peripheral arterial disease continue on Trental. Patient's past medical history medications are reviewed. start time 1545 stop time 1600 Roseann Neil CNP 07/12/2020 1. Monitor for worsening symptoms, labs and chest Xray are improved no more antibiotics needed at this time. 2. Continue current medications. Discussed with patient and in the room upcoming COVID vaccination and possible side effects. Both verbalized understanding and had no further questions. Roseann Neil CNP 08/03/2020 1. Alzheimer's dementia: continue on namenda as moods are controlled. 2. Unstable angina with elevated troponin: patient has been in the ER at [facility] two times over the last few weeks due to chest pain, labs, notes and imaging reviewed. The patient is not wanting to go [facility] for hospitalization. He states if something happens he wants to stay in his room if possible or [place] inpatient. He is DNR. His is in swingbed and helps make decisions for him. She is not wanting him sent to [facility] either and to keep him comfortable. Nitro SL ordered to use as needed for chest pain. Will continue to monitor the patient and if develops chest pain will try conservative measures per his and his 's decision/wishes Roseann Neil CNP
[2020-08-04] MEDS: Pentoxifylline 400 MG Tab.ER PO SCH (07:26)
[2020-08-04] MEDS: ALLOPURINOL 300 MG PO SCH (07:26)
[2020-08-04] MEDS: Memantine 10 MG Tab PO SCH ×2 (07:26→17:14)
[2020-08-05] MEDS: ALLOPURINOL 300 MG PO SCH (07:24)
[2020-08-05] MEDS: Pentoxifylline 400 MG Tab.ER PO SCH (07:25)
[2020-08-05] MEDS: Memantine 10 MG Tab PO SCH ×2 (07:25→17:15)
[2020-08-06] MEDS: Pentoxifylline 400 MG Tab.ER PO SCH (07:29)
[2020-08-06] MEDS: ALLOPURINOL 300 MG PO SCH (07:29)
[2020-08-06] MEDS: Memantine 10 MG Tab PO SCH ×2 (07:29→17:07)
[2020-08-07] MEDS: Memantine 10 MG Tab PO SCH ×2 (08:24→17:25)
[2020-08-07] MEDS: Pentoxifylline 400 MG Tab.ER PO SCH (08:24)
[2020-08-07] MEDS: ALLOPURINOL 300 MG PO SCH (08:24)
[2020-08-08] MEDS: ALLOPURINOL 300 MG PO SCH (07:29)
[2020-08-08] MEDS: Memantine 10 MG Tab PO SCH ×2 (07:29→17:07)
[2020-08-08] MEDS: Pentoxifylline 400 MG Tab.ER PO SCH (07:30)
[2020-08-09] MEDS: ALLOPURINOL 300 MG PO SCH (08:15)
[2020-08-09] MEDS: Pentoxifylline 400 MG Tab.ER PO SCH (08:15)
[2020-08-09] MEDS: Memantine 10 MG Tab PO SCH ×2 (08:15→17:34)
[2020-08-10] MEDS: ALLOPURINOL 300 MG PO SCH (08:13)
[2020-08-10] MEDS: Pentoxifylline 400 MG Tab.ER PO SCH (08:13)
[2020-08-10] MEDS: Memantine 10 MG Tab PO SCH ×2 (08:13→17:41)
[2020-08-11] MEDS: Pentoxifylline 400 MG Tab.ER PO SCH (08:05)
[2020-08-11] MEDS: ALLOPURINOL 300 MG PO SCH (08:05)
[2020-08-11] MEDS: Memantine 10 MG Tab PO SCH ×2 (08:05→17:26)
[2020-08-12] MEDS: ALLOPURINOL 300 MG PO SCH (07:27)
[2020-08-12] MEDS: Memantine 10 MG Tab PO SCH ×2 (07:27→17:24)
[2020-08-12] MEDS: Pentoxifylline 400 MG Tab.ER PO SCH (07:27)
[2020-08-13] MEDS: ALLOPURINOL 300 MG PO SCH (08:05)
[2020-08-13] MEDS: Pentoxifylline 400 MG Tab.ER PO SCH (08:06)
[2020-08-13] MEDS: Memantine 10 MG Tab PO SCH ×2 (08:06→17:14)
[2020-08-13] MEDS: guaiFENesin 100 MG/5 ML Soln 10 ML UD Cup PO PRN (21:13)
[2020-08-14] MEDS: ALLOPURINOL 300 MG PO SCH (07:40)
[2020-08-14] MEDS: Pentoxifylline 400 MG Tab.ER PO SCH (07:41)
[2020-08-14] MEDS: Memantine 10 MG Tab PO SCH ×2 (07:41→17:30)
[2020-08-14] MEDS: guaiFENesin 100 MG/5 ML Soln 10 ML UD Cup PO PRN (19:21)
[2020-08-15] MEDS: ALLOPURINOL 300 MG PO SCH (08:08)
[2020-08-15] MEDS: Pentoxifylline 400 MG Tab.ER PO SCH (08:09)
[2020-08-15] MEDS: Memantine 10 MG Tab PO SCH ×2 (08:09→17:30)
[2020-08-15] MEDS: guaiFENesin 100 MG/5 ML Soln 10 ML UD Cup PO PRN (20:41)
[2020-08-16] MEDS: Memantine 10 MG Tab PO SCH ×2 (07:32→17:08)
[2020-08-16] MEDS: ALLOPURINOL 300 MG PO SCH (07:32)
[2020-08-16] MEDS: Pentoxifylline 400 MG Tab.ER PO SCH (07:32)
[2020-08-17] MEDS: ALLOPURINOL 300 MG PO SCH (08:18)
[2020-08-17] MEDS: Memantine 10 MG Tab PO SCH ×2 (08:18→17:44)
[2020-08-17] MEDS: Pentoxifylline 400 MG Tab.ER PO SCH (08:18)
[2020-08-18] MEDS: ALLOPURINOL 300 MG PO SCH (08:20)
[2020-08-18] MEDS: Pentoxifylline 400 MG Tab.ER PO SCH (08:20)
[2020-08-18] MEDS: Memantine 10 MG Tab PO SCH ×2 (08:20→17:46)
[2020-08-19] MEDS: Pentoxifylline 400 MG Tab.ER PO SCH (08:12)
[2020-08-19] MEDS: ALLOPURINOL 300 MG PO SCH (08:12)
[2020-08-19] MEDS: Memantine 10 MG Tab PO SCH ×2 (08:13→17:12)
[2020-08-20] MEDS: ALLOPURINOL 300 MG PO SCH (08:14)
[2020-08-20] MEDS: Memantine 10 MG Tab PO SCH ×2 (08:15→18:25)
[2020-08-20] MEDS: Pentoxifylline 400 MG Tab.ER PO SCH (08:15)
[2020-08-21] MEDS: Pentoxifylline 400 MG Tab.ER PO SCH (08:04)
[2020-08-21] MEDS: ALLOPURINOL 300 MG PO SCH (08:04)
[2020-08-21] MEDS: Memantine 10 MG Tab PO SCH (08:04)
[2020-08-22] MEDS: Memantine 10 MG Tab PO SCH ×3 (07:15→17:06)
[2020-08-22] MEDS: ALLOPURINOL 300 MG PO SCH (07:16)
[2020-08-22] MEDS: Pentoxifylline 400 MG Tab.ER PO SCH (07:16)
[2020-08-23] MEDS: ALLOPURINOL 300 MG PO SCH (07:53)
[2020-08-23] MEDS: Memantine 10 MG Tab PO SCH ×2 (07:53→17:06)
[2020-08-23] MEDS: Pentoxifylline 400 MG Tab.ER PO SCH (07:53)
[2020-08-24] MEDS: ALLOPURINOL 300 MG PO SCH (08:12)
[2020-08-24] MEDS: Pentoxifylline 400 MG Tab.ER PO SCH (08:12)
[2020-08-24] MEDS: Memantine 10 MG Tab PO SCH ×2 (08:12→17:41)
[2020-08-25] MEDS: ALLOPURINOL 300 MG PO SCH (08:50)
[2020-08-25] MEDS: Memantine 10 MG Tab PO SCH ×2 (08:51→17:34)
[2020-08-25] MEDS: Pentoxifylline 400 MG Tab.ER PO SCH (08:51)
[2020-08-26] MEDS: Memantine 10 MG Tab PO SCH ×2 (07:31→17:05)
[2020-08-26] MEDS: ALLOPURINOL 300 MG PO SCH (07:31)
[2020-08-26] MEDS: Pentoxifylline 400 MG Tab.ER PO SCH (07:31)
[2020-08-27] MEDS: Pentoxifylline 400 MG Tab.ER PO SCH (07:09)
[2020-08-27] MEDS: ALLOPURINOL 300 MG PO SCH (07:09)
[2020-08-27] MEDS: Memantine 10 MG Tab PO SCH ×2 (07:09→17:07)
[2020-08-28] MEDS: ALLOPURINOL 300 MG PO SCH (07:27)
[2020-08-28] MEDS: Pentoxifylline 400 MG Tab.ER PO SCH (07:28)
[2020-08-28] MEDS: Memantine 10 MG Tab PO SCH ×2 (07:28→17:11)
[2020-08-29] MEDS: Memantine 10 MG Tab PO SCH ×2 (08:21→17:42)
[2020-08-29] MEDS: ALLOPURINOL 300 MG PO SCH (08:21)
[2020-08-29] MEDS: Pentoxifylline 400 MG Tab.ER PO SCH (08:21)
[2020-08-30] MEDS: ALLOPURINOL 300 MG PO SCH (08:46)
[2020-08-30] MEDS: Pentoxifylline 400 MG Tab.ER PO SCH (08:47)
[2020-08-30] MEDS: Memantine 10 MG Tab PO SCH ×2 (08:47→18:16)
--- NOTE | 2020-08-30 17:32 | PCM.SN.2 ---
- Free Text/Narrative Note: Reviewed nursing notes and the patient's behavior noted from the other day. Checked with the nurse on duty today, patient's mood have been good today. will continue to monitor his moods. Roseann Neil CNP 08/30/2020
[2020-08-31] MEDS: Memantine 10 MG Tab PO SCH ×2 (07:54→17:33)
[2020-08-31] MEDS: Pentoxifylline 400 MG Tab.ER PO SCH (07:54)
[2020-08-31] MEDS: ALLOPURINOL 300 MG PO SCH (07:54)
[2020-09-01] MEDS: Memantine 10 MG Tab PO SCH ×2 (08:11→17:39)
[2020-09-01] MEDS: Pentoxifylline 400 MG Tab.ER PO SCH (08:11)
[2020-09-01] MEDS: ALLOPURINOL 300 MG PO SCH (08:11)
[2020-09-02] MEDS: Memantine 10 MG Tab PO SCH ×2 (08:09→17:05)
[2020-09-02] MEDS: ALLOPURINOL 300 MG PO SCH (08:09)
[2020-09-02] MEDS: Pentoxifylline 400 MG Tab.ER PO SCH (08:09)
[2020-09-03] MEDS: Pentoxifylline 400 MG Tab.ER PO SCH (08:27)
[2020-09-03] MEDS: ALLOPURINOL 300 MG PO SCH (08:27)
[2020-09-03] MEDS: Memantine 10 MG Tab PO SCH ×2 (08:27→17:33)
[2020-09-04] MEDS: Pentoxifylline 400 MG Tab.ER PO SCH (07:51)
[2020-09-04] MEDS: ALLOPURINOL 300 MG PO SCH (07:51)
[2020-09-04] MEDS: Memantine 10 MG Tab PO SCH ×2 (07:51→17:09)
[2020-09-05] MEDS: Memantine 10 MG Tab PO SCH ×2 (07:09→17:09)
[2020-09-05] MEDS: ALLOPURINOL 300 MG PO SCH (07:09)
[2020-09-05] MEDS: Pentoxifylline 400 MG Tab.ER PO SCH (07:09)
[2020-09-06] MEDS: ALLOPURINOL 300 MG PO SCH (07:47)
[2020-09-06] MEDS: Pentoxifylline 400 MG Tab.ER PO SCH (07:47)
[2020-09-06] MEDS: Memantine 10 MG Tab PO SCH ×2 (07:47→17:14)
[2020-09-07] MEDS: ALLOPURINOL 300 MG PO SCH (07:11)
[2020-09-07] MEDS: Pentoxifylline 400 MG Tab.ER PO SCH (07:11)
[2020-09-07] MEDS: Memantine 10 MG Tab PO SCH ×2 (07:11→17:24)
[2020-09-08] MEDS: Memantine 10 MG Tab PO SCH ×2 (08:21→17:31)
[2020-09-08] MEDS: ALLOPURINOL 300 MG PO SCH (08:21)
[2020-09-08] MEDS: Pentoxifylline 400 MG Tab.ER PO SCH (08:21)
[2020-09-09] MEDS: Memantine 10 MG Tab PO SCH ×2 (07:57→17:44)
[2020-09-09] MEDS: Pentoxifylline 400 MG Tab.ER PO SCH (07:57)
[2020-09-09] MEDS: ALLOPURINOL 300 MG PO SCH (07:57)
[2020-09-10] MEDS: ALLOPURINOL 300 MG PO SCH (07:47)
[2020-09-10] MEDS: Memantine 10 MG Tab PO SCH ×2 (07:47→17:07)
[2020-09-10] MEDS: Pentoxifylline 400 MG Tab.ER PO SCH (07:48)
[2020-09-11] MEDS: Memantine 10 MG Tab PO SCH ×2 (07:41→17:07)
[2020-09-11] MEDS: ALLOPURINOL 300 MG PO SCH (07:41)
[2020-09-11] MEDS: Pentoxifylline 400 MG Tab.ER PO SCH (07:42)
[2020-09-12] MEDS: Memantine 10 MG Tab PO SCH ×2 (07:58→17:23)
[2020-09-12] MEDS: ALLOPURINOL 300 MG PO SCH (07:58)
[2020-09-12] MEDS: Pentoxifylline 400 MG Tab.ER PO SCH (07:59)
[2020-09-13] MEDS: ALLOPURINOL 300 MG PO SCH (07:23)
[2020-09-13] MEDS: Memantine 10 MG Tab PO SCH ×2 (07:23→17:03)
[2020-09-13] MEDS: Pentoxifylline 400 MG Tab.ER PO SCH (07:23)
[2020-09-14] MEDS: Memantine 10 MG Tab PO SCH ×2 (08:22→17:09)
[2020-09-14] MEDS: ALLOPURINOL 300 MG PO SCH (08:22)
[2020-09-14] MEDS: Pentoxifylline 400 MG Tab.ER PO SCH (08:22)
[2020-09-15] MEDS: ALLOPURINOL 300 MG PO SCH (08:08)
[2020-09-15] MEDS: Memantine 10 MG Tab PO SCH ×2 (08:08→17:53)
[2020-09-15] MEDS: Pentoxifylline 400 MG Tab.ER PO SCH (08:08)
[2020-09-16] MEDS: ALLOPURINOL 300 MG PO SCH (07:17)
[2020-09-16] MEDS: Memantine 10 MG Tab PO SCH ×2 (07:17→17:10)
[2020-09-16] MEDS: Pentoxifylline 400 MG Tab.ER PO SCH (07:17)
[2020-09-17] MEDS: Pentoxifylline 400 MG Tab.ER PO SCH (08:07)
[2020-09-17] MEDS: ALLOPURINOL 300 MG PO SCH (08:07)
[2020-09-17] MEDS: Memantine 10 MG Tab PO SCH ×2 (08:07→17:14)
[2020-09-18] MEDS: Pentoxifylline 400 MG Tab.ER PO SCH (07:45)
[2020-09-18] MEDS: Memantine 10 MG Tab PO SCH ×2 (07:45→17:56)
[2020-09-18] MEDS: ALLOPURINOL 300 MG PO SCH (07:45)
--- NOTE | 2020-09-18 16:55 | PCM.PN ---
- General Info Date of Service: 09/18/20 Admission Dx/Problem (Free Text): Admission Diagnosis/Problem Admission Diagnosis/Problem Alzheimer'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 Functional Status: Reports: Pain Controlled, Tolerating Diet, Ambulating - Review of Systems General: Reports: No Symptoms HEENT: Reports: No Symptoms Pulmonary: Reports: No Symptoms Cardiovascular: Reports: No Symptoms Gastrointestinal: Reports: No Symptoms Musculoskeletal: Reports: No Symptoms Skin: Reports: No Symptoms Neurological: Reports: Confusion Psychiatric: Reports: Confusion - Patient Data Vitals - Most Recent: Last Vital Signs Temp 97.4 F 09/18/20 08:00 Pulse 73 09/13/20 08:00 Resp 18 09/13/20 08:00 BP 131/72 09/13/20 08:00 Pulse Ox 97 09/13/20 08:00 Weight - Most Recent: 200 lb 12.8 oz I&O - Last 24 Hours: Intake & Output 09/18/20 09/18/20 09/18/20 06:59 14:59 22:59 Intake Total 712 Balance 712 Med Orders - Current: Current Medications Acetaminophen (Tylenol) 650 mg PO Q4H PRN PRN Reason: Pain (Mild 1-3)/fever Last Admin: 07/10/20 20:18 Dose: 650 mg Documented by: Guaifenesin (Robitussin) 200 mg PO Q4H PRN PRN Reason: cough Last Admin: 08/15/20 20:41 Dose: 200 mg Documented by: Memantine (Namenda) 10 mg PO BID [facility] Last Admin: 09/18/20 07:45 Dose: 10 mg Documented by: Nitroglycerin (Nitrostat) 0.4 mg SL Q5M PRN PRN Reason: Chest Pain Last Admin: 08/13/20 21:13 Dose: 0.4 mg Documented by: Allopurinol [ (Zyloprim] 300 Mg Tab) 300 mg PO DAILY [facility] Last Admin: 09/18/20 07:45 Dose: 300 mg Documented by: Pentoxifylline (Trental) 400 mg PO DAILY [facility] Last Admin: 09/18/20 07:45 Dose: 400 mg Documented by: Senna (Senna) 1 mg PO BID PRN PRN Reason: Constipation Tramadol HCl (Ultram) 50 mg PO Q8H PRN PRN Reason: Pain (moderate 4-6) Last Admin: 07/25/20 07:25 Dose: 50 mg Documented by: Discontinued Medications COVID-19 Vaccine mRNA LNP-S (MOD) (PF) (Moderna Covid19 Vacc(Unapprov)) 100 mcg IM .ONCE ONE Stop: 07/25/20 10:01 Last Admin: 07/25/20 10:36 Dose: 100 mcg Documented by: COVID-19 Vaccine mRNA LNP-S (MOD) (PF) (Moderna Covid19 Vacc(Unapprov)) 100 mcg IM .ONCE ONE Stop: 08/22/20 09:31 Last Admin: 08/22/20 09:38 Dose: 100 mcg Documented by: Carbamide Perox/Anhydrous Glycerin (Debrox 6.5% Otic Soln) 5 ml EARRT BID [facility] Stop: 05/21/20 18:01 Last Admin: 05/21/20 17:21 Dose: 5 drop Documented by: Guaifenesin (Robitussin) 100 mg PO Q4H PRN PRN Reason: cough Last Admin: 07/11/20 19:33 Dose: 100 mg Documented by: Influenza Virus Vaccine (Fluad Quad [id number] Syringe) 60 mcg IM .ONCE ONE Stop: 05/09/20 10:01 Last Admin: 05/09/20 09:59 Dose: 60 mcg Documented by: Levofloxacin (Levaquin) 500 mg PO Q24H [facility] Last Admin: 07/04/20 18:02 Dose: Not Given Documented by: Memantine (Namenda) 10 mg PO DAILY [facility] Memantine (Namenda) 10 mg PO DAILY [facility] Stop: 12/14/19 08:00 Memantine (Namenda) 10 mg PO BID [facility] Stop: 12/15/19 08:00 Last Admin: 12/08/19 18:20 Dose: Not Given Documented by: Memantine (Namenda) 10 mg PO DAILY [facility] Stop: 12/15/19 08:01 Last Admin: 12/15/19 08:45 Dose: 10 mg Documented by: Memantine Hcl [ Memantine Hcl] 5 Mg Tab 5 mg PO BID [facility] Last Admin: 12/08/19 17:15 Dose: 5 mg Documented by: Non-Formulary Medication (Memantine Hcl [Memantine Hcl]) 5 mg PO BEDTIME [facility] Stop: 05/19/20 20:00 Levofloxacin 500 Mg (Tab *Pt Own Med*) 0 each PO ONETIME ONE Stop: 07/04/20 18:01 Last Admin: 07/04/20 17:57 Dose: 1 each Documented by: Levofloxacin 250 Mg (Tab *Pt Own Med*) 0 each PO Q24H [facility] Stop: 07/10/20 18:01 Last Admin: 07/10/20 17:34 Dose: 1 each Documented by: Memantine 5 Mg Tab* Patient's Own Medication* 0 each PO DAILY [facility] Stop: 12/15/19 08:01 Last Admin: 12/09/19 08:07 Dose: 1 each Documented by: Memantine 5 Mg Tab* Patient's Own Medication* 0 each PO BID [facility] Memantine 5 Mg Tab* Patient's Own Medication* 0 each PO DAILY@1800 [facility] Stop: 12/15/19 18:01 Last Admin: 12/15/19 17:18 Dose: 1 each Documented by: Temazepam (Restoril) 15 mg PO BEDTIME PRN PRN Reason: Sleep - Exam General: Alert, Cooperative, No Acute Distress Neck: Supple Lungs: Clear to Auscultation, Normal Respiratory Effort Cardiovascular: Regular Rate, Regular Rhythm GI/Abdominal Exam: Normal Bowel Sounds, Soft, Non-Tender Back Exam: Normal Inspection, Full Range of Motion Extremities: Normal Inspection, Normal Range of Motion, No Pedal Edema Peripheral Pulses: 1+: Dorsalis Pedis (L), Dorsalis Pedis (R) Skin: Warm, Dry, Intact Neurological: No New Focal Deficit Psy/Mental Status: Alert, Normal Affect, Normal Mood - Patient Data Result Diagrams: 07/07/20 07:29 07/07/20 07:29 Sepsis Event Note - Evaluation Sepsis Screening Result: No Definite Risk - Focused Exam Vital Signs: Vital Signs Temp 09/18/20 08:00 97.4 F - Problem List & Annotations (1) Alzheimer'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 SNOMED Code(s): 61216306 Code(s): G30.9 - ALZHEIMER'S DISEASE, UNSPECIFIED; F02.80 - DEMENTIA IN OTH DISEASES CLASSD ELSWHR W/O BEHAVRL DISTURB Status: Acute Current Visit: Yes Qualifiers: Alzheimer's disease onset: unspecified onset Qualified Code(s): G30.9 - Alzheimer's disease, unspecified; F02.80 - Dementia in other diseases classified elsewhere without behavioral disturbance (2) PAD (peripheral artery disease) SNOMED Code(s): 694799384 Code(s): I73.9 - PERIPHERAL VASCULAR DISEASE, UNSPECIFIED Status: Acute Current Visit: Yes (3) Gout SNOMED Code(s): 35518644 Code(s): M10.9 - GOUT, UNSPECIFIED Status: Acute Current Visit: Yes Qualifiers: Gout site: multiple sites Gout etiology: unspecified cause Chronicity: chronic Qualified Code(s): M1A.09X0 - Idiopathic chronic gout, multiple sites, without tophus (tophi) - Problem List Review Problem List Initiated/Reviewed/Updated: Yes - Plan Plan:: 1. Alzheimer's dementia: the patient will continue on Namenda, increase dose to 5mg twice a day. Will continue to increase the dose if the patient tolerates 2. PAD: continue on trental for the intermittent claudication 3. Gout: continue on allopurinol. Monitor kidney function PLAN: The patient is needing swingbed status group home due to his current diagnoses. The patient will continue to decline with his memory and need more assistance with daily cares. Consulted with Dr Azalia Stovall in regards to this patient and plan of care. Roseann Neil CNP 08/20/2019: 1. Alzheimer's: continue on the Namenda. It is not medically recommended for the patient to be driving due to his memory loss. The patient needs daily reminders for his ADL's and medications need to be given to him by the nurse 2. PAD: continue on Trental, patient is asymptomatic 3. Gout: Continue on Allopurinol. Last BMP was 06/2019 The patient's condition will continue to decline due to his Alzheimer's. He is needing skilled care. Roseann Neil CNP 09/21/2019 Patient is doing well adjusting to the swingbed. He would like to drive but he has not and it is not medically recommended for the patient to be driving. Will continue on the current medications. No behaviors noted from the nursing staff. Roseann Neil CNP 10/25/2019 Patient seen by face time visit due to the mead virus pandemic. The patient is smiling and joking and does not have any concerns however he is a limited historian due to his Alzheimer's. The nurse is available during the face time visit denies any concerns with the patient. The nurse states that the patient's moods have been stable. He recently went for a long walk and complained of his legs hurting other than that there are no concerns per the nursing staff. 1. Alzheimer's dementia continue on the Namenda 2. PAD continue on Trental, no issues at this time 3. Gout continue on allopurinol and monitor kidney function. Patient does continue to need jail care due to his Alzheimer's which will progressively worsened. Roseann Neil CNP 12/08/2019 Patient seen by face time visit due to the mead virus. The patient is a limited historian due to his Alzheimer's. The nurse is available during the face time visit states the patient has been more agitated with not being able to go outside and drive his car. The nursing staff does try to take the patient out for a walk when they can. This helps to settle his moods. 1. Alzheimer's dementia continue on the Namenda but increase slowly to 10mg twice a day. 2. PAD continue on Trental, no issues at this time 3. Gout continue on allopurinol and monitor kidney function. Continue to monitor moods and hopefully the patient will show improvement with his agitation with the increase dose of Namenda, Total time 1625 is start time and end time is 1645. Roseann Neil CNP 02/15/2020 1. Alzheimer's dementia: continue on Namenda dose 2. PAD continue on Trental, no issues or symptoms at this time 3. Gout: will check uric acid level, continue on allopurinol Lab work ordered since it was last drawn in 06/2019. Patient is not in any distress and states enjoying life that he has left. He would like to be driving but realizes he can not. Moods have been stable, little agitation noted with his Alzheimer's Roseann Neil CNP 05/02/2020 1. Alzheimer dementia continue on the current dose of the Namenda. 2. Gout: Patient has had recent uric acid level which was within normal limits. Patient will be continued on the allopurinol. 3. Patient does have known carotid stenosis, blood pressures have been c ontrolled as well as cholesterol levels. 4. Peripheral arterial disease continue on Trental no issues noted at this time. Patient's past medical history medications are reviewed. The patient's last laboratory tests are also reviewed. Roseann Neil CNP 06/29/2020 1. Wait with physical therapy as patient does not agree and not having shoulder pain 2. Alzheimer dementia continue on the current dose of the Namenda. 3. Gout: will be continue on the allopurinol. 4. Patient does have known carotid stenosis, blood pressures and cholesterol levels reviewed. 5. Peripheral arterial disease continue on Trental. Patient's past medical history medications are reviewed. start time 1545 stop time 1600 Roseann Neil CNP 07/12/2020 1. Monitor for worsening symptoms, labs and chest Xray are improved no more antibiotics needed at this time. 2. Continue current medications. Discussed with patient and in the room upcoming COVID vaccination and possible side effects. Both verbalized understanding and had no further questions. Roseann Neil CNP 08/03/2020 1. Alzheimer's dementia: continue on namenda as moods are controlled. 2. Unstable angina with elevated troponin: patient has been in the ER at [facility] two times over the last few weeks due to chest pain, labs, notes and im aging reviewed. The patient is not wanting to go [facility] for hospitalization. He states if something happens he wants to stay in his room if possible or [place] inpatient. He is DNR. His is in swingbed and helps make decisions for him. She is not wanting him sent to [facility] either and to keep him comfortable. Nitro SL ordered to use as needed for chest pain. Will continue to monitor the patient and if develops chest pain will try conservative measures per his and his 's decision/wishes Roseann Neil CNP 09/18/2020 1. Alzheimer's dementia: moods stable, continue on namenda 2. Unstable Angina: no further episodes, continue to monitor. 3. Gout: continue on Allopurinol No medication changes done. Patient is pleasantly confused, knows my name and jokes with me. Patient's present during examination. Roseann Neil CNP
[2020-09-19] MEDS: Memantine 10 MG Tab PO SCH ×2 (07:11→17:17)
[2020-09-19] MEDS: ALLOPURINOL 300 MG PO SCH (07:11)
[2020-09-19] MEDS: Pentoxifylline 400 MG Tab.ER PO SCH (07:12)
[2020-09-20] MEDS: Memantine 10 MG Tab PO SCH ×2 (07:45→17:15)
[2020-09-20] MEDS: ALLOPURINOL 300 MG PO SCH (07:45)
[2020-09-20] MEDS: Pentoxifylline 400 MG Tab.ER PO SCH (07:45)
[2020-09-21] MEDS: Pentoxifylline 400 MG Tab.ER PO SCH (08:46)
[2020-09-21] MEDS: ALLOPURINOL 300 MG PO SCH (08:46)
[2020-09-21] MEDS: Memantine 10 MG Tab PO SCH ×2 (08:47→17:11)
[2020-09-22] MEDS: Pentoxifylline 400 MG Tab.ER PO SCH (08:43)
[2020-09-22] MEDS: ALLOPURINOL 300 MG PO SCH (08:43)
[2020-09-22] MEDS: Memantine 10 MG Tab PO SCH ×2 (08:44→17:57)
[2020-09-23] MEDS: Pentoxifylline 400 MG Tab.ER PO SCH (07:59)
[2020-09-23] MEDS: ALLOPURINOL 300 MG PO SCH (08:00)
[2020-09-23] MEDS: Memantine 10 MG Tab PO SCH ×2 (08:00→17:08)
[2020-09-24] MEDS: Pentoxifylline 400 MG Tab.ER PO SCH (07:56)
[2020-09-24] MEDS: ALLOPURINOL 300 MG PO SCH (07:56)
[2020-09-24] MEDS: Memantine 10 MG Tab PO SCH ×2 (07:56→17:03)
[2020-09-25] MEDS: ALLOPURINOL 300 MG PO SCH (07:34)
[2020-09-25] MEDS: Memantine 10 MG Tab PO SCH ×2 (07:34→17:22)
[2020-09-25] MEDS: Pentoxifylline 400 MG Tab.ER PO SCH (07:35)
[2020-09-26] MEDS: Pentoxifylline 400 MG Tab.ER PO SCH (07:29)
[2020-09-26] MEDS: ALLOPURINOL 300 MG PO SCH (07:29)
[2020-09-26] MEDS: Memantine 10 MG Tab PO SCH ×2 (07:29→17:16)
[2020-09-27] MEDS: Pentoxifylline 400 MG Tab.ER PO SCH (08:20)
[2020-09-27] MEDS: ALLOPURINOL 300 MG PO SCH (08:20)
[2020-09-27] MEDS: Memantine 10 MG Tab PO SCH ×2 (08:20→17:44)
[2020-09-28] MEDS: ALLOPURINOL 300 MG PO SCH (07:32)
[2020-09-28] MEDS: Memantine 10 MG Tab PO SCH ×2 (07:32→17:06)
[2020-09-28] MEDS: Pentoxifylline 400 MG Tab.ER PO SCH (07:32)
[2020-09-29] MEDS: ALLOPURINOL 300 MG PO SCH (08:27)
[2020-09-29] MEDS: Pentoxifylline 400 MG Tab.ER PO SCH (08:28)
[2020-09-29] MEDS: Memantine 10 MG Tab PO SCH ×2 (08:28→18:01)
[2020-09-30] MEDS: Memantine 10 MG Tab PO SCH ×2 (08:35→17:45)
[2020-09-30] MEDS: Pentoxifylline 400 MG Tab.ER PO SCH (08:35)
[2020-09-30] MEDS: ALLOPURINOL 300 MG PO SCH (08:36)
[2020-10-01] MEDS: Pentoxifylline 400 MG Tab.ER PO SCH (07:36)
[2020-10-01] MEDS: ALLOPURINOL 300 MG PO SCH (07:36)
[2020-10-01] MEDS: Memantine 10 MG Tab PO SCH ×2 (07:36→17:32)
[2020-10-02] MEDS: Memantine 10 MG Tab PO SCH ×2 (07:54→17:31)
[2020-10-02] MEDS: Pentoxifylline 400 MG Tab.ER PO SCH (07:54)
[2020-10-02] MEDS: ALLOPURINOL 300 MG PO SCH (07:54)
[2020-10-03] MEDS: ALLOPURINOL 300 MG PO SCH (12:17)
[2020-10-03] MEDS: Pentoxifylline 400 MG Tab.ER PO SCH (12:17)
[2020-10-03] MEDS: Memantine 10 MG Tab PO SCH ×2 (12:17→17:22)
[2020-10-04] MEDS: Pentoxifylline 400 MG Tab.ER PO SCH (08:19)
[2020-10-04] MEDS: ALLOPURINOL 300 MG PO SCH (08:19)
[2020-10-04] MEDS: Memantine 10 MG Tab PO SCH ×2 (08:19→17:59)
[2020-10-05] MEDS: ALLOPURINOL 300 MG PO SCH (07:58)
[2020-10-05] MEDS: Memantine 10 MG Tab PO SCH ×2 (07:58→17:29)
[2020-10-05] MEDS: Pentoxifylline 400 MG Tab.ER PO SCH (07:58)
[2020-10-06] MEDS: ALLOPURINOL 300 MG PO SCH (07:57)
[2020-10-06] MEDS: Memantine 10 MG Tab PO SCH ×2 (07:58→17:18)
[2020-10-06] MEDS: Pentoxifylline 400 MG Tab.ER PO SCH (07:58)
[2020-10-07] MEDS: Pentoxifylline 400 MG Tab.ER PO SCH (07:23)
[2020-10-07] MEDS: ALLOPURINOL 300 MG PO SCH (07:23)
[2020-10-07] MEDS: Memantine 10 MG Tab PO SCH ×2 (07:23→17:13)
[2020-10-08] MEDS: Memantine 10 MG Tab PO SCH ×2 (07:18→17:14)
[2020-10-08] MEDS: ALLOPURINOL 300 MG PO SCH (07:18)
[2020-10-08] MEDS: Pentoxifylline 400 MG Tab.ER PO SCH (07:19)
[2020-10-09] MEDS: ALLOPURINOL 300 MG PO SCH (07:39)
[2020-10-09] MEDS: Pentoxifylline 400 MG Tab.ER PO SCH (07:39)
[2020-10-09] MEDS: Memantine 10 MG Tab PO SCH ×2 (07:39→17:16)
[2020-10-10] MEDS: Memantine 10 MG Tab PO SCH ×2 (07:59→17:53)
[2020-10-10] MEDS: ALLOPURINOL 300 MG PO SCH (07:59)
[2020-10-10] MEDS: Pentoxifylline 400 MG Tab.ER PO SCH (07:59)
[2020-10-11] MEDS: ALLOPURINOL 300 MG PO SCH (08:19)
[2020-10-11] MEDS: Pentoxifylline 400 MG Tab.ER PO SCH (08:19)
[2020-10-11] MEDS: Memantine 10 MG Tab PO SCH ×2 (08:19→17:26)
[2020-10-12] MEDS: Pentoxifylline 400 MG Tab.ER PO SCH (08:36)
[2020-10-12] MEDS: Memantine 10 MG Tab PO SCH ×2 (08:36→17:25)
[2020-10-12] MEDS: ALLOPURINOL 300 MG PO SCH (08:36)
[2020-10-13] MEDS: ALLOPURINOL 300 MG PO SCH (08:04)
[2020-10-13] MEDS: Pentoxifylline 400 MG Tab.ER PO SCH (08:05)
[2020-10-13] MEDS: Memantine 10 MG Tab PO SCH ×2 (08:05→17:14)
[2020-10-14] MEDS: Pentoxifylline 400 MG Tab.ER PO SCH (07:37)
[2020-10-14] MEDS: ALLOPURINOL 300 MG PO SCH (07:37)
[2020-10-14] MEDS: Memantine 10 MG Tab PO SCH ×2 (07:37→17:01)
[2020-10-15] MEDS: Memantine 10 MG Tab PO SCH ×2 (07:59→17:05)
[2020-10-15] MEDS: ALLOPURINOL 300 MG PO SCH (07:59)
[2020-10-15] MEDS: Pentoxifylline 400 MG Tab.ER PO SCH (07:59)
[2020-10-16] MEDS: ALLOPURINOL 300 MG PO SCH (08:08)
[2020-10-16] MEDS: Memantine 10 MG Tab PO SCH ×2 (08:08→17:11)
[2020-10-16] MEDS: Pentoxifylline 400 MG Tab.ER PO SCH (08:08)
[2020-10-17] MEDS: Pentoxifylline 400 MG Tab.ER PO SCH (07:24)
[2020-10-17] MEDS: Memantine 10 MG Tab PO SCH ×2 (07:24→17:04)
[2020-10-17] MEDS: ALLOPURINOL 300 MG PO SCH (07:24)
[2020-10-18] MEDS: Memantine 10 MG Tab PO SCH ×2 (07:39→17:05)
[2020-10-18] MEDS: Pentoxifylline 400 MG Tab.ER PO SCH (07:39)
[2020-10-18] MEDS: ALLOPURINOL 300 MG PO SCH (07:39)
[2020-10-19] MEDS: ALLOPURINOL 300 MG PO SCH (07:55)
[2020-10-19] MEDS: Memantine 10 MG Tab PO SCH ×2 (07:55→17:19)
[2020-10-19] MEDS: Pentoxifylline 400 MG Tab.ER PO SCH (07:55)
[2020-10-20] MEDS: Memantine 10 MG Tab PO SCH ×2 (08:17→17:17)
[2020-10-20] MEDS: ALLOPURINOL 300 MG PO SCH (08:17)
[2020-10-20] MEDS: Pentoxifylline 400 MG Tab.ER PO SCH (08:17)
[2020-10-21] MEDS: Memantine 10 MG Tab PO SCH ×2 (08:06→17:29)
[2020-10-21] MEDS: ALLOPURINOL 300 MG PO SCH (08:06)
[2020-10-21] MEDS: Pentoxifylline 400 MG Tab.ER PO SCH (08:07)
[2020-10-22] MEDS: Pentoxifylline 400 MG Tab.ER PO SCH (08:22)
[2020-10-22] MEDS: ALLOPURINOL 300 MG PO SCH (08:22)
[2020-10-22] MEDS: Memantine 10 MG Tab PO SCH ×2 (08:22→17:40)
[2020-10-23] MEDS: ALLOPURINOL 300 MG PO SCH (08:15)
[2020-10-23] MEDS: Pentoxifylline 400 MG Tab.ER PO SCH (08:15)
[2020-10-23] MEDS: Memantine 10 MG Tab PO SCH ×2 (08:15→17:42)
[2020-10-24] MEDS: ALLOPURINOL 300 MG PO SCH (08:16)
[2020-10-24] MEDS: Memantine 10 MG Tab PO SCH ×2 (08:16→17:13)
[2020-10-24] MEDS: Pentoxifylline 400 MG Tab.ER PO SCH (08:16)
[2020-10-25] MEDS: ALLOPURINOL 300 MG PO SCH (08:15)
[2020-10-25] MEDS: Pentoxifylline 400 MG Tab.ER PO SCH (08:15)
[2020-10-25] MEDS: Memantine 10 MG Tab PO SCH ×2 (08:15→17:34)
[2020-10-26] MEDS: ALLOPURINOL 300 MG PO SCH (07:56)
[2020-10-26] MEDS: Pentoxifylline 400 MG Tab.ER PO SCH (07:57)
[2020-10-26] MEDS: Memantine 10 MG Tab PO SCH ×2 (07:57→17:07)
--- NOTE | 2020-10-26 18:16 | PCM.PN ---
- General Info Date of Service: 10/26/20 Admission Dx/Problem (Free Text): Admission Diagnosis/Problem Admission Diagnosis/Problem Alzheimer'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 Subjective Update: Patient was diagnosed with pneumonia, treated with Levaquin. Follow up lab and Chest Xray were done and reviewed. Patient continues to have episodes of not feeling well on and off. He is seen at lunch and eating his lunch. He is a limited historian due to his Alzheimer's. He states feeling fine. Functional Status: Reports: Pain Controlled, Tolerating Diet, Ambulating - Review of Systems General: Reports: No Symptoms HEENT: Reports: Glasses Pulmonary: Reports: No Symptoms Cardiovascular: Reports: No Symptoms Gastrointestinal: Reports: No Symptoms Genitourinary: Reports: No Symptoms Musculoskeletal: Reports: Shoulder Pain (using Tylenol and Ultram as needed) Skin: Reports: No Symptoms Neurological: Reports: No Symptoms Psychiatric: Reports: Confusion - Patient Data Vitals - Most Recent: Last Vital Signs Temp 97.8 F 10/26/20 08:00 Pulse 64 10/25/20 08:00 Resp 18 10/25/20 08:00 BP 147/84 H 10/25/20 08:00 Pulse Ox 95 10/25/20 08:00 Weight - Most Recent: 198 lb 8 oz I&O - Last 24 Hours: Intake & Output 10/26/20 10/26/20 10/26/20 06:59 14:59 22:59 Intake Total 712 357 Balance 712 357 Med Orders - Current: Current Medications Acetaminophen (Acetaminophen 325 Mg Tab) 650 mg PO Q4H PRN PRN Reason: Pain (Mild 1-3)/fever Last Admin: 07/10/20 20:18 Dose: 650 mg Documented by: Guaifenesin (Guaifenesin 100 Mg/5 Ml Soln 10 Ml Ud Cup) 200 mg PO Q4H PRN PRN Reason: cough Last Admin: 08/15/20 20:41 Dose: 200 mg Documented by: Memantine (Memantine 10 Mg Tab) 10 mg PO BID BRAXTON Last Admin: 10/26/20 17:07 Dose: 10 mg Documented by: Nitroglycerin (Nitroglycerin 0.4 Mg Tab.Sl) 0.4 mg SL Q5M PRN PRN Reason: Chest Pain Last Admin: 08/13/20 21:13 Dose: 0.4 mg Documented by: Allopurinol [ (Zyloprim] 300 Mg Tab) 300 mg PO DAILY [facility] Last Admin: 10/26/20 07:56 Dose: 300 mg Documented by: Pentoxifylline (Pentoxifylline 400 Mg Tab.Er) 400 mg PO DAILY [facility] Last Admin: 10/26/20 07:57 Dose: 400 mg Documented by: Senna (Sennosides 8.6 Mg Tab) 1 mg PO BID PRN PRN Reason: Constipation Tramadol HCl (Tramadol 50 Mg Tab) 50 mg PO Q8H PRN PRN Reason: Pain (moderate 4-6) Last Admin: 07/25/20 07:25 Dose: 50 mg Documented by: Discontinued Medications COVID-19 Vaccine mRNA LNP-S (MOD) (PF) (Covid-19 Vacc, Mrna(Moderna)/Pf 100 Mcg/0.5 Ml Vial) 100 mcg IM .ONCE ONE Stop: 07/25/20 10:01 Last Admin: 07/25/20 10:36 Dose: 100 mcg Documented by: COVID-19 Vaccine mRNA LNP-S (MOD) (PF) (Covid-19 Vacc, Mrna(Moderna)/Pf 100 Mcg/0.5 Ml Vial) 100 mcg IM .ONCE ONE Stop: 08/22/20 09:31 Last Admin: 08/22/20 09:38 Dose: 100 mcg Documented by: Carbamide Perox/Anhydrous Glycerin (Carbamide Peroxide 6.5% Otic Soln 15 Ml Bottle) 5 ml EARRT BID [facility] Stop: 05/21/20 18:01 Last Admin: 05/21/20 17:21 Dose: 5 drop Documented by: Guaifenesin (Guaifenesin 100 Mg/5 Ml Soln 10 Ml Ud Cup) 100 mg PO Q4H PRN PRN Reason: cough Last Admin: 07/11/20 19:33 Dose: 100 mg Documented by: Influenza Virus Vaccine (Flu Vacc Pd5170(65up)/Mf59c/Pf 60 Mcg/0.5 Ml Syringe) 60 mcg IM .ONCE ONE Stop: 05/09/20 10:01 Last Admin: 05/09/20 09:59 Dose: 60 mcg Documented by: Levofloxacin (Levofloxacin 500 Mg Tab) 500 mg PO Q24H [facility] Last Admin: 07/04/20 18:02 Dose: Not Given Documented by: Memantine (Memantine 10 Mg Tab) 10 mg PO DAILY [facility] Memantine (Memantine 10 Mg Tab) 10 mg PO DAILY [facility] Stop: 12/14/19 08:00 Memantine (Memantine 10 Mg Tab) 10 mg PO BID [facility] Stop: 12/15/19 08:00 Last Admin: 12/08/19 18:20 Dose: Not Given Documented by: Memantine (Memantine 10 Mg Tab) 10 mg PO DAILY [facility] Stop: 12/15/19 08:01 Last Admin: 12/15/19 08:45 Dose: 10 mg Documented by: Memantine Hcl [ Memantine Hcl] 5 Mg Tab 5 mg PO BID [facility] Last Admin: 12/08/19 17:15 Dose: 5 mg Documented by: Non-Formulary Medication (Memantine Hcl [Memantine Hcl]) 5 mg PO BEDTIME [facility] Stop: 12/14/19 20:00 Levofloxacin 500 Mg (Tab *Pt Own Med*) 0 each PO ONETIME ONE Stop: 07/04/20 18:01 Last Admin: 07/04/20 17:57 Dose: 1 each Documented by: Levofloxacin 250 Mg (Tab *Pt Own Med*) 0 each PO Q24H [facility] Stop: 07/10/20 18:01 Last Admin: 07/10/20 17:34 Dose: 1 each Documented by: Memantine 5 Mg Tab* Patient's Own Medication* 0 each PO DAILY BRAXTON Stop: 12/15/19 08:01 Last Admin: 12/09/19 08:07 Dose: 1 each Documented by: Memantine 5 Mg Tab* Patient's Own Medication* 0 each PO BID [facility] Memantine 5 Mg Tab* Patient's Own Medication* 0 each PO DAILY@1800 [facility] Stop: 12/15/19 18:01 Last Admin: 12/15/19 17:18 Dose: 1 each Documented by: Temazepam (Temazepam 15 Mg Cap) 15 mg PO BEDTIME PRN PRN Reason: Sleep - Exam General: Alert, Cooperative Neck: Supple Lungs: Clear to Auscultation, Normal Respiratory Effort Cardiovascular: Regular Rate, Regular Rhythm GI/Abdominal Exam: Normal Bowel Sounds, Soft, Non-Tender, No Organomegaly Back Exam: Normal Inspection, Full Range of Motion Extremities: Normal Inspection, Normal Range of Motion, Non-Tender, No Pedal Edema, Normal Capillary Refill Skin: Warm, Dry, Intact Neurological: No New Focal Deficit Psy/Mental Status: Alert, Normal Affect, Normal Mood - Patient Data Result Diagrams: 07/07/20 07:29 07/07/20 07:29 Sepsis Event Note - Evaluation Sepsis Screening Result: No Definite Risk - Focused Exam Vital Signs: Vital Signs Temp 10/26/20 08:00 97.8 F - Problem List & Annotations (1) Alzheimer'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 SNOMED Code(s): 48221600 Code(s): G30.9 - ALZHEIMER'S DISEASE, UNSPECIFIED; F02.80 - DEMENTIA IN OTH DISEASES CLASSD ELSWHR W/O BEHAVRL DISTURB Status: Acute Current Visit: Yes Qualifiers: Alzheimer's disease onset: unspecified onset Qualified Code(s): G30.9 - Alzheimer's disease, unspecified; F02.80 - Dementia in other diseases classified elsewhere without behavioral disturbance (2) PAD (peripheral artery disease) SNOMED Code(s): 833247170 Code(s): I73.9 - PERIPHERAL VASCULAR DISEASE, UNSPECIFIED Status: Acute Current Visit: Yes (3) Gout SNOMED Code(s): 34437138 Code(s): M10.9 - GOUT, UNSPECIFIED Status: Acute Current Visit: Yes Qualifiers: Gout site: multiple sites Gout etiology: unspecified cause Chronicity: chronic Qualified Code(s): M1A.09X0 - Idiopathic chronic gout, multiple sites, without tophus (tophi) - Problem List Review Problem List Initiated/Reviewed/Updated: Yes - Plan Plan:: 1. Alzheimer's dementia: the patient will continue on Namenda, increase dose to 5mg twice a day. Will continue to increase the dose if the patient tolerates 2. PAD: continue on trental for the intermittent claudication 3. Gout: continue on allopurinol. Monitor kidney function PLAN: The patient is needing swingbed status residential due to his current diagnoses. The patient will continue to decline with his memory and need more assistance with daily cares. Consulted with Dr Azalia Stovall in regards to this patient and plan of care. Roseann Neil CNP 08/20/2019: 1. Alzheimer's: continue on the Namenda. It is not medically recommended for the patient to be driving due to his memory loss. The patient needs daily reminders for his ADL's and medications need to be given to him by the nurse 2. PAD: continue on Trental, patient is asymptomatic 3. Gout: Continue on Allopurinol. Last BMP was 06/2019 The patient's condition will continue to decline due to his Alzheimer's. He is needing skilled care. Roseann Neil CNP 09/21/2019 Patient is doing well adjusting to the swingbed. He would like to drive but he has not and it is not medically recommended for the patient to be driving. Will continue on the current medications. No behaviors noted from the nursing staff. Roseann Neil CNP 10/25/2019 Patient seen by face time visit due to the mead virus pandemic. The patient is smiling and joking and does not have any concerns however he is a limited historian due to his Alzheimer's. The nurse is available during the face time visit denies any concerns with the patient. The nurse states that the patient's moods have been stable. He recently went for a long walk and complained of his legs hurting other than that there are no concerns per the nursing staff. 1. Alzheimer's dementia continue on the Namenda 2. PAD continue on Trental, no issues at this time 3. Gout continue on allopurinol and monitor kidney function. Patient does continue to need care home care due to his Alzheimer's which will progressively worsened. Roseann Neil CNP 12/08/2019 Patient seen by face time visit due to the mead virus. The patient is a limited historian due to his Alzheimer's. The nurse is available during the face time visit states the patient has been more agitated with not being able to go outside and drive his car. The nursing staff does try to take the patient out for a walk when they can. This helps to settle his moods. 1. Alzheimer's dementia continue on the Namenda but increase slowly to 10mg twice a day. 2. PAD continue on Trental, no issues at this time 3. Gout continue on allopurinol and monitor kidney function. Continue to monitor moods and hopefully the patient will show improvement with his agitation with the increase dose of Namenda, Total time 1625 is start time and end time is 1645. Roseann Neil CNP 02/15/2020 1. Alzheimer's dementia: continue on Namenda dose 2. PAD continue on Trental, no issues or symptoms at this time 3. Gout: will check uric acid level, continue on allopurinol Lab work ordered since it was last drawn in 06/2019. Patient is not in any distress and states enjoying life that he has left. He would like to be driving but realizes he can not. Moods have been stable, little agitation noted with his Alzheimer's Roseann Neil CNP 05/02/2020 1. Alzheimer dementia continue on the current dose of the Namenda. 2. Gout: Patient has had recent uric acid level which was within normal limits. Patient will be continued on the allopurinol. 3. Patient does have known carotid stenosis, blood pressures have been controlled as well as cholesterol levels. 4. Peripheral arterial disease continue on Trental no issues noted at this time. Patient's past medical history medications are reviewed. The patient's last laboratory tests are also reviewed. Roseann Neil CNP 06/29/2020 1. Wait with physical therapy as patient does not agree and not having shoulder pain 2. Alzheimer dementia continue on the current dose of the Namenda. 3. Gout: will be continue on the allopurinol. 4. Patient does have known carotid stenosis, blood pressures and cholesterol levels reviewed. 5. Peripheral arterial disease continue on Trental. Patient's past medical history medications are reviewed. start time 1545 stop time 1600 Roseann Neil CNP 07/12/2020 1. Monitor for worsening symptoms, labs and chest Xray are improved no more antibiotics needed at this time. 2. Continue current medications. Discussed with patient and in the room upcoming COVID vaccination and possible side effects. Both verbalized understanding and had no further questions. Roseann Neil CNP 08/03/2020 1. Alzheimer's dementia: continue on namenda as moods are controlled. 2. Unstable angina with elevated troponin: patient has been in the ER at [facility] two times over the last few weeks due to chest pain, labs, notes and imaging reviewed. The patient is not wanting to go [place] for hospitalization. He states if something happens he wants to stay in his room if possible or [facility] inpatient. He is DNR. His is in swingbed and helps make decisions for him. She is not wanting him sent to [place] either and to keep him comfortable. Nitro SL ordered to use as needed for chest pain. Will continue to monitor the patient and if develops chest pain will try conservative measures per his and his 's decision/wishes Roseann Neil CNP 09/18/2020 1. Alzheimer's dementia: moods stable, continue on namenda 2. Unstable Angina: no further episodes, continue to monitor. 3. Gout: continue on Allopurinol No medication changes done. Patient is pleasantly confused, knows my name and jokes with me. Patient's present during examination. Roseann Neil CNP 10/26/2020 1. Alzheimer's dementia: continue on Namenda, moods stable 2. 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 PAD: on trental, no complains of pain in the extremities, no sores noted 4. Gout: on allopurinol will order uric acid level and BMP Roseann Neil CNP
[2020-10-27] MEDS: Memantine 10 MG Tab PO SCH ×2 (07:50→17:46)
[2020-10-27] MEDS: ALLOPURINOL 300 MG PO SCH (07:50)
[2020-10-27] MEDS: Pentoxifylline 400 MG Tab.ER PO SCH (07:50)
[2020-10-28] MEDS: Memantine 10 MG Tab PO SCH ×2 (08:01→17:15)
[2020-10-28] MEDS: Pentoxifylline 400 MG Tab.ER PO SCH (08:01)
[2020-10-28] MEDS: ALLOPURINOL 300 MG PO SCH (08:01)
[2020-10-29] MEDS: ALLOPURINOL 300 MG PO SCH (07:45)
[2020-10-29] MEDS: Pentoxifylline 400 MG Tab.ER PO SCH (07:45)
[2020-10-29] MEDS: Memantine 10 MG Tab PO SCH ×2 (07:45→17:15)
[2020-10-30] MEDS: Memantine 10 MG Tab PO SCH ×2 (08:29→18:11)
[2020-10-30] MEDS: Pentoxifylline 400 MG Tab.ER PO SCH (08:29)
[2020-10-30] MEDS: ALLOPURINOL 300 MG PO SCH (08:29)
[2020-10-30 08:34] LABS: CHLORIDE,CL 105 mmol/L (98-107); SODIUM,NA 141 mmol/L (136-145)
[2020-10-31] MEDS: Pentoxifylline 400 MG Tab.ER PO SCH (08:44)
[2020-10-31] MEDS: ALLOPURINOL 300 MG PO SCH (08:44)
[2020-10-31] MEDS: Memantine 10 MG Tab PO SCH ×2 (08:44→17:09)
[2020-11-01] MEDS: Pentoxifylline 400 MG Tab.ER PO SCH (08:11)
[2020-11-01] MEDS: Memantine 10 MG Tab PO SCH ×2 (08:11→17:20)
[2020-11-01] MEDS: ALLOPURINOL 300 MG PO SCH (08:11)
[2020-11-02] MEDS: ALLOPURINOL 300 MG PO SCH (07:58)
[2020-11-02] MEDS: Memantine 10 MG Tab PO SCH ×2 (07:58→17:39)
[2020-11-02] MEDS: Pentoxifylline 400 MG Tab.ER PO SCH (07:58)
[2020-11-03] MEDS: Memantine 10 MG Tab PO SCH ×2 (08:16→17:56)
[2020-11-03] MEDS: ALLOPURINOL 300 MG PO SCH (08:16)
[2020-11-03] MEDS: Pentoxifylline 400 MG Tab.ER PO SCH (08:17)
[2020-11-03] MEDS: Acetaminophen 325 MG Tab PO PRN (19:49)
[2020-11-04] MEDS: ALLOPURINOL 300 MG PO SCH (07:26)
[2020-11-04] MEDS: Memantine 10 MG Tab PO SCH ×2 (07:26→17:18)
[2020-11-04] MEDS: Pentoxifylline 400 MG Tab.ER PO SCH (07:27)
--- NOTE | 2020-11-04 15:40 | PCM.PN ---
- General Info Date of Service: 11/04/20 Subjective Update: I was summoned to the swing bed unit by the nursing staff with concerns for this patient with vomiting. The patient vomited once after dinner last night and onc e this morning. HPI is difficult to obtain to him as he is quite progressive dementia. According the nursing staff he has not had any fever or cough. He has been eating and drinking appropriately. He has been voiding and having bowel movements without difficulty. When I discussed with the patient himself he states that he did vomit once last night and once this morning but he feels fine. He has no body aches. No chest pain no shortness of breath or difficulty breathing. No cough or congestion. No weakness dizziness lightheadedness. He denies any fever or chills. No hematuria dysuria or urinary frequency denies any abdominal pain. No black or tarry stools or diarrhea. - Patient Data Vitals - Most Recent: Last Vital Signs Temp 98.6 F 11/04/20 08:00 Pulse 76 11/01/20 08:00 Resp 18 11/01/20 08:00 BP 123/77 11/01/20 08:00 Pulse Ox 94 L 11/01/20 08:00 Weight - Most Recent: 198 lb 14.4 oz I&O - Last 24 Hours: Intake & Output 11/04/20 11/04/20 11/04/20 06:59 14:59 22:59 Intake Total 110 Balance 110 Lab Results Last 24 Hours: Laboratory Results - last 24 hr 11/04/20 11/04/20 11/04/20 Range/Units 12:44 12:44 12:55 WBC 9.2 (4.0-10.2) K/uL RBC 4.81 (4.33-5.41) M/uL Hgb 15.9 (13.1-16.8) g/dL Hct 46.6 (39.0-49.0) % MCV 96.9 (84.0-98.0) fL MCH 33.1 (28.2-33.3) pg MCHC 34.1 (31.7-36.0) g/dL RDW 12.7 (11.2-14.1) % Plt Count 161 (150-350) K/uL Neut % (Auto) 88.8 H (45.0-80.0) % Lymph % (Auto) 3.3 L (10.0-50.0) % Harrison % (Auto) 7.8 (2.0-14.0) % Eos % (Auto) 0.0 (0.0-5.0) % Baso % (Auto) 0.1 (0.0-2.0) % Neut # (Auto) 8.13 H (1.40-7.00) K/uL Lymph # (Auto) 0.30 L (0.50-3.50) K/uL Harrison # (Auto) 0.71 (0.00-1.00) K/uL Eos # (Auto) 0.00 (0.00-0.50) K/uL Baso # (Auto) 0.01 (0.00-0.20) K/uL Sodium 137 (136-145) mmol/L Potassium 3.2 L (3.5-5.1) mmol/L Chloride 100 (98-107) mmol/L Carbon Dioxide 24.6 (21.0-32.0) mmol/L BUN 24 H (7-18) mg/dL Creatinine 1.23 H (0.51-1.17) mg/dL Est Cr Clr Drug Dosing 45.91 mL/min Estimated GFR (MDRD) 56 mL/min Glucose 135 H (70-99) mg/dL Calcium 8.3 L (8.5-10.1) mg/dL SARS-CoV-2 RNA (FLO) Negative (NEGATIVE) Med Orders - Current: Current Medications Acetaminophen (Acetaminophen 325 Mg Tab) 650 mg PO Q4H PRN PRN Reason: Pain (Mild 1-3)/fever Last Admin: 11/03/20 19:49 Dose: 650 mg Documented by: Guaifenesin (Guaifenesin 100 Mg/5 Ml Soln 10 Ml Ud Cup) 200 mg PO Q4H PRN PRN Reason: cough Last Admin: 08/15/20 20:41 Dose: 200 mg Documented by: Memantine (Memantine 10 Mg Tab) 10 mg PO BID [facility] Last Admin: 11/04/20 07:26 Dose: 10 mg Documented by: Nitroglycerin (Nitroglycerin 0.4 Mg Tab.Sl) 0.4 mg SL Q5M PRN PRN Reason: Chest Pain Last Admin: 08/13/20 21:13 Dose: 0.4 mg Documented by: Allopurinol [ (Zyloprim] 300 Mg Tab) 300 mg PO DAILY [facility] Last Admin: 11/04/20 07:26 Dose: 300 mg Documented by: Pentoxifylline (Pentoxifylline 400 Mg Tab.Er) 400 mg PO DAILY [facility] Last Admin: 11/04/20 07:27 Dose: 400 mg Documented by: Senna (Sennosides 8.6 Mg Tab) 1 mg PO BID PRN PRN Reason: Constipation Tramadol HCl (Tramadol 50 Mg Tab) 50 mg PO Q8H PRN PRN Reason: Pain (moderate 4-6) Last Admin: 07/25/20 07:25 Dose: 50 mg Documented by: Discontinued Medications COVID-19 Vaccine mRNA LNP-S (MOD) (PF) (Covid-19 Vacc, Mrna(Moderna)/Pf 100 Mcg/0.5 Ml Vial) 100 mcg IM .ONCE ONE Stop: 07/25/20 10:01 Last Admin: 07/25/20 10:36 Dose: 100 mcg Documented by: COVID-19 Vaccine mRNA LNP-S (MOD) (PF) (Covid-19 Vacc, Mrna(Moderna)/Pf 100 Mcg/0.5 Ml Vial) 100 mcg IM .ONCE ONE Stop: 08/22/20 09:31 Last Admin: 08/22/20 09:38 Dose: 100 mcg Documented by: Carbamide Perox/Anhydrous Glycerin (Carbamide Peroxide 6.5% Otic Soln 15 Ml Bottle) 5 ml EARRT BID [facility] Stop: 05/21/20 18:01 Last Admin: 05/21/20 17:21 Dose: 5 drop Documented by: Guaifenesin (Guaifenesin 100 Mg/5 Ml Soln 10 Ml Ud Cup) 100 mg PO Q4H PRN PRN Reason: cough Last Admin: 07/11/20 19:33 Dose: 100 mg Documented by: Influenza Virus Vaccine (Flu Vacc Vk8636(65up)/Mf59c/Pf 60 Mcg/0.5 Ml Syringe) 60 mcg IM .ONCE ONE Stop: 05/09/20 10:01 Last Admin: 05/09/20 09:59 Dose: 60 mcg Documented by: Levofloxacin (Levofloxacin 500 Mg Tab) 500 mg PO Q24H [facility] Last Admin: 07/04/20 18:02 Dose: Not Given Documented by: Memantine (Memantine 10 Mg Tab) 10 mg PO DAILY [facility] Memantine (Memantine 10 Mg Tab) 10 mg PO DAILY [facility] Stop: 12/14/19 08:00 Memantine (Memantine 10 Mg Tab) 10 mg PO BID [facility] Stop: 12/15/19 08:00 Last Admin: 12/08/19 18:20 Dose: Not Given Documented by: Memantine (Memantine 10 Mg Tab) 10 mg PO DAILY [facility] Stop: 12/15/19 08:01 Last Admin: 12/15/19 08:45 Dose: 10 mg Documented by: Memantine Hcl [ Memantine Hcl] 5 Mg Tab 5 mg PO BID [facility] Last Admin: 12/08/19 17:15 Dose: 5 mg Documented by: Non-Formulary Medication (Memantine Hcl [Memantine Hcl]) 5 mg PO BEDTIME [facility] Stop: 12/14/19 20:00 Levofloxacin 500 Mg (Tab *Pt Own Med*) 0 each PO ONETIME ONE Stop: 07/04/20 18:01 Last Admin: 07/04/20 17:57 Dose: 1 each Documented by: Levofloxacin 250 Mg (Tab *Pt Own Med*) 0 each PO Q24H [facility] Stop: 07/10/20 18:01 Last Admin: 07/10/20 17:34 Dose: 1 each Documented by: Memantine 5 Mg Tab* Patient's Own Medication* 0 each PO DAILY [facility] Stop: 12/15/19 08:01 Last Admin: 12/09/19 08:07 Dose: 1 each Documented by: Memantine 5 Mg Tab* Patient's Own Medication* 0 each PO BID [facility] Memantine 5 Mg Tab* Patient's Own Medication* 0 each PO DAILY@1800 [facility] Stop: 12/15/19 18:01 Last Admin: 12/15/19 17:18 Dose: 1 each Documented by: Temazepam (Temazepam 15 Mg Cap) 15 mg PO BEDTIME PRN PRN Reason: Sleep - Exam General: Alert HEENT: Pupils Equal, Pupils Reactive Neck: Supple Lungs: Clear to Auscultation, Normal Respiratory Effort Cardiovascular: Regular Rate, Regular Rhythm GI/Abdominal Exam: Normal Bowel Sounds, Soft, Distended (Minimally distended). No: Guarding, Rigid, Rebound, Tender (Male) Exam: Deferred Back Exam: Normal Inspection, Full Range of Motion. No: CVA Tenderness (L), CVA Tenderness (R) Extremities: Normal Inspection, Normal Range of Motion, Non-Tender, Normal Capillary Refill Skin: Warm, Dry Psy/Mental Status: Alert - Patient Data Lab Results Last 24 hrs: Laboratory Results - last 24 hr 11/04/20 11/04/20 11/04/20 Range/Units 12:44 12:44 12:55 WBC 9.2 (4.0-10.2) K/uL RBC 4.81 (4.33-5.41) M/uL Hgb 15.9 (13.1-16.8) g/dL Hct 46.6 (39.0-49.0) % MCV 96.9 (84.0-98.0) fL MCH 33.1 (28.2-33.3) pg MCHC 34.1 (31.7-36.0) g/dL RDW 12.7 (11.2-14.1) % Plt Count 161 (150-350) K/uL Neut % (Auto) 88.8 H (45.0-80.0) % Lymph % (Auto) 3.3 L (10.0-50.0) % Harrison % (Auto) 7.8 (2.0-14.0) % Eos % (Auto) 0.0 (0.0-5.0) % Baso % (Auto) 0.1 (0.0-2.0) % Neut # (Auto) 8.13 H (1.40-7.00) K/uL Lymph # (Auto) 0.30 L (0.50-3.50) K/uL Harrison # (Auto) 0.71 (0.00-1.00) K/uL Eos # (Auto) 0.00 (0.00-0.50) K/uL Baso # (Auto) 0.01 (0.00-0.20) K/uL Sodium 137 (136-145) mmol/L Potassium 3.2 L (3.5-5.1) mmol/L Chloride 100 (98-107) mmol/L Carbon Dioxide 24.6 (21.0-32.0) mmol/L BUN 24 H (7-18) mg/dL Creatinine 1.23 H (0.51-1.17) mg/dL Est Cr Clr Drug Dosing 45.91 mL/min Estimated GFR (MDRD) 56 mL/min Glucose 135 H (70-99) mg/dL Calcium 8.3 L (8.5-10.1) mg/dL SARS-CoV-2 RNA (FLO) Negative (NEGATIVE) Result Diagrams: 11/04/20 12:44 11/04/20 12:44 Sepsis Event Note - Evaluation Sepsis Screening Result: No Definite Risk - Focused Exam Vital Signs: Vital Signs Temp 11/04/20 08:00 98.6 F - Problem List & Annotations (1) Gastroenteritis SNOMED Code(s): 65391240 Code(s): K52.9 - NONINFECTIVE GASTROENTERITIS AND COLITIS, UNSPECIFIED Status: Acute Current Visit: Yes - Problem List Review Problem List Initiated/Reviewed/Updated: Yes - My Orders Last 24 Hours: My Active Orders 11/04/20 12:11 Abdomen 2V AP Flat Upright [CR] Routine - Assessment Assessment:: Laboratory evaluation shows a normal WBC at 9.2, hemoglobin 15.9 and platelet count 161. Comprehensive metabolic panel with a potassium of 3.2 creatinine of 1.23 which is just about baseline. A BUN of 24. Glucose of 135. Covid negative. 2 view of the abdomen initially reviewed extemporaneously by myself shows no air-fluid levels concerning for bowel obstruction. Nondescript bowel gas pattern. Radiological review to follow. Patient is tolerating oral intake and solids at this time. Assessment: Gastroenteritis. - Plan Plan:: 1. Alzheimer's dementia: the patient will continue on Namenda, increase dose to 5mg twice a day. Will continue to increase the dose if the patient tolerates 2. PAD: continue on trental for the intermittent claudication 3. Gout: continue on allopurinol. Monitor kidney function PLAN: The patient is needing swingbed status mcc due to his current diagnoses. The patient will continue to decline with his memory and need more assistance with daily cares. Consulted with Dr Azalia Stovall in regards to this patient and plan of care. Roseann Neil CNP 08/20/2019: 1. Alzheimer's: continue on the Namenda. It is not medically recommended for the patient to be driving due to his memory loss. The patient needs daily reminders for his ADL's and medications need to be given to him by the nurse 2. PAD: continue on Trental, patient is asymptomatic 3. Gout: Continue on Allopurinol. Last BMP was 06/2019 The patient's condition will continue to decline due to his Alzheimer's. He is needing skilled care. Roseann Neil CNP 09/21/2019 Patient is doing well adjusting to the swingbed. He would like to drive but he has not and it is not medically recommended for the patient to be driving. Will continue on the current medications. No behaviors noted from the nursing staff. Roseann Neil CNP 10/25/2019 Patient seen by face time visit due to the mead virus pandemic. The patient is smiling and joking and does not have any concerns however he is a limited historian due to his Alzheimer's. The nurse is available during the face time visit denies any concerns with the patient. The nurse states that the patient's moods have been stable. He recently went for a long walk and complained of his legs hurting other than that there are no concerns per the nursing staff. 1. Alzheimer's dementia continue on the Namenda 2. PAD continue on Trental, no issues at this time 3. Gout continue on allopurinol and monitor kidney function. Patient does continue to need intermediate care due to his Alzheimer's which will progressively worsened. Roseann Neil CNP 12/08/2019 Patient seen by face time visit due to the mead virus. The patient is a limited historian due to his Alzheimer's. The nurse is available during the face time visit states the patient has been more agitated with not being able to go outside and drive his car. The nursing staff does try to take the patient out for a walk when they can. This helps to settle his moods. 1. Alzheimer's dementia continue on the Namenda but increase slowly to 10mg twice a day. 2. PAD continue on Trental, no issues at this time 3. Gout continue on allopurinol and monitor kidney function. Continue to monitor moods and hopefully the patient will show improvement with his agitation with the increase dose of Namenda, Total time 1625 is start time and end time is 1645. Roseann Neil CNP 02/15/2020 1. Alzheimer's dementia: continue on Namenda dose 2. PAD continue on Trental, no issues or symptoms at this time 3. Gout: will check uric acid level, continue on allopurinol Lab work ordered since it was last drawn in 06/2019. Patient is not in any distress and states enjoying life that he has left. He would like to be driving but realizes he can not. Moods have been stable, little agitation noted with his Alzheimer's Roseann Neil CNP 05/02/2020 1. Alzheimer dementia continue on the current dose of the Namenda. 2. Gout: Patient has had recent uric acid level which was within normal limits. Patient will be continued on the allopurinol. 3. Patient does have known carotid stenosis, blood pressures have been controlled as well as cholesterol levels. 4. Peripheral arterial disease continue on Trental no issues noted at this time. Patient's past medical history medications are reviewed. The patient's last laboratory tests are also reviewed. Roseann Neil CNP 06/29/2020 1. Wait with physical therapy as patient does not agree and not having shoulder pain 2. Alzheimer dementia continue on the current dose of the Namenda. 3. Gout: will be continue on the allopurinol. 4. Patient does have known carotid stenosis, blood pressures and cholesterol levels reviewed. 5. Peripheral arterial disease continue on Trental. Patient's past medical history medications are reviewed. start time 1545 stop time 1600 Roseann Neil CNP 07/12/2020 1. Monitor for worsening symptoms, labs and chest Xray are improved no more antibiotics needed at this time. 2. Continue current medications. Discussed with patient and in the room upcoming COVID vaccination and possible side effects. Both verbalized understanding and had no further questions. Roseann Neil CNP 08/03/2020 1. Alzheimer's dementia: continue on namenda as moods are controlled. 2. Unstable angina with elevated troponin: patient has been in the ER at [facility] two times over the last few weeks due to chest pain, labs, notes and imaging reviewed. The patient is not wanting to go [place] for hospitalization. He states if something happens he wants to stay in his room if possible or [place] inpatient. He is DNR. His is in swingbed and helps make decisions for him. She is not wanting him sent to [place] either and to keep him comfortable. Nitro SL ordered to use as needed for chest pain. Will continue to monitor the patient and if develops chest pain will try conservative measures per his and his 's decision/wishes Roseann Neil CNP 09/18/2020 1. Alzheimer's dementia: moods stable, continue on namenda 2. Unstable Angina: no further episodes, continue to monitor. 3. Gout: continue on Allopurinol No medication changes done. Patient is pleasantly confused, knows my name and jokes with me. Patient's present during examination. Roseann Neil CNP 10/26/2020 1. Alzheimer's dementia: continue on Namenda, moods stable 2. 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 PAD: on trental, no complains of pain in the extremities, no sores noted 4. Gout: on allopurinol will order uric acid level and BMP Roseann Neil CNP 11/04/20 1. Gastroenteritis resolved. Will continue to monitor. Labs unremarkable. Xray normal. No symptoms at this time will continue to monitor.
[2020-11-04] MEDS: Acetaminophen 325 MG Tab PO PRN (19:43)
[2020-11-05] MEDS: ALLOPURINOL 300 MG PO SCH (07:24)
[2020-11-05] MEDS: Memantine 10 MG Tab PO SCH ×2 (07:24→17:13)
[2020-11-05] MEDS: Pentoxifylline 400 MG Tab.ER PO SCH (07:24)
[2020-11-06] MEDS: Pentoxifylline 400 MG Tab.ER PO SCH (08:01)
[2020-11-06] MEDS: ALLOPURINOL 300 MG PO SCH (08:01)
[2020-11-06] MEDS: Memantine 10 MG Tab PO SCH ×2 (08:01→17:21)
[2020-11-07] MEDS: Memantine 10 MG Tab PO SCH ×2 (07:47→17:12)
[2020-11-07] MEDS: ALLOPURINOL 300 MG PO SCH (07:47)
[2020-11-07] MEDS: Pentoxifylline 400 MG Tab.ER PO SCH (07:47)
[2020-11-08] MEDS: Memantine 10 MG Tab PO SCH ×2 (07:58→17:05)
[2020-11-08] MEDS: ALLOPURINOL 300 MG PO SCH (07:58)
[2020-11-08] MEDS: Pentoxifylline 400 MG Tab.ER PO SCH (07:58)
[2020-11-09] MEDS: Memantine 10 MG Tab PO SCH ×2 (08:06→18:38)
[2020-11-09] MEDS: Pentoxifylline 400 MG Tab.ER PO SCH (08:06)
[2020-11-09] MEDS: ALLOPURINOL 300 MG PO SCH (08:06)
[2020-11-09 08:21] LABS: CHLORIDE,CL 104 mmol/L (98-107); SODIUM,NA 140 mmol/L (136-145)
[2020-11-10] MEDS: Pentoxifylline 400 MG Tab.ER PO SCH (08:10)
[2020-11-10] MEDS: ALLOPURINOL 300 MG PO SCH (08:10)
[2020-11-10] MEDS: Memantine 10 MG Tab PO SCH ×2 (08:11→17:18)
[2020-11-11] MEDS: Pentoxifylline 400 MG Tab.ER PO SCH (08:06)
[2020-11-11] MEDS: ALLOPURINOL 300 MG PO SCH (08:06)
[2020-11-11] MEDS: Memantine 10 MG Tab PO SCH ×2 (08:07→17:28)
[2020-11-12] MEDS: Memantine 10 MG Tab PO SCH ×2 (07:59→18:04)
[2020-11-12] MEDS: ALLOPURINOL 300 MG PO SCH (07:59)
[2020-11-12] MEDS: Pentoxifylline 400 MG Tab.ER PO SCH (07:59)
[2020-11-13] MEDS: ALLOPURINOL 300 MG PO SCH (07:42)
[2020-11-13] MEDS: Pentoxifylline 400 MG Tab.ER PO SCH (07:42)
[2020-11-13] MEDS: Memantine 10 MG Tab PO SCH ×2 (07:42→17:22)
[2020-11-14] MEDS: ALLOPURINOL 300 MG PO SCH (08:32)
[2020-11-14] MEDS: Memantine 10 MG Tab PO SCH ×2 (08:33→17:17)
[2020-11-14] MEDS: Pentoxifylline 400 MG Tab.ER PO SCH (08:33)
[2020-11-15] MEDS: Memantine 10 MG Tab PO SCH ×2 (08:04→17:14)
[2020-11-15] MEDS: Pentoxifylline 400 MG Tab.ER PO SCH (08:04)
[2020-11-15] MEDS: ALLOPURINOL 300 MG PO SCH (08:04)
[2020-11-16] MEDS: Memantine 10 MG Tab PO SCH ×2 (07:34→17:23)
[2020-11-16] MEDS: Pentoxifylline 400 MG Tab.ER PO SCH (07:34)
[2020-11-16] MEDS: ALLOPURINOL 300 MG PO SCH (07:34)
[2020-11-17] MEDS: ALLOPURINOL 300 MG PO SCH (07:54)
[2020-11-17] MEDS: Memantine 10 MG Tab PO SCH ×2 (07:54→17:20)
[2020-11-17] MEDS: Pentoxifylline 400 MG Tab.ER PO SCH (07:55)
[2020-11-18] MEDS: Pentoxifylline 400 MG Tab.ER PO SCH (08:05)
[2020-11-18] MEDS: Memantine 10 MG Tab PO SCH ×2 (08:05→17:19)
[2020-11-18] MEDS: ALLOPURINOL 300 MG PO SCH (08:05)
[2020-11-19] MEDS: Pentoxifylline 400 MG Tab.ER PO SCH (07:42)
[2020-11-19] MEDS: Memantine 10 MG Tab PO SCH ×2 (07:42→17:18)
[2020-11-19] MEDS: ALLOPURINOL 300 MG PO SCH (07:42)
[2020-11-20] MEDS: ALLOPURINOL 300 MG PO SCH (08:01)
[2020-11-20] MEDS: Pentoxifylline 400 MG Tab.ER PO SCH (08:01)
[2020-11-20] MEDS: Memantine 10 MG Tab PO SCH ×2 (08:01→17:21)
[2020-11-21] MEDS: Pentoxifylline 400 MG Tab.ER PO SCH (08:11)
[2020-11-21] MEDS: ALLOPURINOL 300 MG PO SCH (08:11)
[2020-11-21] MEDS: Memantine 10 MG Tab PO SCH ×2 (08:11→17:24)
[2020-11-22] MEDS: Memantine 10 MG Tab PO SCH ×2 (08:13→17:46)
[2020-11-22] MEDS: Pentoxifylline 400 MG Tab.ER PO SCH (08:13)
[2020-11-22] MEDS: ALLOPURINOL 300 MG PO SCH (08:13)
[2020-11-23] MEDS: ALLOPURINOL 300 MG PO SCH (07:59)
[2020-11-23] MEDS: Memantine 10 MG Tab PO SCH ×2 (07:59→17:21)
[2020-11-23] MEDS: Pentoxifylline 400 MG Tab.ER PO SCH (07:59)
[2020-11-24] MEDS: ALLOPURINOL 300 MG PO SCH (07:55)
[2020-11-24] MEDS: Memantine 10 MG Tab PO SCH ×2 (07:55→17:09)
[2020-11-24] MEDS: Pentoxifylline 400 MG Tab.ER PO SCH (07:55)
[2020-11-25] MEDS: ALLOPURINOL 300 MG PO SCH (07:53)
[2020-11-25] MEDS: Pentoxifylline 400 MG Tab.ER PO SCH (07:54)
[2020-11-25] MEDS: Memantine 10 MG Tab PO SCH ×2 (07:54→17:10)
[2020-11-26] MEDS: ALLOPURINOL 300 MG PO SCH (08:16)
[2020-11-26] MEDS: Pentoxifylline 400 MG Tab.ER PO SCH (08:16)
[2020-11-26] MEDS: Memantine 10 MG Tab PO SCH ×2 (08:17→17:12)
[2020-11-27] MEDS: ALLOPURINOL 300 MG PO SCH (07:41)
[2020-11-27] MEDS: Pentoxifylline 400 MG Tab.ER PO SCH (07:41)
[2020-11-27] MEDS: Memantine 10 MG Tab PO SCH ×2 (07:42→17:34)
[2020-11-28] MEDS: Pentoxifylline 400 MG Tab.ER PO SCH (07:29)
[2020-11-28] MEDS: ALLOPURINOL 300 MG PO SCH (07:29)
[2020-11-28] MEDS: Memantine 10 MG Tab PO SCH ×2 (07:29→17:22)
[2020-11-29] MEDS: ALLOPURINOL 300 MG PO SCH (07:41)
[2020-11-29] MEDS: Memantine 10 MG Tab PO SCH ×2 (07:41→17:30)
[2020-11-29] MEDS: Pentoxifylline 400 MG Tab.ER PO SCH (07:42)
[2020-11-30] MEDS: ALLOPURINOL 300 MG PO SCH (08:17)
[2020-11-30] MEDS: Memantine 10 MG Tab PO SCH ×2 (08:17→19:00)
[2020-11-30] MEDS: Pentoxifylline 400 MG Tab.ER PO SCH (08:17)
[2020-12-01] MEDS: ALLOPURINOL 300 MG PO SCH (08:17)
[2020-12-01] MEDS: Memantine 10 MG Tab PO SCH ×2 (08:17→17:05)
[2020-12-01] MEDS: Pentoxifylline 400 MG Tab.ER PO SCH (08:18)
[2020-12-02] MEDS: Memantine 10 MG Tab PO SCH ×2 (08:18→17:40)
[2020-12-02] MEDS: ALLOPURINOL 300 MG PO SCH (08:18)
[2020-12-02] MEDS: Pentoxifylline 400 MG Tab.ER PO SCH (08:18)
[2020-12-03] MEDS: ALLOPURINOL 300 MG PO SCH (08:14)
[2020-12-03] MEDS: Pentoxifylline 400 MG Tab.ER PO SCH (08:14)
[2020-12-03] MEDS: Memantine 10 MG Tab PO SCH ×2 (08:15→17:03)
[2020-12-04] MEDS: ALLOPURINOL 300 MG PO SCH (07:36)
[2020-12-04] MEDS: Pentoxifylline 400 MG Tab.ER PO SCH (07:36)
[2020-12-04] MEDS: Memantine 10 MG Tab PO SCH ×2 (07:36→17:45)
[2020-12-05] MEDS: ALLOPURINOL 300 MG PO SCH (07:37)
[2020-12-05] MEDS: Pentoxifylline 400 MG Tab.ER PO SCH (07:38)
[2020-12-05] MEDS: Memantine 10 MG Tab PO SCH ×2 (07:38→17:29)
[2020-12-06] MEDS: Memantine 10 MG Tab PO SCH ×2 (07:46→17:43)
[2020-12-06] MEDS: ALLOPURINOL 300 MG PO SCH (07:46)
[2020-12-06] MEDS: Pentoxifylline 400 MG Tab.ER PO SCH (07:46)
[2020-12-07] MEDS: Pentoxifylline 400 MG Tab.ER PO SCH (07:56)
[2020-12-07] MEDS: Memantine 10 MG Tab PO SCH ×2 (07:56→17:23)
[2020-12-07] MEDS: ALLOPURINOL 300 MG PO SCH (07:56)
[2020-12-08] MEDS: Memantine 10 MG Tab PO SCH ×2 (07:39→17:15)
[2020-12-08] MEDS: Pentoxifylline 400 MG Tab.ER PO SCH (07:39)
[2020-12-08] MEDS: ALLOPURINOL 300 MG PO SCH (07:39)
[2020-12-09] MEDS: Memantine 10 MG Tab PO SCH ×2 (07:32→17:19)
[2020-12-09] MEDS: Pentoxifylline 400 MG Tab.ER PO SCH (07:32)
[2020-12-09] MEDS: ALLOPURINOL 300 MG PO SCH (07:32)
[2020-12-10] MEDS: ALLOPURINOL 300 MG PO SCH (08:05)
[2020-12-10] MEDS: Pentoxifylline 400 MG Tab.ER PO SCH (08:05)
[2020-12-10] MEDS: Memantine 10 MG Tab PO SCH ×2 (08:05→17:17)
[2020-12-11] MEDS: ALLOPURINOL 300 MG PO SCH (08:16)
[2020-12-11] MEDS: Pentoxifylline 400 MG Tab.ER PO SCH (08:17)
[2020-12-11] MEDS: Memantine 10 MG Tab PO SCH ×2 (08:17→17:58)
[2020-12-12] MEDS: ALLOPURINOL 300 MG PO SCH (07:52)
[2020-12-12] MEDS: Memantine 10 MG Tab PO SCH ×2 (07:53→17:28)
[2020-12-12] MEDS: Pentoxifylline 400 MG Tab.ER PO SCH (07:53)
[2020-12-13] MEDS: ALLOPURINOL 300 MG PO SCH (07:34)
[2020-12-13] MEDS: Memantine 10 MG Tab PO SCH ×2 (07:35→17:08)
[2020-12-13] MEDS: Pentoxifylline 400 MG Tab.ER PO SCH (07:35)
[2020-12-14] MEDS: ALLOPURINOL 300 MG PO SCH (07:42)
[2020-12-14] MEDS: Memantine 10 MG Tab PO SCH ×2 (07:42→17:54)
[2020-12-14] MEDS: Pentoxifylline 400 MG Tab.ER PO SCH (07:43)
[2020-12-15] MEDS: ALLOPURINOL 300 MG PO SCH (07:51)
[2020-12-15] MEDS: Memantine 10 MG Tab PO SCH ×2 (07:51→17:27)
[2020-12-15] MEDS: Pentoxifylline 400 MG Tab.ER PO SCH (07:51)
[2020-12-16] MEDS: Pentoxifylline 400 MG Tab.ER PO SCH (07:45)
[2020-12-16] MEDS: Memantine 10 MG Tab PO SCH ×2 (07:45→17:29)
[2020-12-16] MEDS: ALLOPURINOL 300 MG PO SCH (07:45)
[2020-12-17] MEDS: Memantine 10 MG Tab PO SCH ×2 (08:05→17:18)
[2020-12-17] MEDS: Pentoxifylline 400 MG Tab.ER PO SCH (08:05)
[2020-12-17] MEDS: ALLOPURINOL 300 MG PO SCH (08:05)
[2020-12-18] MEDS: Pentoxifylline 400 MG Tab.ER PO SCH (07:57)
[2020-12-18] MEDS: Memantine 10 MG Tab PO SCH ×2 (07:57→17:19)
[2020-12-18] MEDS: ALLOPURINOL 300 MG PO SCH (07:57)
[2020-12-19] MEDS: Memantine 10 MG Tab PO SCH ×2 (07:38→17:53)
[2020-12-19] MEDS: Pentoxifylline 400 MG Tab.ER PO SCH (07:38)
[2020-12-19] MEDS: ALLOPURINOL 300 MG PO SCH (07:38)
[2020-12-20] MEDS: Pentoxifylline 400 MG Tab.ER PO SCH (07:38)
[2020-12-20] MEDS: Memantine 10 MG Tab PO SCH ×2 (07:38→17:22)
[2020-12-20] MEDS: ALLOPURINOL 300 MG PO SCH (07:38)
--- NOTE | 2020-12-20 12:16 | PCM.PN ---
- General Info Date of Service: 12/19/20 ([facility] down, unable to enter note on 12/19/2020) Admission Dx/Problem (Free Text): Admission Diagnosis/Problem Admission Diagnosis/Problem Alzheimer'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 Subjective Update: I was summoned to the swing bed unit by the nursing staff with concerns for this patient with vomiting. The patient vomited once after dinner last night and once this morning. HPI is difficult to obtain to him as he is quite progressive dementia. According the nursing staff he has not had any fever or cough. He has been eating and drinking appropriately. He has been voiding and having bowel movements without difficulty. When I discussed with the patient himself he states that he did vomit once last night and once this morning but he feels fine. He has no body aches. No chest pain no shortness of breath or difficulty breathing. No cough or congestion. No weakness dizziness lightheadedness. He denies any fever or chills. No hematuria dysuria or urinary frequency denies any abdominal pain. No black or tarry stools or diarrhea. Functional Status: Reports: Pain Controlled, Tolerating Diet, Ambulating - Review of Systems General: Reports: No Symptoms HEENT: Reports: No Symptoms Pulmonary: Reports: No Symptoms Cardiovascular: Reports: No Symptoms Gastrointestinal: Reports: No Symptoms Genitourinary: Reports: No Symptoms Musculoskeletal: Reports: Joint Swelling (Deformities noted to bilateral hands, patient denies any pain.), Other Skin: Reports: No Symptoms Neurological: Reports: Confusion Psychiatric: Reports: Confusion - Patient Data Vitals - Most Recent: Last Vital Signs Temp 97.3 F 12/20/20 08:00 Pulse 78 12/20/20 08:00 Resp 16 12/20/20 08:00 BP 134/72 12/20/20 08:00 Pulse Ox 100 12/20/20 08:00 Weight - Most Recent: 195 lb 4.8 oz I&O - Last 24 Hours: Intake & Output 12/19/20 12/20/20 12/20/20 22:59 06:59 14:59 Intake Total 240 180 Balance 240 180 Med Orders - Current: Current Medications Acetaminophen (Acetaminophen 325 Mg Tab) 650 mg PO Q4H PRN PRN Reason: Pain (Mild 1-3)/fever Last Admin: 11/04/20 19:43 Dose: 650 mg Documented by: Guaifenesin (Guaifenesin 100 Mg/5 Ml Soln 10 Ml Ud Cup) 200 mg PO Q4H PRN PRN Reason: cough Last Admin: 08/15/20 20:41 Dose: 200 mg Documented by: Memantine (Memantine 10 Mg Tab) 10 mg PO BID [facility] Last Admin: 12/20/20 07:38 Dose: 10 mg Documented by: Nitroglycerin (Nitroglycerin 0.4 Mg Tab.Sl) 0.4 mg SL Q5M PRN PRN Reason: Chest Pain Last Admin: 08/13/20 21:13 Dose: 0.4 mg Documented by: Allopurinol [ (Zyloprim] 300 Mg Tab) 300 mg PO DAILY [facility] Last Admin: 12/20/20 07:38 Dose: 300 mg Documented by: Pentoxifylline (Pentoxifylline 400 Mg Tab.Er) 400 mg PO DAILY [facility] Last Admin: 12/20/20 07:38 Dose: 400 mg Documented by: Senna (Sennosides 8.6 Mg Tab) 1 mg PO BID PRN PRN Reason: Constipation Tramadol HCl (Tramadol 50 Mg Tab) 50 mg PO Q8H PRN PRN Reason: Pain (moderate 4-6) Last Admin: 07/25/20 07:25 Dose: 50 mg Documented by: Discontinued Medications COVID-19 Vaccine mRNA LNP-S (MOD) (PF) (Covid-19 Vacc, Mrna(Moderna)/Pf 100 Mcg/0.5 Ml Vial) 100 mcg IM .ONCE ONE Stop: 07/25/20 10:01 Last Admin: 07/25/20 10:36 Dose: 100 mcg Documented by: COVID-19 Vaccine mRNA LNP-S (MOD) (PF) (Covid-19 Vacc, Mrna(Moderna)/Pf 100 Mcg/0.5 Ml Vial) 100 mcg IM .ONCE ONE Stop: 08/22/20 09:31 Last Admin: 08/22/20 09:38 Dose: 100 mcg Documented by: Carbamide Perox/Anhydrous Glycerin (Carbamide Peroxide 6.5% Otic Soln 15 Ml Bottle) 5 ml EARRT BID [facility] Stop: 05/21/20 18:01 Last Admin: 05/21/20 17:21 Dose: 5 drop Documented by: Guaifenesin (Guaifenesin 100 Mg/5 Ml Soln 10 Ml Ud Cup) 100 mg PO Q4H PRN PRN Reason: cough Last Admin: 07/11/20 19:33 Dose: 100 mg Documented by: Influenza Virus Vaccine (Flu Vacc Hk1311(65up)/Mf59c/Pf 60 Mcg/0.5 Ml Syringe) 60 mcg IM .ONCE ONE Stop: 05/09/20 10:01 Last Admin: 05/09/20 09:59 Dose: 60 mcg Documented by: Levofloxacin (Levofloxacin 500 Mg Tab) 500 mg PO Q24H [facility] Last Admin: 07/04/20 18:02 Dose: Not Given Documented by: Memantine (Memantine 10 Mg Tab) 10 mg PO DAILY [facility] Memantine (Memantine 10 Mg Tab) 10 mg PO DAILY [facility] Stop: 12/14/19 08:00 Memantine (Memantine 10 Mg Tab) 10 mg PO BID [facility] Stop: 12/15/19 08:00 Last Admin: 12/08/19 18:20 Dose: Not Given Documented by: Memantine (Memantine 10 Mg Tab) 10 mg PO DAILY [facility] Stop: 12/15/19 08:01 Last Admin: 12/15/19 08:45 Dose: 10 mg Documented by: Memantine Hcl [ Memantine Hcl] 5 Mg Tab 5 mg PO BID [facility] Last Admin: 12/08/19 17:15 Dose: 5 mg Documented by: Non-Formulary Medication (Memantine Hcl [Memantine Hcl]) 5 mg PO BEDTIME [facility] Stop: 12/14/19 20:00 Levofloxacin 500 Mg (Tab *Pt Own Med*) 0 each PO ONETIME ONE Stop: 07/04/20 18:01 Last Admin: 07/04/20 17:57 Dose: 1 each Documented by: Levofloxacin 250 Mg (Tab *Pt Own Med*) 0 each PO Q24H [facility] Stop: 07/10/20 18:01 Last Admin: 07/10/20 17:34 Dose: 1 each Documented by: Memantine 5 Mg Tab* Patient's Own Medication* 0 each PO DAILY [facility] Stop: 12/15/19 08:01 Last Admin: 12/09/19 08:07 Dose: 1 each Documented by: Memantine 5 Mg Tab* Patient's Own Medication* 0 each PO BID [facility] Memantine 5 Mg Tab* Patient's Own Medication* 0 each PO DAILY@1800 [facility] Stop: 12/15/19 18:01 Last Admin: 12/15/19 17:18 Dose: 1 each Documented by: Temazepam (Temazepam 15 Mg Cap) 15 mg PO BEDTIME PRN PRN Reason: Sleep - Exam General: Alert, Cooperative, No Acute Distress HEENT: Pupils Equal Neck: Supple Lungs: Clear to Auscultation, Normal Respiratory Effort Cardiovascular: Regular Rate, Regular Rhythm GI/Abdominal Exam: Normal Bowel Sounds Back Exam: Normal Inspection Extremities: Normal Inspection, Normal Range of Motion, No Pedal Edema, Joint Swelling (Deformities noted to the DIP and PIP joints bilaterally on the hands, no warmth or erythematous noted) Skin: Warm, Dry, Intact Neurological: No New Focal Deficit Psy/Mental Status: Normal Affect, Normal Mood - Patient Data Result Diagrams: 11/04/20 12:44 11/09/20 07:35 Sepsis Event Note - Evaluation Sepsis Screening Result: No Definite Risk - Focused Exam Vital Signs: Vital Signs Temp Pulse Resp BP Pulse Ox 12/20/20 08:00 97.3 F 78 16 134/72 100 - Problem List & Annotations (1) Alzheimer'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 SNOMED Code(s): 75685593 Code(s): G30.9 - ALZHEIMER'S DISEASE, UNSPECIFIED; F02.80 - DEMENTIA IN OTH DISEASES CLASSD ELSWHR W/O BEHAVRL DISTURB Status: Acute Current Visit: Yes Qualifiers: Alzheimer's disease onset: unspecified onset Qualified Code(s): G30.9 - Alzheimer's disease, unspecified; F02.80 - Dementia in other diseases classified elsewhere without behavioral disturbance (2) PAD (peripheral artery disease) SNOMED Code(s): 796353352 Code(s): I73.9 - PERIPHERAL VASCULAR DISEASE, UNSPECIFIED Status: Acute Current Visit: Yes (3) Gout SNOMED Code(s): 64626013 Code(s): M10.9 - GOUT, UNSPECIFIED Status: Acute Current Visit: Yes Qualifiers: Gout site: multiple sites Gout etiology: unspecified cause Chronicity: chronic Qualified Code(s): M1A.09X0 - Idiopathic chronic gout, multiple sites, without tophus (tophi) - Problem List Review Problem List Initiated/Reviewed/Updated: Yes - Assessment Assessment:: Laboratory evaluation shows a normal WBC at 9.2, hemoglobin 15.9 and platelet count 161. Comprehensive metabolic panel with a potassium of 3.2 creatinine of 1.23 which is just about baseline. A BUN of 24. Glucose of 135. Covid negative. 2 view of the abdomen initially reviewed extemporaneously by myself shows no air-fluid levels concerning for bowel obstruction. Nondescript bowel gas pattern. Radiological review to follow. Patient is tolerating oral intake and solids at this time. Assessment: Gastroenteritis. - Plan Plan:: 1. Alzheimer's dementia: the patient will continue on Namenda, increase dose to 5mg twice a day. Will continue to increase the dose if the patient tolerates 2. PAD: continue on trental for the intermittent claudication 3. Gout: continue on allopurinol. Monitor kidney function PLAN: The patient is needing swingbed status fci due to his current diagnoses. The patient will continue to decline with his memory and need more assistance with daily cares. Consulted with Dr Azalia Stovall in regards to this patient and plan of care. Roseann Neil CNP 08/20/2019: 1. Alzheimer's: continue on the Namenda. It is not medically recommended for the patient to be driving due to his memory loss. The patient needs daily reminders for his ADL's and medications need to be given to him by the nurse 2. PAD: continue on Trental, patient is asymptomatic 3. Gout: Continue on Allopurinol. Last BMP was 06/2019 The patient's condition will continue to decline due to his Alzheimer's. He is needing skilled care. Roseann Neil CNP 09/21/2019 Patient is doing well adjusting to the swingbed. He would like to drive but he has not and it is not medically recommended for the patient to be driving. Will continue on the current medications. No behaviors noted from the nursing staff. Roseann Neil CNP 10/25/2019 Patient seen by face time visit due to the mead virus pandemic. The patient is smiling and joking and does not have any concerns however he is a limited historian due to his Alzheimer's. The nurse is available during the face time visit denies any concerns with the patient. The nurse states that the patient's moods have been stable. He recently went for a long walk and complained of his legs hurting other than that there are no concerns per the nursing staff. 1. Alzheimer's dementia continue on the Namenda 2. PAD continue on Trental, no issues at this time 3. Gout continue on allopurinol and monitor kidney function. Patient does continue to need long-term care due to his Alzheimer's which will progressively worsened. Roseann Neil CNP 12/08/2019 Patient seen by face time visit due to the mead virus. The patient is a limited historian due to his Alzheimer's. The nurse is available during the face time visit states the patient has been more agitated with not being able to go outside and drive his car. The nursing staff does try to take the patient out for a walk when they can. This helps to settle his moods. 1. Alzheimer's dementia continue on the Namenda but increase slowly to 10mg twice a day. 2. PAD continue on Trental, no issues at this time 3. Gout continue on allopurinol and monitor kidney function. Continue to monitor moods and hopefully the patient will show improvement with his agitation with the increase dose of Namenda, Total time 1625 is start time and end time is 1645. Roseann Neil CNP 02/15/2020 1. Alzheimer's dementia: continue on Namenda dose 2. PAD continue on Trental, no issues or symptoms at this time 3. Gout: will check uric acid level, continue on allopurinol Lab work ordered since it was last drawn in 06/2019. Patient is not in any distress and states enjoying life that he has left. He would like to be driving but realizes he can not. Moods have been stable, little agitation noted with his Alzheimer's Roseann Neil CNP 05/02/2020 1. Alzheimer dementia continue on the current dose of the Namenda. 2. Gout: Patient has had recent uric acid level which was within normal limits. Patient will be continued on the allopurinol. 3. Patient does have known carotid stenosis, blood pressures have been controlled as well as cholesterol levels. 4. Peripheral arterial disease continue on Trental no issues noted at this time. Patient's past medical history medications are reviewed. The patient's last laboratory tests are also reviewed. Roseann Neil CNP 06/29/2020 1. Wait with physical therapy as patient does not agree and not having shoulder pain 2. Alzheimer dementia continue on the current dose of the Namenda. 3. Gout: will be continue on the allopurinol. 4. Patient does have known carotid stenosis, blood pressures and cholesterol levels reviewed. 5. Peripheral arterial disease continue on Trental. Patient's past medical history medications are reviewed. start time 1545 stop time 1600 Roseann Neil CNP 07/12/2020 1. Monitor for worsening symptoms, labs and chest Xray are improved no more antibiotics needed at this time. 2. Continue current medications. Discussed with patient and in the room upcoming COVID vaccination and possible side effects. Both verbalized understanding and had no further questions. Roseann Neil CNP 08/03/2020 1. Alzheimer's dementia: continue on namenda as moods are controlled. 2. Unstable angina with elevated troponin: patient has been in the ER at [facility] two times over the last few weeks due to chest pain, labs, notes and imaging reviewed. The patient is not wanting to go [place] for hospitalization. He states if something happens he wants to stay in his room if possible or [place] inpatient. He is DNR. His is in swingbed and helps make decisions for him. She is not wanting him sent to [place] either and to keep him comfortable. Nitro SL ordered to use as needed for chest pain. Will continue to monitor the patient and if develops chest pain will try conservative measures per his and his 's decision/wishes Roseann Neil CNP 09/18/2020 1. Alzheimer's dementia: moods stable, continue on namenda 2. Unstable Angina: no further episodes, continue to monitor. 3. Gout: continue on Allopurinol No medication changes done. Patient is pleasantly confused, knows my name and jokes with me. Patient's present during examination. Roseann Neil CNP 10/26/2020 1. Alzheimer's dementia: continue on Namenda, moods stable 2. 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 PAD: on trental, no complains of pain in the extremities, no sores noted 4. Gout: on allopurinol will order uric acid level and BMP Roseann Neil CNP 11/04/20 1. Gastroenteritis resolved. Will continue to monitor. Labs unremarkable. Xray normal. No symptoms at this time will continue to monitor. 12/19/2020 ( unable to enter note on date the patient was seen as [facility] was down) 1. Alzheimer's dementia; nursing states that the patient's moods have been controlled. The patient is very pleasant and talkative. The patient does recognize me today at his appointment. Continue on Namenda. 2. Peripheral arterial disease: Continue on Trental, no ulcerations are noted. Patient denies any pain to his extremities. 3. Polyarthralgia: Continue to monitor for pain, the patient does receive Tylenol which helps with his pain. Patient was asked multiple times during the examination if he is experiencing any pains and particularly into his hands or shoulders he denies any pain at this time. Patient will continue on his current medications. Last laboratory tests are reviewed. The patient did have a slight increase in his creatinine however follow-up test did show creatinine to be within normal limits. Roseann Neil,INVESTIGATIVE SHOPPER
[2020-12-21] MEDS: Memantine 10 MG Tab PO SCH ×2 (08:07→17:51)
[2020-12-21] MEDS: Pentoxifylline 400 MG Tab.ER PO SCH (08:07)
[2020-12-21] MEDS: ALLOPURINOL 300 MG PO SCH (08:07)
[2020-12-22] MEDS: ALLOPURINOL 300 MG PO SCH (08:01)
[2020-12-22] MEDS: Memantine 10 MG Tab PO SCH ×2 (08:01→17:10)
[2020-12-22] MEDS: Pentoxifylline 400 MG Tab.ER PO SCH (08:02)
[2020-12-23] MEDS: Pentoxifylline 400 MG Tab.ER PO SCH (08:14)
[2020-12-23] MEDS: ALLOPURINOL 300 MG PO SCH (08:14)
[2020-12-23] MEDS: Memantine 10 MG Tab PO SCH ×2 (08:14→17:13)
[2020-12-24] MEDS: Pentoxifylline 400 MG Tab.ER PO SCH (07:46)
[2020-12-24] MEDS: Memantine 10 MG Tab PO SCH ×2 (07:46→17:19)
[2020-12-24] MEDS: ALLOPURINOL 300 MG PO SCH (07:46)
[2020-12-25] MEDS: ALLOPURINOL 300 MG PO SCH (08:07)
[2020-12-25] MEDS: Memantine 10 MG Tab PO SCH ×2 (08:07→17:32)
[2020-12-25] MEDS: Pentoxifylline 400 MG Tab.ER PO SCH (08:07)
[2020-12-26] MEDS: Memantine 10 MG Tab PO SCH ×2 (08:03→17:14)
[2020-12-26] MEDS: Pentoxifylline 400 MG Tab.ER PO SCH (08:03)
[2020-12-26] MEDS: ALLOPURINOL 300 MG PO SCH (08:04)
[2020-12-27] MEDS: ALLOPURINOL 300 MG PO SCH (07:42)
[2020-12-27] MEDS: Memantine 10 MG Tab PO SCH ×2 (07:42→17:32)
[2020-12-27] MEDS: Pentoxifylline 400 MG Tab.ER PO SCH (07:42)
[2020-12-28] MEDS: ALLOPURINOL 300 MG PO SCH (08:20)
[2020-12-28] MEDS: Pentoxifylline 400 MG Tab.ER PO SCH (08:20)
[2020-12-28] MEDS: Memantine 10 MG Tab PO SCH ×2 (08:20→17:54)
[2020-12-29] MEDS: Memantine 10 MG Tab PO SCH ×2 (07:45→17:17)
[2020-12-29] MEDS: ALLOPURINOL 300 MG PO SCH (07:45)
[2020-12-29] MEDS: Pentoxifylline 400 MG Tab.ER PO SCH (07:46)
[2020-12-30] MEDS: Pentoxifylline 400 MG Tab.ER PO SCH (07:37)
[2020-12-30] MEDS: Memantine 10 MG Tab PO SCH ×2 (07:37→17:13)
[2020-12-30] MEDS: ALLOPURINOL 300 MG PO SCH (07:37)
[2020-12-31] MEDS: Memantine 10 MG Tab PO SCH ×2 (07:40→17:23)
[2020-12-31] MEDS: Pentoxifylline 400 MG Tab.ER PO SCH (07:40)
[2020-12-31] MEDS: ALLOPURINOL 300 MG PO SCH (07:40)
[2021-01-01] MEDS: ALLOPURINOL 300 MG PO SCH (07:52)
[2021-01-01] MEDS: Memantine 10 MG Tab PO SCH ×2 (07:52→17:54)
[2021-01-01] MEDS: Pentoxifylline 400 MG Tab.ER PO SCH (07:52)
[2021-01-02] MEDS: ALLOPURINOL 300 MG PO SCH (07:40)
[2021-01-02] MEDS: Pentoxifylline 400 MG Tab.ER PO SCH (07:40)
[2021-01-02] MEDS: Memantine 10 MG Tab PO SCH ×2 (07:40→17:13)
[2021-01-03] MEDS: ALLOPURINOL 300 MG PO SCH (07:30)
[2021-01-03] MEDS: Pentoxifylline 400 MG Tab.ER PO SCH (07:30)
[2021-01-03] MEDS: Memantine 10 MG Tab PO SCH ×2 (07:30→17:14)
[2021-01-04] MEDS: Memantine 10 MG Tab PO SCH ×2 (07:39→17:30)
[2021-01-04] MEDS: ALLOPURINOL 300 MG PO SCH (07:39)
[2021-01-04] MEDS: Pentoxifylline 400 MG Tab.ER PO SCH (07:40)
[2021-01-05] MEDS: Pentoxifylline 400 MG Tab.ER PO SCH (07:55)
[2021-01-05] MEDS: Memantine 10 MG Tab PO SCH ×2 (07:55→17:23)
[2021-01-05] MEDS: ALLOPURINOL 300 MG PO SCH (07:55)
[2021-01-06] MEDS: Memantine 10 MG Tab PO SCH ×2 (08:02→17:23)
[2021-01-06] MEDS: Pentoxifylline 400 MG Tab.ER PO SCH (08:02)
[2021-01-06] MEDS: ALLOPURINOL 300 MG PO SCH (08:02)
[2021-01-07] MEDS: Memantine 10 MG Tab PO SCH ×2 (08:00→17:19)
[2021-01-07] MEDS: Pentoxifylline 400 MG Tab.ER PO SCH (08:00)
[2021-01-07] MEDS: ALLOPURINOL 300 MG PO SCH (08:00)
[2021-01-08] MEDS: ALLOPURINOL 300 MG PO SCH (07:56)
[2021-01-08] MEDS: Pentoxifylline 400 MG Tab.ER PO SCH (07:56)
[2021-01-08] MEDS: Memantine 10 MG Tab PO SCH ×2 (07:56→17:21)
[2021-01-09] MEDS: ALLOPURINOL 300 MG PO SCH (07:40)
[2021-01-09] MEDS: Pentoxifylline 400 MG Tab.ER PO SCH (07:41)
[2021-01-09] MEDS: Memantine 10 MG Tab PO SCH ×2 (07:41→17:22)
[2021-01-10] MEDS: Pentoxifylline 400 MG Tab.ER PO SCH (08:12)
[2021-01-10] MEDS: ALLOPURINOL 300 MG PO SCH (08:12)
[2021-01-10] MEDS: Memantine 10 MG Tab PO SCH ×2 (08:12→17:51)
[2021-01-11] MEDS: ALLOPURINOL 300 MG PO SCH (07:56)
[2021-01-11] MEDS: Pentoxifylline 400 MG Tab.ER PO SCH (07:56)
[2021-01-11] MEDS: Memantine 10 MG Tab PO SCH ×2 (07:56→17:25)
[2021-01-12] MEDS: Memantine 10 MG Tab PO SCH ×2 (08:07→17:30)
[2021-01-12] MEDS: Pentoxifylline 400 MG Tab.ER PO SCH (08:07)
[2021-01-12] MEDS: ALLOPURINOL 300 MG PO SCH (08:07)
[2021-01-13] MEDS: ALLOPURINOL 300 MG PO SCH (08:00)
[2021-01-13] MEDS: Memantine 10 MG Tab PO SCH ×2 (08:00→17:52)
[2021-01-13] MEDS: Pentoxifylline 400 MG Tab.ER PO SCH (08:01)
[2021-01-14] MEDS: ALLOPURINOL 300 MG PO SCH (08:01)
[2021-01-14] MEDS: Memantine 10 MG Tab PO SCH ×2 (08:02→17:44)
[2021-01-14] MEDS: Pentoxifylline 400 MG Tab.ER PO SCH (08:02)
[2021-01-15] MEDS: Memantine 10 MG Tab PO SCH ×2 (07:31→17:18)
[2021-01-15] MEDS: Pentoxifylline 400 MG Tab.ER PO SCH (07:31)
[2021-01-15] MEDS: ALLOPURINOL 300 MG PO SCH (07:31)
[2021-01-16] MEDS: Memantine 10 MG Tab PO SCH ×2 (07:56→17:31)
[2021-01-16] MEDS: ALLOPURINOL 300 MG PO SCH (07:56)
[2021-01-16] MEDS: Pentoxifylline 400 MG Tab.ER PO SCH (07:56)
[2021-01-17] MEDS: Pentoxifylline 400 MG Tab.ER PO SCH (08:03)
[2021-01-17] MEDS: Memantine 10 MG Tab PO SCH ×2 (08:03→17:55)
[2021-01-17] MEDS: ALLOPURINOL 300 MG PO SCH (08:03)
[2021-01-18] MEDS: ALLOPURINOL 300 MG PO SCH (07:57)
[2021-01-18] MEDS: Pentoxifylline 400 MG Tab.ER PO SCH (07:57)
[2021-01-18] MEDS: Memantine 10 MG Tab PO SCH ×2 (07:57→17:37)
[2021-01-19] MEDS: ALLOPURINOL 300 MG PO SCH (07:46)
[2021-01-19] MEDS: Memantine 10 MG Tab PO SCH ×2 (07:47→17:16)
[2021-01-19] MEDS: Pentoxifylline 400 MG Tab.ER PO SCH (07:47)
[2021-01-20] MEDS: Memantine 10 MG Tab PO SCH ×2 (08:06→17:11)
[2021-01-20] MEDS: Pentoxifylline 400 MG Tab.ER PO SCH (08:06)
[2021-01-20] MEDS: ALLOPURINOL 300 MG PO SCH (08:06)
[2021-01-21] MEDS: Pentoxifylline 400 MG Tab.ER PO SCH (07:31)
[2021-01-21] MEDS: ALLOPURINOL 300 MG PO SCH (07:31)
[2021-01-21] MEDS: Memantine 10 MG Tab PO SCH ×2 (07:31→17:16)
[2021-01-22] MEDS: Memantine 10 MG Tab PO SCH ×2 (08:06→17:31)
[2021-01-22] MEDS: Pentoxifylline 400 MG Tab.ER PO SCH (08:06)
[2021-01-22] MEDS: ALLOPURINOL 300 MG PO SCH (08:06)
[2021-01-23] MEDS: ALLOPURINOL 300 MG PO SCH (07:46)
[2021-01-23] MEDS: Pentoxifylline 400 MG Tab.ER PO SCH (07:47)
[2021-01-23] MEDS: Memantine 10 MG Tab PO SCH ×2 (07:47→17:26)
[2021-01-24] MEDS: ALLOPURINOL 300 MG PO SCH (08:14)
[2021-01-24] MEDS: Pentoxifylline 400 MG Tab.ER PO SCH (08:14)
[2021-01-24] MEDS: Memantine 10 MG Tab PO SCH ×2 (08:14→17:40)
[2021-01-24 10:47] VITALS: BP 123/73; PULSE 72
[2021-01-25] MEDS: Pentoxifylline 400 MG Tab.ER PO SCH (07:37)
[2021-01-25] MEDS: Memantine 10 MG Tab PO SCH (07:37)
[2021-01-25] MEDS: ALLOPURINOL 300 MG PO SCH (07:37)
--- NOTE | 2021-01-25 07:58 | PCM.DCSUM1 ---
Discharge Summary - Hospital Course Free Text/Narrative:: The patient is a 85 year male who [facility] due to Alzheimer's dementia and he is not able to leave on his own. He has been doing well in [facility], has received physical therapy for shoulder pain due to osteoarthritis. Patient has had a cardiac work up done for chest pain and his (medical [place]) did not want him transferred to [place]. Since then the patient has been doing well. Diagnosis: Stroke: No - Discharge Data Discharge Date: 01/25/21 Discharge Disposition: DC/Tfer W/I Hosp To [place] [id number] Condition: Good - Referral to Home Health Primary Care Physician: Roseann Neil NP - Discharge Diagnosis/Problem(s) (1) Alzheimer'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 SNOMED Code(s): 52706836 ICD Code: G30.9 - ALZHEIMER'S DISEASE, UNSPECIFIED; F02.80 - DEMENTIA IN OTH DISEASES CLASSD ELSWHR W/O BEHAVRL DISTURB Status: Acute Current Visit: Yes Qualifiers: Alzheimer's disease onset: unspecified onset Qualified Code(s): G30.9 - Alzheimer's disease, unspecified; F02.80 - Dementia in other diseases classified elsewhere without behavioral disturbance (2) PAD (peripheral artery disease) SNOMED Code(s): 823448767 ICD Code: I73.9 - PERIPHERAL VASCULAR DISEASE, UNSPECIFIED Status: Acute Current Visit: Yes (3) Gout SNOMED Code(s): 29719617 ICD Code: M10.9 - GOUT, UNSPECIFIED Status: Acute Current Visit: Yes Qualifiers: Gout site: multiple sites Gout etiology: unspecified cause Chronicity: chronic Qualified Code(s): M1A.09X0 - Idiopathic chronic gout, multiple sites, without tophus (tophi) - Patient Summary/Data Consults: Consultations 06/28/20 09:29 Consult to Physical Therapy [PT Evaluation and Treatment] [CONS] Routine 10/18/20 12:18 Consult to Occupational Therapy [OT Evaluation and Treatment] [CONS] Routine - Patient Instructions Diet: Regular Diet as Tolerated Activity: As Tolerated Driving: Do Not Drive Showering/Bathing: May Shower - Discharge Plan Home Medications: Home Meds Pentoxifylline [TRENtal] 400 mg PO DAILY 07/21/13 [History] Memantine HCl 10 mg PO BID 07/14/19 [History] allopurinoL [Zyloprim] 300 mg PO DAILY 07/14/19 [History] - Discharge Summary/Plan Comment DC Time >30 min.: No Discharge Summary/Plan Comment: The patient will continue in long tern swingbed status due to decline in Alzheimer's dementia. Will continue on current medications. Monitor for further signs of cardiac symptoms. Patient is not in any distress and has no concerns. has no concerns in regards to the patient. Roseann Neil CNP - Patient Data Vitals - Most Recent: Last Vital Signs Temp 97.5 F 01/24/21 08:00 Pulse 72 01/24/21 08:00 Resp 14 01/24/21 08:00 BP 123/73 01/24/21 08:00 Pulse Ox 97 01/24/21 08:00 Weight - Most Recent: 195 lb 9.6 oz I&O - Last 24 hours: Intake & Output 01/24/21 01/25/21 01/25/21 22:59 06:59 14:59 Intake Total 240 Balance 240 Med Orders - Current: Current Medications Acetaminophen (Acetaminophen 325 Mg Tab) 650 mg PO Q4H PRN PRN Reason: Pain (Mild 1-3)/fever Last Admin: 11/04/20 19:43 Dose: 650 mg Documented by: Guaifenesin (Guaifenesin 100 Mg/5 Ml Soln 10 Ml Ud Cup) 200 mg PO Q4H PRN PRN Reason: cough Last Admin: 08/15/20 20:41 Dose: 200 mg Documented by: Memantine (Memantine 10 Mg Tab) 10 mg PO BID [facility] Last Admin: 01/25/21 07:37 Dose: 10 mg Documented by: Nitroglycerin (Nitroglycerin 0.4 Mg Tab.Sl) 0.4 mg SL Q5M PRN PRN Reason: Chest Pain Last Admin: 08/13/20 21:13 Dose: 0.4 mg Documented by: Allopurinol [ (Zyloprim] 300 Mg Tab) 300 mg PO DAILY [facility] Last Admin: 01/25/21 07:37 Dose: 300 mg Documented by: Pentoxifylline (Pentoxifylline 400 Mg Tab.Er) 400 mg PO DAILY [facility] Last Admin: 01/25/21 07:37 Dose: 400 mg Documented by: Senna (Sennosides 8.6 Mg Tab) 1 mg PO BID PRN PRN Reason: Constipation Tramadol HCl (Tramadol 50 Mg Tab) 50 mg PO Q8H PRN PRN Reason: Pain (moderate 4-6) Last Admin: 07/25/20 07:25 Dose: 50 mg Documented by: Discontinued Medications COVID-19 Vaccine mRNA LNP-S (MOD) (PF) (Covid-19 Vacc, Mrna(Moderna)/Pf 100 Mcg/0.5 Ml Vial) 100 mcg IM .ONCE ONE Stop: 07/25/20 10:01 Last Admin: 07/25/20 10:36 Dose: 100 mcg Documented by: COVID-19 Vaccine mRNA LNP-S (MOD) (PF) (Covid-19 Vacc, Mrna(Moderna)/Pf 100 Mcg/0.5 Ml Vial) 100 mcg IM .ONCE ONE Stop: 08/22/20 09:31 Last Admin: 08/22/20 09:38 Dose: 100 mcg Documented by: Carbamide Perox/Anhydrous Glycerin (Carbamide Peroxide 6.5% Otic Soln 15 Ml Bottle) 5 ml EARRT BID [facility] Stop: 05/21/20 18:01 Last Admin: 05/21/20 17:21 Dose: 5 drop Documented by: Guaifenesin (Guaifenesin 100 Mg/5 Ml Soln 10 Ml Ud Cup) 100 mg PO Q4H PRN PRN Reason: cough Last Admin: 07/11/20 19:33 Dose: 100 mg Documented by: Influenza Virus Vaccine (Flu Vacc [id number](65up)/Mf59c/Pf 60 Mcg/0.5 Ml Syringe) 60 mcg IM .ONCE ONE Stop: 05/09/20 10:01 Last Admin: 05/09/20 09:59 Dose: 60 mcg Documented by: Levofloxacin (Levofloxacin 500 Mg Tab) 500 mg PO Q24H [facility] Last Admin: 07/04/20 18:02 Dose: Not Given Documented by: Memantine (Memantine 10 Mg Tab) 10 mg PO DAILY [facility] Memantine (Memantine 10 Mg Tab) 10 mg PO DAILY [facility] Stop: 12/14/19 08:00 Memantine (Memantine 10 Mg Tab) 10 mg PO BID [facility] Stop: 12/15/19 08:00 Last Admin: 12/08/19 18:20 Dose: Not Given Documented by: Memantine (Memantine 10 Mg Tab) 10 mg PO DAILY [facility] Stop: 12/15/19 08:01 Last Admin: 12/15/19 08:45 Dose: 10 mg Documented by: Memantine Hcl [ Memantine Hcl] 5 Mg Tab 5 mg PO BID [facility] Last Admin: 12/08/19 17:15 Dose: 5 mg Documented by: Non-Formulary Medication (Memantine Hcl [Memantine Hcl]) 5 mg PO BEDTIME [facility] Stop: 12/14/19 20:00 Levofloxacin 500 Mg (Tab *Pt Own Med*) 0 each PO ONETIME ONE Stop: 07/04/20 18:01 Last Admin: 07/04/20 17:57 Dose: 1 each Documented by: Levofloxacin 250 Mg (Tab *Pt Own Med*) 0 each PO Q24H [facility] Stop: 07/10/20 18:01 Last Admin: 07/10/20 17:34 Dose: 1 each Documented by: Memantine 5 Mg Tab* Patient's Own Medication* 0 each PO DAILY [facility] Stop: 12/15/19 08:01 Last Admin: 12/09/19 08:07 Dose: 1 each Documented by: Memantine 5 Mg Tab* Patient's Own Medication* 0 each PO BID [facility] Memantine 5 Mg Tab* Patient's Own Medication* 0 each PO DAILY@1800 [facility] Stop: 12/15/19 18:01 Last Admin: 12/15/19 17:18 Dose: 1 each Documented by: Temazepam (Temazepam 15 Mg Cap) 15 mg PO BEDTIME PRN PRN Reason: Sleep
--- NOTE | 2021-01-25 08:05 | PCM.PN ---
- General Info Date of Service: 01/25/21 Admission Dx/Problem (Free Text): Admission Diagnosis/Problem Admission Diagnosis/Problem Alzheimer'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 Functional Status: Reports: Pain Controlled, Tolerating Diet, Ambulating - Review of Systems General: Reports: No Symptoms HEENT: Reports: No Symptoms Pulmonary: Reports: No Symptoms Cardiovascular: Reports: No Symptoms Gastrointestinal: Reports: No Symptoms Genitourinary: Reports: No Symptoms Musculoskeletal: Reports: No Symptoms Skin: Reports: No Symptoms Neurological: Reports: Confusion Psychiatric: Reports: Confusion - Patient Data Vitals - Most Recent: Last Vital Signs Temp 97.5 F 01/24/21 08:00 Pulse 72 01/24/21 08:00 Resp 14 01/24/21 08:00 BP 123/73 01/24/21 08:00 Pulse Ox 97 01/24/21 08:00 Weight - Most Recent: 195 lb 9.6 oz I&O - Last 24 Hours: Intake & Output 01/24/21 01/25/21 01/25/21 22:59 06:59 14:59 Intake Total 240 Balance 240 Med Orders - Current: Current Medications Acetaminophen (Acetaminophen 325 Mg Tab) 650 mg PO Q4H PRN PRN Reason: Pain (Mild 1-3)/fever Last Admin: 11/04/20 19:43 Dose: 650 mg Documented by: Guaifenesin (Guaifenesin 100 Mg/5 Ml Soln 10 Ml Ud Cup) 200 mg PO Q4H PRN PRN Reason: cough Last Admin: 08/15/20 20:41 Dose: 200 mg Documented by: Memantine (Memantine 10 Mg Tab) 10 mg PO BID [facility] Last Admin: 01/25/21 07:37 Dose: 10 mg Documented by: Nitroglycerin (Nitroglycerin 0.4 Mg Tab.Sl) 0.4 mg SL Q5M PRN PRN Reason: Chest Pain Last Admin: 08/13/20 21:13 Dose: 0.4 mg Documented by: Allopurinol [ (Zyloprim] 300 Mg Tab) 300 mg PO DAILY [facility] Last Admin: 01/25/21 07:37 Dose: 300 mg Documented by: Pentoxifylline (Pentoxifylline 400 Mg Tab.Er) 400 mg PO DAILY [facility] Last Admin: 01/25/21 07:37 Dose: 400 mg Documented by: Senna (Sennosides 8.6 Mg Tab) 1 mg PO BID PRN PRN Reason: Constipation Tramadol HCl (Tramadol 50 Mg Tab) 50 mg PO Q8H PRN PRN Reason: Pain (moderate 4-6) Last Admin: 07/25/20 07:25 Dose: 50 mg Documented by: Discontinued Medications COVID-19 Vaccine mRNA LNP-S (MOD) (PF) (Covid-19 Vacc, Mrna(Moderna)/Pf 100 Mcg/0.5 Ml Vial) 100 mcg IM .ONCE ONE Stop: 07/25/20 10:01 Last Admin: 07/25/20 10:36 Dose: 100 mcg Documented by: COVID-19 Vaccine mRNA LNP-S (MOD) (PF) (Covid-19 Vacc, Mrna(Moderna)/Pf 100 Mcg/0.5 Ml Vial) 100 mcg IM .ONCE ONE Stop: 08/22/20 09:31 Last Admin: 08/22/20 09:38 Dose: 100 mcg Documented by: Carbamide Perox/Anhydrous Glycerin (Carbamide Peroxide 6.5% Otic Soln 15 Ml Bottle) 5 ml EARRT BID [facility] Stop: 05/21/20 18:01 Last Admin: 05/21/20 17:21 Dose: 5 drop Documented by: Guaifenesin (Guaifenesin 100 Mg/5 Ml Soln 10 Ml Ud Cup) 100 mg PO Q4H PRN PRN Reason: cough Last Admin: 07/11/20 19:33 Dose: 100 mg Documented by: Influenza Virus Vaccine (Flu Vacc Cb0389(65up)/Mf59c/Pf 60 Mcg/0.5 Ml Syringe) 60 mcg IM .ONCE ONE Stop: 05/09/20 10:01 Last Admin: 05/09/20 09:59 Dose: 60 mcg Documented by: Levofloxacin (Levofloxacin 500 Mg Tab) 500 mg PO Q24H [facility] Last Admin: 07/04/20 18:02 Dose: Not Given Documented by: Memantine (Memantine 10 Mg Tab) 10 mg PO DAILY [facility] Memantine (Memantine 10 Mg Tab) 10 mg PO DAILY [facility] Stop: 12/14/19 08:00 Memantine (Memantine 10 Mg Tab) 10 mg PO BID [facility] Stop: 12/15/19 08:00 Last Admin: 12/08/19 18:20 Dose: Not Given Documented by: Memantine (Memantine 10 Mg Tab) 10 mg PO DAILY [facility] Stop: 12/15/19 08:01 Last Admin: 12/15/19 08:45 Dose: 10 mg Documented by: Memantine Hcl [ Memantine Hcl] 5 Mg Tab 5 mg PO BID [facility] Last Admin: 12/08/19 17:15 Dose: 5 mg Documented by: Non-Formulary Medication (Memantine Hcl [Memantine Hcl]) 5 mg PO BEDTIME [facility] Stop: 12/14/19 20:00 Levofloxacin 500 Mg (Tab *Pt Own Med*) 0 each PO ONETIME ONE Stop: 07/04/20 18:01 Last Admin: 07/04/20 17:57 Dose: 1 each Documented by: Levofloxacin 250 Mg (Tab *Pt Own Med*) 0 each PO Q24H [facility] Stop: 07/10/20 18:01 Last Admin: 07/10/20 17:34 Dose: 1 each Documented by: Memantine 5 Mg Tab* Patient's Own Medication* 0 each PO DAILY [facility] Stop: 12/15/19 08:01 Last Admin: 12/09/19 08:07 Dose: 1 each Documented by: Memantine 5 Mg Tab* Patient's Own Medication* 0 each PO BID [facility] Memantine 5 Mg Tab* Patient's Own Medication* 0 each PO DAILY@1800 [facility] Stop: 12/15/19 18:01 Last Admin: 12/15/19 17:18 Dose: 1 each Documented by: Temazepam (Temazepam 15 Mg Cap) 15 mg PO BEDTIME PRN PRN Reason: Sleep - Exam General: Alert, Cooperative, No Acute Distress Neck: Supple Lungs: Clear to Auscultation, Normal Respiratory Effort Cardiovascular: Regular Rate, Regular Rhythm GI/Abdominal Exam: Normal Bowel Sounds, Soft, Non-Tender Back Exam: Normal Inspection, Full Range of Motion Extremities: Normal Inspection, Normal Range of Motion, Non-Tender Peripheral Pulses: 1+: Dorsalis Pedis (L), Dorsalis Pedis (R) Skin: Warm, Dry, Intact Neurological: No New Focal Deficit Psy/Mental Status: Normal Affect, Normal Mood - Patient Data Result Diagrams: 11/04/20 12:44 11/09/20 07:35 Sepsis Event Note - Evaluation Sepsis Screening Result: No Definite Risk - Problem List & Annotations (1) Alzheimer'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 SNOMED Code(s): 16524985 Code(s): G30.9 - ALZHEIMER'S DISEASE, UNSPECIFIED; F02.80 - DEMENTIA IN OTH DISEASES CLASSD ELSWHR W/O BEHAVRL DISTURB Status: Acute Current Visit: Yes Qualifiers: Alzheimer's disease onset: unspecified onset Qualified Code(s): G30.9 - Alzheimer's disease, unspecified; F02.80 - Dementia in other diseases classified elsewhere without behavioral disturbance (2) PAD (peripheral artery disease) SNOMED Code(s): 134617451 Code(s): I73.9 - PERIPHERAL VASCULAR DISEASE, UNSPECIFIED Status: Acute Current Visit: Yes (3) Gout SNOMED Code(s): 61732940 Code(s): M10.9 - GOUT, UNSPECIFIED Status: Acute Current Visit: Yes Qualifiers: Gout site: multiple sites Gout etiology: unspecified cause Chronicity: chronic Qualified Code(s): M1A.09X0 - Idiopathic chronic gout, multiple sites, without tophus (tophi) - Problem List Review Problem List Initiated/Reviewed/Updated: Yes - My Orders Last 24 Hours: My Active Orders 01/25/21 07:34 Ready for Discharge [RC] PER UNIT ROUTINE - Assessment Assessment:: Laboratory evaluation shows a normal WBC at 9.2, hemoglobin 15.9 and platelet count 161. Comprehensive metabolic panel with a potassium of 3.2 creatinine of 1.23 which is just about baseline. A BUN of 24. Glucose of 135. Covid negative. 2 view of the abdomen initially reviewed extemporaneously by myself shows no air-fluid levels concerning for bowel obstruction. Nondescript bowel gas pattern. Radiological review to follow. Patient is tolerating oral intake and solids at this time. Assessment: Gastroenteritis. - Plan Plan:: 1. Alzheimer's dementia: the patient will continue on Namenda, increase dose to 5mg twice a day. Will continue to increase the dose if the patient tolerates 2. PAD: continue on trental for the intermittent claudication 3. Gout: continue on allopurinol. Monitor kidney function PLAN: The patient is needing swingbed status senior care due to his current diagnoses. The patient will continue to decline with his memory and need more assistance with daily cares. Consulted with Dr Azalia Stovall in regards to this patient and plan of care. Roseann Neil CNP 08/20/2019: 1. Alzheimer's: continue on the Namenda. It is not medically recommended for the patient to be driving due to his memory loss. The patient needs daily reminders for his ADL's and medications need to be given to him by the nurse 2. PAD: continue on Trental, patient is asymptomatic 3. Gout: Continue on Allopurinol. Last BMP was 06/2019 The patient's condition will continue to decline due to his Alzheimer's. He is needing skilled care. Roseann Neil CNP 09/21/2019 Patient is doing well adjusting to the swingbed. He would like to drive but he has not and it is not medically recommended for the patient to be driving. Will continue on the current medications. No behaviors noted from the nursing staff. Roseann Neil CNP 10/25/2019 Patient seen by face time visit due to the mead virus pandemic. The patient is smiling and joking and does not have any concerns however he is a limited historian due to his Alzheimer's. The nurse is available during the face time visit denies any concerns with the patient. The nurse states that the patient's moods have been stable. He recently went for a long walk and complained of his legs hurting other than that there are no concerns per the nursing staff. 1. Alzheimer's dementia continue on the Namenda 2. PAD continue on Trental, no issues at this time 3. Gout continue on allopurinol and monitor kidney function. Patient does continue to need penitentiary care due to his Alzheimer's which will progressively worsened. Roseann Neil CNP 12/08/2019 Patient seen by face time visit due to the mead virus. The patient is a limited historian due to his Alzheimer's. The nurse is available during the face time visit states the patient has been more agitated with not being able to go outside and drive his car. The nursing staff does try to take the patient out for a walk when they can. This helps to settle his moods. 1. Alzheimer's dementia continue on the Namenda but increase slowly to 10mg twice a day. 2. PAD continue on Trental, no issues at this time 3. Gout continue on allopurinol and monitor kidney function. Continue to monitor moods and hopefully the patient will show improvement with his agitation with the increase dose of Namenda, Total time 1625 is start time and end time is 1645. Roseann Neil CNP 02/15/2020 1. Alzheimer's dementia: continue on Namenda dose 2. PAD continue on Trental, no issues or symptoms at this time 3. Gout: will check uric acid level, continue on allopurinol Lab work ordered since it was last drawn in 06/2019. Patient is not in any distress and states enjoying life that he has left. He would like to be driving but realizes he can not. Moods have been stable, little agitation noted with his Alzheimer's Roseann Neil CNP 05/02/2020 1. Alzheimer dementia continue on the current dose of the Namenda. 2. Gout: Patient has had recent uric acid level which was within normal limits. Patient will be continued on the allopurinol. 3. Patient does have known carotid stenosis, blood pressures have been controlled as well as cholesterol levels. 4. Peripheral arterial disease continue on Trental no issues noted at this time. Patient's past medical history medications are reviewed. The patient's last laboratory tests are also reviewed. Roseann Neil CNP 06/29/2020 1. Wait with physical therapy as patient does not agree and not having shoulder pain 2. Alzheimer dementia continue on the current dose of the Namenda. 3. Gout: will be continue on the allopurinol. 4. Patient does have known carotid stenosis, blood pressures and cholesterol levels reviewed. 5. Peripheral arterial disease continue on Trental. Patient's past medical history medications are reviewed. start time 1545 stop time 1600 Roseann Neil CNP 07/12/2020 1. Monitor for worsening symptoms, labs and chest Xray are improved no more antibiotics needed at this time. 2. Continue current medications. Discussed with patient and in the room upcoming COVID vaccination and possible side effects. Both verbalized understanding and had no further questions. Roseann Neil CNP 08/03/2020 1. Alzheimer's dementia: continue on namenda as moods are controlled. 2. Unstable angina with elevated troponin: patient has been in the ER at [facility] two times over the last few weeks due to chest pain, labs, notes and imaging reviewed. The patient is not wanting to go [place] for hospitalization. He states if something happens he wants to stay in his room if possible or [place] inpatient. He is DNR. His is in swingbed and helps make decisions for him. She is not wanting him sent to [place] either and to keep him comfortable. Nitro SL ordered to use as needed for chest pain. Will continue to monitor the patient and if develops chest pain will try conservative measures per his and his 's decision/wishes Roseann Neil CNP 09/18/2020 1. Alzheimer's dementia: moods stable, continue on namenda 2. Unstable Angina: no further episodes, continue to monitor. 3. Gout: continue on Allopurinol No medication changes done. Patient is pleasantly confused, knows my name and jokes with me. Patient's present during examination. Roseann Neil CNP 10/26/2020 1. Alzheimer's dementia: continue on Namenda, moods stable 2. 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 PAD: on trental, no complains of pain in the extremities, no sores noted 4. Gout: on allopurinol will order uric acid level and BMP Roseann Neil CNP 11/04/20 1. Gastroenteritis resolved. Will continue to monitor. Labs unremarkable. Xray normal. No symptoms at this time will continue to monitor. 12/19/2020 ( unable to enter note on date the patient was seen as [facility] was down) 1. Alzheimer's dementia; nursing states that the patient's moods have been controlled. The patient is very pleasant and talkative. The patient does recognize me today at his appointment. Continue on Namenda. 2. Peripheral arterial disease: Continue on Trental, no ulcerations are noted. Patient denies any pain to his extremities. 3. Polyarthralgia: Continue to monitor for pain, the patient does receive Tylenol which helps with his pain. Patient was asked multiple times during the examination if he is experiencing any pains and particularly into his hands or shoulders he denies any pain at this time. Patient will continue on his current medications. Last laboratory tests are reviewed. The patient did have a slight increase in his creatinine however follow-up test did show creatinine to be within normal limits. Roseann Neil CNP 01/25/2021 1. Alzheimer's dementia: continue on Namenda, moods stable. No issues from nursing staff 2. Bilateral shoulder pain due to OA: continue to manage with topical heat and Tylenol 3. PAD: continue on Trental. No open areas of concerns noted on lower extremities Patient will continue in swingbed, moods stable and patient seems to be doing well. Slight decline in memory noted today but excepted with Alzheimer's disease Last labs and vitals reviewed. Roseann Neil, ENVIRONMENTAL CONFLICT MANAGER
[~2021-01-25 10:42] MED LIST: COVID-19 VACC, MRNA(MODERNA)/PF 100 MCG/0.5 ML VIAL IM ONE; LEVOFLOXACIN 500 MG PO ONE; Levofloxacin 500 MG Tab PO SCH; MEMANTINE 5 MG PO SCH; MEMANTINE HCL 5 MG PO SCH; Memantine 10 MG Tab PO SCH; Nitroglycerin 0.4 MG Tab.SL SL PRN; Sennosides 8.6 MG Tab PO PRN; Temazepam 15 MG Cap PO PRN
== END | disposition swing bed (61) | DRG 56 ==
LOC: LL.SWG 07-14 10:36 → UNDOADMIN 07-14 10:36 → LL.SWG 07-14 14:00
PROVIDERS: ADMIT Nurse Practitioner Family; ATTEND Nurse Practitioner Family
DX: G30.9 Alzheimer's disease, unspecified (principal); J18.9 Pneumonia, unspecified organism; I20.0 Unstable angina; F02.80 Dementia in other diseases classified elsewhere, unspecified severity, without behavioral disturbance, psychotic disturbance, mood disturbance, and anxiety; I73.9 Peripheral vascular disease, unspecified; M1A.09X0 Idiopathic chronic gout, multiple sites, without tophus (tophi); R07.9 Chest pain, unspecified; H91.90 Unspecified hearing loss, unspecified ear; Z20.822 Contact with and (suspected) exposure to COVID-19; R41.3 Other amnesia; R45.1 Restlessness and agitation; Z66 Do not resuscitate; M13.0 Polyarthritis, unspecified; K52.9 Noninfective gastroenteritis and colitis, unspecified; M19.012 Primary osteoarthritis, left shoulder; M19.011 Primary osteoarthritis, right shoulder; Z91.041 Radiographic dye allergy status; Z79.899 Other long term (current) drug therapy; Z87.442 Personal history of urinary calculi; Z98.49 Cataract extraction status, unspecified eye; Z90.49 Acquired absence of other specified parts of digestive tract; Z87.891 Personal history of nicotine dependence
CPT/HCPCS: 0011A; 0012A; 36415; 71046; 73030-RT; 74019; 80048; 80053; 84484; 84550; 85025; 86140; 90653; 91301; 93005; 97165-GO; A9270-GY; G0008; U0002

== ENCOUNTER → 2023-02-03 09:54 | Inpatient (IN) | payer MEDICARE, MEDICAID ==
[2022-01-23] MEDS: Memantine 10 MG Tab PO SCH (17:26)
[2022-01-24] MEDS: Allopurinol 100 MG Tab PO SCH (08:01)
[2022-01-24] MEDS: Memantine 10 MG Tab PO SCH ×2 (08:01→17:38)
[2022-01-24] MEDS: Tamsulosin 0.4 MG Cap.ER PO SCH (08:01)
[2022-01-24] MEDS: Pentoxifylline 400 MG Tab.ER PO SCH (08:02)
[2022-01-25] MEDS: Tamsulosin 0.4 MG Cap.ER PO SCH (08:00)
[2022-01-25] MEDS: Memantine 10 MG Tab PO SCH ×2 (08:01→17:41)
[2022-01-25] MEDS: Pentoxifylline 400 MG Tab.ER PO SCH (08:01)
[2022-01-25] MEDS: Allopurinol 100 MG Tab PO SCH (08:01)
[2022-01-26] MEDS: Memantine 10 MG Tab PO SCH ×2 (08:14→17:06)
[2022-01-26] MEDS: Tamsulosin 0.4 MG Cap.ER PO SCH (08:14)
[2022-01-26] MEDS: Allopurinol 100 MG Tab PO SCH (08:14)
[2022-01-26] MEDS: Pentoxifylline 400 MG Tab.ER PO SCH (08:14)
[2022-01-27] MEDS: Pentoxifylline 400 MG Tab.ER PO SCH (07:56)
[2022-01-27] MEDS: Tamsulosin 0.4 MG Cap.ER PO SCH (07:56)
[2022-01-27] MEDS: Allopurinol 100 MG Tab PO SCH (07:56)
[2022-01-27] MEDS: Acetaminophen 325 MG Tab PO PRN (07:56)
[2022-01-27] MEDS: Memantine 10 MG Tab PO SCH ×2 (07:56→17:35)
[2022-01-28] MEDS: Allopurinol 100 MG Tab PO SCH (07:36)
[2022-01-28] MEDS: Pentoxifylline 400 MG Tab.ER PO SCH (07:36)
[2022-01-28] MEDS: Tamsulosin 0.4 MG Cap.ER PO SCH (07:36)
[2022-01-28] MEDS: Memantine 10 MG Tab PO SCH ×2 (07:36→17:37)
[2022-01-28] MEDS: Acetaminophen 325 MG Tab PO PRN ×2 (07:37→17:37)
[2022-01-29] MEDS: Tamsulosin 0.4 MG Cap.ER PO SCH (07:56)
[2022-01-29] MEDS: Allopurinol 100 MG Tab PO SCH (07:56)
[2022-01-29] MEDS: Memantine 10 MG Tab PO SCH ×2 (07:56→17:35)
[2022-01-29] MEDS: Pentoxifylline 400 MG Tab.ER PO SCH (07:56)
[2022-01-30] MEDS: Allopurinol 100 MG Tab PO SCH (08:00)
[2022-01-30] MEDS: Pentoxifylline 400 MG Tab.ER PO SCH (08:00)
[2022-01-30] MEDS: Tamsulosin 0.4 MG Cap.ER PO SCH (08:00)
[2022-01-30] MEDS: Memantine 10 MG Tab PO SCH ×2 (08:00→17:05)
[2022-01-31] MEDS: Allopurinol 100 MG Tab PO SCH (07:53)
[2022-01-31] MEDS: Memantine 10 MG Tab PO SCH ×2 (07:53→17:07)
[2022-01-31] MEDS: Tamsulosin 0.4 MG Cap.ER PO SCH (07:53)
[2022-01-31] MEDS: Pentoxifylline 400 MG Tab.ER PO SCH (07:53)
[2022-02-01] MEDS: Memantine 10 MG Tab PO SCH ×2 (07:41→17:10)
[2022-02-01] MEDS: Tamsulosin 0.4 MG Cap.ER PO SCH (07:41)
[2022-02-01] MEDS: Pentoxifylline 400 MG Tab.ER PO SCH (07:41)
[2022-02-01] MEDS: Allopurinol 100 MG Tab PO SCH (07:41)
[2022-02-02] MEDS: Tamsulosin 0.4 MG Cap.ER PO SCH (07:37)
[2022-02-02] MEDS: Pentoxifylline 400 MG Tab.ER PO SCH (07:41)
[2022-02-02] MEDS: Allopurinol 100 MG Tab PO SCH (07:41)
[2022-02-02] MEDS: Memantine 10 MG Tab PO SCH ×2 (07:41→17:05)
[2022-02-03] MEDS: Pentoxifylline 400 MG Tab.ER PO SCH (07:29)
[2022-02-03] MEDS: Tamsulosin 0.4 MG Cap.ER PO SCH (07:29)
[2022-02-03] MEDS: Memantine 10 MG Tab PO SCH ×2 (07:29→17:05)
[2022-02-03] MEDS: Allopurinol 100 MG Tab PO SCH (07:29)
[2022-02-04] MEDS: Memantine 10 MG Tab PO SCH ×2 (08:35→17:05)
[2022-02-04] MEDS: Pentoxifylline 400 MG Tab.ER PO SCH (08:35)
[2022-02-04] MEDS: Allopurinol 100 MG Tab PO SCH (08:35)
[2022-02-04] MEDS: Tamsulosin 0.4 MG Cap.ER PO SCH (08:35)
[2022-02-05] MEDS: Allopurinol 100 MG Tab PO SCH (08:00)
[2022-02-05] MEDS: Tamsulosin 0.4 MG Cap.ER PO SCH (08:00)
[2022-02-05] MEDS: Pentoxifylline 400 MG Tab.ER PO SCH (08:00)
[2022-02-05] MEDS: Memantine 10 MG Tab PO SCH ×2 (08:00→17:11)
[2022-02-06] MEDS: Pentoxifylline 400 MG Tab.ER PO SCH (07:58)
[2022-02-06] MEDS: Tamsulosin 0.4 MG Cap.ER PO SCH (07:58)
[2022-02-06] MEDS: Allopurinol 100 MG Tab PO SCH (07:58)
[2022-02-06] MEDS: Memantine 10 MG Tab PO SCH ×2 (07:58→17:13)
[2022-02-07] MEDS: Memantine 10 MG Tab PO SCH ×2 (07:38→17:08)
[2022-02-07] MEDS: Tamsulosin 0.4 MG Cap.ER PO SCH (07:38)
[2022-02-07] MEDS: Allopurinol 100 MG Tab PO SCH (07:39)
[2022-02-07] MEDS: Pentoxifylline 400 MG Tab.ER PO SCH (07:39)
[2022-02-08] MEDS: Tamsulosin 0.4 MG Cap.ER PO SCH (08:00)
[2022-02-08] MEDS: Memantine 10 MG Tab PO SCH ×2 (08:00→17:07)
[2022-02-08] MEDS: Allopurinol 100 MG Tab PO SCH (08:01)
[2022-02-08] MEDS: Pentoxifylline 400 MG Tab.ER PO SCH (08:01)
[2022-02-09] MEDS: Tamsulosin 0.4 MG Cap.ER PO SCH (07:54)
[2022-02-09] MEDS: Memantine 10 MG Tab PO SCH ×2 (07:54→17:08)
[2022-02-09] MEDS: Allopurinol 100 MG Tab PO SCH (07:54)
[2022-02-09] MEDS: Pentoxifylline 400 MG Tab.ER PO SCH (07:54)
[2022-02-10] MEDS: Tamsulosin 0.4 MG Cap.ER PO SCH (07:27)
[2022-02-10] MEDS: Acetaminophen 325 MG Tab PO PRN ×2 (07:27→17:06)
[2022-02-10] MEDS: Pentoxifylline 400 MG Tab.ER PO SCH (07:27)
[2022-02-10] MEDS: Memantine 10 MG Tab PO SCH ×2 (07:27→17:06)
[2022-02-10] MEDS: Allopurinol 100 MG Tab PO SCH (07:27)
[2022-02-11] MEDS: Memantine 10 MG Tab PO SCH ×2 (07:44→17:46)
[2022-02-11] MEDS: Allopurinol 100 MG Tab PO SCH (07:44)
[2022-02-11] MEDS: Tamsulosin 0.4 MG Cap.ER PO SCH (07:44)
[2022-02-11] MEDS: Pentoxifylline 400 MG Tab.ER PO SCH (07:44)
[2022-02-11] MEDS: Acetaminophen 325 MG Tab PO PRN (07:45)
[2022-02-12] MEDS: Pentoxifylline 400 MG Tab.ER PO SCH (08:01)
[2022-02-12] MEDS: Memantine 10 MG Tab PO SCH ×2 (08:01→16:59)
[2022-02-12] MEDS: Tamsulosin 0.4 MG Cap.ER PO SCH (08:01)
[2022-02-12] MEDS: Allopurinol 100 MG Tab PO SCH (08:02)
[2022-02-13] MEDS: Tamsulosin 0.4 MG Cap.ER PO SCH (08:06)
[2022-02-13] MEDS: Memantine 10 MG Tab PO SCH ×2 (08:06→17:16)
[2022-02-13] MEDS: Allopurinol 100 MG Tab PO SCH (08:06)
[2022-02-13] MEDS: Pentoxifylline 400 MG Tab.ER PO SCH (08:06)
[2022-02-14] MEDS: Memantine 10 MG Tab PO SCH ×2 (07:43→17:10)
[2022-02-14] MEDS: Tamsulosin 0.4 MG Cap.ER PO SCH (07:43)
[2022-02-14] MEDS: Pentoxifylline 400 MG Tab.ER PO SCH (07:44)
[2022-02-14] MEDS: Allopurinol 100 MG Tab PO SCH (07:44)
[2022-02-15] MEDS: Acetaminophen 325 MG Tab PO PRN (07:48)
[2022-02-15] MEDS: Tamsulosin 0.4 MG Cap.ER PO SCH (07:49)
[2022-02-15] MEDS: Allopurinol 100 MG Tab PO SCH (07:49)
[2022-02-15] MEDS: Pentoxifylline 400 MG Tab.ER PO SCH (07:49)
[2022-02-15] MEDS: Memantine 10 MG Tab PO SCH ×2 (07:49→17:16)
[2022-02-16] MEDS: Tamsulosin 0.4 MG Cap.ER PO SCH (08:04)
[2022-02-16] MEDS: Memantine 10 MG Tab PO SCH ×2 (08:04→17:16)
[2022-02-16] MEDS: Allopurinol 100 MG Tab PO SCH (08:05)
[2022-02-16] MEDS: Pentoxifylline 400 MG Tab.ER PO SCH (08:05)
[2022-02-17] MEDS: Tamsulosin 0.4 MG Cap.ER PO SCH (07:53)
[2022-02-17] MEDS: Allopurinol 100 MG Tab PO SCH (07:53)
[2022-02-17] MEDS: Pentoxifylline 400 MG Tab.ER PO SCH (07:53)
[2022-02-17] MEDS: Acetaminophen 325 MG Tab PO PRN (07:53)
[2022-02-17] MEDS: Memantine 10 MG Tab PO SCH ×2 (07:53→17:24)
[2022-02-18] MEDS: Tamsulosin 0.4 MG Cap.ER PO SCH (07:56)
[2022-02-18] MEDS: Memantine 10 MG Tab PO SCH ×2 (07:56→17:41)
[2022-02-18] MEDS: Allopurinol 100 MG Tab PO SCH (07:57)
[2022-02-18] MEDS: Pentoxifylline 400 MG Tab.ER PO SCH (07:57)
[2022-02-19] MEDS: Tamsulosin 0.4 MG Cap.ER PO SCH (07:42)
[2022-02-19] MEDS: Allopurinol 100 MG Tab PO SCH (07:43)
[2022-02-19] MEDS: Pentoxifylline 400 MG Tab.ER PO SCH (07:43)
[2022-02-19] MEDS: Memantine 10 MG Tab PO SCH ×2 (07:43→17:13)
[2022-02-20] MEDS: Pentoxifylline 400 MG Tab.ER PO SCH (08:20)
[2022-02-20] MEDS: Memantine 10 MG Tab PO SCH ×2 (08:20→17:09)
[2022-02-20] MEDS: Allopurinol 100 MG Tab PO SCH (08:20)
[2022-02-20] MEDS: Tamsulosin 0.4 MG Cap.ER PO SCH (08:20)
[2022-02-21] MEDS: Pentoxifylline 400 MG Tab.ER PO SCH (07:49)
[2022-02-21] MEDS: Memantine 10 MG Tab PO SCH ×2 (07:49→17:16)
[2022-02-21] MEDS: Tamsulosin 0.4 MG Cap.ER PO SCH (07:49)
[2022-02-21] MEDS: Allopurinol 100 MG Tab PO SCH (07:50)
[2022-02-22] MEDS: Pentoxifylline 400 MG Tab.ER PO SCH (07:23)
[2022-02-22] MEDS: Tamsulosin 0.4 MG Cap.ER PO SCH (07:23)
[2022-02-22] MEDS: Memantine 10 MG Tab PO SCH ×2 (07:23→17:26)
[2022-02-22] MEDS: Allopurinol 100 MG Tab PO SCH (07:23)
[2022-02-23] MEDS: Allopurinol 100 MG Tab PO SCH (07:57)
[2022-02-23] MEDS: Tamsulosin 0.4 MG Cap.ER PO SCH (07:57)
[2022-02-23] MEDS: Memantine 10 MG Tab PO SCH ×2 (07:57→17:17)
[2022-02-23] MEDS: Pentoxifylline 400 MG Tab.ER PO SCH (07:57)
[2022-02-24] MEDS: Pentoxifylline 400 MG Tab.ER PO SCH (07:52)
[2022-02-24] MEDS: Memantine 10 MG Tab PO SCH ×2 (07:52→17:05)
[2022-02-24] MEDS: Tamsulosin 0.4 MG Cap.ER PO SCH (07:52)
[2022-02-24] MEDS: Allopurinol 100 MG Tab PO SCH (07:53)
[2022-02-25] MEDS: Memantine 10 MG Tab PO SCH ×2 (07:38→17:09)
[2022-02-25] MEDS: Tamsulosin 0.4 MG Cap.ER PO SCH (07:38)
[2022-02-25] MEDS: Pentoxifylline 400 MG Tab.ER PO SCH (07:38)
[2022-02-25] MEDS: Allopurinol 100 MG Tab PO SCH (07:38)
[2022-02-26] MEDS: Memantine 10 MG Tab PO SCH ×2 (08:16→17:00)
[2022-02-26] MEDS: Pentoxifylline 400 MG Tab.ER PO SCH (08:16)
[2022-02-26] MEDS: Tamsulosin 0.4 MG Cap.ER PO SCH (08:16)
[2022-02-26] MEDS: Allopurinol 100 MG Tab PO SCH (08:17)
[2022-02-27] MEDS: Tamsulosin 0.4 MG Cap.ER PO SCH (07:55)
[2022-02-27] MEDS: Memantine 10 MG Tab PO SCH ×2 (07:55→17:38)
[2022-02-27] MEDS: Allopurinol 100 MG Tab PO SCH (07:55)
[2022-02-27] MEDS: Pentoxifylline 400 MG Tab.ER PO SCH (07:55)
[2022-02-28] MEDS: Tamsulosin 0.4 MG Cap.ER PO SCH (07:45)
[2022-02-28] MEDS: Allopurinol 100 MG Tab PO SCH (07:45)
[2022-02-28] MEDS: Memantine 10 MG Tab PO SCH ×2 (07:45→17:46)
[2022-02-28] MEDS: Pentoxifylline 400 MG Tab.ER PO SCH (07:45)
[2022-03-01] MEDS: Tamsulosin 0.4 MG Cap.ER PO SCH (07:26)
[2022-03-01] MEDS: Pentoxifylline 400 MG Tab.ER PO SCH (07:26)
[2022-03-01] MEDS: Memantine 10 MG Tab PO SCH ×2 (07:26→17:28)
[2022-03-01] MEDS: Allopurinol 100 MG Tab PO SCH (07:26)
[2022-03-01] MEDS: Acetaminophen 325 MG Tab PO PRN (07:26)
[2022-03-02] MEDS: Memantine 10 MG Tab PO SCH ×2 (08:10→17:28)
[2022-03-02] MEDS: Pentoxifylline 400 MG Tab.ER PO SCH (08:10)
[2022-03-02] MEDS: Allopurinol 100 MG Tab PO SCH (08:10)
[2022-03-02] MEDS: Tamsulosin 0.4 MG Cap.ER PO SCH (08:10)
[2022-03-03] MEDS: Pentoxifylline 400 MG Tab.ER PO SCH (08:21)
[2022-03-03] MEDS: Tamsulosin 0.4 MG Cap.ER PO SCH (08:21)
[2022-03-03] MEDS: Memantine 10 MG Tab PO SCH ×2 (08:21→17:16)
[2022-03-03] MEDS: Allopurinol 100 MG Tab PO SCH (08:22)
[2022-03-04] MEDS: Allopurinol 100 MG Tab PO SCH (08:23)
[2022-03-04] MEDS: Memantine 10 MG Tab PO SCH ×2 (08:23→17:06)
[2022-03-04] MEDS: Pentoxifylline 400 MG Tab.ER PO SCH (08:23)
[2022-03-04] MEDS: Tamsulosin 0.4 MG Cap.ER PO SCH (08:23)
[2022-03-05] MEDS: Pentoxifylline 400 MG Tab.ER PO SCH (07:52)
[2022-03-05] MEDS: Tamsulosin 0.4 MG Cap.ER PO SCH (07:52)
[2022-03-05] MEDS: Memantine 10 MG Tab PO SCH ×2 (07:52→17:24)
[2022-03-05] MEDS: Allopurinol 100 MG Tab PO SCH (07:52)
[2022-03-06] MEDS: Tamsulosin 0.4 MG Cap.ER PO SCH (08:05)
[2022-03-06] MEDS: Pentoxifylline 400 MG Tab.ER PO SCH (08:06)
[2022-03-06] MEDS: Allopurinol 100 MG Tab PO SCH (08:06)
[2022-03-06] MEDS: Memantine 10 MG Tab PO SCH ×2 (08:06→17:28)
[2022-03-07] MEDS: Pentoxifylline 400 MG Tab.ER PO SCH (07:49)
[2022-03-07] MEDS: Tamsulosin 0.4 MG Cap.ER PO SCH (07:49)
[2022-03-07] MEDS: Memantine 10 MG Tab PO SCH ×2 (07:49→17:38)
[2022-03-07] MEDS: Allopurinol 100 MG Tab PO SCH (07:49)
[2022-03-08] MEDS: Tamsulosin 0.4 MG Cap.ER PO SCH (08:27)
[2022-03-08] MEDS: Memantine 10 MG Tab PO SCH ×2 (08:27→17:34)
[2022-03-08] MEDS: Allopurinol 100 MG Tab PO SCH (08:27)
[2022-03-08] MEDS: Pentoxifylline 400 MG Tab.ER PO SCH (08:27)
[2022-03-09] MEDS: Allopurinol 100 MG Tab PO SCH (08:03)
[2022-03-09] MEDS: Pentoxifylline 400 MG Tab.ER PO SCH (08:03)
[2022-03-09] MEDS: Memantine 10 MG Tab PO SCH ×2 (08:03→17:17)
[2022-03-09] MEDS: Tamsulosin 0.4 MG Cap.ER PO SCH (08:04)
[2022-03-10] MEDS: Allopurinol 100 MG Tab PO SCH (08:31)
[2022-03-10] MEDS: Tamsulosin 0.4 MG Cap.ER PO SCH (08:31)
[2022-03-10] MEDS: Pentoxifylline 400 MG Tab.ER PO SCH (08:31)
[2022-03-10] MEDS: Memantine 10 MG Tab PO SCH ×2 (08:31→17:07)
[2022-03-11] MEDS: Pentoxifylline 400 MG Tab.ER PO SCH (08:01)
[2022-03-11] MEDS: Tamsulosin 0.4 MG Cap.ER PO SCH (08:01)
[2022-03-11] MEDS: Allopurinol 100 MG Tab PO SCH (08:01)
[2022-03-11] MEDS: Memantine 10 MG Tab PO SCH ×2 (08:01→17:33)
[2022-03-11] MEDS: Carbamide Peroxide 6.5% Otic Soln 15 ML Bottle EARBOTH SCH (20:11)
[2022-03-12] MEDS: Pentoxifylline 400 MG Tab.ER PO SCH (08:18)
[2022-03-12] MEDS: Memantine 10 MG Tab PO SCH ×2 (08:18→17:46)
[2022-03-12] MEDS: Tamsulosin 0.4 MG Cap.ER PO SCH (08:18)
[2022-03-12] MEDS: Allopurinol 100 MG Tab PO SCH (08:18)
[2022-03-12] MEDS: Carbamide Peroxide 6.5% Otic Soln 15 ML Bottle EARBOTH SCH (20:00)
[2022-03-13] MEDS: Memantine 10 MG Tab PO SCH ×2 (07:47→17:21)
[2022-03-13] MEDS: Pentoxifylline 400 MG Tab.ER PO SCH (07:47)
[2022-03-13] MEDS: Tamsulosin 0.4 MG Cap.ER PO SCH (07:47)
[2022-03-13] MEDS: Allopurinol 100 MG Tab PO SCH (07:48)
[2022-03-13] MEDS: Acetaminophen 325 MG Tab PO PRN (17:56)
[2022-03-13] MEDS: Carbamide Peroxide 6.5% Otic Soln 15 ML Bottle EARBOTH SCH (19:28)
[2022-03-14] MEDS: Tamsulosin 0.4 MG Cap.ER PO SCH (07:57)
[2022-03-14] MEDS: Memantine 10 MG Tab PO SCH ×2 (07:57→17:08)
[2022-03-14] MEDS: Pentoxifylline 400 MG Tab.ER PO SCH (07:57)
[2022-03-14] MEDS: Allopurinol 100 MG Tab PO SCH (07:58)
[2022-03-15] MEDS: Memantine 10 MG Tab PO SCH ×2 (07:48→17:18)
[2022-03-15] MEDS: Allopurinol 100 MG Tab PO SCH (07:48)
[2022-03-15] MEDS: Pentoxifylline 400 MG Tab.ER PO SCH (07:48)
[2022-03-15] MEDS: Tamsulosin 0.4 MG Cap.ER PO SCH (07:48)
[2022-03-16] MEDS: Tamsulosin 0.4 MG Cap.ER PO SCH (07:56)
[2022-03-16] MEDS: Pentoxifylline 400 MG Tab.ER PO SCH (07:56)
[2022-03-16] MEDS: Memantine 10 MG Tab PO SCH ×2 (07:56→17:05)
[2022-03-16] MEDS: Allopurinol 100 MG Tab PO SCH (07:57)
[2022-03-17] MEDS: Pentoxifylline 400 MG Tab.ER PO SCH (07:33)
[2022-03-17] MEDS: Tamsulosin 0.4 MG Cap.ER PO SCH (07:33)
[2022-03-17] MEDS: Memantine 10 MG Tab PO SCH ×2 (07:33→17:13)
[2022-03-17] MEDS: Allopurinol 100 MG Tab PO SCH (07:33)
[2022-03-18] MEDS: Tamsulosin 0.4 MG Cap.ER PO SCH (07:47)
[2022-03-18] MEDS: Memantine 10 MG Tab PO SCH ×2 (07:47→17:01)
[2022-03-18] MEDS: Allopurinol 100 MG Tab PO SCH (07:47)
[2022-03-18] MEDS: Pentoxifylline 400 MG Tab.ER PO SCH (07:47)
[2022-03-19] MEDS: Memantine 10 MG Tab PO SCH ×2 (08:08→17:05)
[2022-03-19] MEDS: Tamsulosin 0.4 MG Cap.ER PO SCH (08:08)
[2022-03-19] MEDS: Allopurinol 100 MG Tab PO SCH (08:09)
[2022-03-19] MEDS: Pentoxifylline 400 MG Tab.ER PO SCH (08:09)
[2022-03-20] MEDS: Allopurinol 100 MG Tab PO SCH (08:03)
[2022-03-20] MEDS: Tamsulosin 0.4 MG Cap.ER PO SCH (08:03)
[2022-03-20] MEDS: Pentoxifylline 400 MG Tab.ER PO SCH (08:03)
[2022-03-20] MEDS: Memantine 10 MG Tab PO SCH ×2 (08:03→17:23)
[2022-03-21] MEDS: Tamsulosin 0.4 MG Cap.ER PO SCH (08:00)
[2022-03-21] MEDS: Pentoxifylline 400 MG Tab.ER PO SCH (08:00)
[2022-03-21] MEDS: Memantine 10 MG Tab PO SCH ×2 (08:00→17:17)
[2022-03-21] MEDS: Allopurinol 100 MG Tab PO SCH (08:01)
[2022-03-22] MEDS: Memantine 10 MG Tab PO SCH ×2 (08:13→18:16)
[2022-03-22] MEDS: Tamsulosin 0.4 MG Cap.ER PO SCH (08:13)
[2022-03-22] MEDS: Allopurinol 100 MG Tab PO SCH (08:13)
[2022-03-22] MEDS: Pentoxifylline 400 MG Tab.ER PO SCH (08:13)
[2022-03-23] MEDS: Allopurinol 100 MG Tab PO SCH (08:09)
[2022-03-23] MEDS: Pentoxifylline 400 MG Tab.ER PO SCH (08:09)
[2022-03-23] MEDS: Memantine 10 MG Tab PO SCH ×2 (08:09→17:10)
[2022-03-23] MEDS: Tamsulosin 0.4 MG Cap.ER PO SCH (08:09)
[2022-03-24] MEDS: Tamsulosin 0.4 MG Cap.ER PO SCH (07:48)
[2022-03-24] MEDS: Memantine 10 MG Tab PO SCH ×2 (07:48→17:06)
[2022-03-24] MEDS: Allopurinol 100 MG Tab PO SCH (07:49)
[2022-03-24] MEDS: Pentoxifylline 400 MG Tab.ER PO SCH (07:49)
[2022-03-25] MEDS: Tamsulosin 0.4 MG Cap.ER PO SCH (07:59)
[2022-03-25] MEDS: Pentoxifylline 400 MG Tab.ER PO SCH (07:59)
[2022-03-25] MEDS: Allopurinol 100 MG Tab PO SCH (07:59)
[2022-03-25] MEDS: Memantine 10 MG Tab PO SCH ×2 (07:59→17:00)
[2022-03-26] MEDS: Tamsulosin 0.4 MG Cap.ER PO SCH (07:58)
[2022-03-26] MEDS: Allopurinol 100 MG Tab PO SCH (07:58)
[2022-03-26] MEDS: Memantine 10 MG Tab PO SCH ×2 (07:58→17:20)
[2022-03-26] MEDS: Pentoxifylline 400 MG Tab.ER PO SCH (07:58)
[2022-03-27] MEDS: Tamsulosin 0.4 MG Cap.ER PO SCH (09:04)
[2022-03-27] MEDS: Pentoxifylline 400 MG Tab.ER PO SCH (09:05)
[2022-03-27] MEDS: Memantine 10 MG Tab PO SCH ×2 (09:05→17:27)
[2022-03-27] MEDS: Allopurinol 100 MG Tab PO SCH (09:05)
[2022-03-28] MEDS: Tamsulosin 0.4 MG Cap.ER PO SCH (08:15)
[2022-03-28] MEDS: Allopurinol 100 MG Tab PO SCH (08:16)
[2022-03-28] MEDS: Memantine 10 MG Tab PO SCH ×2 (08:16→17:45)
[2022-03-28] MEDS: Pentoxifylline 400 MG Tab.ER PO SCH (08:16)
[2022-03-29] MEDS: Tamsulosin 0.4 MG Cap.ER PO SCH (08:04)
[2022-03-29] MEDS: Memantine 10 MG Tab PO SCH ×2 (08:05→17:12)
[2022-03-29] MEDS: Allopurinol 100 MG Tab PO SCH (08:05)
[2022-03-29] MEDS: Pentoxifylline 400 MG Tab.ER PO SCH (08:05)
[2022-03-30] MEDS: Tamsulosin 0.4 MG Cap.ER PO SCH (07:19)
[2022-03-30] MEDS: Memantine 10 MG Tab PO SCH ×2 (07:20→17:37)
[2022-03-30] MEDS: Pentoxifylline 400 MG Tab.ER PO SCH (07:20)
[2022-03-30] MEDS: Allopurinol 100 MG Tab PO SCH (07:20)
[2022-03-31] MEDS: Tamsulosin 0.4 MG Cap.ER PO SCH (07:57)
[2022-03-31] MEDS: Allopurinol 100 MG Tab PO SCH (07:58)
[2022-03-31] MEDS: Memantine 10 MG Tab PO SCH ×2 (07:58→17:00)
[2022-03-31] MEDS: Pentoxifylline 400 MG Tab.ER PO SCH (07:58)
[2022-04-01] MEDS: Tamsulosin 0.4 MG Cap.ER PO SCH (07:51)
[2022-04-01] MEDS: Memantine 10 MG Tab PO SCH ×2 (07:51→17:02)
[2022-04-01] MEDS: Allopurinol 100 MG Tab PO SCH (07:52)
[2022-04-01] MEDS: Pentoxifylline 400 MG Tab.ER PO SCH (07:52)
[2022-04-02] MEDS: Memantine 10 MG Tab PO SCH ×2 (07:50→17:17)
[2022-04-02] MEDS: Allopurinol 100 MG Tab PO SCH (07:50)
[2022-04-02] MEDS: Pentoxifylline 400 MG Tab.ER PO SCH (07:50)
[2022-04-02] MEDS: Tamsulosin 0.4 MG Cap.ER PO SCH (07:50)
[2022-04-03] MEDS: Tamsulosin 0.4 MG Cap.ER PO SCH (07:42)
[2022-04-03] MEDS: Allopurinol 100 MG Tab PO SCH (07:43)
[2022-04-03] MEDS: Pentoxifylline 400 MG Tab.ER PO SCH (07:43)
[2022-04-03] MEDS: Memantine 10 MG Tab PO SCH ×2 (07:43→17:05)
[2022-04-04] MEDS: Pentoxifylline 400 MG Tab.ER PO SCH (08:22)
[2022-04-04] MEDS: Tamsulosin 0.4 MG Cap.ER PO SCH (08:22)
[2022-04-04] MEDS: Allopurinol 100 MG Tab PO SCH (08:22)
[2022-04-04] MEDS: Memantine 10 MG Tab PO SCH ×2 (08:22→17:19)
[2022-04-05] MEDS: Memantine 10 MG Tab PO SCH ×2 (07:49→17:02)
[2022-04-05] MEDS: Tamsulosin 0.4 MG Cap.ER PO SCH (07:49)
[2022-04-05] MEDS: Pentoxifylline 400 MG Tab.ER PO SCH (07:50)
[2022-04-05] MEDS: Allopurinol 100 MG Tab PO SCH (07:50)
[2022-04-06] MEDS: Tamsulosin 0.4 MG Cap.ER PO SCH (07:39)
[2022-04-06] MEDS: Allopurinol 100 MG Tab PO SCH (07:39)
[2022-04-06] MEDS: Pentoxifylline 400 MG Tab.ER PO SCH (07:39)
[2022-04-06] MEDS: Memantine 10 MG Tab PO SCH ×2 (07:39→17:05)
[2022-04-07] MEDS: Tamsulosin 0.4 MG Cap.ER PO SCH (07:50)
[2022-04-07] MEDS: Allopurinol 100 MG Tab PO SCH (07:50)
[2022-04-07] MEDS: Memantine 10 MG Tab PO SCH ×2 (07:50→17:13)
[2022-04-07] MEDS: Pentoxifylline 400 MG Tab.ER PO SCH (07:50)
[2022-04-08] MEDS: Allopurinol 100 MG Tab PO SCH (07:50)
[2022-04-08] MEDS: Memantine 10 MG Tab PO SCH ×2 (07:50→17:04)
[2022-04-08] MEDS: Pentoxifylline 400 MG Tab.ER PO SCH (07:50)
[2022-04-08] MEDS: Tamsulosin 0.4 MG Cap.ER PO SCH (07:50)
[2022-04-09] MEDS: Allopurinol 100 MG Tab PO SCH (07:54)
[2022-04-09] MEDS: Pentoxifylline 400 MG Tab.ER PO SCH (07:54)
[2022-04-09] MEDS: Tamsulosin 0.4 MG Cap.ER PO SCH (07:54)
[2022-04-09] MEDS: Memantine 10 MG Tab PO SCH ×2 (07:54→17:00)
[2022-04-10] MEDS: Tamsulosin 0.4 MG Cap.ER PO SCH (07:50)
[2022-04-10] MEDS: Memantine 10 MG Tab PO SCH ×2 (07:50→17:09)
[2022-04-10] MEDS: Allopurinol 100 MG Tab PO SCH (07:51)
[2022-04-10] MEDS: Pentoxifylline 400 MG Tab.ER PO SCH (07:51)
[2022-04-11] MEDS: Allopurinol 100 MG Tab PO SCH (08:19)
[2022-04-11] MEDS: Memantine 10 MG Tab PO SCH ×2 (08:19→17:40)
[2022-04-11] MEDS: Pentoxifylline 400 MG Tab.ER PO SCH (08:20)
[2022-04-11] MEDS: Tamsulosin 0.4 MG Cap.ER PO SCH (08:20)
[2022-04-12] MEDS: Allopurinol 100 MG Tab PO SCH (07:54)
[2022-04-12] MEDS: Pentoxifylline 400 MG Tab.ER PO SCH (07:55)
[2022-04-12] MEDS: Tamsulosin 0.4 MG Cap.ER PO SCH (07:55)
[2022-04-12] MEDS: Memantine 10 MG Tab PO SCH ×2 (07:55→17:13)
[2022-04-13] MEDS: Pentoxifylline 400 MG Tab.ER PO SCH (08:00)
[2022-04-13] MEDS: Allopurinol 100 MG Tab PO SCH (08:00)
[2022-04-13] MEDS: Tamsulosin 0.4 MG Cap.ER PO SCH (08:00)
[2022-04-13] MEDS: Memantine 10 MG Tab PO SCH ×2 (08:00→17:00)
[2022-04-14] MEDS: Tamsulosin 0.4 MG Cap.ER PO SCH (07:49)
[2022-04-14] MEDS: Pentoxifylline 400 MG Tab.ER PO SCH (07:49)
[2022-04-14] MEDS: Memantine 10 MG Tab PO SCH ×2 (07:49→17:27)
[2022-04-14] MEDS: Allopurinol 100 MG Tab PO SCH (07:50)
[2022-04-15] MEDS: Tamsulosin 0.4 MG Cap.ER PO SCH (07:53)
[2022-04-15] MEDS: Pentoxifylline 400 MG Tab.ER PO SCH (07:54)
[2022-04-15] MEDS: Allopurinol 100 MG Tab PO SCH (07:54)
[2022-04-15] MEDS: Memantine 10 MG Tab PO SCH ×2 (07:54→17:29)
[2022-04-16] MEDS: Tamsulosin 0.4 MG Cap.ER PO SCH (08:05)
[2022-04-16] MEDS: Memantine 10 MG Tab PO SCH ×2 (08:05→17:38)
[2022-04-16] MEDS: Allopurinol 100 MG Tab PO SCH (08:05)
[2022-04-16] MEDS: Pentoxifylline 400 MG Tab.ER PO SCH (08:05)
[2022-04-17] MEDS: Allopurinol 100 MG Tab PO SCH (08:02)
[2022-04-17] MEDS: Memantine 10 MG Tab PO SCH ×2 (08:02→17:01)
[2022-04-17] MEDS: Pentoxifylline 400 MG Tab.ER PO SCH (08:02)
[2022-04-17] MEDS: Tamsulosin 0.4 MG Cap.ER PO SCH (08:02)
[2022-04-18] MEDS: Tamsulosin 0.4 MG Cap.ER PO SCH (07:51)
[2022-04-18] MEDS: Memantine 10 MG Tab PO SCH ×2 (07:51→17:22)
[2022-04-18] MEDS: Allopurinol 100 MG Tab PO SCH (07:51)
[2022-04-18] MEDS: Pentoxifylline 400 MG Tab.ER PO SCH (07:51)
[2022-04-19] MEDS: Tamsulosin 0.4 MG Cap.ER PO SCH (08:03)
[2022-04-19] MEDS: Allopurinol 100 MG Tab PO SCH (08:04)
[2022-04-19] MEDS: Memantine 10 MG Tab PO SCH ×2 (08:04→17:04)
[2022-04-19] MEDS: Pentoxifylline 400 MG Tab.ER PO SCH (08:04)
[2022-04-20] MEDS: Pentoxifylline 400 MG Tab.ER PO SCH (07:08)
[2022-04-20] MEDS: Memantine 10 MG Tab PO SCH ×2 (07:08→17:19)
[2022-04-20] MEDS: Tamsulosin 0.4 MG Cap.ER PO SCH (07:08)
[2022-04-20] MEDS: Allopurinol 100 MG Tab PO SCH (07:08)
[2022-04-21] MEDS: Tamsulosin 0.4 MG Cap.ER PO SCH (07:40)
[2022-04-21] MEDS: Pentoxifylline 400 MG Tab.ER PO SCH (07:40)
[2022-04-21] MEDS: Allopurinol 100 MG Tab PO SCH (07:40)
[2022-04-21] MEDS: Memantine 10 MG Tab PO SCH ×2 (07:40→17:08)
[2022-04-22] MEDS: Tamsulosin 0.4 MG Cap.ER PO SCH (07:43)
[2022-04-22] MEDS: Memantine 10 MG Tab PO SCH ×2 (07:43→17:21)
[2022-04-22] MEDS: Pentoxifylline 400 MG Tab.ER PO SCH (07:43)
[2022-04-22] MEDS: Allopurinol 100 MG Tab PO SCH (07:43)
[2022-04-23] MEDS: Tamsulosin 0.4 MG Cap.ER PO SCH (08:22)
[2022-04-23] MEDS: Memantine 10 MG Tab PO SCH ×2 (08:22→17:26)
[2022-04-23] MEDS: Allopurinol 100 MG Tab PO SCH (08:23)
[2022-04-23] MEDS: Pentoxifylline 400 MG Tab.ER PO SCH (08:23)
[2022-04-24] MEDS: Pentoxifylline 400 MG Tab.ER PO SCH (08:04)
[2022-04-24] MEDS: Tamsulosin 0.4 MG Cap.ER PO SCH (08:04)
[2022-04-24] MEDS: Memantine 10 MG Tab PO SCH ×2 (08:04→17:38)
[2022-04-24] MEDS: Allopurinol 100 MG Tab PO SCH (08:04)
[2022-04-25] MEDS: Memantine 10 MG Tab PO SCH ×2 (07:48→17:25)
[2022-04-25] MEDS: Pentoxifylline 400 MG Tab.ER PO SCH (07:48)
[2022-04-25] MEDS: Allopurinol 100 MG Tab PO SCH (07:48)
[2022-04-25] MEDS: Tamsulosin 0.4 MG Cap.ER PO SCH (07:48)
[2022-04-26] MEDS: Tamsulosin 0.4 MG Cap.ER PO SCH (07:53)
[2022-04-26] MEDS: Memantine 10 MG Tab PO SCH ×2 (07:54→17:15)
[2022-04-26] MEDS: Pentoxifylline 400 MG Tab.ER PO SCH (07:54)
[2022-04-26] MEDS: Allopurinol 100 MG Tab PO SCH (07:54)
[2022-04-27] MEDS: Memantine 10 MG Tab PO SCH ×2 (08:01→17:25)
[2022-04-27] MEDS: Tamsulosin 0.4 MG Cap.ER PO SCH (08:01)
[2022-04-27] MEDS: Pentoxifylline 400 MG Tab.ER PO SCH (08:01)
[2022-04-27] MEDS: Allopurinol 100 MG Tab PO SCH (08:01)
[2022-04-28] MEDS: Memantine 10 MG Tab PO SCH ×2 (07:45→17:34)
[2022-04-28] MEDS: Tamsulosin 0.4 MG Cap.ER PO SCH (07:45)
[2022-04-28] MEDS: Allopurinol 100 MG Tab PO SCH (07:45)
[2022-04-28] MEDS: Pentoxifylline 400 MG Tab.ER PO SCH (07:45)
[2022-04-29] MEDS: Tamsulosin 0.4 MG Cap.ER PO SCH (08:00)
[2022-04-29] MEDS: Pentoxifylline 400 MG Tab.ER PO SCH (08:00)
[2022-04-29] MEDS: Memantine 10 MG Tab PO SCH ×2 (08:00→18:00)
[2022-04-29] MEDS: Allopurinol 100 MG Tab PO SCH (08:00)
[2022-04-30] MEDS: Allopurinol 100 MG Tab PO SCH (08:00)
[2022-04-30] MEDS: Pentoxifylline 400 MG Tab.ER PO SCH (08:00)
[2022-04-30] MEDS: Tamsulosin 0.4 MG Cap.ER PO SCH (08:00)
[2022-04-30] MEDS: Memantine 10 MG Tab PO SCH ×2 (08:00→18:00)
[2022-05-01] MEDS: Memantine 10 MG Tab PO SCH ×2 (08:00→18:00)
[2022-05-01] MEDS: Pentoxifylline 400 MG Tab.ER PO SCH (08:00)
[2022-05-01] MEDS: Allopurinol 100 MG Tab PO SCH (08:00)
[2022-05-01] MEDS: Tamsulosin 0.4 MG Cap.ER PO SCH (08:00)
[2022-05-02] MEDS: Pentoxifylline 400 MG Tab.ER PO SCH (08:00)
[2022-05-02] MEDS: Memantine 10 MG Tab PO SCH ×2 (08:00→18:00)
[2022-05-02] MEDS: Allopurinol 100 MG Tab PO SCH (08:00)
[2022-05-02] MEDS: Tamsulosin 0.4 MG Cap.ER PO SCH (08:00)
[2022-05-03] MEDS: Pentoxifylline 400 MG Tab.ER PO SCH (08:00)
[2022-05-03] MEDS: Tamsulosin 0.4 MG Cap.ER PO SCH (08:00)
[2022-05-03] MEDS: Memantine 10 MG Tab PO SCH ×2 (08:00→18:00)
[2022-05-03] MEDS: Allopurinol 100 MG Tab PO SCH (08:00)
[2022-05-04] MEDS: Tamsulosin 0.4 MG Cap.ER PO SCH (08:00)
[2022-05-04] MEDS: Pentoxifylline 400 MG Tab.ER PO SCH (08:00)
[2022-05-04] MEDS: Allopurinol 100 MG Tab PO SCH (08:00)
[2022-05-04] MEDS: Memantine 10 MG Tab PO SCH ×2 (08:00→18:00)
[2022-05-14] MEDS: Tamsulosin 0.4 MG Cap.ER PO SCH ×7 (14:12→14:25)
[2022-05-14] MEDS: Memantine 10 MG Tab PO SCH ×8 (14:13→16:59)
[2022-05-14] MEDS: Pentoxifylline 400 MG Tab.ER PO SCH ×7 (14:13→14:25)
[2022-05-14] MEDS: Allopurinol 100 MG Tab PO SCH ×7 (14:13→14:25)
[2022-05-15] MEDS: Memantine 10 MG Tab PO SCH ×2 (08:09→17:36)
[2022-05-15] MEDS: Allopurinol 100 MG Tab PO SCH (08:10)
[2022-05-15] MEDS: Pentoxifylline 400 MG Tab.ER PO SCH (08:10)
[2022-05-15] MEDS: Tamsulosin 0.4 MG Cap.ER PO SCH (08:11)
[2022-05-16] MEDS: Allopurinol 100 MG Tab PO SCH (08:29)
[2022-05-16] MEDS: Pentoxifylline 400 MG Tab.ER PO SCH (08:29)
[2022-05-16] MEDS: Tamsulosin 0.4 MG Cap.ER PO SCH (08:29)
[2022-05-16] MEDS: Memantine 10 MG Tab PO SCH ×2 (08:29→17:32)
[2022-05-17] MEDS: Pentoxifylline 400 MG Tab.ER PO SCH (07:51)
[2022-05-17] MEDS: Memantine 10 MG Tab PO SCH ×2 (07:51→17:20)
[2022-05-17] MEDS: Allopurinol 100 MG Tab PO SCH (07:51)
[2022-05-17] MEDS: Tamsulosin 0.4 MG Cap.ER PO SCH (07:51)
[2022-05-18] MEDS: Tamsulosin 0.4 MG Cap.ER PO SCH (07:58)
[2022-05-18] MEDS: Memantine 10 MG Tab PO SCH ×2 (07:58→17:27)
[2022-05-18] MEDS: Pentoxifylline 400 MG Tab.ER PO SCH (07:58)
[2022-05-18] MEDS: Allopurinol 100 MG Tab PO SCH (07:59)
[2022-05-19] MEDS: Pentoxifylline 400 MG Tab.ER PO SCH (08:03)
[2022-05-19] MEDS: Tamsulosin 0.4 MG Cap.ER PO SCH (08:03)
[2022-05-19] MEDS: Memantine 10 MG Tab PO SCH ×2 (08:03→17:19)
[2022-05-19] MEDS: Allopurinol 100 MG Tab PO SCH (08:03)
[2022-05-20] MEDS: Pentoxifylline 400 MG Tab.ER PO SCH (08:08)
[2022-05-20] MEDS: Allopurinol 100 MG Tab PO SCH (08:08)
[2022-05-20] MEDS: Memantine 10 MG Tab PO SCH ×2 (08:09→17:04)
[2022-05-20] MEDS: Tamsulosin 0.4 MG Cap.ER PO SCH (08:09)
[2022-05-21] MEDS: Tamsulosin 0.4 MG Cap.ER PO SCH (07:54)
[2022-05-21] MEDS: Memantine 10 MG Tab PO SCH ×2 (07:54→17:21)
[2022-05-21] MEDS: Allopurinol 100 MG Tab PO SCH (07:54)
[2022-05-21] MEDS: Pentoxifylline 400 MG Tab.ER PO SCH (07:54)
[2022-05-22] MEDS: Pentoxifylline 400 MG Tab.ER PO SCH (07:50)
[2022-05-22] MEDS: Allopurinol 100 MG Tab PO SCH (07:50)
[2022-05-22] MEDS: Tamsulosin 0.4 MG Cap.ER PO SCH (07:50)
[2022-05-22] MEDS: Memantine 10 MG Tab PO SCH ×2 (07:50→17:15)
[2022-05-23] MEDS: Pentoxifylline 400 MG Tab.ER PO SCH (07:48)
[2022-05-23] MEDS: Tamsulosin 0.4 MG Cap.ER PO SCH (07:48)
[2022-05-23] MEDS: Memantine 10 MG Tab PO SCH ×2 (07:48→17:50)
[2022-05-23] MEDS: Allopurinol 100 MG Tab PO SCH (07:49)
[2022-05-24] MEDS: Pentoxifylline 400 MG Tab.ER PO SCH (08:01)
[2022-05-24] MEDS: Allopurinol 100 MG Tab PO SCH (08:01)
[2022-05-24] MEDS: Memantine 10 MG Tab PO SCH ×2 (08:01→17:11)
[2022-05-24] MEDS: Tamsulosin 0.4 MG Cap.ER PO SCH (08:01)
[2022-05-25] MEDS: Tamsulosin 0.4 MG Cap.ER PO SCH (08:09)
[2022-05-25] MEDS: Memantine 10 MG Tab PO SCH ×2 (08:09→17:08)
[2022-05-25] MEDS: Allopurinol 100 MG Tab PO SCH (08:10)
[2022-05-25] MEDS: Pentoxifylline 400 MG Tab.ER PO SCH (08:10)
[2022-05-26] MEDS: Tamsulosin 0.4 MG Cap.ER PO SCH (08:15)
[2022-05-26] MEDS: Memantine 10 MG Tab PO SCH ×2 (08:15→17:07)
[2022-05-26] MEDS: Pentoxifylline 400 MG Tab.ER PO SCH (08:16)
[2022-05-26] MEDS: Allopurinol 100 MG Tab PO SCH (08:16)
[2022-05-27] MEDS: Memantine 10 MG Tab PO SCH ×2 (08:00→17:21)
[2022-05-27] MEDS: Allopurinol 100 MG Tab PO SCH (08:00)
[2022-05-27] MEDS: Pentoxifylline 400 MG Tab.ER PO SCH (08:00)
[2022-05-27] MEDS: Tamsulosin 0.4 MG Cap.ER PO SCH (08:00)
[2022-05-28] MEDS: Allopurinol 100 MG Tab PO SCH (07:55)
[2022-05-28] MEDS: Pentoxifylline 400 MG Tab.ER PO SCH (07:55)
[2022-05-28] MEDS: Memantine 10 MG Tab PO SCH ×2 (07:55→17:27)
[2022-05-28] MEDS: Tamsulosin 0.4 MG Cap.ER PO SCH (07:55)
[2022-05-29] MEDS: Memantine 10 MG Tab PO SCH ×2 (08:24→17:32)
[2022-05-29] MEDS: Pentoxifylline 400 MG Tab.ER PO SCH (08:24)
[2022-05-29] MEDS: Allopurinol 100 MG Tab PO SCH (08:24)
[2022-05-29] MEDS: Tamsulosin 0.4 MG Cap.ER PO SCH (08:24)
[2022-05-30] MEDS: Allopurinol 100 MG Tab PO SCH (08:12)
[2022-05-30] MEDS: Memantine 10 MG Tab PO SCH ×2 (08:13→17:34)
[2022-05-30] MEDS: Pentoxifylline 400 MG Tab.ER PO SCH (08:13)
[2022-05-30] MEDS: Tamsulosin 0.4 MG Cap.ER PO SCH (08:13)
[2022-05-31] MEDS: Pentoxifylline 400 MG Tab.ER PO SCH (08:01)
[2022-05-31] MEDS: Memantine 10 MG Tab PO SCH ×2 (08:01→17:14)
[2022-05-31] MEDS: Tamsulosin 0.4 MG Cap.ER PO SCH (08:01)
[2022-05-31] MEDS: Allopurinol 100 MG Tab PO SCH (08:02)
[2022-06-01] MEDS: Allopurinol 100 MG Tab PO SCH (08:13)
[2022-06-01] MEDS: Memantine 10 MG Tab PO SCH ×2 (08:13→17:10)
[2022-06-01] MEDS: Tamsulosin 0.4 MG Cap.ER PO SCH (08:13)
[2022-06-01] MEDS: Pentoxifylline 400 MG Tab.ER PO SCH (08:13)
[2022-06-02] MEDS: Tamsulosin 0.4 MG Cap.ER PO SCH (07:22)
[2022-06-02] MEDS: Memantine 10 MG Tab PO SCH ×2 (07:22→17:49)
[2022-06-02] MEDS: Pentoxifylline 400 MG Tab.ER PO SCH (07:22)
[2022-06-02] MEDS: Allopurinol 100 MG Tab PO SCH (07:22)
[2022-06-03] MEDS: Tamsulosin 0.4 MG Cap.ER PO SCH (08:01)
[2022-06-03] MEDS: Allopurinol 100 MG Tab PO SCH (08:02)
[2022-06-03] MEDS: Pentoxifylline 400 MG Tab.ER PO SCH (08:02)
[2022-06-03] MEDS: Memantine 10 MG Tab PO SCH ×2 (08:02→17:13)
[2022-06-03] MEDS: Carbamide Peroxide 6.5% Otic Soln 15 ML Bottle EARBOTH SCH ×3 (14:26→20:46)
[2022-06-04] MEDS: Carbamide Peroxide 6.5% Otic Soln 15 ML Bottle EARBOTH SCH ×2 (07:42→19:53)
[2022-06-04] MEDS: Memantine 10 MG Tab PO SCH ×2 (07:43→17:28)
[2022-06-04] MEDS: Tamsulosin 0.4 MG Cap.ER PO SCH (07:43)
[2022-06-04] MEDS: Allopurinol 100 MG Tab PO SCH (07:43)
[2022-06-04] MEDS: Pentoxifylline 400 MG Tab.ER PO SCH (07:43)
[2022-06-05] MEDS: Tamsulosin 0.4 MG Cap.ER PO SCH (08:22)
[2022-06-05] MEDS: Pentoxifylline 400 MG Tab.ER PO SCH (08:22)
[2022-06-05] MEDS: Allopurinol 100 MG Tab PO SCH (08:22)
[2022-06-05] MEDS: Memantine 10 MG Tab PO SCH ×2 (08:22→17:45)
[2022-06-05] MEDS: Carbamide Peroxide 6.5% Otic Soln 15 ML Bottle EARBOTH SCH ×2 (08:22→19:48)
[2022-06-06] MEDS: Tamsulosin 0.4 MG Cap.ER PO SCH (08:02)
[2022-06-06] MEDS: Memantine 10 MG Tab PO SCH ×2 (08:03→17:13)
[2022-06-06] MEDS: Pentoxifylline 400 MG Tab.ER PO SCH (08:03)
[2022-06-06] MEDS: Allopurinol 100 MG Tab PO SCH (08:03)
[2022-06-07] MEDS: Pentoxifylline 400 MG Tab.ER PO SCH (08:21)
[2022-06-07] MEDS: Tamsulosin 0.4 MG Cap.ER PO SCH (08:21)
[2022-06-07] MEDS: Allopurinol 100 MG Tab PO SCH (08:21)
[2022-06-07] MEDS: Memantine 10 MG Tab PO SCH ×2 (08:21→17:03)
[2022-06-08] MEDS: Tamsulosin 0.4 MG Cap.ER PO SCH (08:01)
[2022-06-08] MEDS: Memantine 10 MG Tab PO SCH ×2 (08:01→17:02)
[2022-06-08] MEDS: Pentoxifylline 400 MG Tab.ER PO SCH (08:01)
[2022-06-08] MEDS: Allopurinol 100 MG Tab PO SCH (08:01)
[2022-06-09] MEDS: Memantine 10 MG Tab PO SCH ×2 (07:57→17:20)
[2022-06-09] MEDS: Allopurinol 100 MG Tab PO SCH (07:57)
[2022-06-09] MEDS: Tamsulosin 0.4 MG Cap.ER PO SCH (07:57)
[2022-06-09] MEDS: Pentoxifylline 400 MG Tab.ER PO SCH (07:57)
[2022-06-10] MEDS: Pentoxifylline 400 MG Tab.ER PO SCH (07:55)
[2022-06-10] MEDS: Memantine 10 MG Tab PO SCH ×2 (07:55→17:22)
[2022-06-10] MEDS: Tamsulosin 0.4 MG Cap.ER PO SCH (07:55)
[2022-06-10] MEDS: Allopurinol 100 MG Tab PO SCH (07:55)
[2022-06-11] MEDS: Allopurinol 100 MG Tab PO SCH (08:22)
[2022-06-11] MEDS: Memantine 10 MG Tab PO SCH ×2 (08:22→17:29)
[2022-06-11] MEDS: Pentoxifylline 400 MG Tab.ER PO SCH (08:22)
[2022-06-11] MEDS: Tamsulosin 0.4 MG Cap.ER PO SCH (08:22)
[2022-06-12] MEDS: Memantine 10 MG Tab PO SCH ×2 (07:58→17:20)
[2022-06-12] MEDS: Tamsulosin 0.4 MG Cap.ER PO SCH (07:58)
[2022-06-12] MEDS: Pentoxifylline 400 MG Tab.ER PO SCH (07:58)
[2022-06-12] MEDS: Allopurinol 100 MG Tab PO SCH (07:59)
[2022-06-13] MEDS: Pentoxifylline 400 MG Tab.ER PO SCH (08:20)
[2022-06-13] MEDS: Allopurinol 100 MG Tab PO SCH (08:20)
[2022-06-13] MEDS: Tamsulosin 0.4 MG Cap.ER PO SCH (08:20)
[2022-06-13] MEDS: Memantine 10 MG Tab PO SCH ×2 (08:20→17:51)
[2022-06-14] MEDS: Allopurinol 100 MG Tab PO SCH (08:03)
[2022-06-14] MEDS: Pentoxifylline 400 MG Tab.ER PO SCH (08:04)
[2022-06-14] MEDS: Memantine 10 MG Tab PO SCH ×2 (08:04→17:51)
[2022-06-14] MEDS: Tamsulosin 0.4 MG Cap.ER PO SCH (08:04)
[2022-06-14] MEDS: Menthol 10%/Methyl Salicylate 15% 85 GM Tube TOP PRN (20:05)
[2022-06-15] MEDS: Tamsulosin 0.4 MG Cap.ER PO SCH (08:09)
[2022-06-15] MEDS: Allopurinol 100 MG Tab PO SCH (08:09)
[2022-06-15] MEDS: Pentoxifylline 400 MG Tab.ER PO SCH (08:09)
[2022-06-15] MEDS: Memantine 10 MG Tab PO SCH ×2 (08:09→17:08)
[2022-06-15] MEDS: Menthol 10%/Methyl Salicylate 15% 85 GM Tube TOP PRN (19:31)
[2022-06-16] MEDS: Memantine 10 MG Tab PO SCH ×2 (07:52→17:11)
[2022-06-16] MEDS: Allopurinol 100 MG Tab PO SCH (07:52)
[2022-06-16] MEDS: Pentoxifylline 400 MG Tab.ER PO SCH (07:52)
[2022-06-16] MEDS: Tamsulosin 0.4 MG Cap.ER PO SCH (07:52)
[2022-06-16] MEDS: Menthol 10%/Methyl Salicylate 15% 85 GM Tube TOP PRN (20:04)
[2022-06-17] MEDS: Memantine 10 MG Tab PO SCH ×2 (08:11→17:49)
[2022-06-17] MEDS: Pentoxifylline 400 MG Tab.ER PO SCH (08:11)
[2022-06-17] MEDS: Tamsulosin 0.4 MG Cap.ER PO SCH (08:11)
[2022-06-17] MEDS: Allopurinol 100 MG Tab PO SCH (08:12)
[2022-06-17] MEDS: Menthol 10%/Methyl Salicylate 15% 85 GM Tube TOP PRN (20:05)
[2022-06-18] MEDS: Memantine 10 MG Tab PO SCH ×2 (07:55→17:29)
[2022-06-18] MEDS: Pentoxifylline 400 MG Tab.ER PO SCH (07:55)
[2022-06-18] MEDS: Tamsulosin 0.4 MG Cap.ER PO SCH (07:55)
[2022-06-18] MEDS: Allopurinol 100 MG Tab PO SCH (07:55)
[2022-06-18] MEDS: Menthol 10%/Methyl Salicylate 15% 85 GM Tube TOP PRN ×2 (10:56→20:11)
[2022-06-19] MEDS: Allopurinol 100 MG Tab PO SCH (08:03)
[2022-06-19] MEDS: Memantine 10 MG Tab PO SCH ×2 (08:03→17:13)
[2022-06-19] MEDS: Tamsulosin 0.4 MG Cap.ER PO SCH (08:03)
[2022-06-19] MEDS: Pentoxifylline 400 MG Tab.ER PO SCH (08:03)
[2022-06-20] MEDS: Tamsulosin 0.4 MG Cap.ER PO SCH (07:59)
[2022-06-20] MEDS: Pentoxifylline 400 MG Tab.ER PO SCH (07:59)
[2022-06-20] MEDS: Memantine 10 MG Tab PO SCH ×2 (07:59→16:59)
[2022-06-20] MEDS: Allopurinol 100 MG Tab PO SCH (07:59)
[2022-06-21] MEDS: Pentoxifylline 400 MG Tab.ER PO SCH (08:11)
[2022-06-21] MEDS: Tamsulosin 0.4 MG Cap.ER PO SCH (08:11)
[2022-06-21] MEDS: Memantine 10 MG Tab PO SCH ×2 (08:11→18:00)
[2022-06-21] MEDS: Allopurinol 100 MG Tab PO SCH (08:11)
[2022-06-22] MEDS: Pentoxifylline 400 MG Tab.ER PO SCH (08:12)
[2022-06-22] MEDS: Memantine 10 MG Tab PO SCH ×2 (08:12→17:48)
[2022-06-22] MEDS: Allopurinol 100 MG Tab PO SCH (08:12)
[2022-06-22] MEDS: Tamsulosin 0.4 MG Cap.ER PO SCH (08:12)
[2022-06-23] MEDS: Pentoxifylline 400 MG Tab.ER PO SCH (08:03)
[2022-06-23] MEDS: Tamsulosin 0.4 MG Cap.ER PO SCH (08:03)
[2022-06-23] MEDS: Memantine 10 MG Tab PO SCH ×2 (08:03→18:00)
[2022-06-23] MEDS: Allopurinol 100 MG Tab PO SCH (08:03)
[2022-06-24] MEDS: Memantine 10 MG Tab PO SCH ×2 (08:29→17:23)
[2022-06-24] MEDS: Pentoxifylline 400 MG Tab.ER PO SCH (08:29)
[2022-06-24] MEDS: Tamsulosin 0.4 MG Cap.ER PO SCH (08:30)
[2022-06-24] MEDS: Allopurinol 100 MG Tab PO SCH (08:30)
[2022-06-24] MEDS: Menthol 10%/Methyl Salicylate 15% 85 GM Tube TOP PRN (21:14)
[2022-06-25] MEDS: Tamsulosin 0.4 MG Cap.ER PO SCH (07:49)
[2022-06-25] MEDS: Memantine 10 MG Tab PO SCH ×2 (07:50→17:16)
[2022-06-25] MEDS: Allopurinol 100 MG Tab PO SCH (07:50)
[2022-06-25] MEDS: Pentoxifylline 400 MG Tab.ER PO SCH (07:50)
[2022-06-25] MEDS: Menthol 10%/Methyl Salicylate 15% 85 GM Tube TOP PRN (10:48)
[2022-06-26] MEDS: Menthol 10%/Methyl Salicylate 15% 85 GM Tube TOP PRN ×2 (00:10→20:02)
[2022-06-26] MEDS: Memantine 10 MG Tab PO SCH ×2 (08:21→18:20)
[2022-06-26] MEDS: Tamsulosin 0.4 MG Cap.ER PO SCH (08:21)
[2022-06-26] MEDS: Pentoxifylline 400 MG Tab.ER PO SCH (08:21)
[2022-06-26] MEDS: Allopurinol 100 MG Tab PO SCH (08:21)
[2022-06-27] MEDS: Tamsulosin 0.4 MG Cap.ER PO SCH (08:24)
[2022-06-27] MEDS: Allopurinol 100 MG Tab PO SCH (08:24)
[2022-06-27] MEDS: Memantine 10 MG Tab PO SCH ×2 (08:24→18:13)
[2022-06-27] MEDS: Pentoxifylline 400 MG Tab.ER PO SCH (08:24)
[2022-06-28] MEDS: Memantine 10 MG Tab PO SCH ×2 (07:46→17:19)
[2022-06-28] MEDS: Tamsulosin 0.4 MG Cap.ER PO SCH (07:46)
[2022-06-28] MEDS: Allopurinol 100 MG Tab PO SCH (07:46)
[2022-06-28] MEDS: Pentoxifylline 400 MG Tab.ER PO SCH (07:46)
[2022-06-29] MEDS: Pentoxifylline 400 MG Tab.ER PO SCH (07:56)
[2022-06-29] MEDS: Memantine 10 MG Tab PO SCH ×2 (07:56→17:14)
[2022-06-29] MEDS: Tamsulosin 0.4 MG Cap.ER PO SCH (07:56)
[2022-06-29] MEDS: Allopurinol 100 MG Tab PO SCH (07:56)
[2022-06-30] MEDS: Tamsulosin 0.4 MG Cap.ER PO SCH (07:53)
[2022-06-30] MEDS: Memantine 10 MG Tab PO SCH ×2 (07:54→17:33)
[2022-06-30] MEDS: Pentoxifylline 400 MG Tab.ER PO SCH (07:55)
[2022-06-30] MEDS: Allopurinol 100 MG Tab PO SCH (07:55)
[2022-07-01] MEDS: Memantine 10 MG Tab PO SCH ×2 (08:31→17:43)
[2022-07-01] MEDS: Tamsulosin 0.4 MG Cap.ER PO SCH (08:31)
[2022-07-01] MEDS: Pentoxifylline 400 MG Tab.ER PO SCH (08:32)
[2022-07-01] MEDS: Allopurinol 100 MG Tab PO SCH (08:32)
[2022-07-02] MEDS: Tamsulosin 0.4 MG Cap.ER PO SCH (08:04)
[2022-07-02] MEDS: Memantine 10 MG Tab PO SCH ×2 (08:04→17:07)
[2022-07-02] MEDS: Allopurinol 100 MG Tab PO SCH (08:05)
[2022-07-02] MEDS: Pentoxifylline 400 MG Tab.ER PO SCH (08:05)
[2022-07-02] MEDS: Menthol 10%/Methyl Salicylate 15% 85 GM Tube TOP PRN (21:23)
[2022-07-03] MEDS: Menthol 10%/Methyl Salicylate 15% 85 GM Tube TOP PRN (07:56)
[2022-07-03] MEDS: Memantine 10 MG Tab PO SCH ×2 (07:57→17:23)
[2022-07-03] MEDS: Allopurinol 100 MG Tab PO SCH (07:57)
[2022-07-03] MEDS: Pentoxifylline 400 MG Tab.ER PO SCH (07:57)
[2022-07-03] MEDS: Tamsulosin 0.4 MG Cap.ER PO SCH (07:57)
[2022-07-04] MEDS: Tamsulosin 0.4 MG Cap.ER PO SCH (08:16)
[2022-07-04] MEDS: Pentoxifylline 400 MG Tab.ER PO SCH (08:16)
[2022-07-04] MEDS: Memantine 10 MG Tab PO SCH ×2 (08:16→17:28)
[2022-07-04] MEDS: Allopurinol 100 MG Tab PO SCH (08:17)
[2022-07-05] MEDS: Allopurinol 100 MG Tab PO SCH (08:53)
[2022-07-05] MEDS: Tamsulosin 0.4 MG Cap.ER PO SCH (08:53)
[2022-07-05] MEDS: Memantine 10 MG Tab PO SCH ×2 (08:54→17:52)
[2022-07-05] MEDS: Pentoxifylline 400 MG Tab.ER PO SCH (08:54)
[2022-07-05] MEDS: Menthol 10%/Methyl Salicylate 15% 85 GM Tube TOP PRN (20:40)
[2022-07-06] MEDS: Allopurinol 100 MG Tab PO SCH (08:23)
[2022-07-06] MEDS: Pentoxifylline 400 MG Tab.ER PO SCH (08:24)
[2022-07-06] MEDS: Memantine 10 MG Tab PO SCH ×2 (08:24→18:39)
[2022-07-06] MEDS: Tamsulosin 0.4 MG Cap.ER PO SCH (08:24)
[2022-07-06] MEDS: Menthol 10%/Methyl Salicylate 15% 85 GM Tube TOP PRN (20:13)
[2022-07-07] MEDS: Memantine 10 MG Tab PO SCH ×2 (08:08→17:14)
[2022-07-07] MEDS: Tamsulosin 0.4 MG Cap.ER PO SCH (08:08)
[2022-07-07] MEDS: Allopurinol 100 MG Tab PO SCH (08:08)
[2022-07-07] MEDS: Pentoxifylline 400 MG Tab.ER PO SCH (08:08)
[2022-07-07] MEDS: Menthol 10%/Methyl Salicylate 15% 85 GM Tube TOP PRN (20:36)
[2022-07-08] MEDS: Memantine 10 MG Tab PO SCH ×2 (07:54→17:23)
[2022-07-08] MEDS: Tamsulosin 0.4 MG Cap.ER PO SCH (07:54)
[2022-07-08] MEDS: Allopurinol 100 MG Tab PO SCH (07:54)
[2022-07-08] MEDS: Pentoxifylline 400 MG Tab.ER PO SCH (07:54)
[2022-07-08] MEDS: Menthol 10%/Methyl Salicylate 15% 85 GM Tube TOP PRN (19:49)
[2022-07-09] MEDS: Pentoxifylline 400 MG Tab.ER PO SCH (07:59)
[2022-07-09] MEDS: Allopurinol 100 MG Tab PO SCH (07:59)
[2022-07-09] MEDS: Memantine 10 MG Tab PO SCH ×2 (07:59→17:32)
[2022-07-09] MEDS: Tamsulosin 0.4 MG Cap.ER PO SCH (07:59)
[2022-07-09] MEDS: Menthol 10%/Methyl Salicylate 15% 85 GM Tube TOP PRN (11:23)
[2022-07-10] MEDS: Pentoxifylline 400 MG Tab.ER PO SCH (08:07)
[2022-07-10] MEDS: Tamsulosin 0.4 MG Cap.ER PO SCH (08:07)
[2022-07-10] MEDS: Allopurinol 100 MG Tab PO SCH (08:07)
[2022-07-10] MEDS: Memantine 10 MG Tab PO SCH ×2 (08:07→17:23)
[2022-07-11] MEDS: Tamsulosin 0.4 MG Cap.ER PO SCH (07:27)
[2022-07-11] MEDS: Memantine 10 MG Tab PO SCH ×2 (07:27→17:42)
[2022-07-11] MEDS: Allopurinol 100 MG Tab PO SCH (07:28)
[2022-07-11] MEDS: Pentoxifylline 400 MG Tab.ER PO SCH (07:28)
[2022-07-11] MEDS: Menthol 10%/Methyl Salicylate 15% 85 GM Tube TOP PRN (20:45)
[2022-07-12] MEDS: Tamsulosin 0.4 MG Cap.ER PO SCH (08:04)
[2022-07-12] MEDS: Allopurinol 100 MG Tab PO SCH (08:05)
[2022-07-12] MEDS: Pentoxifylline 400 MG Tab.ER PO SCH (08:05)
[2022-07-12] MEDS: Memantine 10 MG Tab PO SCH ×2 (08:05→17:08)
[2022-07-12] MEDS: Menthol 10%/Methyl Salicylate 15% 85 GM Tube TOP PRN (19:59)
[2022-07-13] MEDS: Allopurinol 100 MG Tab PO SCH (08:03)
[2022-07-13] MEDS: Memantine 10 MG Tab PO SCH ×2 (08:03→17:41)
[2022-07-13] MEDS: Pentoxifylline 400 MG Tab.ER PO SCH (08:03)
[2022-07-13] MEDS: Tamsulosin 0.4 MG Cap.ER PO SCH (08:03)
[2022-07-14] MEDS: Allopurinol 100 MG Tab PO SCH (08:13)
[2022-07-14] MEDS: Pentoxifylline 400 MG Tab.ER PO SCH (08:13)
[2022-07-14] MEDS: Tamsulosin 0.4 MG Cap.ER PO SCH (08:13)
[2022-07-14] MEDS: Memantine 10 MG Tab PO SCH ×2 (08:13→17:25)
[2022-07-14] MEDS: Menthol 10%/Methyl Salicylate 15% 85 GM Tube TOP PRN (20:22)
[2022-07-15] MEDS: Tamsulosin 0.4 MG Cap.ER PO SCH (08:05)
[2022-07-15] MEDS: Memantine 10 MG Tab PO SCH ×2 (08:05→17:14)
[2022-07-15] MEDS: Pentoxifylline 400 MG Tab.ER PO SCH (08:06)
[2022-07-15] MEDS: Allopurinol 100 MG Tab PO SCH (08:06)
[2022-07-15] MEDS: Menthol 10%/Methyl Salicylate 15% 85 GM Tube TOP PRN (19:45)
[2022-07-16] MEDS: Memantine 10 MG Tab PO SCH ×2 (07:56→18:05)
[2022-07-16] MEDS: Tamsulosin 0.4 MG Cap.ER PO SCH (07:56)
[2022-07-16] MEDS: Allopurinol 100 MG Tab PO SCH (07:57)
[2022-07-16] MEDS: Pentoxifylline 400 MG Tab.ER PO SCH (07:57)
[2022-07-16] MEDS: Menthol 10%/Methyl Salicylate 15% 85 GM Tube TOP PRN (20:41)
[2022-07-17] MEDS: Pentoxifylline 400 MG Tab.ER PO SCH (08:04)
[2022-07-17] MEDS: Tamsulosin 0.4 MG Cap.ER PO SCH (08:04)
[2022-07-17] MEDS: Memantine 10 MG Tab PO SCH ×2 (08:04→17:27)
[2022-07-17] MEDS: Allopurinol 100 MG Tab PO SCH (08:04)
[2022-07-18] MEDS: Tamsulosin 0.4 MG Cap.ER PO SCH (08:03)
[2022-07-18] MEDS: Memantine 10 MG Tab PO SCH ×2 (08:04→17:30)
[2022-07-18] MEDS: Pentoxifylline 400 MG Tab.ER PO SCH (08:04)
[2022-07-18] MEDS: Allopurinol 100 MG Tab PO SCH (08:04)
[2022-07-18] MEDS: Menthol 10%/Methyl Salicylate 15% 85 GM Tube TOP PRN (11:21)
[2022-07-19] MEDS: Memantine 10 MG Tab PO SCH ×2 (07:47→18:08)
[2022-07-19] MEDS: Tamsulosin 0.4 MG Cap.ER PO SCH (07:47)
[2022-07-19] MEDS: Allopurinol 100 MG Tab PO SCH (07:48)
[2022-07-19] MEDS: Pentoxifylline 400 MG Tab.ER PO SCH (07:48)
[2022-07-20] MEDS: Allopurinol 100 MG Tab PO SCH (08:17)
[2022-07-20] MEDS: Memantine 10 MG Tab PO SCH ×2 (08:17→17:31)
[2022-07-20] MEDS: Pentoxifylline 400 MG Tab.ER PO SCH (08:17)
[2022-07-20] MEDS: Tamsulosin 0.4 MG Cap.ER PO SCH (08:17)
[2022-07-21] MEDS: Allopurinol 100 MG Tab PO SCH (08:09)
[2022-07-21] MEDS: Memantine 10 MG Tab PO SCH ×2 (08:09→17:24)
[2022-07-21] MEDS: Pentoxifylline 400 MG Tab.ER PO SCH (08:09)
[2022-07-21] MEDS: Tamsulosin 0.4 MG Cap.ER PO SCH (08:09)
[2022-07-22] MEDS: Tamsulosin 0.4 MG Cap.ER PO SCH (08:02)
[2022-07-22] MEDS: Allopurinol 100 MG Tab PO SCH (08:02)
[2022-07-22] MEDS: Pentoxifylline 400 MG Tab.ER PO SCH (08:02)
[2022-07-22] MEDS: Memantine 10 MG Tab PO SCH ×2 (08:02→17:20)
[2022-07-23] MEDS: Memantine 10 MG Tab PO SCH ×2 (08:03→17:17)
[2022-07-23] MEDS: Tamsulosin 0.4 MG Cap.ER PO SCH (08:03)
[2022-07-23] MEDS: Allopurinol 100 MG Tab PO SCH (08:04)
[2022-07-23] MEDS: Pentoxifylline 400 MG Tab.ER PO SCH (08:04)
[2022-07-24] MEDS: Memantine 10 MG Tab PO SCH ×2 (07:47→17:16)
[2022-07-24] MEDS: Pentoxifylline 400 MG Tab.ER PO SCH (07:47)
[2022-07-24] MEDS: Tamsulosin 0.4 MG Cap.ER PO SCH (07:47)
[2022-07-24] MEDS: Allopurinol 100 MG Tab PO SCH (07:48)
[2022-07-24] MEDS: Menthol 10%/Methyl Salicylate 15% 85 GM Tube TOP PRN ×2 (10:00→20:37)
[2022-07-25] MEDS: Tamsulosin 0.4 MG Cap.ER PO SCH (08:13)
[2022-07-25] MEDS: Memantine 10 MG Tab PO SCH ×2 (08:13→17:27)
[2022-07-25] MEDS: Pentoxifylline 400 MG Tab.ER PO SCH (08:13)
[2022-07-25] MEDS: Allopurinol 100 MG Tab PO SCH (08:14)
[2022-07-26] MEDS: Memantine 10 MG Tab PO SCH ×2 (07:35→17:16)
[2022-07-26] MEDS: Tamsulosin 0.4 MG Cap.ER PO SCH (07:35)
[2022-07-26] MEDS: Pentoxifylline 400 MG Tab.ER PO SCH (07:36)
[2022-07-26] MEDS: Allopurinol 100 MG Tab PO SCH (07:36)
[2022-07-26] MEDS: Menthol 10%/Methyl Salicylate 15% 85 GM Tube TOP PRN (20:37)
[2022-07-27] MEDS: Pentoxifylline 400 MG Tab.ER PO SCH (07:33)
[2022-07-27] MEDS: Tamsulosin 0.4 MG Cap.ER PO SCH (07:33)
[2022-07-27] MEDS: Allopurinol 100 MG Tab PO SCH (07:33)
[2022-07-27] MEDS: Memantine 10 MG Tab PO SCH ×2 (07:33→17:50)
[2022-07-27] MEDS: Menthol 10%/Methyl Salicylate 15% 85 GM Tube TOP PRN (20:53)
[2022-07-28] MEDS: Tamsulosin 0.4 MG Cap.ER PO SCH (08:47)
[2022-07-28] MEDS: Pentoxifylline 400 MG Tab.ER PO SCH (08:47)
[2022-07-28] MEDS: Memantine 10 MG Tab PO SCH ×2 (08:47→17:34)
[2022-07-28] MEDS: Allopurinol 100 MG Tab PO SCH (08:48)
[2022-07-29] MEDS: Pentoxifylline 400 MG Tab.ER PO SCH (07:19)
[2022-07-29] MEDS: Allopurinol 100 MG Tab PO SCH (07:19)
[2022-07-29] MEDS: Memantine 10 MG Tab PO SCH ×2 (07:19→17:11)
[2022-07-29] MEDS: Tamsulosin 0.4 MG Cap.ER PO SCH (07:19)
[2022-07-30] MEDS: Tamsulosin 0.4 MG Cap.ER PO SCH (07:15)
[2022-07-30] MEDS: Allopurinol 100 MG Tab PO SCH (07:15)
[2022-07-30] MEDS: Memantine 10 MG Tab PO SCH ×2 (07:15→17:51)
[2022-07-30] MEDS: Pentoxifylline 400 MG Tab.ER PO SCH (07:15)
[2022-07-31] MEDS: Tamsulosin 0.4 MG Cap.ER PO SCH (07:58)
[2022-07-31] MEDS: Allopurinol 100 MG Tab PO SCH (07:58)
[2022-07-31] MEDS: Memantine 10 MG Tab PO SCH ×2 (07:58→17:13)
[2022-07-31] MEDS: Pentoxifylline 400 MG Tab.ER PO SCH (07:58)
[2022-07-31] MEDS: Menthol 10%/Methyl Salicylate 15% 85 GM Tube TOP PRN (21:07)
[2022-08-01] MEDS: Memantine 10 MG Tab PO SCH ×2 (07:52→17:20)
[2022-08-01] MEDS: Pentoxifylline 400 MG Tab.ER PO SCH (07:52)
[2022-08-01] MEDS: Tamsulosin 0.4 MG Cap.ER PO SCH (07:52)
[2022-08-01] MEDS: Allopurinol 100 MG Tab PO SCH (07:53)
[2022-08-02] MEDS: Allopurinol 100 MG Tab PO SCH (08:32)
[2022-08-02] MEDS: Pentoxifylline 400 MG Tab.ER PO SCH (08:33)
[2022-08-02] MEDS: Tamsulosin 0.4 MG Cap.ER PO SCH (08:33)
[2022-08-02] MEDS: Memantine 10 MG Tab PO SCH ×2 (08:33→17:12)
[2022-08-03] MEDS: Tamsulosin 0.4 MG Cap.ER PO SCH (07:39)
[2022-08-03] MEDS: Memantine 10 MG Tab PO SCH ×2 (07:39→18:05)
[2022-08-03] MEDS: Allopurinol 100 MG Tab PO SCH (07:39)
[2022-08-03] MEDS: Pentoxifylline 400 MG Tab.ER PO SCH (07:39)
[2022-08-04] MEDS: Pentoxifylline 400 MG Tab.ER PO SCH (07:15)
[2022-08-04] MEDS: Allopurinol 100 MG Tab PO SCH (07:15)
[2022-08-04] MEDS: Tamsulosin 0.4 MG Cap.ER PO SCH (07:15)
[2022-08-04] MEDS: Memantine 10 MG Tab PO SCH ×2 (07:15→17:15)
[2022-08-05] MEDS: Memantine 10 MG Tab PO SCH ×2 (08:22→17:37)
[2022-08-05] MEDS: Pentoxifylline 400 MG Tab.ER PO SCH (08:22)
[2022-08-05] MEDS: Tamsulosin 0.4 MG Cap.ER PO SCH (08:22)
[2022-08-05] MEDS: Allopurinol 100 MG Tab PO SCH (08:22)
[2022-08-06] MEDS: Pentoxifylline 400 MG Tab.ER PO SCH (07:10)
[2022-08-06] MEDS: Memantine 10 MG Tab PO SCH ×2 (07:10→17:46)
[2022-08-06] MEDS: Allopurinol 100 MG Tab PO SCH (07:10)
[2022-08-06] MEDS: Tamsulosin 0.4 MG Cap.ER PO SCH (07:10)
[2022-08-07] MEDS: Pentoxifylline 400 MG Tab.ER PO SCH (08:32)
[2022-08-07] MEDS: Tamsulosin 0.4 MG Cap.ER PO SCH (08:32)
[2022-08-07] MEDS: Allopurinol 100 MG Tab PO SCH (08:32)
[2022-08-07] MEDS: Memantine 10 MG Tab PO SCH ×2 (08:32→17:44)
[2022-08-08] MEDS: Pentoxifylline 400 MG Tab.ER PO SCH (07:38)
[2022-08-08] MEDS: Memantine 10 MG Tab PO SCH ×2 (07:38→17:24)
[2022-08-08] MEDS: Tamsulosin 0.4 MG Cap.ER PO SCH (07:38)
[2022-08-08] MEDS: Allopurinol 100 MG Tab PO SCH (07:39)
[2022-08-09] MEDS: Pentoxifylline 400 MG Tab.ER PO SCH (07:37)
[2022-08-09] MEDS: Tamsulosin 0.4 MG Cap.ER PO SCH (07:37)
[2022-08-09] MEDS: Allopurinol 100 MG Tab PO SCH (07:37)
[2022-08-09] MEDS: Memantine 10 MG Tab PO SCH ×2 (07:37→17:36)
[2022-08-09] MEDS: Menthol 10%/Methyl Salicylate 15% 85 GM Tube TOP PRN (20:14)
[2022-08-10] MEDS: Pentoxifylline 400 MG Tab.ER PO SCH (07:35)
[2022-08-10] MEDS: Tamsulosin 0.4 MG Cap.ER PO SCH (07:35)
[2022-08-10] MEDS: Memantine 10 MG Tab PO SCH ×2 (07:35→17:33)
[2022-08-10] MEDS: Allopurinol 100 MG Tab PO SCH (07:35)
[2022-08-10] MEDS: Menthol 10%/Methyl Salicylate 15% 85 GM Tube TOP PRN (20:08)
[2022-08-11] MEDS: Tamsulosin 0.4 MG Cap.ER PO SCH (07:39)
[2022-08-11] MEDS: Memantine 10 MG Tab PO SCH ×2 (07:39→17:33)
[2022-08-11] MEDS: Allopurinol 100 MG Tab PO SCH (07:39)
[2022-08-11] MEDS: Pentoxifylline 400 MG Tab.ER PO SCH (07:39)
[2022-08-11] MEDS: Menthol 10%/Methyl Salicylate 15% 85 GM Tube TOP PRN (13:15)
[2022-08-12] MEDS: Tamsulosin 0.4 MG Cap.ER PO SCH (07:00)
[2022-08-12] MEDS: Memantine 10 MG Tab PO SCH ×2 (07:00→17:20)
[2022-08-12] MEDS: Allopurinol 100 MG Tab PO SCH (07:01)
[2022-08-12] MEDS: Pentoxifylline 400 MG Tab.ER PO SCH (07:01)
[2022-08-13] MEDS: Tamsulosin 0.4 MG Cap.ER PO SCH (07:43)
[2022-08-13] MEDS: Memantine 10 MG Tab PO SCH ×2 (07:43→17:38)
[2022-08-13] MEDS: Allopurinol 100 MG Tab PO SCH (07:44)
[2022-08-13] MEDS: Pentoxifylline 400 MG Tab.ER PO SCH (07:44)
[2022-08-14] MEDS: Memantine 10 MG Tab PO SCH ×2 (08:03→17:08)
[2022-08-14] MEDS: Tamsulosin 0.4 MG Cap.ER PO SCH (08:03)
[2022-08-14] MEDS: Pentoxifylline 400 MG Tab.ER PO SCH (08:04)
[2022-08-14] MEDS: Allopurinol 100 MG Tab PO SCH (08:04)
[2022-08-15] MEDS: Allopurinol 100 MG Tab PO SCH (07:15)
[2022-08-15] MEDS: Pentoxifylline 400 MG Tab.ER PO SCH (07:16)
[2022-08-15] MEDS: Memantine 10 MG Tab PO SCH ×2 (07:16→17:07)
[2022-08-15] MEDS: Tamsulosin 0.4 MG Cap.ER PO SCH (07:16)
[2022-08-15] MEDS: Menthol 10%/Methyl Salicylate 15% 85 GM Tube TOP PRN (19:52)
[2022-08-16] MEDS: Allopurinol 100 MG Tab PO SCH (07:38)
[2022-08-16] MEDS: Memantine 10 MG Tab PO SCH ×2 (07:39→17:56)
[2022-08-16] MEDS: Pentoxifylline 400 MG Tab.ER PO SCH (07:39)
[2022-08-16] MEDS: Tamsulosin 0.4 MG Cap.ER PO SCH (07:39)
[2022-08-17] MEDS: Allopurinol 100 MG Tab PO SCH (07:03)
[2022-08-17] MEDS: Pentoxifylline 400 MG Tab.ER PO SCH (07:04)
[2022-08-17] MEDS: Tamsulosin 0.4 MG Cap.ER PO SCH (07:04)
[2022-08-17] MEDS: Memantine 10 MG Tab PO SCH ×2 (07:04→17:00)
[2022-08-18] MEDS: Allopurinol 100 MG Tab PO SCH (08:36)
[2022-08-18] MEDS: Pentoxifylline 400 MG Tab.ER PO SCH (08:36)
[2022-08-18] MEDS: Memantine 10 MG Tab PO SCH ×2 (08:36→17:12)
[2022-08-18] MEDS: Tamsulosin 0.4 MG Cap.ER PO SCH (08:36)
[2022-08-19] MEDS: Pentoxifylline 400 MG Tab.ER PO SCH (07:38)
[2022-08-19] MEDS: Allopurinol 100 MG Tab PO SCH (07:38)
[2022-08-19] MEDS: Tamsulosin 0.4 MG Cap.ER PO SCH (07:38)
[2022-08-19] MEDS: Memantine 10 MG Tab PO SCH ×2 (07:38→17:23)
[2022-08-19] MEDS: Menthol 10%/Methyl Salicylate 15% 85 GM Tube TOP PRN (20:43)
[2022-08-20] MEDS: Tamsulosin 0.4 MG Cap.ER PO SCH (07:28)
[2022-08-20] MEDS: Pentoxifylline 400 MG Tab.ER PO SCH (07:28)
[2022-08-20] MEDS: Memantine 10 MG Tab PO SCH ×2 (07:28→17:41)
[2022-08-20] MEDS: Allopurinol 100 MG Tab PO SCH (07:29)
[2022-08-20] MEDS: Menthol 10%/Methyl Salicylate 15% 85 GM Tube TOP PRN (19:27)
[2022-08-21] MEDS: Tamsulosin 0.4 MG Cap.ER PO SCH (07:46)
[2022-08-21] MEDS: Memantine 10 MG Tab PO SCH ×2 (07:46→17:04)
[2022-08-21] MEDS: Allopurinol 100 MG Tab PO SCH (07:46)
[2022-08-21] MEDS: Pentoxifylline 400 MG Tab.ER PO SCH (07:46)
[2022-08-21] MEDS: Menthol 10%/Methyl Salicylate 15% 85 GM Tube TOP PRN (19:30)
[2022-08-22] MEDS: Tamsulosin 0.4 MG Cap.ER PO SCH (07:11)
[2022-08-22] MEDS: Pentoxifylline 400 MG Tab.ER PO SCH (07:11)
[2022-08-22] MEDS: Memantine 10 MG Tab PO SCH ×2 (07:11→17:18)
[2022-08-22] MEDS: Allopurinol 100 MG Tab PO SCH (07:12)
[2022-08-23] MEDS: Tamsulosin 0.4 MG Cap.ER PO SCH (07:53)
[2022-08-23] MEDS: Memantine 10 MG Tab PO SCH ×2 (07:53→17:36)
[2022-08-23] MEDS: Allopurinol 100 MG Tab PO SCH (07:54)
[2022-08-23] MEDS: Pentoxifylline 400 MG Tab.ER PO SCH (07:54)
[2022-08-24] MEDS: Pentoxifylline 400 MG Tab.ER PO SCH (08:06)
[2022-08-24] MEDS: Memantine 10 MG Tab PO SCH ×2 (08:06→17:52)
[2022-08-24] MEDS: Tamsulosin 0.4 MG Cap.ER PO SCH (08:06)
[2022-08-24] MEDS: Allopurinol 100 MG Tab PO SCH (08:06)
[2022-08-25] MEDS: Pentoxifylline 400 MG Tab.ER PO SCH (07:05)
[2022-08-25] MEDS: Memantine 10 MG Tab PO SCH ×2 (07:05→17:12)
[2022-08-25] MEDS: Allopurinol 100 MG Tab PO SCH (07:05)
[2022-08-25] MEDS: Tamsulosin 0.4 MG Cap.ER PO SCH (07:05)
[2022-08-26] MEDS: Pentoxifylline 400 MG Tab.ER PO SCH (07:27)
[2022-08-26] MEDS: Memantine 10 MG Tab PO SCH ×2 (07:27→17:11)
[2022-08-26] MEDS: Tamsulosin 0.4 MG Cap.ER PO SCH (07:27)
[2022-08-26] MEDS: Allopurinol 100 MG Tab PO SCH (07:27)
[2022-08-26] MEDS: Menthol 10%/Methyl Salicylate 15% 85 GM Tube TOP PRN (20:53)
[2022-08-27] MEDS: Tamsulosin 0.4 MG Cap.ER PO SCH (07:38)
[2022-08-27] MEDS: Pentoxifylline 400 MG Tab.ER PO SCH (07:39)
[2022-08-27] MEDS: Allopurinol 100 MG Tab PO SCH (07:39)
[2022-08-27] MEDS: Memantine 10 MG Tab PO SCH ×2 (07:39→17:22)
[2022-08-27 14:47] LABS: BASOPHILS ABSOLUTE AUTO 0.03 K/uL (0.00-0.20); BASOPHILS PERCENT AUTO 0.4 % (0.0-2.0); EOSINOPHILS ABSOLUTE AUTO 0.26 K/uL (0.00-0.50); EOSINOPHILS PERCENT AUTO 3.6 % (0.0-5.0); HEMATOCRIT 46.1 % (39.0-49.0); HEMOGLOBIN 15.5 g/dL (13.1-16.8); LYMPHOCYTES ABSOLUTE AUTO 0.77 K/uL (0.50-3.50); LYMPHOCYTES PERCENT AUTO 10.7 % (10.0-50.0); MEAN CORPUSCULAR HEMOGLOBIN 33.1 pg (28.2-33.3); MEAN CORPUSCULAR HGB CONC 33.6 g/dL (31.7-36.0); MEAN CORPUSCULAR VOLUME 98.5 fL (84.0-98.0); MONOCYTES PERCENT AUTO 9.7 % (2.0-14.0); NEUTROPHILS ABSOLUTE AUTO 5.43 K/uL (1.40-7.00); NEUTROPHILS PERCENT AUTO 75.6 % (45.0-80.0); PLATELET COUNT,PLT 176 K/uL (150-350); RED BLOOD CELL COUNT 4.68 M/uL (4.33-5.41); RED CELL DISTRIBUTION WIDTH 12.7 % (11.2-14.1); WHITE BLOOD CELL COUNT,WBC 7.2 K/uL (4.0-10.2)
[2022-08-27 15:12] LABS: ALBUMIN 3.4 g/dL (3.4-5.0); BILIRUBIN TOTAL 0.4 mg/dL (0.2-1.0); CALCIUM 8.4 mg/dL (8.5-10.1); CREATININE 1.3 mg/dL (0.51-1.17); EST CRCL DRUG DOSING (CG) 41.83 mL/min; POTASSIUM,K 4.2 mmol/L (3.5-5.1); PROTEIN TOTAL,TP 6.7 g/dL (6.4-8.2); URIC ACID 4.5 mg/dL (2.6-7.2)
[2022-08-27] MEDS: Menthol 10%/Methyl Salicylate 15% 85 GM Tube TOP PRN (21:12)
[2022-08-28] MEDS: Allopurinol 100 MG Tab PO SCH (07:46)
[2022-08-28] MEDS: Pentoxifylline 400 MG Tab.ER PO SCH (07:46)
[2022-08-28] MEDS: Memantine 10 MG Tab PO SCH ×2 (07:46→17:32)
[2022-08-28] MEDS: Tamsulosin 0.4 MG Cap.ER PO SCH (07:46)
[2022-08-28] MEDS: Menthol 10%/Methyl Salicylate 15% 85 GM Tube TOP PRN ×2 (09:26→19:45)
[2022-08-28] MEDS: Diclofenac Sodium 1% Gel 100 GM Tube TOP SCH (19:42)
[2022-08-29] MEDS: Memantine 10 MG Tab PO SCH ×2 (07:03→17:00)
[2022-08-29] MEDS: Allopurinol 100 MG Tab PO SCH (07:03)
[2022-08-29] MEDS: Tamsulosin 0.4 MG Cap.ER PO SCH (07:03)
[2022-08-29] MEDS: Pentoxifylline 400 MG Tab.ER PO SCH (07:03)
[2022-08-29] MEDS: Menthol 10%/Methyl Salicylate 15% 85 GM Tube TOP PRN (08:09)
[2022-08-29] MEDS: Diclofenac Sodium 1% Gel 100 GM Tube TOP SCH ×2 (08:10→20:10)
[2022-08-30] MEDS: Pentoxifylline 400 MG Tab.ER PO SCH (07:01)
[2022-08-30] MEDS: Allopurinol 100 MG Tab PO SCH (07:01)
[2022-08-30] MEDS: Memantine 10 MG Tab PO SCH ×2 (07:01→17:14)
[2022-08-30] MEDS: Tamsulosin 0.4 MG Cap.ER PO SCH (07:01)
[2022-08-30] MEDS: Menthol 10%/Methyl Salicylate 15% 85 GM Tube TOP PRN (07:02)
[2022-08-30] MEDS: Diclofenac Sodium 1% Gel 100 GM Tube TOP SCH ×2 (08:19→19:16)
[2022-08-31] MEDS: Diclofenac Sodium 1% Gel 100 GM Tube TOP SCH ×2 (07:46→19:05)
[2022-08-31] MEDS: Pentoxifylline 400 MG Tab.ER PO SCH (07:48)
[2022-08-31] MEDS: Allopurinol 100 MG Tab PO SCH (07:48)
[2022-08-31] MEDS: Memantine 10 MG Tab PO SCH ×2 (07:48→17:17)
[2022-08-31] MEDS: Tamsulosin 0.4 MG Cap.ER PO SCH (07:48)
[2022-09-01] MEDS: Tamsulosin 0.4 MG Cap.ER PO SCH (07:35)
[2022-09-01] MEDS: Diclofenac Sodium 1% Gel 100 GM Tube TOP SCH ×2 (07:35→19:14)
[2022-09-01] MEDS: Allopurinol 100 MG Tab PO SCH (07:35)
[2022-09-01] MEDS: Pentoxifylline 400 MG Tab.ER PO SCH (07:35)
[2022-09-01] MEDS: Memantine 10 MG Tab PO SCH ×2 (07:35→17:24)
[2022-09-02] MEDS: Tamsulosin 0.4 MG Cap.ER PO SCH (07:08)
[2022-09-02] MEDS: Allopurinol 100 MG Tab PO SCH (07:08)
[2022-09-02] MEDS: Pentoxifylline 400 MG Tab.ER PO SCH (07:08)
[2022-09-02] MEDS: Memantine 10 MG Tab PO SCH ×2 (07:08→17:01)
[2022-09-02] MEDS: Diclofenac Sodium 1% Gel 100 GM Tube TOP SCH ×2 (07:09→19:45)
[2022-09-02 15:46] LABS: ANA DIRECT Negative (Negative)
[2022-09-03] MEDS: Allopurinol 100 MG Tab PO SCH (08:01)
[2022-09-03] MEDS: Pentoxifylline 400 MG Tab.ER PO SCH (08:01)
[2022-09-03] MEDS: Memantine 10 MG Tab PO SCH ×2 (08:01→18:03)
[2022-09-03] MEDS: Tamsulosin 0.4 MG Cap.ER PO SCH (08:01)
[2022-09-03] MEDS: Diclofenac Sodium 1% Gel 100 GM Tube TOP SCH ×2 (08:02→20:30)
[2022-09-04] MEDS: Memantine 10 MG Tab PO SCH ×2 (07:00→17:28)
[2022-09-04] MEDS: Allopurinol 100 MG Tab PO SCH (07:00)
[2022-09-04] MEDS: Tamsulosin 0.4 MG Cap.ER PO SCH (07:00)
[2022-09-04] MEDS: Pentoxifylline 400 MG Tab.ER PO SCH (07:00)
[2022-09-04] MEDS: Diclofenac Sodium 1% Gel 100 GM Tube TOP SCH ×2 (07:01→20:07)
[2022-09-05] MEDS: Allopurinol 100 MG Tab PO SCH (07:00)
[2022-09-05] MEDS: Diclofenac Sodium 1% Gel 100 GM Tube TOP SCH ×2 (07:05→20:11)
[2022-09-05] MEDS: Tamsulosin 0.4 MG Cap.ER PO SCH (07:05)
[2022-09-05] MEDS: Memantine 10 MG Tab PO SCH ×2 (07:05→17:02)
[2022-09-05] MEDS: Pentoxifylline 400 MG Tab.ER PO SCH (07:05)
[2022-09-06] MEDS: Memantine 10 MG Tab PO SCH ×2 (08:10→17:41)
[2022-09-06] MEDS: Pentoxifylline 400 MG Tab.ER PO SCH (08:10)
[2022-09-06] MEDS: Tamsulosin 0.4 MG Cap.ER PO SCH (08:10)
[2022-09-06] MEDS: Allopurinol 100 MG Tab PO SCH (08:10)
[2022-09-06] MEDS: Diclofenac Sodium 1% Gel 100 GM Tube TOP SCH ×2 (08:11→19:49)
[2022-09-06 11:21] LABS: CORONAVIRUS COVID-19 NAA NEGATIVE (NEGATIVE); INFLUENZA A NAA NEGATIVE (NEGATIVE); INFLUENZA B NAA NEGATIVE (NEGATIVE); RESPIRATORY SYNCYTIAL VIR NAA NEGATIVE (NEGATIVE)
[2022-09-06 16:15] LABS: BASOPHILS ABSOLUTE AUTO 0.04 K/uL (0.00-0.20); BASOPHILS PERCENT AUTO 0.5 % (0.0-2.0); EOSINOPHILS ABSOLUTE AUTO 0.26 K/uL (0.00-0.50); EOSINOPHILS PERCENT AUTO 3.5 % (0.0-5.0); HEMATOCRIT 43.6 % (39.0-49.0); HEMOGLOBIN 14.5 g/dL (13.1-16.8); LYMPHOCYTES ABSOLUTE AUTO 0.78 K/uL (0.50-3.50); LYMPHOCYTES PERCENT AUTO 10.6 % (10.0-50.0); MEAN CORPUSCULAR HGB CONC 33.3 g/dL (31.7-36.0); MEAN CORPUSCULAR VOLUME 99.3 fL (84.0-98.0); MONOCYTES ABSOLUTE AUTO 0.72 K/uL (0.00-1.00); MONOCYTES PERCENT AUTO 9.7 % (2.0-14.0); NEUTROPHILS ABSOLUTE AUTO 5.59 K/uL (1.40-7.00); NEUTROPHILS PERCENT AUTO 75.7 % (45.0-80.0); PLATELET COUNT,PLT 157 K/uL (150-350); RED BLOOD CELL COUNT 4.39 M/uL (4.33-5.41); RED CELL DISTRIBUTION WIDTH 12.7 % (11.2-14.1); WHITE BLOOD CELL COUNT,WBC 7.4 K/uL (4.0-10.2)
[2022-09-06 16:26] LABS: ANION GAP 6.7 meq/L (7-15); CALCIUM 8.5 mg/dL (8.5-10.1); CARBON DIOXIDE,CO2 30.3 mmol/L (21.0-32.0); CREATININE 1.21 mg/dL (0.51-1.17); EST CRCL DRUG DOSING (CG) 44.94 mL/min; POTASSIUM,K 4.3 mmol/L (3.5-5.1)
[2022-09-06] MEDS: Menthol 10%/Methyl Salicylate 15% 85 GM Tube TOP PRN (19:50)
[2022-09-07 02:22] LABS: APPEARANCE,URINE CLEAR; BILIRUBIN,URINE NEGATIVE (NEGATIVE); COLOR,URINE YELLOW; GLUCOSE,URINE NEGATIVE (NEGATIVE); KETONES,URINE NEGATIVE (NEGATIVE); LEUKOCYTE ESTERASE,URINE NEGATIVE (NEGATIVE); NITRITE,URINE NEGATIVE (NEGATIVE); OCCULT BLOOD,URINE NEGATIVE (NEGATIVE); PROTEIN,URINE 30 mg/dL (NEGATIVE); UROBILINOGEN,URINE 0.2 E.U./dL (0.2-1.0)
[2022-09-07 02:28] LABS: BACTERIA,URINE RARE /HPF (NONE TO FEW); EPITHELIAL CELLS,URINE RARE /LPF; RBC,URINE 0-5 /HPF; WBC,URINE 0-5 /HPF
[2022-09-07] MEDS: Pentoxifylline 400 MG Tab.ER PO SCH (07:55)
[2022-09-07] MEDS: Memantine 10 MG Tab PO SCH ×2 (07:55→17:59)
[2022-09-07] MEDS: Tamsulosin 0.4 MG Cap.ER PO SCH (07:55)
[2022-09-07] MEDS: Allopurinol 100 MG Tab PO SCH (07:55)
[2022-09-07] MEDS: Diclofenac Sodium 1% Gel 100 GM Tube TOP SCH ×2 (07:55→19:30)
[2022-09-08] MEDS: Memantine 10 MG Tab PO SCH ×2 (08:40→17:23)
[2022-09-08] MEDS: Tamsulosin 0.4 MG Cap.ER PO SCH (08:40)
[2022-09-08] MEDS: Allopurinol 100 MG Tab PO SCH (08:40)
[2022-09-08] MEDS: Pentoxifylline 400 MG Tab.ER PO SCH (08:40)
[2022-09-08] MEDS: Diclofenac Sodium 1% Gel 100 GM Tube TOP SCH ×2 (08:41→20:05)
[2022-09-08] MEDS: Menthol 10%/Methyl Salicylate 15% 85 GM Tube TOP PRN (20:05)
[2022-09-09] MEDS: Diclofenac Sodium 1% Gel 100 GM Tube TOP SCH ×2 (07:13→20:06)
[2022-09-09] MEDS: Tamsulosin 0.4 MG Cap.ER PO SCH (07:14)
[2022-09-09] MEDS: Memantine 10 MG Tab PO SCH ×2 (07:14→17:22)
[2022-09-09] MEDS: Pentoxifylline 400 MG Tab.ER PO SCH (07:14)
[2022-09-09] MEDS: Allopurinol 100 MG Tab PO SCH (07:14)
[2022-09-10] MEDS: Allopurinol 100 MG Tab PO SCH (08:24)
[2022-09-10] MEDS: Tamsulosin 0.4 MG Cap.ER PO SCH (08:24)
[2022-09-10] MEDS: Memantine 10 MG Tab PO SCH ×2 (08:24→17:29)
[2022-09-10] MEDS: Pentoxifylline 400 MG Tab.ER PO SCH (08:24)
[2022-09-10] MEDS: Diclofenac Sodium 1% Gel 100 GM Tube TOP SCH ×2 (08:25→19:56)
[2022-09-10] MEDS: Carbamide Peroxide 6.5% Otic Soln 15 ML Bottle EARBOTH SCH (19:57)
[2022-09-11] MEDS: Carbamide Peroxide 6.5% Otic Soln 15 ML Bottle EARBOTH SCH ×2 (07:51→19:25)
[2022-09-11] MEDS: Memantine 10 MG Tab PO SCH ×2 (07:52→17:10)
[2022-09-11] MEDS: Tamsulosin 0.4 MG Cap.ER PO SCH (07:52)
[2022-09-11] MEDS: Pentoxifylline 400 MG Tab.ER PO SCH (07:52)
[2022-09-11] MEDS: Diclofenac Sodium 1% Gel 100 GM Tube TOP SCH ×2 (07:52→19:26)
[2022-09-11] MEDS: Allopurinol 100 MG Tab PO SCH (07:53)
[2022-09-11] MEDS: Menthol 10%/Methyl Salicylate 15% 85 GM Tube TOP PRN (19:27)
[2022-09-12] MEDS: Tamsulosin 0.4 MG Cap.ER PO SCH (08:12)
[2022-09-12] MEDS: Memantine 10 MG Tab PO SCH ×2 (08:12→17:41)
[2022-09-12] MEDS: Pentoxifylline 400 MG Tab.ER PO SCH (08:13)
[2022-09-12] MEDS: Allopurinol 100 MG Tab PO SCH (08:13)
[2022-09-12] MEDS: Carbamide Peroxide 6.5% Otic Soln 15 ML Bottle EARBOTH SCH ×2 (08:14→20:14)
[2022-09-12] MEDS: Diclofenac Sodium 1% Gel 100 GM Tube TOP SCH ×2 (08:16→20:15)
[2022-09-12 15:04] LABS: CORONAVIRUS COVID-19 NAA NEGATIVE (NEGATIVE); INFLUENZA A NAA NEGATIVE (NEGATIVE); INFLUENZA B NAA NEGATIVE (NEGATIVE); RESPIRATORY SYNCYTIAL VIR NAA NEGATIVE (NEGATIVE)
[2022-09-12] MEDS: Menthol 10%/Methyl Salicylate 15% 85 GM Tube TOP PRN (20:15)
[2022-09-13] MEDS: Carbamide Peroxide 6.5% Otic Soln 15 ML Bottle EARBOTH SCH ×2 (07:16→20:11)
[2022-09-13] MEDS: Pentoxifylline 400 MG Tab.ER PO SCH (07:17)
[2022-09-13] MEDS: Diclofenac Sodium 1% Gel 100 GM Tube TOP SCH ×2 (07:17→20:11)
[2022-09-13] MEDS: Allopurinol 100 MG Tab PO SCH (07:17)
[2022-09-13] MEDS: Tamsulosin 0.4 MG Cap.ER PO SCH (07:18)
[2022-09-13] MEDS: Memantine 10 MG Tab PO SCH ×2 (07:18→17:26)
[2022-09-14] MEDS: Allopurinol 100 MG Tab PO SCH (07:02)
[2022-09-14] MEDS: Tamsulosin 0.4 MG Cap.ER PO SCH (07:03)
[2022-09-14] MEDS: Diclofenac Sodium 1% Gel 100 GM Tube TOP SCH ×2 (07:03→20:11)
[2022-09-14] MEDS: Memantine 10 MG Tab PO SCH ×2 (07:03→17:04)
[2022-09-14] MEDS: Pentoxifylline 400 MG Tab.ER PO SCH (07:03)
[2022-09-15] MEDS: Pentoxifylline 400 MG Tab.ER PO SCH (07:38)
[2022-09-15] MEDS: Tamsulosin 0.4 MG Cap.ER PO SCH (07:38)
[2022-09-15] MEDS: Memantine 10 MG Tab PO SCH ×2 (07:38→17:11)
[2022-09-15] MEDS: Allopurinol 100 MG Tab PO SCH (07:38)
[2022-09-15] MEDS: Diclofenac Sodium 1% Gel 100 GM Tube TOP SCH ×2 (07:39→20:03)
[2022-09-16] MEDS: Memantine 10 MG Tab PO SCH ×2 (07:57→17:40)
[2022-09-16] MEDS: Pentoxifylline 400 MG Tab.ER PO SCH (07:58)
[2022-09-16] MEDS: Allopurinol 100 MG Tab PO SCH (07:58)
[2022-09-16] MEDS: Diclofenac Sodium 1% Gel 100 GM Tube TOP SCH ×2 (07:59→20:03)
[2022-09-16] MEDS: Tamsulosin 0.4 MG Cap.ER PO SCH (08:00)
[2022-09-16] MEDS: Menthol 10%/Methyl Salicylate 15% 85 GM Tube TOP PRN (20:04)
[2022-09-17] MEDS: Tamsulosin 0.4 MG Cap.ER PO SCH (07:43)
[2022-09-17] MEDS: Memantine 10 MG Tab PO SCH ×2 (07:43→17:23)
[2022-09-17] MEDS: Pentoxifylline 400 MG Tab.ER PO SCH (07:43)
[2022-09-17] MEDS: Diclofenac Sodium 1% Gel 100 GM Tube TOP SCH ×2 (07:44→19:49)
[2022-09-17] MEDS: Allopurinol 100 MG Tab PO SCH (07:44)
[2022-09-17] MEDS: Acetaminophen 325 MG Tab PO PRN (08:22)
[2022-09-18] MEDS: Allopurinol 100 MG Tab PO SCH (08:06)
[2022-09-18] MEDS: Pentoxifylline 400 MG Tab.ER PO SCH (08:06)
[2022-09-18] MEDS: Diclofenac Sodium 1% Gel 100 GM Tube TOP SCH ×2 (08:07→20:01)
[2022-09-18] MEDS: Memantine 10 MG Tab PO SCH ×2 (08:07→17:41)
[2022-09-18] MEDS: Tamsulosin 0.4 MG Cap.ER PO SCH (08:07)
[2022-09-18] MEDS: Acetaminophen 325 MG Tab PO PRN (08:41)
[2022-09-18 11:49] LABS: APPEARANCE,URINE CLEAR; BILIRUBIN,URINE NEGATIVE (NEGATIVE); COLOR,URINE YELLOW; GLUCOSE,URINE NEGATIVE (NEGATIVE); KETONES,URINE NEGATIVE (NEGATIVE); LEUKOCYTE ESTERASE,URINE NEGATIVE (NEGATIVE); NITRITE,URINE NEGATIVE (NEGATIVE); OCCULT BLOOD,URINE TRACE-INTACT (NEGATIVE); PH,URINE 5.5 (5.0-9.0); PROTEIN,URINE 30 mg/dL (NEGATIVE); UROBILINOGEN,URINE 0.2 E.U./dL (0.2-1.0)
[2022-09-18 12:14] LABS: BACTERIA,URINE FEW /HPF (NONE TO FEW); EPITHELIAL CELLS,URINE FEW /LPF; MUCUS,URINE FEW /LPF (NEGATIVE); WBC,URINE 0-5 /HPF
[2022-09-18 13:17] LABS: BASOPHILS ABSOLUTE AUTO 0.04 K/uL (0.00-0.20); BASOPHILS PERCENT AUTO 0.6 % (0.0-2.0); EOSINOPHILS ABSOLUTE AUTO 0.19 K/uL (0.00-0.50); EOSINOPHILS PERCENT AUTO 2.6 % (0.0-5.0); HEMATOCRIT 45.7 % (39.0-49.0); HEMOGLOBIN 15.3 g/dL (13.1-16.8); LYMPHOCYTES ABSOLUTE AUTO 0.76 K/uL (0.50-3.50); LYMPHOCYTES PERCENT AUTO 10.5 % (10.0-50.0); MEAN CORPUSCULAR HGB CONC 33.5 g/dL (31.7-36.0); MEAN CORPUSCULAR VOLUME 98.5 fL (84.0-98.0); MONOCYTES ABSOLUTE AUTO 0.56 K/uL (0.00-1.00); MONOCYTES PERCENT AUTO 7.8 % (2.0-14.0); NEUTROPHILS ABSOLUTE AUTO 5.66 K/uL (1.40-7.00); NEUTROPHILS PERCENT AUTO 78.5 % (45.0-80.0); PLATELET COUNT,PLT 157 K/uL (150-350); RED BLOOD CELL COUNT 4.64 M/uL (4.33-5.41); RED CELL DISTRIBUTION WIDTH 12.5 % (11.2-14.1); WHITE BLOOD CELL COUNT,WBC 7.2 K/uL (4.0-10.2)
[2022-09-19] MEDS: Tamsulosin 0.4 MG Cap.ER PO SCH (08:05)
[2022-09-19] MEDS: Allopurinol 100 MG Tab PO SCH (08:06)
[2022-09-19] MEDS: Memantine 10 MG Tab PO SCH ×2 (08:06→17:03)
[2022-09-19] MEDS: Pentoxifylline 400 MG Tab.ER PO SCH (08:06)
[2022-09-19] MEDS: Diclofenac Sodium 1% Gel 100 GM Tube TOP SCH ×2 (08:07→19:48)
[2022-09-19] MEDS: Menthol 10%/Methyl Salicylate 15% 85 GM Tube TOP PRN (09:34)
[2022-09-20] MEDS: Pentoxifylline 400 MG Tab.ER PO SCH (07:57)
[2022-09-20] MEDS: Allopurinol 100 MG Tab PO SCH (07:57)
[2022-09-20] MEDS: Memantine 10 MG Tab PO SCH ×2 (07:57→17:20)
[2022-09-20] MEDS: Tamsulosin 0.4 MG Cap.ER PO SCH (07:57)
[2022-09-20] MEDS: Diclofenac Sodium 1% Gel 100 GM Tube TOP SCH ×2 (07:58→19:20)
[2022-09-21] MEDS: Tamsulosin 0.4 MG Cap.ER PO SCH (07:51)
[2022-09-21] MEDS: Memantine 10 MG Tab PO SCH ×2 (07:51→17:31)
[2022-09-21] MEDS: Pentoxifylline 400 MG Tab.ER PO SCH (07:51)
[2022-09-21] MEDS: Allopurinol 100 MG Tab PO SCH (07:51)
[2022-09-21] MEDS: Diclofenac Sodium 1% Gel 100 GM Tube TOP SCH ×2 (07:52→19:57)
[2022-09-22] MEDS: Tamsulosin 0.4 MG Cap.ER PO SCH (07:31)
[2022-09-22] MEDS: Memantine 10 MG Tab PO SCH ×2 (07:32→17:35)
[2022-09-22] MEDS: Diclofenac Sodium 1% Gel 100 GM Tube TOP SCH ×2 (07:32→19:16)
[2022-09-22] MEDS: Pentoxifylline 400 MG Tab.ER PO SCH (07:32)
[2022-09-22] MEDS: Allopurinol 100 MG Tab PO SCH (07:33)
[2022-09-22] MEDS: Acetaminophen 325 MG Tab PO PRN (15:39)
[2022-09-23] MEDS: Allopurinol 100 MG Tab PO SCH (07:55)
[2022-09-23] MEDS: Pentoxifylline 400 MG Tab.ER PO SCH (07:55)
[2022-09-23] MEDS: Tamsulosin 0.4 MG Cap.ER PO SCH (07:55)
[2022-09-23] MEDS: Memantine 10 MG Tab PO SCH ×2 (07:55→17:46)
[2022-09-23] MEDS: Diclofenac Sodium 1% Gel 100 GM Tube TOP SCH ×2 (07:57→19:56)
[2022-09-24] MEDS: Memantine 10 MG Tab PO SCH ×2 (07:07→17:23)
[2022-09-24] MEDS: Tamsulosin 0.4 MG Cap.ER PO SCH (07:07)
[2022-09-24] MEDS: Allopurinol 100 MG Tab PO SCH (07:08)
[2022-09-24] MEDS: Diclofenac Sodium 1% Gel 100 GM Tube TOP SCH ×2 (07:08→19:19)
[2022-09-24] MEDS: Pentoxifylline 400 MG Tab.ER PO SCH (07:08)
[2022-09-25] MEDS: Memantine 10 MG Tab PO SCH ×2 (07:47→17:19)
[2022-09-25] MEDS: Tamsulosin 0.4 MG Cap.ER PO SCH (07:47)
[2022-09-25] MEDS: Allopurinol 100 MG Tab PO SCH (07:48)
[2022-09-25] MEDS: Diclofenac Sodium 1% Gel 100 GM Tube TOP SCH ×2 (07:48→20:10)
[2022-09-25] MEDS: Pentoxifylline 400 MG Tab.ER PO SCH (07:48)
[2022-09-26] MEDS: Pentoxifylline 400 MG Tab.ER PO SCH (07:49)
[2022-09-26] MEDS: Memantine 10 MG Tab PO SCH ×2 (07:49→17:23)
[2022-09-26] MEDS: Diclofenac Sodium 1% Gel 100 GM Tube TOP SCH ×2 (07:49→19:18)
[2022-09-26] MEDS: Tamsulosin 0.4 MG Cap.ER PO SCH (07:49)
[2022-09-26] MEDS: Allopurinol 100 MG Tab PO SCH (07:50)
[2022-09-26] MEDS: Polyvinyl Alcohol 1.4% Ophth Soln 15 ML Bottle EYELF PRN (20:17)
[2022-09-27] MEDS: Pentoxifylline 400 MG Tab.ER PO SCH (07:02)
[2022-09-27] MEDS: Memantine 10 MG Tab PO SCH ×2 (07:02→17:05)
[2022-09-27] MEDS: Tamsulosin 0.4 MG Cap.ER PO SCH (07:02)
[2022-09-27] MEDS: Diclofenac Sodium 1% Gel 100 GM Tube TOP SCH ×2 (07:03→19:53)
[2022-09-27] MEDS: Allopurinol 100 MG Tab PO SCH (07:03)
[2022-09-28] MEDS: Allopurinol 100 MG Tab PO SCH (07:09)
[2022-09-28] MEDS: Pentoxifylline 400 MG Tab.ER PO SCH (07:09)
[2022-09-28] MEDS: Tamsulosin 0.4 MG Cap.ER PO SCH (07:09)
[2022-09-28] MEDS: Memantine 10 MG Tab PO SCH ×2 (07:09→17:00)
[2022-09-28] MEDS: Diclofenac Sodium 1% Gel 100 GM Tube TOP SCH ×2 (07:10→19:47)
[2022-09-29] MEDS: Pentoxifylline 400 MG Tab.ER PO SCH (07:07)
[2022-09-29] MEDS: Allopurinol 100 MG Tab PO SCH (07:07)
[2022-09-29] MEDS: Tamsulosin 0.4 MG Cap.ER PO SCH (07:07)
[2022-09-29] MEDS: Memantine 10 MG Tab PO SCH ×2 (07:07→17:00)
[2022-09-29] MEDS: Diclofenac Sodium 1% Gel 100 GM Tube TOP SCH ×2 (07:08→20:21)
[2022-09-30] MEDS: Pentoxifylline 400 MG Tab.ER PO SCH (07:54)
[2022-09-30] MEDS: Allopurinol 100 MG Tab PO SCH (07:54)
[2022-09-30] MEDS: Tamsulosin 0.4 MG Cap.ER PO SCH (07:54)
[2022-09-30] MEDS: Memantine 10 MG Tab PO SCH ×2 (07:54→17:31)
[2022-09-30] MEDS: Diclofenac Sodium 1% Gel 100 GM Tube TOP SCH (07:55)
[2022-10-01] MEDS: Pentoxifylline 400 MG Tab.ER PO SCH (07:47)
[2022-10-01] MEDS: Tamsulosin 0.4 MG Cap.ER PO SCH (07:47)
[2022-10-01] MEDS: Memantine 10 MG Tab PO SCH ×2 (07:47→17:29)
[2022-10-01] MEDS: Allopurinol 100 MG Tab PO SCH (07:48)
[2022-10-02] MEDS: Memantine 10 MG Tab PO SCH ×2 (07:51→17:12)
[2022-10-02] MEDS: Tamsulosin 0.4 MG Cap.ER PO SCH (07:51)
[2022-10-02] MEDS: Pentoxifylline 400 MG Tab.ER PO SCH (07:52)
[2022-10-02] MEDS: Allopurinol 100 MG Tab PO SCH (07:52)
[2022-10-03] MEDS: Memantine 10 MG Tab PO SCH ×2 (08:15→17:32)
[2022-10-03] MEDS: Tamsulosin 0.4 MG Cap.ER PO SCH (08:15)
[2022-10-03] MEDS: Pentoxifylline 400 MG Tab.ER PO SCH (08:16)
[2022-10-03] MEDS: Allopurinol 100 MG Tab PO SCH (08:16)
[2022-10-04] MEDS: Pentoxifylline 400 MG Tab.ER PO SCH (08:01)
[2022-10-04] MEDS: Allopurinol 100 MG Tab PO SCH (08:01)
[2022-10-04] MEDS: Memantine 10 MG Tab PO SCH ×2 (08:01→17:35)
[2022-10-04] MEDS: Tamsulosin 0.4 MG Cap.ER PO SCH (08:01)
[2022-10-05] MEDS: Tamsulosin 0.4 MG Cap.ER PO SCH (07:53)
[2022-10-05] MEDS: Memantine 10 MG Tab PO SCH ×2 (07:53→17:14)
[2022-10-05] MEDS: Pentoxifylline 400 MG Tab.ER PO SCH (07:53)
[2022-10-05] MEDS: Allopurinol 100 MG Tab PO SCH (07:54)
[2022-10-06] MEDS: Allopurinol 100 MG Tab PO SCH (08:12)
[2022-10-06] MEDS: Memantine 10 MG Tab PO SCH ×2 (08:12→17:38)
[2022-10-06] MEDS: Pentoxifylline 400 MG Tab.ER PO SCH (08:12)
[2022-10-06] MEDS: Tamsulosin 0.4 MG Cap.ER PO SCH (08:13)
[2022-10-07] MEDS: Tamsulosin 0.4 MG Cap.ER PO SCH (07:59)
[2022-10-07] MEDS: Pentoxifylline 400 MG Tab.ER PO SCH (08:00)
[2022-10-07] MEDS: Memantine 10 MG Tab PO SCH ×2 (08:00→17:21)
[2022-10-07] MEDS: Allopurinol 100 MG Tab PO SCH (08:00)
[2022-10-07] MEDS: Menthol 10%/Methyl Salicylate 15% 85 GM Tube TOP PRN (20:15)
[2022-10-08] MEDS: Tamsulosin 0.4 MG Cap.ER PO SCH (07:51)
[2022-10-08] MEDS: Memantine 10 MG Tab PO SCH ×2 (07:51→17:20)
[2022-10-08] MEDS: Pentoxifylline 400 MG Tab.ER PO SCH (07:52)
[2022-10-08] MEDS: Allopurinol 100 MG Tab PO SCH (07:52)
[2022-10-08] MEDS: Menthol 10%/Methyl Salicylate 15% 85 GM Tube TOP PRN (21:47)
[2022-10-09] MEDS: Tamsulosin 0.4 MG Cap.ER PO SCH (08:09)
[2022-10-09] MEDS: Allopurinol 100 MG Tab PO SCH (08:09)
[2022-10-09] MEDS: Memantine 10 MG Tab PO SCH ×2 (08:09→17:23)
[2022-10-09] MEDS: Pentoxifylline 400 MG Tab.ER PO SCH (08:09)
[2022-10-09] MEDS: Menthol 10%/Methyl Salicylate 15% 85 GM Tube TOP PRN (20:31)
[2022-10-10] MEDS: Pentoxifylline 400 MG Tab.ER PO SCH (08:35)
[2022-10-10] MEDS: Allopurinol 100 MG Tab PO SCH (08:35)
[2022-10-10] MEDS: Memantine 10 MG Tab PO SCH ×2 (08:35→17:44)
[2022-10-10] MEDS: Tamsulosin 0.4 MG Cap.ER PO SCH (08:35)
[2022-10-10] MEDS: Menthol 10%/Methyl Salicylate 15% 85 GM Tube TOP PRN (21:21)
[2022-10-11] MEDS: Tamsulosin 0.4 MG Cap.ER PO SCH (07:33)
[2022-10-11] MEDS: Memantine 10 MG Tab PO SCH ×2 (07:34→17:22)
[2022-10-11] MEDS: Pentoxifylline 400 MG Tab.ER PO SCH (07:34)
[2022-10-11] MEDS: Allopurinol 100 MG Tab PO SCH (07:34)
[2022-10-12] MEDS: Memantine 10 MG Tab PO SCH ×2 (07:20→17:23)
[2022-10-12] MEDS: Pentoxifylline 400 MG Tab.ER PO SCH (07:20)
[2022-10-12] MEDS: Tamsulosin 0.4 MG Cap.ER PO SCH (07:20)
[2022-10-12] MEDS: Allopurinol 100 MG Tab PO SCH (07:21)
[2022-10-13] MEDS: Allopurinol 100 MG Tab PO SCH (07:40)
[2022-10-13] MEDS: Pentoxifylline 400 MG Tab.ER PO SCH (07:40)
[2022-10-13] MEDS: Memantine 10 MG Tab PO SCH ×2 (07:40→17:12)
[2022-10-13] MEDS: Tamsulosin 0.4 MG Cap.ER PO SCH (07:40)
[2022-10-14] MEDS: Pentoxifylline 400 MG Tab.ER PO SCH (07:59)
[2022-10-14] MEDS: Allopurinol 100 MG Tab PO SCH (07:59)
[2022-10-14] MEDS: Memantine 10 MG Tab PO SCH ×2 (07:59→17:53)
[2022-10-14] MEDS: Tamsulosin 0.4 MG Cap.ER PO SCH (08:00)
[2022-10-15] MEDS: Allopurinol 100 MG Tab PO SCH (07:59)
[2022-10-15] MEDS: Memantine 10 MG Tab PO SCH ×2 (08:00→17:11)
[2022-10-15] MEDS: Tamsulosin 0.4 MG Cap.ER PO SCH (08:00)
[2022-10-15] MEDS: Pentoxifylline 400 MG Tab.ER PO SCH (08:00)
[2022-10-15] MEDS: Menthol 10%/Methyl Salicylate 15% 85 GM Tube TOP PRN (20:18)
[2022-10-16] MEDS: Tamsulosin 0.4 MG Cap.ER PO SCH (08:07)
[2022-10-16] MEDS: Memantine 10 MG Tab PO SCH ×2 (08:07→17:08)
[2022-10-16] MEDS: Allopurinol 100 MG Tab PO SCH (08:07)
[2022-10-16] MEDS: Pentoxifylline 400 MG Tab.ER PO SCH (08:07)
[2022-10-17] MEDS: Allopurinol 100 MG Tab PO SCH (07:00)
[2022-10-17] MEDS: Sertraline 25 MG Tab PO SCH (07:00)
[2022-10-17] MEDS: Memantine 10 MG Tab PO SCH ×2 (07:00→17:05)
[2022-10-17] MEDS: Pentoxifylline 400 MG Tab.ER PO SCH (07:00)
[2022-10-17] MEDS: Tamsulosin 0.4 MG Cap.ER PO SCH (07:00)
[2022-10-18] MEDS: Pentoxifylline 400 MG Tab.ER PO SCH (07:43)
[2022-10-18] MEDS: Allopurinol 100 MG Tab PO SCH (07:43)
[2022-10-18] MEDS: Memantine 10 MG Tab PO SCH ×2 (07:43→17:11)
[2022-10-18] MEDS: Tamsulosin 0.4 MG Cap.ER PO SCH (07:43)
[2022-10-18] MEDS: Sertraline 25 MG Tab PO SCH (07:43)
[2022-10-18 15:05] LABS: APPEARANCE,URINE CLEAR; BILIRUBIN,URINE NEGATIVE (NEGATIVE); COLOR,URINE YELLOW; GLUCOSE,URINE NEGATIVE (NEGATIVE); KETONES,URINE TRACE mg/dL (NEGATIVE); LEUKOCYTE ESTERASE,URINE NEGATIVE (NEGATIVE); NITRITE,URINE NEGATIVE (NEGATIVE); OCCULT BLOOD,URINE NEGATIVE (NEGATIVE); PH,URINE 5.5 (5.0-9.0); PROTEIN,URINE 30 mg/dL (NEGATIVE); UROBILINOGEN,URINE 0.2 E.U./dL (0.2-1.0)
[2022-10-18 16:06] LABS: BACTERIA,URINE NOT SEEN /HPF (NONE TO FEW); EPITHELIAL CELLS,URINE NOT SEEN /LPF; RBC,URINE 0-5 /HPF; WBC,URINE 0-5 /HPF
[2022-10-18] MEDS: Menthol 10%/Methyl Salicylate 15% 85 GM Tube TOP PRN (19:47)
[2022-10-19] MEDS: Pentoxifylline 400 MG Tab.ER PO SCH (07:16)
[2022-10-19] MEDS: Allopurinol 100 MG Tab PO SCH (07:16)
[2022-10-19] MEDS: Tamsulosin 0.4 MG Cap.ER PO SCH (07:16)
[2022-10-19] MEDS: Memantine 10 MG Tab PO SCH ×2 (07:16→17:45)
[2022-10-19] MEDS: Sertraline 25 MG Tab PO SCH (07:16)
[2022-10-19] MEDS: Menthol 10%/Methyl Salicylate 15% 85 GM Tube TOP PRN (20:20)
[2022-10-20] MEDS: Sertraline 25 MG Tab PO SCH (07:32)
[2022-10-20] MEDS: Allopurinol 100 MG Tab PO SCH (07:32)
[2022-10-20] MEDS: Tamsulosin 0.4 MG Cap.ER PO SCH (07:32)
[2022-10-20] MEDS: Memantine 10 MG Tab PO SCH ×2 (07:32→17:48)
[2022-10-20] MEDS: Pentoxifylline 400 MG Tab.ER PO SCH (07:32)
[2022-10-21] MEDS: Tamsulosin 0.4 MG Cap.ER PO SCH (07:48)
[2022-10-21] MEDS: Sertraline 25 MG Tab PO SCH (07:49)
[2022-10-21] MEDS: Memantine 10 MG Tab PO SCH ×2 (07:49→17:27)
[2022-10-21] MEDS: Pentoxifylline 400 MG Tab.ER PO SCH (07:49)
[2022-10-21] MEDS: Allopurinol 100 MG Tab PO SCH (07:49)
[2022-10-22] MEDS: Tamsulosin 0.4 MG Cap.ER PO SCH (07:52)
[2022-10-22] MEDS: Allopurinol 100 MG Tab PO SCH (07:52)
[2022-10-22] MEDS: Sertraline 25 MG Tab PO SCH (07:52)
[2022-10-22] MEDS: Memantine 10 MG Tab PO SCH ×2 (07:52→17:20)
[2022-10-22] MEDS: Pentoxifylline 400 MG Tab.ER PO SCH (07:52)
[2022-10-23] MEDS: Tamsulosin 0.4 MG Cap.ER PO SCH (07:49)
[2022-10-23] MEDS: Pentoxifylline 400 MG Tab.ER PO SCH (07:49)
[2022-10-23] MEDS: Memantine 10 MG Tab PO SCH ×2 (07:49→17:43)
[2022-10-23] MEDS: Sertraline 25 MG Tab PO SCH (07:50)
[2022-10-23] MEDS: Allopurinol 100 MG Tab PO SCH (07:50)
[2022-10-24] MEDS: Pentoxifylline 400 MG Tab.ER PO SCH (07:37)
[2022-10-24] MEDS: Memantine 10 MG Tab PO SCH ×2 (07:37→17:34)
[2022-10-24] MEDS: Tamsulosin 0.4 MG Cap.ER PO SCH (07:37)
[2022-10-24] MEDS: Allopurinol 100 MG Tab PO SCH (07:38)
[2022-10-24] MEDS: Sertraline 25 MG Tab PO SCH (07:38)
[2022-10-25] MEDS: Memantine 10 MG Tab PO SCH ×2 (08:17→17:24)
[2022-10-25] MEDS: Tamsulosin 0.4 MG Cap.ER PO SCH (08:17)
[2022-10-25] MEDS: Pentoxifylline 400 MG Tab.ER PO SCH (08:18)
[2022-10-25] MEDS: Sertraline 25 MG Tab PO SCH (08:18)
[2022-10-25] MEDS: Allopurinol 100 MG Tab PO SCH (08:18)
[2022-10-26] MEDS: Allopurinol 100 MG Tab PO SCH (08:04)
[2022-10-26] MEDS: Sertraline 25 MG Tab PO SCH (08:04)
[2022-10-26] MEDS: Memantine 10 MG Tab PO SCH ×2 (08:05→17:29)
[2022-10-26] MEDS: Tamsulosin 0.4 MG Cap.ER PO SCH (08:05)
[2022-10-26] MEDS: Pentoxifylline 400 MG Tab.ER PO SCH (08:05)
[2022-10-27] MEDS: Pentoxifylline 400 MG Tab.ER PO SCH (08:15)
[2022-10-27] MEDS: Memantine 10 MG Tab PO SCH ×2 (08:15→17:27)
[2022-10-27] MEDS: Tamsulosin 0.4 MG Cap.ER PO SCH (08:15)
[2022-10-27] MEDS: Sertraline 25 MG Tab PO SCH (08:15)
[2022-10-27] MEDS: Allopurinol 100 MG Tab PO SCH (08:17)
[2022-10-28] MEDS: Tamsulosin 0.4 MG Cap.ER PO SCH (07:32)
[2022-10-28] MEDS: Pentoxifylline 400 MG Tab.ER PO SCH (07:33)
[2022-10-28] MEDS: Allopurinol 100 MG Tab PO SCH (07:33)
[2022-10-28] MEDS: Sertraline 25 MG Tab PO SCH (07:33)
[2022-10-28] MEDS: Memantine 10 MG Tab PO SCH ×2 (07:33→17:14)
[2022-10-28] MEDS: Menthol 10%/Methyl Salicylate 15% 85 GM Tube TOP PRN (19:57)
[2022-10-29] MEDS: Allopurinol 100 MG Tab PO SCH (08:00)
[2022-10-29] MEDS: Sertraline 25 MG Tab PO SCH (08:00)
[2022-10-29] MEDS: Pentoxifylline 400 MG Tab.ER PO SCH (08:00)
[2022-10-29] MEDS: Tamsulosin 0.4 MG Cap.ER PO SCH (08:01)
[2022-10-29] MEDS: Memantine 10 MG Tab PO SCH ×2 (08:01→18:04)
[2022-10-29] MEDS: levETIRAcetam 500 MG Tab PO SCH ×2 (11:16→20:00)
[2022-10-29] MEDS: Menthol 10%/Methyl Salicylate 15% 85 GM Tube TOP PRN (19:59)
[2022-10-30] MEDS: Pentoxifylline 400 MG Tab.ER PO SCH (08:19)
[2022-10-30] MEDS: Allopurinol 100 MG Tab PO SCH (08:19)
[2022-10-30] MEDS: Memantine 10 MG Tab PO SCH ×2 (08:19→17:23)
[2022-10-30] MEDS: levETIRAcetam 500 MG Tab PO SCH ×2 (08:19→20:10)
[2022-10-30] MEDS: Sertraline 25 MG Tab PO SCH (08:19)
[2022-10-30] MEDS: Tamsulosin 0.4 MG Cap.ER PO SCH (08:20)
[2022-10-31] MEDS: Memantine 10 MG Tab PO SCH ×2 (08:11→18:13)
[2022-10-31] MEDS: Sertraline 25 MG Tab PO SCH (08:11)
[2022-10-31] MEDS: Pentoxifylline 400 MG Tab.ER PO SCH (08:11)
[2022-10-31] MEDS: levETIRAcetam 500 MG Tab PO SCH ×2 (08:12→19:46)
[2022-10-31] MEDS: Allopurinol 100 MG Tab PO SCH (08:12)
[2022-10-31] MEDS: Tamsulosin 0.4 MG Cap.ER PO SCH (08:12)
[2022-11-01] MEDS: Tamsulosin 0.4 MG Cap.ER PO SCH (07:51)
[2022-11-01] MEDS: levETIRAcetam 500 MG Tab PO SCH ×2 (07:51→19:32)
[2022-11-01] MEDS: Allopurinol 100 MG Tab PO SCH (07:52)
[2022-11-01] MEDS: Memantine 10 MG Tab PO SCH ×2 (07:52→17:12)
[2022-11-01] MEDS: Sertraline 25 MG Tab PO SCH (07:52)
[2022-11-01] MEDS: Pentoxifylline 400 MG Tab.ER PO SCH (07:52)
[2022-11-02] MEDS: Pentoxifylline 400 MG Tab.ER PO SCH (07:38)
[2022-11-02] MEDS: Allopurinol 100 MG Tab PO SCH (07:38)
[2022-11-02] MEDS: Sertraline 25 MG Tab PO SCH (07:38)
[2022-11-02] MEDS: levETIRAcetam 500 MG Tab PO SCH ×2 (07:38→19:20)
[2022-11-02] MEDS: Memantine 10 MG Tab PO SCH ×2 (07:38→17:07)
[2022-11-02] MEDS: Tamsulosin 0.4 MG Cap.ER PO SCH (07:38)
[2022-11-03] MEDS: Sertraline 25 MG Tab PO SCH (08:09)
[2022-11-03] MEDS: Allopurinol 100 MG Tab PO SCH (08:09)
[2022-11-03] MEDS: Pentoxifylline 400 MG Tab.ER PO SCH (08:09)
[2022-11-03] MEDS: Tamsulosin 0.4 MG Cap.ER PO SCH (08:10)
[2022-11-03] MEDS: levETIRAcetam 500 MG Tab PO SCH ×2 (08:10→19:35)
[2022-11-03] MEDS: Memantine 10 MG Tab PO SCH ×2 (08:10→18:12)
[2022-11-04] MEDS: Memantine 10 MG Tab PO SCH ×2 (08:27→17:22)
[2022-11-04] MEDS: levETIRAcetam 500 MG Tab PO SCH ×2 (08:27→19:41)
[2022-11-04] MEDS: Tamsulosin 0.4 MG Cap.ER PO SCH (08:27)
[2022-11-04] MEDS: Allopurinol 100 MG Tab PO SCH (08:28)
[2022-11-04] MEDS: Sertraline 25 MG Tab PO SCH (08:28)
[2022-11-04] MEDS: Pentoxifylline 400 MG Tab.ER PO SCH (08:28)
[2022-11-04] MEDS: Menthol 10%/Methyl Salicylate 15% 85 GM Tube TOP PRN (20:40)
[2022-11-05] MEDS: levETIRAcetam 500 MG Tab PO SCH ×2 (07:58→19:49)
[2022-11-05] MEDS: Tamsulosin 0.4 MG Cap.ER PO SCH (07:58)
[2022-11-05] MEDS: Allopurinol 100 MG Tab PO SCH (07:59)
[2022-11-05] MEDS: Sertraline 25 MG Tab PO SCH (07:59)
[2022-11-05] MEDS: Pentoxifylline 400 MG Tab.ER PO SCH (07:59)
[2022-11-05] MEDS: Memantine 10 MG Tab PO SCH ×2 (07:59→17:18)
[2022-11-06] MEDS: Tamsulosin 0.4 MG Cap.ER PO SCH (08:37)
[2022-11-06] MEDS: levETIRAcetam 500 MG Tab PO SCH ×2 (08:37→19:47)
[2022-11-06] MEDS: Memantine 10 MG Tab PO SCH ×2 (08:38→17:36)
[2022-11-06] MEDS: Sertraline 25 MG Tab PO SCH (08:38)
[2022-11-06] MEDS: Pentoxifylline 400 MG Tab.ER PO SCH (08:38)
[2022-11-06] MEDS: Allopurinol 100 MG Tab PO SCH (08:38)
[2022-11-07] MEDS: Memantine 10 MG Tab PO SCH ×2 (08:03→17:35)
[2022-11-07] MEDS: Pentoxifylline 400 MG Tab.ER PO SCH (08:03)
[2022-11-07] MEDS: levETIRAcetam 500 MG Tab PO SCH ×2 (08:03→19:55)
[2022-11-07] MEDS: Sertraline 25 MG Tab PO SCH (08:03)
[2022-11-07] MEDS: Tamsulosin 0.4 MG Cap.ER PO SCH (08:03)
[2022-11-07] MEDS: Allopurinol 100 MG Tab PO SCH (08:04)
[2022-11-08] MEDS: Memantine 10 MG Tab PO SCH ×2 (07:59→17:16)
[2022-11-08] MEDS: Pentoxifylline 400 MG Tab.ER PO SCH (07:59)
[2022-11-08] MEDS: Sertraline 25 MG Tab PO SCH (07:59)
[2022-11-08] MEDS: levETIRAcetam 500 MG Tab PO SCH ×2 (08:00→19:45)
[2022-11-08] MEDS: Tamsulosin 0.4 MG Cap.ER PO SCH (08:00)
[2022-11-08] MEDS: Allopurinol 100 MG Tab PO SCH (08:00)
[2022-11-08] MEDS: Menthol 10%/Methyl Salicylate 15% 85 GM Tube TOP PRN (19:44)
[2022-11-09] MEDS: Sertraline 25 MG Tab PO SCH (08:08)
[2022-11-09] MEDS: Allopurinol 100 MG Tab PO SCH (08:08)
[2022-11-09] MEDS: Memantine 10 MG Tab PO SCH ×2 (08:08→17:44)
[2022-11-09] MEDS: levETIRAcetam 500 MG Tab PO SCH ×2 (08:08→20:04)
[2022-11-09] MEDS: Tamsulosin 0.4 MG Cap.ER PO SCH (08:08)
[2022-11-09] MEDS: Pentoxifylline 400 MG Tab.ER PO SCH (08:08)
[2022-11-09] MEDS: Menthol 10%/Methyl Salicylate 15% 85 GM Tube TOP PRN (20:04)
[2022-11-10] MEDS: Sertraline 25 MG Tab PO SCH (08:20)
[2022-11-10] MEDS: Tamsulosin 0.4 MG Cap.ER PO SCH (08:20)
[2022-11-10] MEDS: Pentoxifylline 400 MG Tab.ER PO SCH (08:20)
[2022-11-10] MEDS: Memantine 10 MG Tab PO SCH ×2 (08:20→17:28)
[2022-11-10] MEDS: levETIRAcetam 500 MG Tab PO SCH ×2 (08:21→20:08)
[2022-11-10] MEDS: Allopurinol 100 MG Tab PO SCH (08:21)
[2022-11-10] MEDS: Menthol 10%/Methyl Salicylate 15% 85 GM Tube TOP PRN (20:08)
[2022-11-11] MEDS: Tamsulosin 0.4 MG Cap.ER PO SCH (07:39)
[2022-11-11] MEDS: levETIRAcetam 500 MG Tab PO SCH ×2 (07:39→19:54)
[2022-11-11] MEDS: Pentoxifylline 400 MG Tab.ER PO SCH (07:39)
[2022-11-11] MEDS: Memantine 10 MG Tab PO SCH ×2 (07:39→17:09)
[2022-11-11] MEDS: Sertraline 25 MG Tab PO SCH (07:40)
[2022-11-11] MEDS: Allopurinol 100 MG Tab PO SCH (07:40)
[2022-11-11] MEDS: Menthol 10%/Methyl Salicylate 15% 85 GM Tube TOP PRN (19:55)
[2022-11-12] MEDS: levETIRAcetam 500 MG Tab PO SCH ×2 (07:51→19:10)
[2022-11-12] MEDS: Tamsulosin 0.4 MG Cap.ER PO SCH (07:51)
[2022-11-12] MEDS: Sertraline 25 MG Tab PO SCH (07:52)
[2022-11-12] MEDS: Memantine 10 MG Tab PO SCH ×2 (07:52→17:12)
[2022-11-12] MEDS: Allopurinol 100 MG Tab PO SCH (07:52)
[2022-11-12] MEDS: Pentoxifylline 400 MG Tab.ER PO SCH (07:52)
[2022-11-13] MEDS: Tamsulosin 0.4 MG Cap.ER PO SCH (07:40)
[2022-11-13] MEDS: Allopurinol 100 MG Tab PO SCH (07:40)
[2022-11-13] MEDS: levETIRAcetam 500 MG Tab PO SCH ×2 (07:40→20:23)
[2022-11-13] MEDS: Pentoxifylline 400 MG Tab.ER PO SCH (07:40)
[2022-11-13] MEDS: Sertraline 25 MG Tab PO SCH (07:40)
[2022-11-13] MEDS: Memantine 10 MG Tab PO SCH ×2 (07:40→17:12)
[2022-11-13] MEDS: Menthol 10%/Methyl Salicylate 15% 85 GM Tube TOP PRN (20:24)
[2022-11-14] MEDS: levETIRAcetam 500 MG Tab PO SCH ×2 (07:44→19:44)
[2022-11-14] MEDS: Memantine 10 MG Tab PO SCH ×2 (07:44→17:30)
[2022-11-14] MEDS: Tamsulosin 0.4 MG Cap.ER PO SCH (07:44)
[2022-11-14] MEDS: Pentoxifylline 400 MG Tab.ER PO SCH (07:45)
[2022-11-14] MEDS: Sertraline 25 MG Tab PO SCH (07:45)
[2022-11-14] MEDS: Allopurinol 100 MG Tab PO SCH (07:45)
[2022-11-14] MEDS: Menthol 10%/Methyl Salicylate 15% 85 GM Tube TOP PRN (19:42)
[2022-11-15] MEDS: Allopurinol 100 MG Tab PO SCH (08:03)
[2022-11-15] MEDS: Pentoxifylline 400 MG Tab.ER PO SCH (08:24)
[2022-11-15] MEDS: levETIRAcetam 500 MG Tab PO SCH ×2 (08:24→19:56)
[2022-11-15] MEDS: Memantine 10 MG Tab PO SCH ×2 (08:24→18:03)
[2022-11-15] MEDS: Tamsulosin 0.4 MG Cap.ER PO SCH (08:24)
[2022-11-15] MEDS: Sertraline 25 MG Tab PO SCH (08:24)
[2022-11-15] MEDS: Camphor/Menthol 0.5-0.5% Lotion 222 ML Bottle TOP SCH (18:49)
[2022-11-16] MEDS: Tamsulosin 0.4 MG Cap.ER PO SCH (07:09)
[2022-11-16] MEDS: levETIRAcetam 500 MG Tab PO SCH ×2 (07:09→19:44)
[2022-11-16] MEDS: Pentoxifylline 400 MG Tab.ER PO SCH (07:10)
[2022-11-16] MEDS: Sertraline 25 MG Tab PO SCH (07:10)
[2022-11-16] MEDS: Memantine 10 MG Tab PO SCH ×2 (07:10→17:54)
[2022-11-16] MEDS: Allopurinol 100 MG Tab PO SCH (07:11)
[2022-11-16] MEDS: Camphor/Menthol 0.5-0.5% Lotion 222 ML Bottle TOP SCH ×2 (07:20→17:55)
[2022-11-17] MEDS: Allopurinol 100 MG Tab PO SCH (08:20)
[2022-11-17] MEDS: Memantine 10 MG Tab PO SCH ×2 (08:21→18:19)
[2022-11-17] MEDS: Sertraline 25 MG Tab PO SCH (08:21)
[2022-11-17] MEDS: Pentoxifylline 400 MG Tab.ER PO SCH (08:21)
[2022-11-17] MEDS: levETIRAcetam 500 MG Tab PO SCH ×2 (08:21→19:58)
[2022-11-17] MEDS: Tamsulosin 0.4 MG Cap.ER PO SCH (08:21)
[2022-11-17] MEDS: Camphor/Menthol 0.5-0.5% Lotion 222 ML Bottle TOP SCH ×2 (08:22→18:18)
[2022-11-18] MEDS: Tamsulosin 0.4 MG Cap.ER PO SCH (08:24)
[2022-11-18] MEDS: Camphor/Menthol 0.5-0.5% Lotion 222 ML Bottle TOP SCH (08:24)
[2022-11-18] MEDS: Memantine 10 MG Tab PO SCH ×2 (08:24→17:29)
[2022-11-18] MEDS: levETIRAcetam 500 MG Tab PO SCH ×2 (08:24→19:50)
[2022-11-18] MEDS: Pentoxifylline 400 MG Tab.ER PO SCH (08:25)
[2022-11-18] MEDS: Allopurinol 100 MG Tab PO SCH (08:25)
[2022-11-18] MEDS: Sertraline 25 MG Tab PO SCH (08:25)
[2022-11-19] MEDS: levETIRAcetam 500 MG Tab PO SCH ×2 (07:59→19:50)
[2022-11-19] MEDS: Memantine 10 MG Tab PO SCH ×2 (07:59→17:31)
[2022-11-19] MEDS: Pentoxifylline 400 MG Tab.ER PO SCH (07:59)
[2022-11-19] MEDS: Tamsulosin 0.4 MG Cap.ER PO SCH (07:59)
[2022-11-19] MEDS: Allopurinol 100 MG Tab PO SCH (08:00)
[2022-11-19] MEDS: Sertraline 25 MG Tab PO SCH (08:00)
[2022-11-20] MEDS: Memantine 10 MG Tab PO SCH ×2 (08:20→17:37)
[2022-11-20] MEDS: levETIRAcetam 500 MG Tab PO SCH ×2 (08:20→19:50)
[2022-11-20] MEDS: Tamsulosin 0.4 MG Cap.ER PO SCH (08:20)
[2022-11-20] MEDS: Allopurinol 100 MG Tab PO SCH (08:21)
[2022-11-20] MEDS: Pentoxifylline 400 MG Tab.ER PO SCH (08:21)
[2022-11-20] MEDS: Sertraline 25 MG Tab PO SCH (08:21)
[2022-11-20] MEDS: Polyvinyl Alcohol 1.4% Ophth Soln 15 ML Bottle EYELF PRN (10:25)
[2022-11-21] MEDS: levETIRAcetam 500 MG Tab PO SCH ×2 (08:10→19:52)
[2022-11-21] MEDS: Allopurinol 100 MG Tab PO SCH (08:10)
[2022-11-21] MEDS: Memantine 10 MG Tab PO SCH ×2 (08:11→17:51)
[2022-11-21] MEDS: Sertraline 25 MG Tab PO SCH (08:11)
[2022-11-21] MEDS: Pentoxifylline 400 MG Tab.ER PO SCH (08:11)
[2022-11-21] MEDS: Tamsulosin 0.4 MG Cap.ER PO SCH (08:11)
[2022-11-22] MEDS: Tamsulosin 0.4 MG Cap.ER PO SCH (07:59)
[2022-11-22] MEDS: Pentoxifylline 400 MG Tab.ER PO SCH (07:59)
[2022-11-22] MEDS: levETIRAcetam 500 MG Tab PO SCH ×2 (07:59→19:44)
[2022-11-22] MEDS: Allopurinol 100 MG Tab PO SCH (07:59)
[2022-11-22] MEDS: Sertraline 25 MG Tab PO SCH (07:59)
[2022-11-22] MEDS: Memantine 10 MG Tab PO SCH ×2 (07:59→17:20)
[2022-11-23] MEDS: Tamsulosin 0.4 MG Cap.ER PO SCH (07:52)
[2022-11-23] MEDS: levETIRAcetam 500 MG Tab PO SCH ×2 (07:52→19:46)
[2022-11-23] MEDS: Allopurinol 100 MG Tab PO SCH (07:53)
[2022-11-23] MEDS: Sertraline 25 MG Tab PO SCH (07:53)
[2022-11-23] MEDS: Memantine 10 MG Tab PO SCH ×2 (07:53→17:11)
[2022-11-23] MEDS: Pentoxifylline 400 MG Tab.ER PO SCH (07:53)
[2022-11-24] MEDS: Pentoxifylline 400 MG Tab.ER PO SCH (07:41)
[2022-11-24] MEDS: Sertraline 25 MG Tab PO SCH (07:41)
[2022-11-24] MEDS: Memantine 10 MG Tab PO SCH ×2 (07:41→17:15)
[2022-11-24] MEDS: Allopurinol 100 MG Tab PO SCH (07:41)
[2022-11-24] MEDS: Tamsulosin 0.4 MG Cap.ER PO SCH (07:41)
[2022-11-24] MEDS: levETIRAcetam 500 MG Tab PO SCH ×2 (07:41→20:38)
[2022-11-25] MEDS: Tamsulosin 0.4 MG Cap.ER PO SCH (09:09)
[2022-11-25] MEDS: Allopurinol 100 MG Tab PO SCH (09:10)
[2022-11-25] MEDS: Memantine 10 MG Tab PO SCH ×2 (09:10→17:24)
[2022-11-25] MEDS: levETIRAcetam 500 MG Tab PO SCH ×2 (09:10→20:16)
[2022-11-25] MEDS: Pentoxifylline 400 MG Tab.ER PO SCH (09:10)
[2022-11-25] MEDS: Sertraline 25 MG Tab PO SCH (09:10)
[2022-11-26] MEDS: Memantine 10 MG Tab PO SCH ×2 (09:27→17:34)
[2022-11-26] MEDS: Tamsulosin 0.4 MG Cap.ER PO SCH (09:27)
[2022-11-26] MEDS: levETIRAcetam 500 MG Tab PO SCH ×2 (09:27→20:30)
[2022-11-26] MEDS: Pentoxifylline 400 MG Tab.ER PO SCH (09:27)
[2022-11-26] MEDS: Sertraline 25 MG Tab PO SCH (09:27)
[2022-11-26] MEDS: Allopurinol 100 MG Tab PO SCH (09:28)
[2022-11-27] MEDS: Pentoxifylline 400 MG Tab.ER PO SCH (08:01)
[2022-11-27] MEDS: Tamsulosin 0.4 MG Cap.ER PO SCH (08:01)
[2022-11-27] MEDS: levETIRAcetam 500 MG Tab PO SCH ×2 (08:01→19:41)
[2022-11-27] MEDS: Sertraline 25 MG Tab PO SCH (08:01)
[2022-11-27] MEDS: Memantine 10 MG Tab PO SCH ×2 (08:01→17:14)
[2022-11-27] MEDS: Allopurinol 100 MG Tab PO SCH (08:02)
[2022-11-28] MEDS: Tamsulosin 0.4 MG Cap.ER PO SCH (08:24)
[2022-11-28] MEDS: Pentoxifylline 400 MG Tab.ER PO SCH (08:24)
[2022-11-28] MEDS: levETIRAcetam 500 MG Tab PO SCH ×2 (08:24→19:52)
[2022-11-28] MEDS: Memantine 10 MG Tab PO SCH ×2 (08:24→17:53)
[2022-11-28] MEDS: Sertraline 25 MG Tab PO SCH (08:25)
[2022-11-28] MEDS: Allopurinol 100 MG Tab PO SCH (08:25)
[2022-11-29] MEDS: levETIRAcetam 500 MG Tab PO SCH ×2 (08:54→19:32)
[2022-11-29] MEDS: Tamsulosin 0.4 MG Cap.ER PO SCH (08:54)
[2022-11-29] MEDS: Allopurinol 100 MG Tab PO SCH (08:55)
[2022-11-29] MEDS: Pentoxifylline 400 MG Tab.ER PO SCH (08:55)
[2022-11-29] MEDS: Sertraline 25 MG Tab PO SCH (08:55)
[2022-11-29] MEDS: Memantine 10 MG Tab PO SCH ×2 (08:55→17:07)
[2022-11-30] MEDS: Tamsulosin 0.4 MG Cap.ER PO SCH (09:51)
[2022-11-30] MEDS: Memantine 10 MG Tab PO SCH ×2 (09:52→17:05)
[2022-11-30] MEDS: Allopurinol 100 MG Tab PO SCH (09:52)
[2022-11-30] MEDS: Sertraline 25 MG Tab PO SCH (09:52)
[2022-11-30] MEDS: Pentoxifylline 400 MG Tab.ER PO SCH (09:52)
[2022-11-30] MEDS: levETIRAcetam 500 MG Tab PO SCH ×2 (09:52→19:47)
[2022-12-01] MEDS: levETIRAcetam 500 MG Tab PO SCH ×2 (09:34→19:57)
[2022-12-01] MEDS: Tamsulosin 0.4 MG Cap.ER PO SCH (09:34)
[2022-12-01] MEDS: Sertraline 25 MG Tab PO SCH (09:35)
[2022-12-01] MEDS: Pentoxifylline 400 MG Tab.ER PO SCH (09:35)
[2022-12-01] MEDS: Allopurinol 100 MG Tab PO SCH (09:35)
[2022-12-01] MEDS: Memantine 10 MG Tab PO SCH ×2 (09:35→17:09)
[2022-12-02] MEDS: levETIRAcetam 500 MG Tab PO SCH ×2 (07:41→20:01)
[2022-12-02] MEDS: Tamsulosin 0.4 MG Cap.ER PO SCH (07:41)
[2022-12-02] MEDS: Pentoxifylline 400 MG Tab.ER PO SCH (07:42)
[2022-12-02] MEDS: Allopurinol 100 MG Tab PO SCH (07:42)
[2022-12-02] MEDS: Memantine 10 MG Tab PO SCH ×2 (07:42→17:15)
[2022-12-02] MEDS: Sertraline 25 MG Tab PO SCH (07:42)
[2022-12-03] MEDS: Sertraline 25 MG Tab PO SCH (07:31)
[2022-12-03] MEDS: Pentoxifylline 400 MG Tab.ER PO SCH (07:31)
[2022-12-03] MEDS: Memantine 10 MG Tab PO SCH ×2 (07:31→17:07)
[2022-12-03] MEDS: Allopurinol 100 MG Tab PO SCH (07:31)
[2022-12-03] MEDS: Tamsulosin 0.4 MG Cap.ER PO SCH (07:31)
[2022-12-03] MEDS: levETIRAcetam 500 MG Tab PO SCH ×2 (07:31→19:43)
[2022-12-04] MEDS: Memantine 10 MG Tab PO SCH ×2 (07:42→17:09)
[2022-12-04] MEDS: Pentoxifylline 400 MG Tab.ER PO SCH (07:42)
[2022-12-04] MEDS: levETIRAcetam 500 MG Tab PO SCH ×2 (07:42→19:51)
[2022-12-04] MEDS: Tamsulosin 0.4 MG Cap.ER PO SCH (07:42)
[2022-12-04] MEDS: Sertraline 25 MG Tab PO SCH (07:42)
[2022-12-04] MEDS: Allopurinol 100 MG Tab PO SCH (07:42)
[2022-12-05] MEDS: Tamsulosin 0.4 MG Cap.ER PO SCH (08:21)
[2022-12-05] MEDS: Memantine 10 MG Tab PO SCH ×2 (08:21→18:03)
[2022-12-05] MEDS: Sertraline 25 MG Tab PO SCH (08:21)
[2022-12-05] MEDS: Pentoxifylline 400 MG Tab.ER PO SCH (08:21)
[2022-12-05] MEDS: levETIRAcetam 500 MG Tab PO SCH ×2 (08:22→19:57)
[2022-12-05] MEDS: Allopurinol 100 MG Tab PO SCH (08:22)
[2022-12-06] MEDS: Tamsulosin 0.4 MG Cap.ER PO SCH (08:55)
[2022-12-06] MEDS: Pentoxifylline 400 MG Tab.ER PO SCH (08:55)
[2022-12-06] MEDS: Sertraline 25 MG Tab PO SCH (08:55)
[2022-12-06] MEDS: Memantine 10 MG Tab PO SCH ×2 (08:55→17:33)
[2022-12-06] MEDS: levETIRAcetam 500 MG Tab PO SCH ×2 (08:56→20:01)
[2022-12-06] MEDS: Allopurinol 100 MG Tab PO SCH (08:56)
[2022-12-07] MEDS: Sertraline 25 MG Tab PO SCH (07:54)
[2022-12-07] MEDS: levETIRAcetam 500 MG Tab PO SCH ×2 (07:54→20:05)
[2022-12-07] MEDS: Allopurinol 100 MG Tab PO SCH (07:54)
[2022-12-07] MEDS: Pentoxifylline 400 MG Tab.ER PO SCH (07:54)
[2022-12-07] MEDS: Memantine 10 MG Tab PO SCH ×2 (07:54→17:59)
[2022-12-07] MEDS: Tamsulosin 0.4 MG Cap.ER PO SCH (07:54)
[2022-12-08] MEDS: Tamsulosin 0.4 MG Cap.ER PO SCH (08:19)
[2022-12-08] MEDS: Pentoxifylline 400 MG Tab.ER PO SCH (08:19)
[2022-12-08] MEDS: Sertraline 25 MG Tab PO SCH (08:20)
[2022-12-08] MEDS: Memantine 10 MG Tab PO SCH ×2 (08:20→17:27)
[2022-12-08] MEDS: Allopurinol 100 MG Tab PO SCH (08:20)
[2022-12-08] MEDS: levETIRAcetam 500 MG Tab PO SCH ×2 (08:20→20:17)
[2022-12-09] MEDS: Pentoxifylline 400 MG Tab.ER PO SCH (09:37)
[2022-12-09] MEDS: Tamsulosin 0.4 MG Cap.ER PO SCH (09:37)
[2022-12-09] MEDS: Memantine 10 MG Tab PO SCH ×2 (09:38→17:21)
[2022-12-09] MEDS: Allopurinol 100 MG Tab PO SCH (09:38)
[2022-12-09] MEDS: levETIRAcetam 500 MG Tab PO SCH ×2 (09:38→20:17)
[2022-12-09] MEDS: Sertraline 25 MG Tab PO SCH (09:38)
[2022-12-10] MEDS: levETIRAcetam 500 MG Tab PO SCH ×2 (08:08→20:45)
[2022-12-10] MEDS: Pentoxifylline 400 MG Tab.ER PO SCH (08:08)
[2022-12-10] MEDS: Allopurinol 100 MG Tab PO SCH (08:08)
[2022-12-10] MEDS: Sertraline 25 MG Tab PO SCH (08:08)
[2022-12-10] MEDS: Memantine 10 MG Tab PO SCH ×2 (08:08→17:47)
[2022-12-10] MEDS: Tamsulosin 0.4 MG Cap.ER PO SCH (08:09)
[2022-12-11] MEDS: Tamsulosin 0.4 MG Cap.ER PO SCH (08:35)
[2022-12-11] MEDS: levETIRAcetam 500 MG Tab PO SCH ×2 (08:35→19:51)
[2022-12-11] MEDS: Sertraline 25 MG Tab PO SCH (08:36)
[2022-12-11] MEDS: Memantine 10 MG Tab PO SCH ×2 (08:36→17:40)
[2022-12-11] MEDS: Pentoxifylline 400 MG Tab.ER PO SCH (08:36)
[2022-12-11] MEDS: Allopurinol 100 MG Tab PO SCH (08:37)
[2022-12-12] MEDS: Tamsulosin 0.4 MG Cap.ER PO SCH (08:08)
[2022-12-12] MEDS: Sertraline 25 MG Tab PO SCH (08:09)
[2022-12-12] MEDS: Memantine 10 MG Tab PO SCH ×2 (08:09→17:19)
[2022-12-12] MEDS: Allopurinol 100 MG Tab PO SCH (08:09)
[2022-12-12] MEDS: levETIRAcetam 500 MG Tab PO SCH ×2 (08:09→20:05)
[2022-12-12] MEDS: Pentoxifylline 400 MG Tab.ER PO SCH (08:09)
[2022-12-13] MEDS: levETIRAcetam 500 MG Tab PO SCH ×2 (07:58→19:38)
[2022-12-13] MEDS: Memantine 10 MG Tab PO SCH ×2 (07:58→17:14)
[2022-12-13] MEDS: Tamsulosin 0.4 MG Cap.ER PO SCH (07:58)
[2022-12-13] MEDS: Pentoxifylline 400 MG Tab.ER PO SCH (07:59)
[2022-12-13] MEDS: Sertraline 25 MG Tab PO SCH (07:59)
[2022-12-13] MEDS: Allopurinol 100 MG Tab PO SCH (07:59)
[2022-12-14] MEDS: levETIRAcetam 500 MG Tab PO SCH ×2 (07:44→19:59)
[2022-12-14] MEDS: Memantine 10 MG Tab PO SCH ×2 (07:44→17:17)
[2022-12-14] MEDS: Tamsulosin 0.4 MG Cap.ER PO SCH (07:44)
[2022-12-14] MEDS: Sertraline 25 MG Tab PO SCH (07:45)
[2022-12-14] MEDS: Allopurinol 100 MG Tab PO SCH (07:45)
[2022-12-14] MEDS: Pentoxifylline 400 MG Tab.ER PO SCH (07:45)
[2022-12-15] MEDS: Pentoxifylline 400 MG Tab.ER PO SCH (07:45)
[2022-12-15] MEDS: Tamsulosin 0.4 MG Cap.ER PO SCH (07:45)
[2022-12-15] MEDS: levETIRAcetam 500 MG Tab PO SCH ×2 (07:45→20:30)
[2022-12-15] MEDS: Memantine 10 MG Tab PO SCH ×2 (07:45→17:16)
[2022-12-15] MEDS: Allopurinol 100 MG Tab PO SCH (07:45)
[2022-12-15] MEDS: Sertraline 25 MG Tab PO SCH (07:45)
[2022-12-16] MEDS: Memantine 10 MG Tab PO SCH ×2 (07:51→17:07)
[2022-12-16] MEDS: levETIRAcetam 500 MG Tab PO SCH ×2 (07:51→19:36)
[2022-12-16] MEDS: Tamsulosin 0.4 MG Cap.ER PO SCH (07:51)
[2022-12-16] MEDS: Sertraline 25 MG Tab PO SCH (07:53)
[2022-12-16] MEDS: Pentoxifylline 400 MG Tab.ER PO SCH (07:53)
[2022-12-16] MEDS: Allopurinol 100 MG Tab PO SCH (07:53)
[2022-12-17] MEDS: Memantine 10 MG Tab PO SCH ×2 (08:40→18:03)
[2022-12-17] MEDS: Tamsulosin 0.4 MG Cap.ER PO SCH (08:40)
[2022-12-17] MEDS: levETIRAcetam 500 MG Tab PO SCH ×2 (08:40→19:47)
[2022-12-17] MEDS: Sertraline 25 MG Tab PO SCH (08:41)
[2022-12-17] MEDS: Pentoxifylline 400 MG Tab.ER PO SCH (08:41)
[2022-12-17] MEDS: Allopurinol 100 MG Tab PO SCH (08:41)
[2022-12-18] MEDS: Pentoxifylline 400 MG Tab.ER PO SCH (07:51)
[2022-12-18] MEDS: Memantine 10 MG Tab PO SCH ×2 (07:51→17:39)
[2022-12-18] MEDS: levETIRAcetam 500 MG Tab PO SCH ×2 (07:51→19:44)
[2022-12-18] MEDS: Tamsulosin 0.4 MG Cap.ER PO SCH (07:51)
[2022-12-18] MEDS: Sertraline 25 MG Tab PO SCH (07:52)
[2022-12-18] MEDS: Allopurinol 100 MG Tab PO SCH (07:52)
[2022-12-19] MEDS: Memantine 10 MG Tab PO SCH ×2 (07:53→17:21)
[2022-12-19] MEDS: Allopurinol 100 MG Tab PO SCH (07:53)
[2022-12-19] MEDS: Tamsulosin 0.4 MG Cap.ER PO SCH (07:53)
[2022-12-19] MEDS: Pentoxifylline 400 MG Tab.ER PO SCH (07:53)
[2022-12-19] MEDS: Sertraline 25 MG Tab PO SCH (07:53)
[2022-12-19] MEDS: levETIRAcetam 500 MG Tab PO SCH ×2 (07:54→20:04)
[2022-12-20] MEDS: levETIRAcetam 500 MG Tab PO SCH ×2 (07:33→19:41)
[2022-12-20] MEDS: Tamsulosin 0.4 MG Cap.ER PO SCH (07:33)
[2022-12-20] MEDS: Sertraline 25 MG Tab PO SCH (07:34)
[2022-12-20] MEDS: Allopurinol 100 MG Tab PO SCH (07:34)
[2022-12-20] MEDS: Memantine 10 MG Tab PO SCH ×2 (07:34→17:16)
[2022-12-20] MEDS: Pentoxifylline 400 MG Tab.ER PO SCH (07:34)
[2022-12-21] MEDS: Tamsulosin 0.4 MG Cap.ER PO SCH (10:00)
[2022-12-21] MEDS: Sertraline 25 MG Tab PO SCH (10:01)
[2022-12-21] MEDS: Pentoxifylline 400 MG Tab.ER PO SCH (10:01)
[2022-12-21] MEDS: Allopurinol 100 MG Tab PO SCH (10:01)
[2022-12-21] MEDS: Memantine 10 MG Tab PO SCH ×2 (10:01→17:13)
[2022-12-21] MEDS: levETIRAcetam 500 MG Tab PO SCH ×2 (10:01→19:45)
[2022-12-22] MEDS: Tamsulosin 0.4 MG Cap.ER PO SCH (07:46)
[2022-12-22] MEDS: levETIRAcetam 500 MG Tab PO SCH ×2 (07:46→19:47)
[2022-12-22] MEDS: Memantine 10 MG Tab PO SCH ×2 (07:46→17:03)
[2022-12-22] MEDS: Pentoxifylline 400 MG Tab.ER PO SCH (07:46)
[2022-12-22] MEDS: Allopurinol 100 MG Tab PO SCH (07:47)
[2022-12-22] MEDS: Sertraline 25 MG Tab PO SCH (07:47)
[2022-12-23] MEDS: Tamsulosin 0.4 MG Cap.ER PO SCH (08:15)
[2022-12-23] MEDS: levETIRAcetam 500 MG Tab PO SCH ×2 (08:15→19:50)
[2022-12-23] MEDS: Pentoxifylline 400 MG Tab.ER PO SCH (08:15)
[2022-12-23] MEDS: Sertraline 25 MG Tab PO SCH (08:15)
[2022-12-23] MEDS: Memantine 10 MG Tab PO SCH ×2 (08:15→17:26)
[2022-12-23] MEDS: Allopurinol 100 MG Tab PO SCH (08:16)
[2022-12-24] MEDS: Sertraline 25 MG Tab PO SCH (07:55)
[2022-12-24] MEDS: Tamsulosin 0.4 MG Cap.ER PO SCH (07:55)
[2022-12-24] MEDS: levETIRAcetam 500 MG Tab PO SCH ×2 (07:55→20:08)
[2022-12-24] MEDS: Pentoxifylline 400 MG Tab.ER PO SCH (07:55)
[2022-12-24] MEDS: Memantine 10 MG Tab PO SCH ×2 (07:55→17:18)
[2022-12-24] MEDS: Allopurinol 100 MG Tab PO SCH (07:55)
[2022-12-25] MEDS: Memantine 10 MG Tab PO SCH ×2 (07:43→17:18)
[2022-12-25] MEDS: Sertraline 25 MG Tab PO SCH (07:43)
[2022-12-25] MEDS: Pentoxifylline 400 MG Tab.ER PO SCH (07:43)
[2022-12-25] MEDS: levETIRAcetam 500 MG Tab PO SCH ×2 (07:43→19:38)
[2022-12-25] MEDS: Tamsulosin 0.4 MG Cap.ER PO SCH (07:43)
[2022-12-25] MEDS: Allopurinol 100 MG Tab PO SCH (07:44)
[2022-12-26] MEDS: Memantine 10 MG Tab PO SCH ×2 (07:41→17:05)
[2022-12-26] MEDS: Allopurinol 100 MG Tab PO SCH (07:41)
[2022-12-26] MEDS: Pentoxifylline 400 MG Tab.ER PO SCH (07:41)
[2022-12-26] MEDS: Tamsulosin 0.4 MG Cap.ER PO SCH (07:41)
[2022-12-26] MEDS: levETIRAcetam 500 MG Tab PO SCH ×2 (07:41→19:48)
[2022-12-26] MEDS: Sertraline 25 MG Tab PO SCH (07:41)
[2022-12-27] MEDS: Pentoxifylline 400 MG Tab.ER PO SCH (08:12)
[2022-12-27] MEDS: Memantine 10 MG Tab PO SCH ×2 (08:12→17:35)
[2022-12-27] MEDS: Sertraline 25 MG Tab PO SCH (08:12)
[2022-12-27] MEDS: levETIRAcetam 500 MG Tab PO SCH ×2 (08:12→19:50)
[2022-12-27] MEDS: Allopurinol 100 MG Tab PO SCH (08:12)
[2022-12-27] MEDS: Tamsulosin 0.4 MG Cap.ER PO SCH (08:13)
[2022-12-28] MEDS: Allopurinol 100 MG Tab PO SCH (08:08)
[2022-12-28] MEDS: Tamsulosin 0.4 MG Cap.ER PO SCH (08:09)
[2022-12-28] MEDS: levETIRAcetam 500 MG Tab PO SCH ×2 (08:09→19:51)
[2022-12-28] MEDS: Memantine 10 MG Tab PO SCH ×2 (08:09→18:14)
[2022-12-28] MEDS: Sertraline 25 MG Tab PO SCH (08:09)
[2022-12-28] MEDS: Pentoxifylline 400 MG Tab.ER PO SCH (08:09)
[2022-12-29] MEDS: Memantine 10 MG Tab PO SCH ×2 (08:00→17:03)
[2022-12-29] MEDS: Tamsulosin 0.4 MG Cap.ER PO SCH (08:00)
[2022-12-29] MEDS: Pentoxifylline 400 MG Tab.ER PO SCH (08:00)
[2022-12-29] MEDS: levETIRAcetam 500 MG Tab PO SCH ×2 (08:00→20:07)
[2022-12-29] MEDS: Sertraline 25 MG Tab PO SCH (08:01)
[2022-12-29] MEDS: Allopurinol 100 MG Tab PO SCH (08:01)
[2022-12-30] MEDS: levETIRAcetam 500 MG Tab PO SCH ×2 (08:13→20:24)
[2022-12-30] MEDS: Memantine 10 MG Tab PO SCH ×2 (08:13→17:10)
[2022-12-30] MEDS: Pentoxifylline 400 MG Tab.ER PO SCH (08:13)
[2022-12-30] MEDS: Tamsulosin 0.4 MG Cap.ER PO SCH (08:13)
[2022-12-30] MEDS: Sertraline 25 MG Tab PO SCH (08:13)
[2022-12-30] MEDS: Allopurinol 100 MG Tab PO SCH (08:13)
[2022-12-31] MEDS: levETIRAcetam 500 MG Tab PO SCH ×2 (07:44→19:38)
[2022-12-31] MEDS: Tamsulosin 0.4 MG Cap.ER PO SCH (07:44)
[2022-12-31] MEDS: Allopurinol 100 MG Tab PO SCH (07:45)
[2022-12-31] MEDS: Pentoxifylline 400 MG Tab.ER PO SCH (07:45)
[2022-12-31] MEDS: Sertraline 25 MG Tab PO SCH (07:45)
[2022-12-31] MEDS: Memantine 10 MG Tab PO SCH ×2 (07:45→17:10)
[2023-01-01] MEDS: Sertraline 25 MG Tab PO SCH (08:18)
[2023-01-01] MEDS: Memantine 10 MG Tab PO SCH ×2 (08:18→16:59)
[2023-01-01] MEDS: Allopurinol 100 MG Tab PO SCH (08:18)
[2023-01-01] MEDS: Pentoxifylline 400 MG Tab.ER PO SCH (08:18)
[2023-01-01] MEDS: Tamsulosin 0.4 MG Cap.ER PO SCH (08:18)
[2023-01-01] MEDS: levETIRAcetam 500 MG Tab PO SCH ×2 (08:18→19:48)
[2023-01-02] MEDS: levETIRAcetam 500 MG Tab PO SCH ×2 (08:08→19:22)
[2023-01-02] MEDS: Tamsulosin 0.4 MG Cap.ER PO SCH (08:08)
[2023-01-02] MEDS: Sertraline 25 MG Tab PO SCH (08:09)
[2023-01-02] MEDS: Pentoxifylline 400 MG Tab.ER PO SCH (08:09)
[2023-01-02] MEDS: Allopurinol 100 MG Tab PO SCH (08:09)
[2023-01-02] MEDS: Memantine 10 MG Tab PO SCH ×2 (08:09→17:13)
[2023-01-03] MEDS: Memantine 10 MG Tab PO SCH ×2 (07:41→17:13)
[2023-01-03] MEDS: levETIRAcetam 500 MG Tab PO SCH ×2 (07:41→19:44)
[2023-01-03] MEDS: Tamsulosin 0.4 MG Cap.ER PO SCH (07:41)
[2023-01-03] MEDS: Allopurinol 100 MG Tab PO SCH (07:42)
[2023-01-03] MEDS: Pentoxifylline 400 MG Tab.ER PO SCH (07:42)
[2023-01-03] MEDS: Sertraline 25 MG Tab PO SCH (07:42)
[2023-01-04] MEDS: Tamsulosin 0.4 MG Cap.ER PO SCH (07:39)
[2023-01-04] MEDS: Sertraline 25 MG Tab PO SCH (07:39)
[2023-01-04] MEDS: levETIRAcetam 500 MG Tab PO SCH ×2 (07:39→19:46)
[2023-01-04] MEDS: Allopurinol 100 MG Tab PO SCH (07:39)
[2023-01-04] MEDS: Pentoxifylline 400 MG Tab.ER PO SCH (07:39)
[2023-01-04] MEDS: Memantine 10 MG Tab PO SCH ×2 (07:39→17:18)
[2023-01-05] MEDS: Tamsulosin 0.4 MG Cap.ER PO SCH (07:50)
[2023-01-05] MEDS: Memantine 10 MG Tab PO SCH ×2 (07:51→17:04)
[2023-01-05] MEDS: Pentoxifylline 400 MG Tab.ER PO SCH (07:51)
[2023-01-05] MEDS: Allopurinol 100 MG Tab PO SCH (07:51)
[2023-01-05] MEDS: Sertraline 25 MG Tab PO SCH (07:51)
[2023-01-05] MEDS: levETIRAcetam 500 MG Tab PO SCH ×2 (07:51→19:35)
[2023-01-06] MEDS: Memantine 10 MG Tab PO SCH ×2 (07:25→17:19)
[2023-01-06] MEDS: Allopurinol 100 MG Tab PO SCH (07:25)
[2023-01-06] MEDS: levETIRAcetam 500 MG Tab PO SCH ×2 (07:25→19:41)
[2023-01-06] MEDS: Sertraline 25 MG Tab PO SCH (07:25)
[2023-01-06] MEDS: Pentoxifylline 400 MG Tab.ER PO SCH (07:25)
[2023-01-06] MEDS: Tamsulosin 0.4 MG Cap.ER PO SCH (07:25)
[2023-01-07] MEDS: Tamsulosin 0.4 MG Cap.ER PO SCH (08:04)
[2023-01-07] MEDS: levETIRAcetam 500 MG Tab PO SCH ×2 (08:04→19:46)
[2023-01-07] MEDS: Pentoxifylline 400 MG Tab.ER PO SCH (08:04)
[2023-01-07] MEDS: Memantine 10 MG Tab PO SCH ×2 (08:04→17:30)
[2023-01-07] MEDS: Allopurinol 100 MG Tab PO SCH (08:05)
[2023-01-07] MEDS: Sertraline 25 MG Tab PO SCH (08:05)
[2023-01-08] MEDS: Sertraline 25 MG Tab PO SCH (08:30)
[2023-01-08] MEDS: Pentoxifylline 400 MG Tab.ER PO SCH (08:30)
[2023-01-08] MEDS: Tamsulosin 0.4 MG Cap.ER PO SCH (08:30)
[2023-01-08] MEDS: levETIRAcetam 500 MG Tab PO SCH ×2 (08:30→19:33)
[2023-01-08] MEDS: Memantine 10 MG Tab PO SCH ×2 (08:30→17:26)
[2023-01-08] MEDS: Allopurinol 100 MG Tab PO SCH (08:31)
[2023-01-08] MEDS: Acetaminophen 325 MG Tab PO PRN ×2 (11:22→19:36)
[2023-01-08] MEDS: Menthol 10%/Methyl Salicylate 15% 85 GM Tube TOP PRN ×2 (11:43→23:03)
[2023-01-09] MEDS: Tamsulosin 0.4 MG Cap.ER PO SCH (08:20)
[2023-01-09] MEDS: levETIRAcetam 500 MG Tab PO SCH ×2 (08:20→19:44)
[2023-01-09] MEDS: Allopurinol 100 MG Tab PO SCH (08:20)
[2023-01-09] MEDS: Memantine 10 MG Tab PO SCH ×2 (08:20→17:53)
[2023-01-09] MEDS: Pentoxifylline 400 MG Tab.ER PO SCH (08:20)
[2023-01-09] MEDS: Sertraline 25 MG Tab PO SCH (08:20)
[2023-01-09] MEDS: Acetaminophen 325 MG Tab PO PRN (19:42)
[2023-01-09] MEDS: Acetaminophen 650 MG Tab.ER PO SCH (20:17)
[2023-01-10] MEDS: Sertraline 25 MG Tab PO SCH (08:25)
[2023-01-10] MEDS: Allopurinol 100 MG Tab PO SCH (08:25)
[2023-01-10] MEDS: Pentoxifylline 400 MG Tab.ER PO SCH (08:26)
[2023-01-10] MEDS: levETIRAcetam 500 MG Tab PO SCH ×2 (08:26→20:11)
[2023-01-10] MEDS: Tamsulosin 0.4 MG Cap.ER PO SCH (08:26)
[2023-01-10] MEDS: Memantine 10 MG Tab PO SCH ×2 (08:26→18:17)
[2023-01-10] MEDS: Acetaminophen 650 MG Tab.ER PO SCH (08:29)
[2023-01-10] MEDS: Diclofenac Sodium 1% Gel 100 GM Tube TOP PRN (17:27)
[2023-01-10] MEDS: Cephalexin 500 MG Cap PO SCH (20:10)
[2023-01-11] MEDS: Acetaminophen 650 MG Tab.ER PO SCH ×3 (00:39→19:57)
[2023-01-11] MEDS: predniSONE 20 MG Tab PO SCH (09:11)
[2023-01-11] MEDS: Cephalexin 500 MG Cap PO SCH ×3 (09:11→19:57)
[2023-01-11] MEDS: Allopurinol 100 MG Tab PO SCH (09:12)
[2023-01-11] MEDS: Sertraline 25 MG Tab PO SCH (09:12)
[2023-01-11] MEDS: Tamsulosin 0.4 MG Cap.ER PO SCH (09:12)
[2023-01-11] MEDS: levETIRAcetam 500 MG Tab PO SCH ×2 (09:12→19:57)
[2023-01-11] MEDS: Memantine 10 MG Tab PO SCH ×2 (09:12→17:50)
[2023-01-11] MEDS: Pentoxifylline 400 MG Tab.ER PO SCH (09:12)
[2023-01-11] MEDS: Diclofenac Sodium 1% Gel 100 GM Tube TOP PRN (09:47)
[2023-01-12] MEDS: Tamsulosin 0.4 MG Cap.ER PO SCH (08:03)
[2023-01-12] MEDS: Acetaminophen 650 MG Tab.ER PO SCH ×2 (08:04→19:39)
[2023-01-12] MEDS: Pentoxifylline 400 MG Tab.ER PO SCH (08:04)
[2023-01-12] MEDS: predniSONE 20 MG Tab PO SCH (08:04)
[2023-01-12] MEDS: Cephalexin 500 MG Cap PO SCH ×3 (08:04→19:38)
[2023-01-12] MEDS: levETIRAcetam 500 MG Tab PO SCH ×2 (08:04→19:38)
[2023-01-12] MEDS: Memantine 10 MG Tab PO SCH ×2 (08:04→17:46)
[2023-01-12] MEDS: Sertraline 25 MG Tab PO SCH (08:06)
[2023-01-12] MEDS: Allopurinol 100 MG Tab PO SCH (08:06)
[2023-01-13] MEDS: Cephalexin 500 MG Cap PO SCH ×3 (07:58→19:41)
[2023-01-13] MEDS: Tamsulosin 0.4 MG Cap.ER PO SCH (07:58)
[2023-01-13] MEDS: Pentoxifylline 400 MG Tab.ER PO SCH (07:59)
[2023-01-13] MEDS: levETIRAcetam 500 MG Tab PO SCH ×2 (07:59→19:41)
[2023-01-13] MEDS: predniSONE 20 MG Tab PO SCH (07:59)
[2023-01-13] MEDS: Sertraline 25 MG Tab PO SCH (07:59)
[2023-01-13] MEDS: Memantine 10 MG Tab PO SCH ×2 (07:59→17:43)
[2023-01-13] MEDS: Allopurinol 100 MG Tab PO SCH (07:59)
[2023-01-13] MEDS: Acetaminophen 650 MG Tab.ER PO SCH ×2 (08:00→19:43)
[2023-01-14] MEDS: Cephalexin 500 MG Cap PO SCH ×3 (08:15→19:27)
[2023-01-14] MEDS: levETIRAcetam 500 MG Tab PO SCH ×2 (08:15→19:27)
[2023-01-14] MEDS: Memantine 10 MG Tab PO SCH ×2 (08:15→17:42)
[2023-01-14] MEDS: Tamsulosin 0.4 MG Cap.ER PO SCH (08:15)
[2023-01-14] MEDS: Pentoxifylline 400 MG Tab.ER PO SCH (08:16)
[2023-01-14] MEDS: Allopurinol 100 MG Tab PO SCH (08:16)
[2023-01-14] MEDS: predniSONE 20 MG Tab PO SCH (08:16)
[2023-01-14] MEDS: Sertraline 25 MG Tab PO SCH (08:16)
[2023-01-14] MEDS: Acetaminophen 650 MG Tab.ER PO SCH ×2 (08:17→19:28)
[2023-01-15] MEDS: Tamsulosin 0.4 MG Cap.ER PO SCH (08:06)
[2023-01-15] MEDS: Cephalexin 500 MG Cap PO SCH ×3 (08:06→19:33)
[2023-01-15] MEDS: levETIRAcetam 500 MG Tab PO SCH ×2 (08:07→19:32)
[2023-01-15] MEDS: Memantine 10 MG Tab PO SCH ×2 (08:07→17:09)
[2023-01-15] MEDS: Pentoxifylline 400 MG Tab.ER PO SCH (08:07)
[2023-01-15] MEDS: Allopurinol 100 MG Tab PO SCH (08:08)
[2023-01-15] MEDS: Sertraline 25 MG Tab PO SCH (08:08)
[2023-01-15] MEDS: Acetaminophen 650 MG Tab.ER PO SCH ×2 (08:08→19:33)
[2023-01-16] MEDS: levETIRAcetam 500 MG Tab PO SCH ×2 (07:33→19:59)
[2023-01-16] MEDS: Cephalexin 500 MG Cap PO SCH ×3 (07:33→19:59)
[2023-01-16] MEDS: Tamsulosin 0.4 MG Cap.ER PO SCH (07:33)
[2023-01-16] MEDS: Pentoxifylline 400 MG Tab.ER PO SCH (07:34)
[2023-01-16] MEDS: Sertraline 25 MG Tab PO SCH (07:34)
[2023-01-16] MEDS: Allopurinol 100 MG Tab PO SCH (07:34)
[2023-01-16] MEDS: Acetaminophen 650 MG Tab.ER PO SCH ×2 (07:34→20:00)
[2023-01-16] MEDS: Memantine 10 MG Tab PO SCH ×2 (07:34→17:10)
[2023-01-17] MEDS: levETIRAcetam 500 MG Tab PO SCH ×2 (08:19→19:55)
[2023-01-17] MEDS: Allopurinol 100 MG Tab PO SCH (08:19)
[2023-01-17] MEDS: Pentoxifylline 400 MG Tab.ER PO SCH (08:19)
[2023-01-17] MEDS: Tamsulosin 0.4 MG Cap.ER PO SCH (08:19)
[2023-01-17] MEDS: Cephalexin 500 MG Cap PO SCH ×2 (08:19→13:27)
[2023-01-17] MEDS: Memantine 10 MG Tab PO SCH ×2 (08:19→17:22)
[2023-01-17] MEDS: Sertraline 25 MG Tab PO SCH (08:19)
[2023-01-17] MEDS: Acetaminophen 650 MG Tab.ER PO SCH ×2 (08:20→19:55)
[2023-01-17] MEDS: Diclofenac Sodium 1% Gel 100 GM Tube TOP PRN (13:26)
[2023-01-18] MEDS: levETIRAcetam 500 MG Tab PO SCH ×2 (08:44→20:00)
[2023-01-18] MEDS: Tamsulosin 0.4 MG Cap.ER PO SCH (08:44)
[2023-01-18] MEDS: Memantine 10 MG Tab PO SCH ×2 (08:45→18:07)
[2023-01-18] MEDS: Allopurinol 100 MG Tab PO SCH (08:45)
[2023-01-18] MEDS: Sertraline 25 MG Tab PO SCH (08:45)
[2023-01-18] MEDS: Acetaminophen 650 MG Tab.ER PO SCH ×2 (08:45→20:00)
[2023-01-18] MEDS: Pentoxifylline 400 MG Tab.ER PO SCH (08:45)
[2023-01-19] MEDS: Tamsulosin 0.4 MG Cap.ER PO SCH (08:05)
[2023-01-19] MEDS: levETIRAcetam 500 MG Tab PO SCH ×2 (08:06→19:53)
[2023-01-19] MEDS: Acetaminophen 650 MG Tab.ER PO SCH ×2 (08:06→19:53)
[2023-01-19] MEDS: Memantine 10 MG Tab PO SCH ×2 (08:06→17:24)
[2023-01-19] MEDS: Pentoxifylline 400 MG Tab.ER PO SCH (08:06)
[2023-01-19] MEDS: Sertraline 25 MG Tab PO SCH (08:07)
[2023-01-19] MEDS: Allopurinol 100 MG Tab PO SCH (08:07)
[2023-01-20] MEDS: Allopurinol 100 MG Tab PO SCH (08:20)
[2023-01-20] MEDS: Sertraline 25 MG Tab PO SCH (08:21)
[2023-01-20] MEDS: Memantine 10 MG Tab PO SCH ×2 (08:21→18:08)
[2023-01-20] MEDS: Tamsulosin 0.4 MG Cap.ER PO SCH (08:21)
[2023-01-20] MEDS: levETIRAcetam 500 MG Tab PO SCH ×2 (08:21→19:55)
[2023-01-20] MEDS: Pentoxifylline 400 MG Tab.ER PO SCH (08:21)
[2023-01-20] MEDS: Acetaminophen 650 MG Tab.ER PO SCH ×2 (08:22→19:55)
[2023-01-21] MEDS: Tamsulosin 0.4 MG Cap.ER PO SCH (07:59)
[2023-01-21] MEDS: Acetaminophen 650 MG Tab.ER PO SCH ×2 (07:59→19:35)
[2023-01-21] MEDS: Memantine 10 MG Tab PO SCH ×2 (07:59→17:10)
[2023-01-21] MEDS: Pentoxifylline 400 MG Tab.ER PO SCH (07:59)
[2023-01-21] MEDS: levETIRAcetam 500 MG Tab PO SCH ×2 (07:59→19:35)
[2023-01-21] MEDS: Sertraline 25 MG Tab PO SCH (08:00)
[2023-01-21] MEDS: Allopurinol 100 MG Tab PO SCH (08:00)
[2023-01-22] MEDS: Memantine 10 MG Tab PO SCH ×2 (08:28→17:20)
[2023-01-22] MEDS: Tamsulosin 0.4 MG Cap.ER PO SCH (08:28)
[2023-01-22] MEDS: Pentoxifylline 400 MG Tab.ER PO SCH (08:28)
[2023-01-22] MEDS: levETIRAcetam 500 MG Tab PO SCH ×2 (08:28→20:03)
[2023-01-22] MEDS: Acetaminophen 650 MG Tab.ER PO SCH ×2 (08:29→20:04)
[2023-01-22] MEDS: Sertraline 25 MG Tab PO SCH (08:29)
[2023-01-22] MEDS: Allopurinol 100 MG Tab PO SCH (08:29)
[2023-01-23] MEDS: Allopurinol 100 MG Tab PO SCH (08:33)
[2023-01-23] MEDS: levETIRAcetam 500 MG Tab PO SCH ×2 (08:33→19:44)
[2023-01-23] MEDS: Tamsulosin 0.4 MG Cap.ER PO SCH (08:33)
[2023-01-23] MEDS: Memantine 10 MG Tab PO SCH ×2 (08:33→17:46)
[2023-01-23] MEDS: Pentoxifylline 400 MG Tab.ER PO SCH (08:33)
[2023-01-23] MEDS: Sertraline 25 MG Tab PO SCH (08:33)
[2023-01-23] MEDS: Acetaminophen 650 MG Tab.ER PO SCH ×2 (08:34→19:44)
[2023-01-24] MEDS: Acetaminophen 650 MG Tab.ER PO SCH ×2 (07:57→19:58)
[2023-01-24] MEDS: levETIRAcetam 500 MG Tab PO SCH ×2 (07:57→19:58)
[2023-01-24] MEDS: Memantine 10 MG Tab PO SCH ×2 (07:57→17:12)
[2023-01-24] MEDS: Tamsulosin 0.4 MG Cap.ER PO SCH (07:57)
[2023-01-24] MEDS: Pentoxifylline 400 MG Tab.ER PO SCH (07:57)
[2023-01-24] MEDS: Sertraline 25 MG Tab PO SCH (07:58)
[2023-01-24] MEDS: Allopurinol 100 MG Tab PO SCH (07:58)
[2023-01-25] MEDS: Memantine 10 MG Tab PO SCH ×2 (07:43→17:07)
[2023-01-25] MEDS: Pentoxifylline 400 MG Tab.ER PO SCH (07:43)
[2023-01-25] MEDS: Tamsulosin 0.4 MG Cap.ER PO SCH (07:43)
[2023-01-25] MEDS: levETIRAcetam 500 MG Tab PO SCH ×2 (07:43→20:12)
[2023-01-25] MEDS: Acetaminophen 650 MG Tab.ER PO SCH ×2 (07:44→20:13)
[2023-01-25] MEDS: Sertraline 25 MG Tab PO SCH (07:44)
[2023-01-25] MEDS: Allopurinol 100 MG Tab PO SCH (07:44)
[2023-01-26] MEDS: Tamsulosin 0.4 MG Cap.ER PO SCH (07:48)
[2023-01-26] MEDS: Memantine 10 MG Tab PO SCH ×2 (07:48→17:09)
[2023-01-26] MEDS: levETIRAcetam 500 MG Tab PO SCH ×2 (07:48→19:54)
[2023-01-26] MEDS: Pentoxifylline 400 MG Tab.ER PO SCH (07:48)
[2023-01-26] MEDS: Acetaminophen 650 MG Tab.ER PO SCH ×2 (07:49→19:56)
[2023-01-26] MEDS: Sertraline 25 MG Tab PO SCH (07:49)
[2023-01-26] MEDS: Allopurinol 100 MG Tab PO SCH (07:49)
[2023-01-26] MEDS: Acetaminophen 325 MG Tab PO PRN (19:55)
[2023-01-27] MEDS: Tamsulosin 0.4 MG Cap.ER PO SCH (08:18)
[2023-01-27] MEDS: Allopurinol 100 MG Tab PO SCH (08:18)
[2023-01-27] MEDS: levETIRAcetam 500 MG Tab PO SCH ×2 (08:18→19:34)
[2023-01-27] MEDS: Sertraline 25 MG Tab PO SCH (08:18)
[2023-01-27] MEDS: Memantine 10 MG Tab PO SCH ×2 (08:18→17:30)
[2023-01-27] MEDS: Pentoxifylline 400 MG Tab.ER PO SCH (08:18)
[2023-01-27] MEDS: Acetaminophen 650 MG Tab.ER PO SCH ×2 (08:19→19:34)
[2023-01-28] MEDS: Pentoxifylline 400 MG Tab.ER PO SCH (07:56)
[2023-01-28] MEDS: Memantine 10 MG Tab PO SCH ×2 (07:56→17:03)
[2023-01-28] MEDS: levETIRAcetam 500 MG Tab PO SCH ×2 (07:56→19:47)
[2023-01-28] MEDS: Tamsulosin 0.4 MG Cap.ER PO SCH (07:56)
[2023-01-28] MEDS: Sertraline 25 MG Tab PO SCH (07:57)
[2023-01-28] MEDS: Acetaminophen 650 MG Tab.ER PO SCH ×2 (07:57→19:47)
[2023-01-28] MEDS: Allopurinol 100 MG Tab PO SCH (07:57)
[2023-01-29] MEDS: levETIRAcetam 500 MG Tab PO SCH ×2 (07:50→20:34)
[2023-01-29] MEDS: Pentoxifylline 400 MG Tab.ER PO SCH (07:51)
[2023-01-29] MEDS: Memantine 10 MG Tab PO SCH ×2 (07:51→17:39)
[2023-01-29] MEDS: Tamsulosin 0.4 MG Cap.ER PO SCH (07:51)
[2023-01-29] MEDS: Sertraline 25 MG Tab PO SCH (07:52)
[2023-01-29] MEDS: Allopurinol 100 MG Tab PO SCH (07:52)
[2023-01-29] MEDS: Acetaminophen 650 MG Tab.ER PO SCH ×2 (07:53→20:34)
[2023-01-29 13:01] VITALS: BP 116/58; PULSE 68
[2023-01-30] MEDS: levETIRAcetam 500 MG Tab PO SCH ×2 (08:08→20:40)
[2023-01-30] MEDS: Pentoxifylline 400 MG Tab.ER PO SCH (08:08)
[2023-01-30] MEDS: Memantine 10 MG Tab PO SCH ×2 (08:08→17:41)
[2023-01-30] MEDS: Tamsulosin 0.4 MG Cap.ER PO SCH (08:08)
[2023-01-30] MEDS: Acetaminophen 650 MG Tab.ER PO SCH ×2 (08:09→20:40)
[2023-01-30] MEDS: Sertraline 25 MG Tab PO SCH (08:10)
[2023-01-30] MEDS: Allopurinol 100 MG Tab PO SCH (08:10)
[2023-01-31] MEDS: levETIRAcetam 500 MG Tab PO SCH ×2 (08:11→19:31)
[2023-01-31] MEDS: Memantine 10 MG Tab PO SCH ×2 (08:11→17:23)
[2023-01-31] MEDS: Tamsulosin 0.4 MG Cap.ER PO SCH (08:11)
[2023-01-31] MEDS: Pentoxifylline 400 MG Tab.ER PO SCH (08:12)
[2023-01-31] MEDS: Allopurinol 100 MG Tab PO SCH (08:12)
[2023-01-31] MEDS: Sertraline 25 MG Tab PO SCH (08:12)
[2023-01-31] MEDS: Acetaminophen 650 MG Tab.ER PO SCH ×2 (08:12→19:31)
[2023-01-31] MEDS: Carbamide Peroxide 6.5% Otic Soln 15 ML Bottle EARBOTH SCH (21:44)
[2023-02-01] MEDS: levETIRAcetam 500 MG Tab PO SCH ×2 (08:40→19:43)
[2023-02-01] MEDS: Sertraline 25 MG Tab PO SCH (08:40)
[2023-02-01] MEDS: Tamsulosin 0.4 MG Cap.ER PO SCH (08:40)
[2023-02-01] MEDS: Pentoxifylline 400 MG Tab.ER PO SCH (08:40)
[2023-02-01] MEDS: Memantine 10 MG Tab PO SCH ×2 (08:40→17:23)
[2023-02-01] MEDS: Allopurinol 100 MG Tab PO SCH (08:40)
[2023-02-01] MEDS: Carbamide Peroxide 6.5% Otic Soln 15 ML Bottle EARBOTH SCH ×2 (08:41→19:43)
[2023-02-01] MEDS: Acetaminophen 650 MG Tab.ER PO SCH ×2 (08:41→19:43)
[2023-02-02] MEDS: Memantine 10 MG Tab PO SCH ×2 (07:54→17:31)
[2023-02-02] MEDS: levETIRAcetam 500 MG Tab PO SCH ×2 (07:54→19:34)
[2023-02-02] MEDS: Tamsulosin 0.4 MG Cap.ER PO SCH (07:54)
[2023-02-02] MEDS: Pentoxifylline 400 MG Tab.ER PO SCH (07:54)
[2023-02-02] MEDS: Sertraline 25 MG Tab PO SCH (07:54)
[2023-02-02] MEDS: Acetaminophen 650 MG Tab.ER PO SCH ×2 (07:55→19:34)
[2023-02-02] MEDS: Carbamide Peroxide 6.5% Otic Soln 15 ML Bottle EARBOTH SCH ×2 (07:55→19:33)
[2023-02-02] MEDS: Allopurinol 100 MG Tab PO SCH (07:55)
[2023-02-03] MEDS: Tamsulosin 0.4 MG Cap.ER PO SCH (07:31)
[2023-02-03] MEDS: Sertraline 25 MG Tab PO SCH (07:31)
[2023-02-03] MEDS: Allopurinol 100 MG Tab PO SCH (07:31)
[2023-02-03] MEDS: Pentoxifylline 400 MG Tab.ER PO SCH (07:31)
[2023-02-03] MEDS: Memantine 10 MG Tab PO SCH (07:31)
[2023-02-03] MEDS: levETIRAcetam 500 MG Tab PO SCH (07:31)
[2023-02-03] MEDS: Acetaminophen 650 MG Tab.ER PO SCH (07:32)
[2023-02-03] MEDS: Carbamide Peroxide 6.5% Otic Soln 15 ML Bottle EARBOTH SCH (07:33)
[~2023-02-03 09:54] MED LIST changes: +Acetaminophen 650 MG Tab.ER PO PRN; +Allopurinol 100 MG Tab PO SCH; -COVID-19 VACC, MRNA(MODERNA)/PF 100 MCG/0.5 ML VIAL IM ONE; +Carbamide Peroxide 6.5% Otic Soln 15 ML Bottle EARBOTH SCH; +Diazepam 5 MG/ML ML Oral Soln 30 ML Bottle PO PRN; -LEVOFLOXACIN 500 MG PO ONE; -Levofloxacin 500 MG Tab PO SCH; -MEMANTINE 5 MG PO SCH; -MEMANTINE HCL 5 MG PO SCH; -Memantine 10 MG Tab PO SCH; -Sennosides 8.6 MG Tab PO PRN; -Temazepam 15 MG Cap PO PRN; +guaiFENesin 100 MG/5 ML Soln 10 ML UD Cup PO PRN; +levETIRAcetam 500 MG Tab PO SCH
== END | disposition swing bed (61) | DRG 57 ==
LOC: LL.SWG 01-23 08:49
PROVIDERS: ADMIT Nurse Practitioner Family; ATTEND Nurse Practitioner Family
DX: G30.9 Alzheimer's disease, unspecified (principal); F02.80 Dementia in other diseases classified elsewhere, unspecified severity, without behavioral disturbance, psychotic disturbance, mood disturbance, and anxiety; Z66 Do not resuscitate; K21.9 Gastro-esophageal reflux disease without esophagitis; I73.9 Peripheral vascular disease, unspecified; M13.0 Polyarthritis, unspecified; M1A.40X0 Other secondary chronic gout, unspecified site, without tophus (tophi); D49.6 Neoplasm of unspecified behavior of brain; Z79.899 Other long term (current) drug therapy; Z91.048 Other nonmedicinal substance allergy status; Z98.890 Other specified postprocedural states; Z90.49 Acquired absence of other specified parts of digestive tract
CPT/HCPCS: 0241U; 36415; 70450; 73120-LT; 80048; 80053; 81001; 84550; 85025; 85652; 86038; 90662; A9270-GY; G0008; J7512; U0002

== ENCOUNTER 2023-02-03 09:55 | Inpatient (IN) | payer MEDICARE, MEDICAID ==
[~2023-02-03 09:55] MED LIST changes: +Acetaminophen 325 MG Tab PO PRN; -Acetaminophen 650 MG Tab.ER PO PRN; -Allopurinol 100 MG Tab PO SCH; +Diclofenac Sodium 1% Gel 100 GM Tube TOP PRN; +Menthol 10%/Methyl Salicylate 15% 85 GM Tube TOP PRN; +Polyvinyl Alcohol 1.4% Ophth Soln 15 ML Bottle EYELF PRN; -guaiFENesin 100 MG/5 ML Soln 10 ML UD Cup PO PRN; -levETIRAcetam 500 MG Tab PO SCH
[2023-02-03] MEDS: Memantine 10 MG Tab PO SCH (17:08)
[2023-02-03] MEDS: levETIRAcetam 500 MG Tab PO SCH (19:56)
[2023-02-03] MEDS: Acetaminophen 650 MG Tab.ER PO SCH (19:56)
[2023-02-04] MEDS: Pentoxifylline 400 MG Tab.ER PO SCH (08:45)
[2023-02-04] MEDS: levETIRAcetam 500 MG Tab PO SCH ×2 (08:46→19:41)
[2023-02-04] MEDS: Memantine 10 MG Tab PO SCH ×2 (08:46→17:13)
[2023-02-04] MEDS: Tamsulosin 0.4 MG Cap.ER PO SCH (08:46)
[2023-02-04] MEDS: Acetaminophen 650 MG Tab.ER PO SCH ×2 (08:47→19:42)
[2023-02-04] MEDS: Sertraline 25 MG Tab PO SCH (08:47)
[2023-02-04] MEDS: Allopurinol 100 MG Tab PO SCH (08:47)
[2023-02-05] MEDS: Tamsulosin 0.4 MG Cap.ER PO SCH (08:23)
[2023-02-05] MEDS: levETIRAcetam 500 MG Tab PO SCH ×2 (08:23→19:50)
[2023-02-05] MEDS: Memantine 10 MG Tab PO SCH ×2 (08:23→17:25)
[2023-02-05] MEDS: Pentoxifylline 400 MG Tab.ER PO SCH (08:24)
[2023-02-05] MEDS: Sertraline 25 MG Tab PO SCH (08:24)
[2023-02-05] MEDS: Allopurinol 100 MG Tab PO SCH (08:24)
[2023-02-05] MEDS: Acetaminophen 650 MG Tab.ER PO SCH ×2 (08:24→19:50)
[2023-02-06] MEDS: Allopurinol 100 MG Tab PO SCH (08:28)
[2023-02-06] MEDS: Sertraline 25 MG Tab PO SCH (08:28)
[2023-02-06] MEDS: Pentoxifylline 400 MG Tab.ER PO SCH (08:28)
[2023-02-06] MEDS: Memantine 10 MG Tab PO SCH ×2 (08:29→18:02)
[2023-02-06] MEDS: Tamsulosin 0.4 MG Cap.ER PO SCH (08:29)
[2023-02-06] MEDS: levETIRAcetam 500 MG Tab PO SCH ×2 (08:29→19:47)
[2023-02-06] MEDS: Acetaminophen 650 MG Tab.ER PO SCH ×2 (08:31→19:48)
[2023-02-07] MEDS: Memantine 10 MG Tab PO SCH ×2 (08:19→17:05)
[2023-02-07] MEDS: levETIRAcetam 500 MG Tab PO SCH ×2 (08:19→20:06)
[2023-02-07] MEDS: Sertraline 25 MG Tab PO SCH (08:19)
[2023-02-07] MEDS: Tamsulosin 0.4 MG Cap.ER PO SCH (08:19)
[2023-02-07] MEDS: Pentoxifylline 400 MG Tab.ER PO SCH (08:19)
[2023-02-07] MEDS: Allopurinol 100 MG Tab PO SCH (08:20)
[2023-02-07] MEDS: Acetaminophen 650 MG Tab.ER PO SCH ×2 (08:20→20:06)
[2023-02-08] MEDS: Memantine 10 MG Tab PO SCH ×2 (08:30→17:29)
[2023-02-08] MEDS: levETIRAcetam 500 MG Tab PO SCH ×2 (08:30→19:36)
[2023-02-08] MEDS: Pentoxifylline 400 MG Tab.ER PO SCH (08:30)
[2023-02-08] MEDS: Tamsulosin 0.4 MG Cap.ER PO SCH (08:30)
[2023-02-08] MEDS: Sertraline 25 MG Tab PO SCH (08:31)
[2023-02-08] MEDS: Acetaminophen 650 MG Tab.ER PO SCH ×2 (08:31→19:36)
[2023-02-08] MEDS: Allopurinol 100 MG Tab PO SCH (08:31)
[2023-02-09] MEDS: Memantine 10 MG Tab PO SCH ×2 (08:05→17:15)
[2023-02-09] MEDS: Sertraline 25 MG Tab PO SCH (08:05)
[2023-02-09] MEDS: Allopurinol 100 MG Tab PO SCH (08:05)
[2023-02-09] MEDS: Pentoxifylline 400 MG Tab.ER PO SCH (08:05)
[2023-02-09] MEDS: levETIRAcetam 500 MG Tab PO SCH ×2 (08:05→19:57)
[2023-02-09] MEDS: Tamsulosin 0.4 MG Cap.ER PO SCH (08:05)
[2023-02-09] MEDS: Acetaminophen 650 MG Tab.ER PO SCH ×2 (08:06→19:58)
[2023-02-10] MEDS: Sertraline 25 MG Tab PO SCH (08:34)
[2023-02-10] MEDS: Pentoxifylline 400 MG Tab.ER PO SCH (08:34)
[2023-02-10] MEDS: Allopurinol 100 MG Tab PO SCH (08:34)
[2023-02-10] MEDS: Memantine 10 MG Tab PO SCH ×2 (08:34→18:11)
[2023-02-10] MEDS: Acetaminophen 650 MG Tab.ER PO SCH ×2 (08:35→19:40)
[2023-02-10] MEDS: levETIRAcetam 500 MG Tab PO SCH ×2 (08:35→19:40)
[2023-02-10] MEDS: Tamsulosin 0.4 MG Cap.ER PO SCH (08:35)
[2023-02-11] MEDS: Tamsulosin 0.4 MG Cap.ER PO SCH (07:56)
[2023-02-11] MEDS: Acetaminophen 650 MG Tab.ER PO SCH ×2 (07:57→19:56)
[2023-02-11] MEDS: Pentoxifylline 400 MG Tab.ER PO SCH (07:57)
[2023-02-11] MEDS: Sertraline 25 MG Tab PO SCH (07:57)
[2023-02-11] MEDS: Allopurinol 100 MG Tab PO SCH (07:57)
[2023-02-11] MEDS: Memantine 10 MG Tab PO SCH ×2 (07:57→17:22)
[2023-02-11] MEDS: levETIRAcetam 500 MG Tab PO SCH ×2 (07:57→19:55)
[2023-02-12] MEDS: Acetaminophen 650 MG Tab.ER PO SCH ×2 (08:34→19:47)
[2023-02-12] MEDS: Tamsulosin 0.4 MG Cap.ER PO SCH (08:37)
[2023-02-12] MEDS: levETIRAcetam 500 MG Tab PO SCH ×2 (08:37→19:46)
[2023-02-12] MEDS: Allopurinol 100 MG Tab PO SCH (08:37)
[2023-02-12] MEDS: Memantine 10 MG Tab PO SCH ×2 (08:37→17:29)
[2023-02-12] MEDS: Pentoxifylline 400 MG Tab.ER PO SCH (08:37)
[2023-02-12] MEDS: Sertraline 25 MG Tab PO SCH (08:37)
[2023-02-13] MEDS: Tamsulosin 0.4 MG Cap.ER PO SCH (08:11)
[2023-02-13] MEDS: Pentoxifylline 400 MG Tab.ER PO SCH (08:12)
[2023-02-13] MEDS: Allopurinol 100 MG Tab PO SCH (08:12)
[2023-02-13] MEDS: levETIRAcetam 500 MG Tab PO SCH ×2 (08:12→19:48)
[2023-02-13] MEDS: Memantine 10 MG Tab PO SCH ×2 (08:12→17:07)
[2023-02-13] MEDS: Sertraline 25 MG Tab PO SCH (08:12)
[2023-02-13] MEDS: Acetaminophen 650 MG Tab.ER PO SCH ×2 (08:13→19:49)
[2023-02-14] MEDS: Memantine 10 MG Tab PO SCH ×2 (08:00→17:31)
[2023-02-14] MEDS: Pentoxifylline 400 MG Tab.ER PO SCH (08:00)
[2023-02-14] MEDS: Tamsulosin 0.4 MG Cap.ER PO SCH (08:00)
[2023-02-14] MEDS: levETIRAcetam 500 MG Tab PO SCH ×2 (08:00→19:25)
[2023-02-14] MEDS: Allopurinol 100 MG Tab PO SCH (08:01)
[2023-02-14] MEDS: Acetaminophen 650 MG Tab.ER PO SCH ×2 (08:01→19:25)
[2023-02-14] MEDS: Sertraline 25 MG Tab PO SCH (08:01)
[2023-02-15] MEDS: levETIRAcetam 500 MG Tab PO SCH ×2 (07:47→20:12)
[2023-02-15] MEDS: Acetaminophen 650 MG Tab.ER PO SCH ×2 (07:47→20:13)
[2023-02-15] MEDS: Memantine 10 MG Tab PO SCH ×2 (07:47→17:11)
[2023-02-15] MEDS: Sertraline 25 MG Tab PO SCH (07:47)
[2023-02-15] MEDS: Tamsulosin 0.4 MG Cap.ER PO SCH (07:47)
[2023-02-15] MEDS: Pentoxifylline 400 MG Tab.ER PO SCH (07:47)
[2023-02-15] MEDS: Allopurinol 100 MG Tab PO SCH (07:47)
[2023-02-15] MEDS: PRAMOXINE TOP PRN (20:21)
[2023-02-16] MEDS: Pentoxifylline 400 MG Tab.ER PO SCH (07:45)
[2023-02-16] MEDS: levETIRAcetam 500 MG Tab PO SCH ×2 (07:45→20:26)
[2023-02-16] MEDS: Tamsulosin 0.4 MG Cap.ER PO SCH (07:45)
[2023-02-16] MEDS: Memantine 10 MG Tab PO SCH ×2 (07:45→17:19)
[2023-02-16] MEDS: Allopurinol 100 MG Tab PO SCH (07:46)
[2023-02-16] MEDS: Sertraline 25 MG Tab PO SCH (07:46)
[2023-02-16] MEDS: Acetaminophen 650 MG Tab.ER PO SCH ×2 (07:46→20:26)
[2023-02-17] MEDS: levETIRAcetam 500 MG Tab PO SCH ×2 (08:00→20:14)
[2023-02-17] MEDS: Tamsulosin 0.4 MG Cap.ER PO SCH (08:00)
[2023-02-17] MEDS: Allopurinol 100 MG Tab PO SCH (08:01)
[2023-02-17] MEDS: Pentoxifylline 400 MG Tab.ER PO SCH (08:01)
[2023-02-17] MEDS: Memantine 10 MG Tab PO SCH ×2 (08:01→17:12)
[2023-02-17] MEDS: Acetaminophen 650 MG Tab.ER PO SCH ×2 (08:01→20:14)
[2023-02-17] MEDS: Sertraline 25 MG Tab PO SCH (08:01)
[2023-02-18] MEDS: Acetaminophen 650 MG Tab.ER PO SCH ×2 (07:42→19:40)
[2023-02-18] MEDS: Pentoxifylline 400 MG Tab.ER PO SCH (07:42)
[2023-02-18] MEDS: Tamsulosin 0.4 MG Cap.ER PO SCH (07:42)
[2023-02-18] MEDS: levETIRAcetam 500 MG Tab PO SCH ×2 (07:42→19:39)
[2023-02-18] MEDS: Memantine 10 MG Tab PO SCH ×2 (07:42→17:05)
[2023-02-18] MEDS: Allopurinol 100 MG Tab PO SCH (07:43)
[2023-02-18] MEDS: Sertraline 25 MG Tab PO SCH (07:43)
[2023-02-19] MEDS: Sertraline 25 MG Tab PO SCH (08:31)
[2023-02-19] MEDS: levETIRAcetam 500 MG Tab PO SCH ×2 (08:31→19:47)
[2023-02-19] MEDS: Tamsulosin 0.4 MG Cap.ER PO SCH (08:31)
[2023-02-19] MEDS: Memantine 10 MG Tab PO SCH ×2 (08:31→17:32)
[2023-02-19] MEDS: Allopurinol 100 MG Tab PO SCH (08:31)
[2023-02-19] MEDS: Pentoxifylline 400 MG Tab.ER PO SCH (08:31)
[2023-02-19] MEDS: Acetaminophen 650 MG Tab.ER PO SCH ×2 (08:32→19:48)
[2023-02-20] MEDS: levETIRAcetam 500 MG Tab PO SCH ×2 (08:16→19:46)
[2023-02-20] MEDS: Pentoxifylline 400 MG Tab.ER PO SCH (08:16)
[2023-02-20] MEDS: Memantine 10 MG Tab PO SCH ×2 (08:16→17:32)
[2023-02-20] MEDS: Tamsulosin 0.4 MG Cap.ER PO SCH (08:16)
[2023-02-20] MEDS: Sertraline 25 MG Tab PO SCH (08:17)
[2023-02-20] MEDS: Allopurinol 100 MG Tab PO SCH (08:17)
[2023-02-20] MEDS: Acetaminophen 650 MG Tab.ER PO SCH ×2 (08:18→19:46)
[2023-02-21] MEDS: Tamsulosin 0.4 MG Cap.ER PO SCH (08:09)
[2023-02-21] MEDS: Sertraline 25 MG Tab PO SCH (08:09)
[2023-02-21] MEDS: Pentoxifylline 400 MG Tab.ER PO SCH (08:09)
[2023-02-21] MEDS: Memantine 10 MG Tab PO SCH ×2 (08:09→17:17)
[2023-02-21] MEDS: levETIRAcetam 500 MG Tab PO SCH ×2 (08:09→19:39)
[2023-02-21] MEDS: Allopurinol 100 MG Tab PO SCH (08:09)
[2023-02-21] MEDS: Acetaminophen 650 MG Tab.ER PO SCH ×2 (08:12→19:40)
[2023-02-21 16:01] LABS: APPEARANCE,URINE CLEAR; BILIRUBIN,URINE NEGATIVE (NEGATIVE); COLOR,URINE YELLOW; GLUCOSE,URINE NEGATIVE (NEGATIVE); KETONES,URINE NEGATIVE (NEGATIVE); LEUKOCYTE ESTERASE,URINE NEGATIVE (NEGATIVE); NITRITE,URINE NEGATIVE (NEGATIVE); OCCULT BLOOD,URINE TRACE-INTACT (NEGATIVE); PH,URINE 5.5 (5.0-9.0); PROTEIN,URINE 30 mg/dL (NEGATIVE); UROBILINOGEN,URINE 0.2 E.U./dL (0.2-1.0)
[2023-02-21 16:14] LABS: EPITHELIAL CELLS,URINE NOT SEEN /LPF; RBC,URINE 0-5 /HPF; WBC,URINE 0-5 /HPF
[2023-02-22] MEDS: Memantine 10 MG Tab PO SCH ×2 (08:14→17:58)
[2023-02-22] MEDS: Allopurinol 100 MG Tab PO SCH (08:14)
[2023-02-22] MEDS: Pentoxifylline 400 MG Tab.ER PO SCH (08:14)
[2023-02-22] MEDS: Sertraline 25 MG Tab PO SCH (08:14)
[2023-02-22] MEDS: Acetaminophen 650 MG Tab.ER PO SCH ×2 (08:15→19:49)
[2023-02-22] MEDS: Tamsulosin 0.4 MG Cap.ER PO SCH (08:15)
[2023-02-22] MEDS: levETIRAcetam 500 MG Tab PO SCH ×2 (08:15→19:48)
[2023-02-23] MEDS: Allopurinol 100 MG Tab PO SCH (08:20)
[2023-02-23] MEDS: Memantine 10 MG Tab PO SCH ×2 (08:20→18:12)
[2023-02-23] MEDS: Pentoxifylline 400 MG Tab.ER PO SCH (08:20)
[2023-02-23] MEDS: Sertraline 25 MG Tab PO SCH (08:20)
[2023-02-23] MEDS: levETIRAcetam 500 MG Tab PO SCH ×2 (08:20→19:34)
[2023-02-23] MEDS: Tamsulosin 0.4 MG Cap.ER PO SCH (08:20)
[2023-02-23] MEDS: Acetaminophen 650 MG Tab.ER PO SCH ×2 (08:21→19:35)
[2023-02-24] MEDS: Memantine 10 MG Tab PO SCH ×2 (08:01→17:17)
[2023-02-24] MEDS: levETIRAcetam 500 MG Tab PO SCH ×2 (08:01→19:26)
[2023-02-24] MEDS: Pentoxifylline 400 MG Tab.ER PO SCH (08:01)
[2023-02-24] MEDS: Tamsulosin 0.4 MG Cap.ER PO SCH (08:01)
[2023-02-24] MEDS: Acetaminophen 650 MG Tab.ER PO SCH ×2 (08:01→19:26)
[2023-02-24] MEDS: Sertraline 25 MG Tab PO SCH (08:02)
[2023-02-24] MEDS: Allopurinol 100 MG Tab PO SCH (08:02)
[2023-02-25] MEDS: Tamsulosin 0.4 MG Cap.ER PO SCH (07:48)
[2023-02-25] MEDS: levETIRAcetam 500 MG Tab PO SCH ×2 (07:48→19:22)
[2023-02-25] MEDS: Allopurinol 100 MG Tab PO SCH (07:49)
[2023-02-25] MEDS: Sertraline 25 MG Tab PO SCH (07:49)
[2023-02-25] MEDS: Pentoxifylline 400 MG Tab.ER PO SCH (07:49)
[2023-02-25] MEDS: Memantine 10 MG Tab PO SCH ×2 (07:49→17:11)
[2023-02-25] MEDS: Acetaminophen 650 MG Tab.ER PO SCH ×2 (07:49→19:22)
[2023-02-26] MEDS: Tamsulosin 0.4 MG Cap.ER PO SCH (07:42)
[2023-02-26] MEDS: levETIRAcetam 500 MG Tab PO SCH ×2 (07:42→19:48)
[2023-02-26] MEDS: Pentoxifylline 400 MG Tab.ER PO SCH (07:43)
[2023-02-26] MEDS: Allopurinol 100 MG Tab PO SCH (07:43)
[2023-02-26] MEDS: Acetaminophen 650 MG Tab.ER PO SCH ×2 (07:43→19:48)
[2023-02-26] MEDS: Memantine 10 MG Tab PO SCH ×2 (07:43→17:00)
[2023-02-26] MEDS: Sertraline 25 MG Tab PO SCH (07:43)
[2023-02-27] MEDS: Tamsulosin 0.4 MG Cap.ER PO SCH (08:10)
[2023-02-27] MEDS: Memantine 10 MG Tab PO SCH ×2 (08:11→17:36)
[2023-02-27] MEDS: Allopurinol 100 MG Tab PO SCH (08:11)
[2023-02-27] MEDS: Pentoxifylline 400 MG Tab.ER PO SCH (08:11)
[2023-02-27] MEDS: levETIRAcetam 500 MG Tab PO SCH ×2 (08:11→20:24)
[2023-02-27] MEDS: Sertraline 25 MG Tab PO SCH (08:11)
[2023-02-27] MEDS: Acetaminophen 650 MG Tab.ER PO SCH ×2 (08:12→20:24)
[2023-02-28] MEDS: Tamsulosin 0.4 MG Cap.ER PO SCH (08:18)
[2023-02-28] MEDS: Pentoxifylline 400 MG Tab.ER PO SCH (08:19)
[2023-02-28] MEDS: Allopurinol 100 MG Tab PO SCH (08:19)
[2023-02-28] MEDS: Sertraline 25 MG Tab PO SCH (08:19)
[2023-02-28] MEDS: Acetaminophen 650 MG Tab.ER PO SCH ×2 (08:19→19:44)
[2023-02-28] MEDS: Memantine 10 MG Tab PO SCH ×2 (08:19→17:55)
[2023-02-28] MEDS: levETIRAcetam 500 MG Tab PO SCH ×2 (08:19→19:44)
[2023-03-01] MEDS: Tamsulosin 0.4 MG Cap.ER PO SCH (08:11)
[2023-03-01] MEDS: Memantine 10 MG Tab PO SCH ×2 (08:11→17:36)
[2023-03-01] MEDS: levETIRAcetam 500 MG Tab PO SCH ×2 (08:11→19:52)
[2023-03-01] MEDS: Sertraline 25 MG Tab PO SCH (08:11)
[2023-03-01] MEDS: Pentoxifylline 400 MG Tab.ER PO SCH (08:11)
[2023-03-01] MEDS: Allopurinol 100 MG Tab PO SCH (08:11)
[2023-03-01] MEDS: Acetaminophen 650 MG Tab.ER PO SCH ×2 (08:12→19:53)
[2023-03-02] MEDS: Tamsulosin 0.4 MG Cap.ER PO SCH (07:56)
[2023-03-02] MEDS: levETIRAcetam 500 MG Tab PO SCH ×2 (07:56→20:08)
[2023-03-02] MEDS: Memantine 10 MG Tab PO SCH ×2 (07:56→17:03)
[2023-03-02] MEDS: Sertraline 25 MG Tab PO SCH (07:56)
[2023-03-02] MEDS: Pentoxifylline 400 MG Tab.ER PO SCH (07:56)
[2023-03-02] MEDS: Allopurinol 100 MG Tab PO SCH (07:57)
[2023-03-02] MEDS: Acetaminophen 650 MG Tab.ER PO SCH ×2 (07:57→20:08)
[2023-03-03] MEDS: Pentoxifylline 400 MG Tab.ER PO SCH (07:50)
[2023-03-03] MEDS: levETIRAcetam 500 MG Tab PO SCH ×2 (07:50→19:35)
[2023-03-03] MEDS: Memantine 10 MG Tab PO SCH ×2 (07:50→17:05)
[2023-03-03] MEDS: Tamsulosin 0.4 MG Cap.ER PO SCH (07:50)
[2023-03-03] MEDS: Acetaminophen 650 MG Tab.ER PO SCH ×2 (07:51→19:36)
[2023-03-03] MEDS: Sertraline 25 MG Tab PO SCH (07:52)
[2023-03-03] MEDS: Allopurinol 100 MG Tab PO SCH (07:53)
[2023-03-04] MEDS: Memantine 10 MG Tab PO SCH ×2 (08:03→17:13)
[2023-03-04] MEDS: Pentoxifylline 400 MG Tab.ER PO SCH (08:03)
[2023-03-04] MEDS: Tamsulosin 0.4 MG Cap.ER PO SCH (08:03)
[2023-03-04] MEDS: levETIRAcetam 500 MG Tab PO SCH ×2 (08:03→19:55)
[2023-03-04] MEDS: Sertraline 25 MG Tab PO SCH (08:04)
[2023-03-04] MEDS: Acetaminophen 650 MG Tab.ER PO SCH ×2 (08:04→19:55)
[2023-03-04] MEDS: Allopurinol 100 MG Tab PO SCH (08:04)
[2023-03-05] MEDS: Sertraline 25 MG Tab PO SCH (07:31)
[2023-03-05] MEDS: levETIRAcetam 500 MG Tab PO SCH ×2 (07:31→19:36)
[2023-03-05] MEDS: Pentoxifylline 400 MG Tab.ER PO SCH (07:31)
[2023-03-05] MEDS: Tamsulosin 0.4 MG Cap.ER PO SCH (07:31)
[2023-03-05] MEDS: Memantine 10 MG Tab PO SCH ×2 (07:31→17:11)
[2023-03-05] MEDS: Allopurinol 100 MG Tab PO SCH (07:32)
[2023-03-05] MEDS: Acetaminophen 650 MG Tab.ER PO SCH ×2 (07:32→19:36)
[2023-03-06] MEDS: Tamsulosin 0.4 MG Cap.ER PO SCH (07:42)
[2023-03-06] MEDS: Pentoxifylline 400 MG Tab.ER PO SCH (07:42)
[2023-03-06] MEDS: levETIRAcetam 500 MG Tab PO SCH ×2 (07:42→19:56)
[2023-03-06] MEDS: Memantine 10 MG Tab PO SCH ×2 (07:42→17:30)
[2023-03-06] MEDS: Sertraline 25 MG Tab PO SCH (07:42)
[2023-03-06] MEDS: Acetaminophen 650 MG Tab.ER PO SCH ×2 (07:43→19:54)
[2023-03-06] MEDS: Allopurinol 100 MG Tab PO SCH (07:43)
[2023-03-06] MEDS: PRAMOXINE TOP PRN (20:32)
[2023-03-07] MEDS: Memantine 10 MG Tab PO SCH ×2 (07:52→17:08)
[2023-03-07] MEDS: Pentoxifylline 400 MG Tab.ER PO SCH (07:52)
[2023-03-07] MEDS: Tamsulosin 0.4 MG Cap.ER PO SCH (07:52)
[2023-03-07] MEDS: levETIRAcetam 500 MG Tab PO SCH ×2 (07:52→19:44)
[2023-03-07] MEDS: Acetaminophen 650 MG Tab.ER PO SCH ×2 (07:53→19:44)
[2023-03-07] MEDS: Allopurinol 100 MG Tab PO SCH (07:53)
[2023-03-07] MEDS: Sertraline 25 MG Tab PO SCH (07:53)
[2023-03-08] MEDS: Pentoxifylline 400 MG Tab.ER PO SCH (09:02)
[2023-03-08] MEDS: Acetaminophen 650 MG Tab.ER PO SCH ×2 (09:02→20:05)
[2023-03-08] MEDS: Memantine 10 MG Tab PO SCH ×2 (09:02→17:16)
[2023-03-08] MEDS: levETIRAcetam 500 MG Tab PO SCH ×2 (09:02→20:05)
[2023-03-08] MEDS: Tamsulosin 0.4 MG Cap.ER PO SCH (09:02)
[2023-03-08] MEDS: Sertraline 25 MG Tab PO SCH (09:02)
[2023-03-08] MEDS: Allopurinol 100 MG Tab PO SCH (09:02)
[2023-03-09] MEDS: Sertraline 25 MG Tab PO SCH (07:40)
[2023-03-09] MEDS: levETIRAcetam 500 MG Tab PO SCH ×2 (07:40→19:54)
[2023-03-09] MEDS: Pentoxifylline 400 MG Tab.ER PO SCH (07:40)
[2023-03-09] MEDS: Tamsulosin 0.4 MG Cap.ER PO SCH (07:40)
[2023-03-09] MEDS: Acetaminophen 650 MG Tab.ER PO SCH ×2 (07:40→19:54)
[2023-03-09] MEDS: Memantine 10 MG Tab PO SCH ×2 (07:40→17:11)
[2023-03-09] MEDS: Allopurinol 100 MG Tab PO SCH (07:41)
[2023-03-10] MEDS: Tamsulosin 0.4 MG Cap.ER PO SCH (08:09)
[2023-03-10] MEDS: Allopurinol 100 MG Tab PO SCH (08:10)
[2023-03-10] MEDS: Memantine 10 MG Tab PO SCH ×2 (08:10→17:16)
[2023-03-10] MEDS: levETIRAcetam 500 MG Tab PO SCH ×2 (08:10→19:52)
[2023-03-10] MEDS: Acetaminophen 650 MG Tab.ER PO SCH ×2 (08:10→19:53)
[2023-03-10] MEDS: Pentoxifylline 400 MG Tab.ER PO SCH (08:10)
[2023-03-10] MEDS: Sertraline 25 MG Tab PO SCH (08:10)
[2023-03-11] MEDS: Memantine 10 MG Tab PO SCH ×2 (07:53→17:02)
[2023-03-11] MEDS: Pentoxifylline 400 MG Tab.ER PO SCH (07:53)
[2023-03-11] MEDS: Sertraline 25 MG Tab PO SCH (07:53)
[2023-03-11] MEDS: levETIRAcetam 500 MG Tab PO SCH ×2 (07:53→20:00)
[2023-03-11] MEDS: Tamsulosin 0.4 MG Cap.ER PO SCH (07:53)
[2023-03-11] MEDS: Acetaminophen 650 MG Tab.ER PO SCH ×2 (07:53→20:03)
[2023-03-11] MEDS: Allopurinol 100 MG Tab PO SCH (07:53)
[2023-03-12] MEDS: Memantine 10 MG Tab PO SCH ×2 (08:05→17:20)
[2023-03-12] MEDS: Pentoxifylline 400 MG Tab.ER PO SCH (08:05)
[2023-03-12] MEDS: Tamsulosin 0.4 MG Cap.ER PO SCH (08:05)
[2023-03-12] MEDS: levETIRAcetam 500 MG Tab PO SCH ×2 (08:05→19:52)
[2023-03-12] MEDS: Acetaminophen 650 MG Tab.ER PO SCH ×2 (08:06→19:53)
[2023-03-12] MEDS: Allopurinol 100 MG Tab PO SCH (08:06)
[2023-03-12] MEDS: Sertraline 25 MG Tab PO SCH (08:06)
[2023-03-13] MEDS: Sertraline 25 MG Tab PO SCH (08:20)
[2023-03-13] MEDS: Allopurinol 100 MG Tab PO SCH (08:20)
[2023-03-13] MEDS: Tamsulosin 0.4 MG Cap.ER PO SCH (08:20)
[2023-03-13] MEDS: Pentoxifylline 400 MG Tab.ER PO SCH (08:20)
[2023-03-13] MEDS: Memantine 10 MG Tab PO SCH ×2 (08:21→18:01)
[2023-03-13] MEDS: levETIRAcetam 500 MG Tab PO SCH ×2 (08:21→19:27)
[2023-03-13] MEDS: Acetaminophen 650 MG Tab.ER PO SCH ×2 (08:21→19:28)
[2023-03-14] MEDS: Tamsulosin 0.4 MG Cap.ER PO SCH (08:05)
[2023-03-14] MEDS: Memantine 10 MG Tab PO SCH ×2 (08:05→17:23)
[2023-03-14] MEDS: levETIRAcetam 500 MG Tab PO SCH ×2 (08:05→19:38)
[2023-03-14] MEDS: Allopurinol 100 MG Tab PO SCH (08:06)
[2023-03-14] MEDS: Sertraline 25 MG Tab PO SCH (08:06)
[2023-03-14] MEDS: Pentoxifylline 400 MG Tab.ER PO SCH (08:06)
[2023-03-14] MEDS: Acetaminophen 650 MG Tab.ER PO SCH ×2 (08:07→19:39)
[2023-03-15] MEDS: Acetaminophen 650 MG Tab.ER PO SCH ×2 (08:45→19:25)
[2023-03-15] MEDS: Sertraline 25 MG Tab PO SCH (08:45)
[2023-03-15] MEDS: Tamsulosin 0.4 MG Cap.ER PO SCH (08:45)
[2023-03-15] MEDS: levETIRAcetam 500 MG Tab PO SCH ×2 (08:45→19:24)
[2023-03-15] MEDS: Pentoxifylline 400 MG Tab.ER PO SCH (08:45)
[2023-03-15] MEDS: Memantine 10 MG Tab PO SCH ×2 (08:45→17:21)
[2023-03-15] MEDS: Allopurinol 100 MG Tab PO SCH (08:45)
[2023-03-16] MEDS: Pentoxifylline 400 MG Tab.ER PO SCH (07:59)
[2023-03-16] MEDS: Sertraline 25 MG Tab PO SCH (07:59)
[2023-03-16] MEDS: Memantine 10 MG Tab PO SCH ×2 (07:59→17:17)
[2023-03-16] MEDS: Tamsulosin 0.4 MG Cap.ER PO SCH (07:59)
[2023-03-16] MEDS: levETIRAcetam 500 MG Tab PO SCH ×2 (07:59→19:32)
[2023-03-16] MEDS: Acetaminophen 650 MG Tab.ER PO SCH ×2 (08:00→19:32)
[2023-03-16] MEDS: Allopurinol 100 MG Tab PO SCH (08:00)
[2023-03-17] MEDS: levETIRAcetam 500 MG Tab PO SCH ×2 (07:53→20:09)
[2023-03-17] MEDS: Tamsulosin 0.4 MG Cap.ER PO SCH (07:53)
[2023-03-17] MEDS: Memantine 10 MG Tab PO SCH ×2 (07:54→17:24)
[2023-03-17] MEDS: Allopurinol 100 MG Tab PO SCH (07:54)
[2023-03-17] MEDS: Sertraline 25 MG Tab PO SCH (07:54)
[2023-03-17] MEDS: Acetaminophen 650 MG Tab.ER PO SCH ×2 (07:54→20:09)
[2023-03-17] MEDS: Pentoxifylline 400 MG Tab.ER PO SCH (07:54)
[2023-03-18] MEDS: Pentoxifylline 400 MG Tab.ER PO SCH (08:13)
[2023-03-18] MEDS: levETIRAcetam 500 MG Tab PO SCH ×2 (08:13→19:20)
[2023-03-18] MEDS: Tamsulosin 0.4 MG Cap.ER PO SCH (08:13)
[2023-03-18] MEDS: Memantine 10 MG Tab PO SCH ×2 (08:13→17:20)
[2023-03-18] MEDS: Acetaminophen 650 MG Tab.ER PO SCH ×2 (08:14→19:21)
[2023-03-18] MEDS: Sertraline 25 MG Tab PO SCH (08:14)
[2023-03-18] MEDS: Allopurinol 100 MG Tab PO SCH (08:14)
[2023-03-19] MEDS: levETIRAcetam 500 MG Tab PO SCH ×2 (07:58→19:32)
[2023-03-19] MEDS: Tamsulosin 0.4 MG Cap.ER PO SCH (07:58)
[2023-03-19] MEDS: Acetaminophen 650 MG Tab.ER PO SCH ×2 (07:58→19:32)
[2023-03-19] MEDS: Pentoxifylline 400 MG Tab.ER PO SCH (07:58)
[2023-03-19] MEDS: Memantine 10 MG Tab PO SCH ×2 (07:58→17:11)
[2023-03-19] MEDS: Sertraline 25 MG Tab PO SCH (07:59)
[2023-03-19] MEDS: Allopurinol 100 MG Tab PO SCH (07:59)
[2023-03-20] MEDS: levETIRAcetam 500 MG Tab PO SCH ×2 (07:48→19:16)
[2023-03-20] MEDS: Tamsulosin 0.4 MG Cap.ER PO SCH (07:48)
[2023-03-20] MEDS: Memantine 10 MG Tab PO SCH ×2 (07:48→17:09)
[2023-03-20] MEDS: Pentoxifylline 400 MG Tab.ER PO SCH (07:48)
[2023-03-20] MEDS: Sertraline 25 MG Tab PO SCH (07:49)
[2023-03-20] MEDS: Allopurinol 100 MG Tab PO SCH (07:49)
[2023-03-20] MEDS: Acetaminophen 650 MG Tab.ER PO SCH ×2 (07:49→19:16)
[2023-03-21] MEDS: Allopurinol 100 MG Tab PO SCH (08:10)
[2023-03-21] MEDS: Sertraline 25 MG Tab PO SCH (08:10)
[2023-03-21] MEDS: Memantine 10 MG Tab PO SCH ×2 (08:11→18:12)
[2023-03-21] MEDS: Pentoxifylline 400 MG Tab.ER PO SCH (08:11)
[2023-03-21] MEDS: Tamsulosin 0.4 MG Cap.ER PO SCH (08:11)
[2023-03-21] MEDS: levETIRAcetam 500 MG Tab PO SCH ×2 (08:11→20:02)
[2023-03-21] MEDS: Acetaminophen 650 MG Tab.ER PO SCH ×2 (08:11→20:03)
[2023-03-22] MEDS: Allopurinol 100 MG Tab PO SCH (08:29)
[2023-03-22] MEDS: Pentoxifylline 400 MG Tab.ER PO SCH (08:29)
[2023-03-22] MEDS: Sertraline 25 MG Tab PO SCH (08:29)
[2023-03-22] MEDS: levETIRAcetam 500 MG Tab PO SCH ×2 (08:29→20:08)
[2023-03-22] MEDS: Tamsulosin 0.4 MG Cap.ER PO SCH (08:29)
[2023-03-22] MEDS: Memantine 10 MG Tab PO SCH ×2 (08:29→18:14)
[2023-03-22] MEDS: Acetaminophen 650 MG Tab.ER PO SCH ×2 (08:30→20:09)
[2023-03-23] MEDS: Allopurinol 100 MG Tab PO SCH (08:27)
[2023-03-23] MEDS: Sertraline 25 MG Tab PO SCH (08:27)
[2023-03-23] MEDS: Pentoxifylline 400 MG Tab.ER PO SCH (08:28)
[2023-03-23] MEDS: Tamsulosin 0.4 MG Cap.ER PO SCH (08:28)
[2023-03-23] MEDS: Memantine 10 MG Tab PO SCH ×2 (08:28→18:11)
[2023-03-23] MEDS: Acetaminophen 650 MG Tab.ER PO SCH ×2 (08:28→20:10)
[2023-03-23] MEDS: levETIRAcetam 500 MG Tab PO SCH ×2 (08:28→20:09)
[2023-03-24] MEDS: Acetaminophen 650 MG Tab.ER PO SCH ×2 (07:38→19:50)
[2023-03-24] MEDS: Pentoxifylline 400 MG Tab.ER PO SCH (07:38)
[2023-03-24] MEDS: Memantine 10 MG Tab PO SCH ×2 (07:38→17:05)
[2023-03-24] MEDS: Tamsulosin 0.4 MG Cap.ER PO SCH (07:38)
[2023-03-24] MEDS: Sertraline 25 MG Tab PO SCH (07:38)
[2023-03-24] MEDS: levETIRAcetam 500 MG Tab PO SCH ×2 (07:38→19:49)
[2023-03-24] MEDS: Allopurinol 100 MG Tab PO SCH (07:39)
[2023-03-25] MEDS: Memantine 10 MG Tab PO SCH ×2 (07:50→17:16)
[2023-03-25] MEDS: Tamsulosin 0.4 MG Cap.ER PO SCH (07:50)
[2023-03-25] MEDS: Pentoxifylline 400 MG Tab.ER PO SCH (07:50)
[2023-03-25] MEDS: levETIRAcetam 500 MG Tab PO SCH ×2 (07:50→19:44)
[2023-03-25] MEDS: Acetaminophen 650 MG Tab.ER PO SCH (07:51)
[2023-03-25] MEDS: Sertraline 25 MG Tab PO SCH (07:51)
[2023-03-25] MEDS: Allopurinol 100 MG Tab PO SCH (07:51)
[2023-03-25] MEDS: Acetaminophen 325 MG Tab PO SCH (19:45)
[2023-03-25] MEDS ORDERED: QUETIAPINE 25 MG PO SCH (20:00)
[2023-03-25] MEDS ORDERED: DICLOFENAC SODIUM 1% TOP PRN (20:00)
[2023-03-26] MEDS: Tamsulosin 0.4 MG Cap.ER PO SCH (08:40)
[2023-03-26] MEDS: levETIRAcetam 500 MG Tab PO SCH ×2 (08:40→20:00)
[2023-03-26] MEDS: Pentoxifylline 400 MG Tab.ER PO SCH (08:41)
[2023-03-26] MEDS: Acetaminophen 325 MG Tab PO SCH ×3 (08:41→17:12)
[2023-03-26] MEDS: Allopurinol 100 MG Tab PO SCH (08:41)
[2023-03-26] MEDS: Memantine 10 MG Tab PO SCH ×2 (08:41→17:12)
[2023-03-26] MEDS: Sertraline 25 MG Tab PO SCH (08:41)
[2023-03-26] MEDS ORDERED: DICLOFENAC SODIUM 1% TOP SCH (08:45)
[2023-03-26] MEDS: Diclofenac Sodium 1% Gel 100 GM Tube TOP SCH ×2 (09:21→20:01)
[2023-03-27] MEDS: Tamsulosin 0.4 MG Cap.ER PO SCH (08:19)
[2023-03-27] MEDS: Pentoxifylline 400 MG Tab.ER PO SCH (08:20)
[2023-03-27] MEDS: Allopurinol 100 MG Tab PO SCH (08:20)
[2023-03-27] MEDS: Sertraline 25 MG Tab PO SCH (08:20)
[2023-03-27] MEDS: Memantine 10 MG Tab PO SCH ×2 (08:20→17:32)
[2023-03-27] MEDS: levETIRAcetam 500 MG Tab PO SCH ×2 (08:20→19:59)
[2023-03-27] MEDS: Acetaminophen 325 MG Tab PO SCH ×3 (08:21→17:32)
[2023-03-27] MEDS: Diclofenac Sodium 1% Gel 100 GM Tube TOP SCH ×2 (08:45→20:02)
[2023-03-28] MEDS: Memantine 10 MG Tab PO SCH ×2 (07:55→17:10)
[2023-03-28] MEDS: Pentoxifylline 400 MG Tab.ER PO SCH (07:55)
[2023-03-28] MEDS: Acetaminophen 325 MG Tab PO SCH ×3 (07:55→17:10)
[2023-03-28] MEDS: Tamsulosin 0.4 MG Cap.ER PO SCH (07:55)
[2023-03-28] MEDS: levETIRAcetam 500 MG Tab PO SCH ×2 (07:55→19:57)
[2023-03-28] MEDS: Allopurinol 100 MG Tab PO SCH (07:56)
[2023-03-28] MEDS: Diclofenac Sodium 1% Gel 100 GM Tube TOP SCH ×2 (07:56→19:58)
[2023-03-28] MEDS: Sertraline 25 MG Tab PO SCH (07:56)
[2023-03-29] MEDS: Pentoxifylline 400 MG Tab.ER PO SCH (08:00)
[2023-03-29] MEDS: Allopurinol 100 MG Tab PO SCH (08:00)
[2023-03-29] MEDS: Sertraline 25 MG Tab PO SCH (08:00)
[2023-03-29] MEDS: levETIRAcetam 500 MG Tab PO SCH ×2 (08:00→20:08)
[2023-03-29] MEDS: Tamsulosin 0.4 MG Cap.ER PO SCH (08:00)
[2023-03-29] MEDS: Memantine 10 MG Tab PO SCH ×2 (08:00→17:02)
[2023-03-29] MEDS: Diclofenac Sodium 1% Gel 100 GM Tube TOP SCH ×2 (08:01→20:08)
[2023-03-29] MEDS: Acetaminophen 325 MG Tab PO SCH ×3 (08:02→17:01)
[2023-03-30] MEDS: Pentoxifylline 400 MG Tab.ER PO SCH (07:53)
[2023-03-30] MEDS: Memantine 10 MG Tab PO SCH ×2 (07:53→17:10)
[2023-03-30] MEDS: levETIRAcetam 500 MG Tab PO SCH ×2 (07:53→20:07)
[2023-03-30] MEDS: Tamsulosin 0.4 MG Cap.ER PO SCH (07:53)
[2023-03-30] MEDS: Sertraline 25 MG Tab PO SCH (07:54)
[2023-03-30] MEDS: Acetaminophen 325 MG Tab PO SCH ×3 (07:54→17:10)
[2023-03-30] MEDS: Diclofenac Sodium 1% Gel 100 GM Tube TOP SCH ×2 (07:54→20:08)
[2023-03-30] MEDS: Allopurinol 100 MG Tab PO SCH (07:54)
[2023-03-31] MEDS: Pentoxifylline 400 MG Tab.ER PO SCH (08:43)
[2023-03-31] MEDS: Sertraline 25 MG Tab PO SCH (08:43)
[2023-03-31] MEDS: Memantine 10 MG Tab PO SCH ×2 (08:43→17:55)
[2023-03-31] MEDS: levETIRAcetam 500 MG Tab PO SCH ×2 (08:43→20:08)
[2023-03-31] MEDS: Allopurinol 100 MG Tab PO SCH (08:43)
[2023-03-31] MEDS: Tamsulosin 0.4 MG Cap.ER PO SCH (08:43)
[2023-03-31] MEDS: Diclofenac Sodium 1% Gel 100 GM Tube TOP SCH ×2 (08:44→20:08)
[2023-03-31] MEDS: Acetaminophen 325 MG Tab PO SCH ×3 (08:47→17:56)
[2023-04-01] MEDS: Memantine 10 MG Tab PO SCH ×2 (08:01→17:36)
[2023-04-01] MEDS: Pentoxifylline 400 MG Tab.ER PO SCH (08:01)
[2023-04-01] MEDS: levETIRAcetam 500 MG Tab PO SCH ×2 (08:01→19:51)
[2023-04-01] MEDS: Tamsulosin 0.4 MG Cap.ER PO SCH (08:01)
[2023-04-01] MEDS: Sertraline 25 MG Tab PO SCH (08:01)
[2023-04-01] MEDS: Allopurinol 100 MG Tab PO SCH (08:02)
[2023-04-01] MEDS: Acetaminophen 325 MG Tab PO SCH ×3 (08:03→17:36)
[2023-04-01] MEDS: Diclofenac Sodium 1% Gel 100 GM Tube TOP SCH ×2 (08:43→19:52)
[2023-04-02] MEDS: Pentoxifylline 400 MG Tab.ER PO SCH (07:58)
[2023-04-02] MEDS: Tamsulosin 0.4 MG Cap.ER PO SCH (07:58)
[2023-04-02] MEDS: Memantine 10 MG Tab PO SCH ×2 (07:58→17:23)
[2023-04-02] MEDS: levETIRAcetam 500 MG Tab PO SCH ×2 (07:58→19:46)
[2023-04-02] MEDS: Sertraline 25 MG Tab PO SCH (07:58)
[2023-04-02] MEDS: Acetaminophen 325 MG Tab PO SCH ×3 (07:59→17:23)
[2023-04-02] MEDS: Allopurinol 100 MG Tab PO SCH (07:59)
[2023-04-02] MEDS: Diclofenac Sodium 1% Gel 100 GM Tube TOP SCH ×2 (09:03→19:44)
[2023-04-03] MEDS: Memantine 10 MG Tab PO SCH ×2 (08:47→18:06)
[2023-04-03] MEDS: Sertraline 25 MG Tab PO SCH (08:47)
[2023-04-03] MEDS: Tamsulosin 0.4 MG Cap.ER PO SCH (08:47)
[2023-04-03] MEDS: Allopurinol 100 MG Tab PO SCH (08:47)
[2023-04-03] MEDS: Pentoxifylline 400 MG Tab.ER PO SCH (08:47)
[2023-04-03] MEDS: levETIRAcetam 500 MG Tab PO SCH ×2 (08:47→20:00)
[2023-04-03] MEDS: Acetaminophen 325 MG Tab PO SCH ×3 (08:48→18:07)
[2023-04-03] MEDS: Diclofenac Sodium 1% Gel 100 GM Tube TOP SCH ×2 (08:57→20:01)
[2023-04-04] MEDS: Diclofenac Sodium 1% Gel 100 GM Tube TOP SCH ×2 (08:38→19:34)
[2023-04-04] MEDS: levETIRAcetam 500 MG Tab PO SCH ×2 (08:38→19:34)
[2023-04-04] MEDS: Memantine 10 MG Tab PO SCH ×2 (08:38→17:46)
[2023-04-04] MEDS: Tamsulosin 0.4 MG Cap.ER PO SCH (08:38)
[2023-04-04] MEDS: Sertraline 25 MG Tab PO SCH (08:38)
[2023-04-04] MEDS: Pentoxifylline 400 MG Tab.ER PO SCH (08:38)
[2023-04-04] MEDS: Allopurinol 100 MG Tab PO SCH (08:38)
[2023-04-04] MEDS: Acetaminophen 325 MG Tab PO SCH ×3 (08:39→17:46)
[2023-04-05] MEDS: Allopurinol 100 MG Tab PO SCH (08:54)
[2023-04-05] MEDS: Memantine 10 MG Tab PO SCH ×2 (08:54→17:56)
[2023-04-05] MEDS: levETIRAcetam 500 MG Tab PO SCH ×2 (08:54→19:56)
[2023-04-05] MEDS: Pentoxifylline 400 MG Tab.ER PO SCH (08:54)
[2023-04-05] MEDS: Sertraline 25 MG Tab PO SCH (08:54)
[2023-04-05] MEDS: Tamsulosin 0.4 MG Cap.ER PO SCH (08:54)
[2023-04-05] MEDS: Acetaminophen 325 MG Tab PO SCH ×3 (08:55→17:57)
[2023-04-05] MEDS: Diclofenac Sodium 1% Gel 100 GM Tube TOP SCH ×2 (08:56→19:57)
[2023-04-06] MEDS: levETIRAcetam 500 MG Tab PO SCH ×2 (08:15→19:21)
[2023-04-06] MEDS: Pentoxifylline 400 MG Tab.ER PO SCH (08:15)
[2023-04-06] MEDS: Memantine 10 MG Tab PO SCH ×2 (08:15→17:25)
[2023-04-06] MEDS: Tamsulosin 0.4 MG Cap.ER PO SCH (08:15)
[2023-04-06] MEDS: Acetaminophen 325 MG Tab PO SCH ×3 (08:16→17:26)
[2023-04-06] MEDS: Sertraline 25 MG Tab PO SCH (08:16)
[2023-04-06] MEDS: Allopurinol 100 MG Tab PO SCH (08:16)
[2023-04-06] MEDS: Diclofenac Sodium 1% Gel 100 GM Tube TOP SCH ×2 (08:35→19:22)
[2023-04-07] MEDS: Sertraline 25 MG Tab PO SCH (10:01)
[2023-04-07] MEDS: Allopurinol 100 MG Tab PO SCH (10:01)
[2023-04-07] MEDS: Pentoxifylline 400 MG Tab.ER PO SCH (10:01)
[2023-04-07] MEDS: Tamsulosin 0.4 MG Cap.ER PO SCH (10:01)
[2023-04-07] MEDS: Memantine 10 MG Tab PO SCH ×2 (10:01→18:06)
[2023-04-07] MEDS: levETIRAcetam 500 MG Tab PO SCH ×2 (10:01→19:42)
[2023-04-07] MEDS: Acetaminophen 325 MG Tab PO SCH ×3 (10:02→18:06)
[2023-04-07] MEDS: Diclofenac Sodium 1% Gel 100 GM Tube TOP SCH ×2 (10:03→19:43)
[2023-04-08] MEDS: Pentoxifylline 400 MG Tab.ER PO SCH (08:31)
[2023-04-08] MEDS: levETIRAcetam 500 MG Tab PO SCH ×2 (08:31→19:26)
[2023-04-08] MEDS: Sertraline 25 MG Tab PO SCH (08:31)
[2023-04-08] MEDS: Memantine 10 MG Tab PO SCH ×2 (08:31→18:09)
[2023-04-08] MEDS: Tamsulosin 0.4 MG Cap.ER PO SCH (08:31)
[2023-04-08] MEDS: Allopurinol 100 MG Tab PO SCH (08:32)
[2023-04-08] MEDS: Acetaminophen 325 MG Tab PO SCH ×3 (08:33→18:08)
[2023-04-08] MEDS: Diclofenac Sodium 1% Gel 100 GM Tube TOP SCH ×2 (08:34→19:27)
[2023-04-09] MEDS: Tamsulosin 0.4 MG Cap.ER PO SCH (09:31)
[2023-04-09] MEDS: Memantine 10 MG Tab PO SCH ×2 (09:31→18:02)
[2023-04-09] MEDS: Pentoxifylline 400 MG Tab.ER PO SCH (09:31)
[2023-04-09] MEDS: levETIRAcetam 500 MG Tab PO SCH ×2 (09:31→19:35)
[2023-04-09] MEDS: Allopurinol 100 MG Tab PO SCH (09:31)
[2023-04-09] MEDS: Acetaminophen 325 MG Tab PO SCH ×3 (09:32→18:02)
[2023-04-09] MEDS: Sertraline 50 MG Tab PO SCH (09:32)
[2023-04-09] MEDS: Diclofenac Sodium 1% Gel 100 GM Tube TOP SCH ×2 (09:33→19:35)
[2023-04-10] MEDS: Diclofenac Sodium 1% Gel 100 GM Tube TOP SCH ×2 (08:15→19:46)
[2023-04-10] MEDS: Memantine 10 MG Tab PO SCH ×2 (08:38→17:42)
[2023-04-10] MEDS: Tamsulosin 0.4 MG Cap.ER PO SCH (08:38)
[2023-04-10] MEDS: Pentoxifylline 400 MG Tab.ER PO SCH (08:38)
[2023-04-10] MEDS: levETIRAcetam 500 MG Tab PO SCH ×2 (08:38→19:48)
[2023-04-10] MEDS: Sertraline 50 MG Tab PO SCH (08:39)
[2023-04-10] MEDS: Allopurinol 100 MG Tab PO SCH (08:39)
[2023-04-10] MEDS: Acetaminophen 325 MG Tab PO SCH ×3 (08:39→17:42)
[2023-04-11] MEDS: Memantine 10 MG Tab PO SCH ×2 (08:45→17:27)
[2023-04-11] MEDS: Tamsulosin 0.4 MG Cap.ER PO SCH (08:45)
[2023-04-11] MEDS: levETIRAcetam 500 MG Tab PO SCH ×2 (08:45→20:21)
[2023-04-11] MEDS: Acetaminophen 325 MG Tab PO SCH ×3 (08:46→17:27)
[2023-04-11] MEDS: Allopurinol 100 MG Tab PO SCH (08:46)
[2023-04-11] MEDS: Sertraline 50 MG Tab PO SCH (08:46)
[2023-04-11] MEDS: Pentoxifylline 400 MG Tab.ER PO SCH (08:46)
[2023-04-11] MEDS: Diclofenac Sodium 1% Gel 100 GM Tube TOP SCH ×2 (08:48→20:22)
[2023-04-12] MEDS: Pentoxifylline 400 MG Tab.ER PO SCH (09:12)
[2023-04-12] MEDS: Memantine 10 MG Tab PO SCH ×2 (09:12→18:00)
[2023-04-12] MEDS: Allopurinol 100 MG Tab PO SCH (09:12)
[2023-04-12] MEDS: Sertraline 50 MG Tab PO SCH (09:12)
[2023-04-12] MEDS: Tamsulosin 0.4 MG Cap.ER PO SCH (09:13)
[2023-04-12] MEDS: levETIRAcetam 500 MG Tab PO SCH ×2 (09:13→19:59)
[2023-04-12] MEDS: Acetaminophen 325 MG Tab PO SCH ×3 (09:13→18:01)
[2023-04-12] MEDS: Diclofenac Sodium 1% Gel 100 GM Tube TOP SCH ×2 (09:14→20:00)
[2023-04-13] MEDS: levETIRAcetam 500 MG Tab PO SCH ×2 (08:14→19:53)
[2023-04-13] MEDS: Pentoxifylline 400 MG Tab.ER PO SCH (08:14)
[2023-04-13] MEDS: Tamsulosin 0.4 MG Cap.ER PO SCH (08:14)
[2023-04-13] MEDS: Memantine 10 MG Tab PO SCH ×2 (08:14→17:45)
[2023-04-13] MEDS: Allopurinol 100 MG Tab PO SCH (08:15)
[2023-04-13] MEDS: Sertraline 50 MG Tab PO SCH (08:15)
[2023-04-13] MEDS: Acetaminophen 325 MG Tab PO SCH ×3 (08:15→17:45)
[2023-04-13] MEDS: Diclofenac Sodium 1% Gel 100 GM Tube TOP SCH ×2 (10:07→19:54)
[2023-04-14] MEDS: levETIRAcetam 500 MG Tab PO SCH ×2 (08:09→19:43)
[2023-04-14] MEDS: Tamsulosin 0.4 MG Cap.ER PO SCH (08:09)
[2023-04-14] MEDS: Pentoxifylline 400 MG Tab.ER PO SCH (08:10)
[2023-04-14] MEDS: Memantine 10 MG Tab PO SCH ×2 (08:10→17:21)
[2023-04-14] MEDS: Sertraline 50 MG Tab PO SCH (08:10)
[2023-04-14] MEDS: Allopurinol 100 MG Tab PO SCH (08:10)
[2023-04-14] MEDS: Diclofenac Sodium 1% Gel 100 GM Tube TOP SCH ×2 (08:11→19:44)
[2023-04-14] MEDS: Acetaminophen 325 MG Tab PO SCH ×3 (08:11→17:20)
[2023-04-15] MEDS: Diclofenac Sodium 1% Gel 100 GM Tube TOP SCH ×2 (07:45→19:39)
[2023-04-15] MEDS: levETIRAcetam 500 MG Tab PO SCH ×2 (08:23→19:39)
[2023-04-15] MEDS: Pentoxifylline 400 MG Tab.ER PO SCH (08:23)
[2023-04-15] MEDS: Tamsulosin 0.4 MG Cap.ER PO SCH (08:23)
[2023-04-15] MEDS: Memantine 10 MG Tab PO SCH ×2 (08:23→18:04)
[2023-04-15] MEDS: Sertraline 50 MG Tab PO SCH (08:24)
[2023-04-15] MEDS: Acetaminophen 325 MG Tab PO SCH ×3 (08:24→18:04)
[2023-04-15] MEDS: Allopurinol 100 MG Tab PO SCH (08:24)
[2023-04-16] MEDS: levETIRAcetam 500 MG Tab PO SCH ×2 (08:32→19:56)
[2023-04-16] MEDS: Tamsulosin 0.4 MG Cap.ER PO SCH (08:32)
[2023-04-16] MEDS: Allopurinol 100 MG Tab PO SCH (08:33)
[2023-04-16] MEDS: Memantine 10 MG Tab PO SCH ×2 (08:33→17:33)
[2023-04-16] MEDS: Sertraline 50 MG Tab PO SCH (08:33)
[2023-04-16] MEDS: Pentoxifylline 400 MG Tab.ER PO SCH (08:33)
[2023-04-16] MEDS: Acetaminophen 325 MG Tab PO SCH ×3 (08:34→17:33)
[2023-04-16] MEDS: Diclofenac Sodium 1% Gel 100 GM Tube TOP SCH ×2 (08:39→19:56)
[2023-04-17] MEDS: Memantine 10 MG Tab PO SCH ×2 (08:30→17:06)
[2023-04-17] MEDS: Acetaminophen 325 MG Tab PO SCH ×3 (08:30→17:06)
[2023-04-17] MEDS: levETIRAcetam 500 MG Tab PO SCH ×2 (08:30→20:12)
[2023-04-17] MEDS: Pentoxifylline 400 MG Tab.ER PO SCH (08:30)
[2023-04-17] MEDS: Tamsulosin 0.4 MG Cap.ER PO SCH (08:30)
[2023-04-17] MEDS: Diclofenac Sodium 1% Gel 100 GM Tube TOP SCH ×2 (08:31→20:13)
[2023-04-17] MEDS: Allopurinol 100 MG Tab PO SCH (08:31)
[2023-04-17] MEDS: Sertraline 50 MG Tab PO SCH (08:31)
[2023-04-18] MEDS: levETIRAcetam 500 MG Tab PO SCH ×2 (07:52→19:55)
[2023-04-18] MEDS: Memantine 10 MG Tab PO SCH ×2 (07:52→17:04)
[2023-04-18] MEDS: Tamsulosin 0.4 MG Cap.ER PO SCH (07:52)
[2023-04-18] MEDS: Pentoxifylline 400 MG Tab.ER PO SCH (07:52)
[2023-04-18] MEDS: Diclofenac Sodium 1% Gel 100 GM Tube TOP SCH ×3 (07:53→19:58)
[2023-04-18] MEDS: Acetaminophen 325 MG Tab PO SCH ×3 (07:53→17:04)
[2023-04-18] MEDS: Sertraline 50 MG Tab PO SCH (07:54)
[2023-04-18] MEDS: Allopurinol 100 MG Tab PO SCH (07:54)
[2023-04-19] MEDS: Memantine 10 MG Tab PO SCH ×2 (08:04→17:17)
[2023-04-19] MEDS: Diclofenac Sodium 1% Gel 100 GM Tube TOP SCH ×2 (08:04→20:09)
[2023-04-19] MEDS: Tamsulosin 0.4 MG Cap.ER PO SCH (08:04)
[2023-04-19] MEDS: Pentoxifylline 400 MG Tab.ER PO SCH (08:04)
[2023-04-19] MEDS: Acetaminophen 325 MG Tab PO SCH ×3 (08:04→17:18)
[2023-04-19] MEDS: levETIRAcetam 500 MG Tab PO SCH ×2 (08:04→20:09)
[2023-04-19] MEDS: Allopurinol 100 MG Tab PO SCH (08:05)
[2023-04-19] MEDS: Sertraline 50 MG Tab PO SCH (08:05)
[2023-04-20] MEDS: Acetaminophen 325 MG Tab PO SCH ×3 (07:57→17:00)
[2023-04-20] MEDS: levETIRAcetam 500 MG Tab PO SCH ×2 (07:57→19:48)
[2023-04-20] MEDS: Diclofenac Sodium 1% Gel 100 GM Tube TOP SCH ×2 (07:57→19:48)
[2023-04-20] MEDS: Memantine 10 MG Tab PO SCH ×2 (07:57→16:59)
[2023-04-20] MEDS: Tamsulosin 0.4 MG Cap.ER PO SCH (07:57)
[2023-04-20] MEDS: Pentoxifylline 400 MG Tab.ER PO SCH (07:57)
[2023-04-20] MEDS: Sertraline 50 MG Tab PO SCH (07:58)
[2023-04-20] MEDS: Allopurinol 100 MG Tab PO SCH (07:58)
[2023-04-21] MEDS: Tamsulosin 0.4 MG Cap.ER PO SCH (10:31)
[2023-04-21] MEDS: Memantine 10 MG Tab PO SCH ×2 (10:32→17:32)
[2023-04-21] MEDS: Sertraline 50 MG Tab PO SCH (10:32)
[2023-04-21] MEDS: Pentoxifylline 400 MG Tab.ER PO SCH (10:32)
[2023-04-21] MEDS: Allopurinol 100 MG Tab PO SCH (10:32)
[2023-04-21] MEDS: levETIRAcetam 500 MG Tab PO SCH ×2 (10:32→19:37)
[2023-04-21] MEDS: Acetaminophen 325 MG Tab PO SCH ×3 (10:33→17:32)
[2023-04-21] MEDS: Diclofenac Sodium 1% Gel 100 GM Tube TOP SCH ×2 (10:33→19:37)
[2023-04-22] MEDS: Sertraline 50 MG Tab PO SCH (08:19)
[2023-04-22] MEDS: Pentoxifylline 400 MG Tab.ER PO SCH (08:19)
[2023-04-22] MEDS: Tamsulosin 0.4 MG Cap.ER PO SCH (08:19)
[2023-04-22] MEDS: Memantine 10 MG Tab PO SCH ×2 (08:19→17:44)
[2023-04-22] MEDS: levETIRAcetam 500 MG Tab PO SCH ×2 (08:19→19:27)
[2023-04-22] MEDS: Diclofenac Sodium 1% Gel 100 GM Tube TOP SCH ×2 (08:20→19:27)
[2023-04-22] MEDS: Allopurinol 100 MG Tab PO SCH (08:20)
[2023-04-22] MEDS: Acetaminophen 325 MG Tab PO SCH ×3 (08:20→17:44)
[2023-04-23 08:40] LABS: BASOPHILS ABSOLUTE AUTO 0.03 K/uL (0.00-0.20); BASOPHILS PERCENT AUTO 0.5 % (0.0-2.0); EOSINOPHILS ABSOLUTE AUTO 0.29 K/uL (0.00-0.50); EOSINOPHILS PERCENT AUTO 4.6 % (0.0-5.0); HEMATOCRIT 43.8 % (39.0-49.0); HEMOGLOBIN 14.6 g/dL (13.1-16.8); LYMPHOCYTES ABSOLUTE AUTO 0.83 K/uL (0.50-3.50); LYMPHOCYTES PERCENT AUTO 13.1 % (10.0-50.0); MEAN CORPUSCULAR HEMOGLOBIN 33.1 pg (28.2-33.3); MEAN CORPUSCULAR HGB CONC 33.3 g/dL (31.7-36.0); MEAN CORPUSCULAR VOLUME 99.3 fL (84.0-98.0); MONOCYTES ABSOLUTE AUTO 0.69 K/uL (0.00-1.00); MONOCYTES PERCENT AUTO 10.9 % (2.0-14.0); NEUTROPHILS PERCENT AUTO 70.9 % (45.0-80.0); PLATELET COUNT,PLT 151 K/uL (150-350); RED BLOOD CELL COUNT 4.41 M/uL (4.33-5.41); RED CELL DISTRIBUTION WIDTH 12.5 % (11.2-14.1); WHITE BLOOD CELL COUNT,WBC 6.3 K/uL (4.0-10.2)
[2023-04-23 08:57] LABS: ANION GAP 7.2 meq/L (7-15); CALCIUM 8.5 mg/dL (8.5-10.1); CARBON DIOXIDE,CO2 27.8 mmol/L (21.0-32.0); CREATININE 1.14 mg/dL (0.51-1.17); EST CRCL DRUG DOSING (CG) 47.7 mL/min; URIC ACID 4.4 mg/dL (2.6-7.2)
[2023-04-23] MEDS: levETIRAcetam 500 MG Tab PO SCH ×2 (10:22→19:17)
[2023-04-23] MEDS: Tamsulosin 0.4 MG Cap.ER PO SCH (10:22)
[2023-04-23] MEDS: Memantine 10 MG Tab PO SCH ×2 (10:23→17:13)
[2023-04-23] MEDS: Sertraline 50 MG Tab PO SCH (10:23)
[2023-04-23] MEDS: Allopurinol 100 MG Tab PO SCH (10:23)
[2023-04-23] MEDS: Pentoxifylline 400 MG Tab.ER PO SCH (10:23)
[2023-04-23] MEDS: Acetaminophen 325 MG Tab PO SCH ×3 (10:24→17:13)
[2023-04-23] MEDS: Diclofenac Sodium 1% Gel 100 GM Tube TOP SCH ×2 (10:24→19:17)
[2023-04-24] MEDS: Tamsulosin 0.4 MG Cap.ER PO SCH (08:07)
[2023-04-24] MEDS: levETIRAcetam 500 MG Tab PO SCH ×2 (08:08→20:17)
[2023-04-24] MEDS: Acetaminophen 325 MG Tab PO SCH ×3 (08:08→17:57)
[2023-04-24] MEDS: Memantine 10 MG Tab PO SCH ×2 (08:08→17:56)
[2023-04-24] MEDS: Pentoxifylline 400 MG Tab.ER PO SCH (08:08)
[2023-04-24] MEDS: Sertraline 50 MG Tab PO SCH (08:09)
[2023-04-24] MEDS: Allopurinol 100 MG Tab PO SCH (08:10)
[2023-04-24] MEDS: Diclofenac Sodium 1% Gel 100 GM Tube TOP SCH ×2 (08:11→20:19)
[2023-04-25] MEDS: Acetaminophen 325 MG Tab PO SCH ×3 (08:27→17:40)
[2023-04-25] MEDS: Tamsulosin 0.4 MG Cap.ER PO SCH (08:27)
[2023-04-25] MEDS: Sertraline 50 MG Tab PO SCH (08:27)
[2023-04-25] MEDS: levETIRAcetam 500 MG Tab PO SCH ×2 (08:27→19:36)
[2023-04-25] MEDS: Allopurinol 100 MG Tab PO SCH (08:27)
[2023-04-25] MEDS: Pentoxifylline 400 MG Tab.ER PO SCH (08:27)
[2023-04-25] MEDS: Memantine 10 MG Tab PO SCH ×2 (08:27→17:40)
[2023-04-25] MEDS: Diclofenac Sodium 1% Gel 100 GM Tube TOP SCH ×2 (08:29→19:37)
[2023-04-26] MEDS: levETIRAcetam 500 MG Tab PO SCH ×2 (08:39→19:58)
[2023-04-26] MEDS: Memantine 10 MG Tab PO SCH ×2 (08:40→17:36)
[2023-04-26] MEDS: Pentoxifylline 400 MG Tab.ER PO SCH (08:40)
[2023-04-26] MEDS: Acetaminophen 325 MG Tab PO SCH ×3 (08:41→17:36)
[2023-04-26] MEDS: Diclofenac Sodium 1% Gel 100 GM Tube TOP SCH ×2 (08:42→19:58)
[2023-04-26] MEDS: Sertraline 50 MG Tab PO SCH (08:43)
[2023-04-26] MEDS: Allopurinol 100 MG Tab PO SCH (08:43)
[2023-04-26] MEDS: Tamsulosin 0.4 MG Cap.ER PO SCH (09:39)
[2023-04-27] MEDS: Pentoxifylline 400 MG Tab.ER PO SCH (08:30)
[2023-04-27] MEDS: Tamsulosin 0.4 MG Cap.ER PO SCH (08:30)
[2023-04-27] MEDS: Allopurinol 100 MG Tab PO SCH (08:30)
[2023-04-27] MEDS: Memantine 10 MG Tab PO SCH ×2 (08:30→18:17)
[2023-04-27] MEDS: levETIRAcetam 500 MG Tab PO SCH ×2 (08:30→19:30)
[2023-04-27] MEDS: Sertraline 50 MG Tab PO SCH (08:30)
[2023-04-27] MEDS: Acetaminophen 325 MG Tab PO SCH ×3 (08:31→18:17)
[2023-04-27] MEDS: Diclofenac Sodium 1% Gel 100 GM Tube TOP SCH ×2 (08:32→19:30)
[2023-04-28] MEDS: Pentoxifylline 400 MG Tab.ER PO SCH (09:54)
[2023-04-28] MEDS: Memantine 10 MG Tab PO SCH ×2 (09:54→17:09)
[2023-04-28] MEDS: Tamsulosin 0.4 MG Cap.ER PO SCH (09:54)
[2023-04-28] MEDS: levETIRAcetam 500 MG Tab PO SCH ×2 (09:54→19:47)
[2023-04-28] MEDS: Sertraline 50 MG Tab PO SCH (09:54)
[2023-04-28] MEDS: Allopurinol 100 MG Tab PO SCH (09:54)
[2023-04-28] MEDS: Diclofenac Sodium 1% Gel 100 GM Tube TOP SCH ×2 (09:55→19:47)
[2023-04-28] MEDS: Acetaminophen 325 MG Tab PO SCH ×3 (09:55→17:09)
[2023-04-29] MEDS: Acetaminophen 325 MG Tab PO SCH ×3 (07:57→17:16)
[2023-04-29] MEDS: Sertraline 50 MG Tab PO SCH (07:58)
[2023-04-29] MEDS: Memantine 10 MG Tab PO SCH (07:58)
[2023-04-29] MEDS: Diclofenac Sodium 1% Gel 100 GM Tube TOP SCH ×3 (07:58→21:17)
[2023-04-29] MEDS: levETIRAcetam 500 MG Tab PO SCH ×2 (07:58→20:03)
[2023-04-29] MEDS: Pentoxifylline 400 MG Tab.ER PO SCH (07:58)
[2023-04-29] MEDS: Tamsulosin 0.4 MG Cap.ER PO SCH (07:58)
[2023-04-29] MEDS: Allopurinol 100 MG Tab PO SCH (07:59)
[2023-04-29] MEDS ORDERED: Hyoscyamine 0.125 MG Tab.SL SL PRN (11:22)
[2023-04-29] MEDS ORDERED: Ondansetron 4 MG Tab.DIS PO PRN (11:25)
[2023-04-29] MEDS ORDERED: Bisacodyl 10 MG Supp RECTAL PRN (12:09)
[2023-04-29] MEDS: MEMANTINE 5 MG PO SCH (17:28)
[2023-04-30] MEDS ORDERED: Bisacodyl 10 MG Supp RECTAL SCH (08:00)
[2023-04-30] MEDS: levETIRAcetam 500 MG Tab PO SCH ×2 (08:34→19:46)
[2023-04-30] MEDS: MEMANTINE 5 MG PO SCH ×2 (08:34→17:41)
[2023-04-30] MEDS: DEXAMETHASONE 4 MG PO SCH (08:34)
[2023-04-30] MEDS: Acetaminophen 325 MG Tab PO SCH ×3 (08:35→17:41)
[2023-04-30] MEDS: Sertraline 50 MG Tab PO SCH (08:35)
[2023-04-30] MEDS: Diclofenac Sodium 1% Gel 100 GM Tube TOP SCH ×2 (08:37→19:47)
[2023-05-01] MEDS: levETIRAcetam 500 MG Tab PO SCH ×2 (07:39→20:01)
[2023-05-01] MEDS: DEXAMETHASONE 4 MG PO SCH (07:39)
[2023-05-01] MEDS: Sertraline 50 MG Tab PO SCH (07:39)
[2023-05-01] MEDS: MEMANTINE 5 MG PO SCH ×2 (07:39→17:14)
[2023-05-01] MEDS: Diclofenac Sodium 1% Gel 100 GM Tube TOP SCH ×2 (07:40→20:01)
[2023-05-01] MEDS: Acetaminophen 325 MG Tab PO SCH ×3 (07:40→17:15)
[2023-05-02] MEDS: DEXAMETHASONE 4 MG PO SCH (08:45)
[2023-05-02] MEDS: MEMANTINE 5 MG PO SCH ×2 (08:45→18:04)
[2023-05-02] MEDS: Sertraline 50 MG Tab PO SCH (08:45)
[2023-05-02] MEDS: levETIRAcetam 500 MG Tab PO SCH ×2 (08:45→19:35)
[2023-05-02] MEDS: Acetaminophen 325 MG Tab PO SCH ×3 (08:46→18:05)
[2023-05-02] MEDS: Diclofenac Sodium 1% Gel 100 GM Tube TOP SCH ×2 (08:46→19:35)
[2023-05-03] MEDS: MEMANTINE 5 MG PO SCH ×2 (10:10→18:02)
[2023-05-03] MEDS: Sertraline 50 MG Tab PO SCH (10:10)
[2023-05-03] MEDS: DEXAMETHASONE 4 MG PO SCH (10:10)
[2023-05-03] MEDS: levETIRAcetam 500 MG Tab PO SCH ×2 (10:10→19:44)
[2023-05-03] MEDS: Acetaminophen 325 MG Tab PO SCH ×3 (10:11→18:03)
[2023-05-03] MEDS: Diclofenac Sodium 1% Gel 100 GM Tube TOP SCH ×2 (10:12→19:45)
[2023-05-04] MEDS: MEMANTINE 5 MG PO SCH ×2 (08:15→17:37)
[2023-05-04] MEDS: Sertraline 50 MG Tab PO SCH (08:15)
[2023-05-04] MEDS: levETIRAcetam 500 MG Tab PO SCH ×2 (08:16→19:48)
[2023-05-04] MEDS: DEXAMETHASONE 4 MG PO SCH (08:16)
[2023-05-04] MEDS: Acetaminophen 325 MG Tab PO SCH ×3 (08:16→17:38)
[2023-05-04] MEDS: Diclofenac Sodium 1% Gel 100 GM Tube TOP SCH ×2 (08:17→19:48)
[2023-05-05] MEDS: Diclofenac Sodium 1% Gel 100 GM Tube TOP SCH ×2 (07:24→20:19)
[2023-05-05] MEDS: Sertraline 50 MG Tab PO SCH (08:38)
[2023-05-05] MEDS: MEMANTINE 5 MG PO SCH ×2 (08:38→17:28)
[2023-05-05] MEDS: DEXAMETHASONE 4 MG PO SCH (08:38)
[2023-05-05] MEDS: levETIRAcetam 500 MG Tab PO SCH ×2 (08:38→20:19)
[2023-05-05] MEDS: Acetaminophen 325 MG Tab PO SCH ×3 (08:39→17:28)
[2023-05-06] MEDS: Sertraline 50 MG Tab PO SCH (07:49)
[2023-05-06] MEDS: Diclofenac Sodium 1% Gel 100 GM Tube TOP SCH ×2 (07:49→20:01)
[2023-05-06] MEDS: MEMANTINE 5 MG PO SCH ×2 (07:49→17:02)
[2023-05-06] MEDS: DEXAMETHASONE 4 MG PO SCH (07:49)
[2023-05-06] MEDS: levETIRAcetam 500 MG Tab PO SCH ×2 (07:49→20:00)
[2023-05-06] MEDS: Acetaminophen 325 MG Tab PO SCH ×3 (07:50→17:02)
[2023-05-07] MEDS: levETIRAcetam 500 MG Tab PO SCH ×2 (10:41→19:41)
[2023-05-07] MEDS: MEMANTINE 5 MG PO SCH ×2 (10:42→17:51)
[2023-05-07] MEDS: Acetaminophen 325 MG Tab PO SCH ×3 (10:42→17:51)
[2023-05-07] MEDS: Sertraline 50 MG Tab PO SCH (10:42)
[2023-05-07] MEDS: DEXAMETHASONE 4 MG PO SCH (10:42)
[2023-05-07] MEDS: Diclofenac Sodium 1% Gel 100 GM Tube TOP SCH ×2 (10:43→19:41)
[2023-05-08] MEDS: MEMANTINE 5 MG PO SCH ×2 (08:19→17:09)
[2023-05-08] MEDS: DEXAMETHASONE 4 MG PO SCH (08:19)
[2023-05-08] MEDS: levETIRAcetam 500 MG Tab PO SCH ×2 (08:19→19:29)
[2023-05-08] MEDS: Sertraline 50 MG Tab PO SCH (08:20)
[2023-05-08] MEDS: Acetaminophen 325 MG Tab PO SCH ×3 (08:20→17:09)
[2023-05-08] MEDS: Diclofenac Sodium 1% Gel 100 GM Tube TOP SCH ×2 (08:27→19:29)
[2023-05-09] MEDS: levETIRAcetam 500 MG Tab PO SCH ×2 (07:49→20:07)
[2023-05-09] MEDS: MEMANTINE 5 MG PO SCH ×2 (07:49→17:20)
[2023-05-09] MEDS: DEXAMETHASONE 4 MG PO SCH (07:49)
[2023-05-09] MEDS: Acetaminophen 325 MG Tab PO SCH ×3 (07:49→17:20)
[2023-05-09] MEDS: Sertraline 50 MG Tab PO SCH (07:50)
[2023-05-09] MEDS: Diclofenac Sodium 1% Gel 100 GM Tube TOP SCH ×2 (07:50→20:09)
[2023-05-10] MEDS: MEMANTINE 5 MG PO SCH ×2 (07:48→16:59)
[2023-05-10] MEDS: levETIRAcetam 500 MG Tab PO SCH ×2 (07:48→20:09)
[2023-05-10] MEDS: Acetaminophen 325 MG Tab PO SCH ×3 (07:48→16:59)
[2023-05-10] MEDS: DEXAMETHASONE 4 MG PO SCH (07:48)
[2023-05-10] MEDS: Diclofenac Sodium 1% Gel 100 GM Tube TOP SCH ×2 (07:49→20:12)
[2023-05-10] MEDS: Sertraline 50 MG Tab PO SCH (07:49)
[2023-05-11] MEDS: levETIRAcetam 500 MG Tab PO SCH ×2 (07:39→19:45)
[2023-05-11] MEDS: DEXAMETHASONE 4 MG PO SCH (07:39)
[2023-05-11] MEDS: MEMANTINE 5 MG PO SCH ×2 (07:39→16:59)
[2023-05-11] MEDS: Acetaminophen 325 MG Tab PO SCH ×3 (07:40→16:59)
[2023-05-11] MEDS: Sertraline 50 MG Tab PO SCH (07:40)
[2023-05-11] MEDS: Diclofenac Sodium 1% Gel 100 GM Tube TOP SCH ×2 (07:40→19:45)
[2023-05-12] MEDS: Acetaminophen 325 MG Tab PO SCH ×3 (08:03→18:01)
[2023-05-12] MEDS: DEXAMETHASONE 4 MG PO SCH (08:03)
[2023-05-12] MEDS: levETIRAcetam 500 MG Tab PO SCH ×2 (08:03→19:51)
[2023-05-12] MEDS: MEMANTINE 5 MG PO SCH ×2 (08:03→18:01)
[2023-05-12] MEDS: Sertraline 50 MG Tab PO SCH (08:03)
[2023-05-12] MEDS: Diclofenac Sodium 1% Gel 100 GM Tube TOP SCH ×2 (08:04→19:51)
[2023-05-13] MEDS: Sertraline 50 MG Tab PO SCH (07:50)
[2023-05-13] MEDS: DEXAMETHASONE 4 MG PO SCH (07:50)
[2023-05-13] MEDS: MEMANTINE 5 MG PO SCH ×2 (07:50→17:09)
[2023-05-13] MEDS: levETIRAcetam 500 MG Tab PO SCH ×2 (07:50→19:30)
[2023-05-13] MEDS: Acetaminophen 325 MG Tab PO SCH ×3 (07:51→17:09)
[2023-05-13] MEDS: Diclofenac Sodium 1% Gel 100 GM Tube TOP SCH ×2 (07:51→19:30)
[2023-05-14] MEDS: DEXAMETHASONE 4 MG PO SCH (08:03)
[2023-05-14] MEDS: MEMANTINE 5 MG PO SCH ×2 (08:03→17:17)
[2023-05-14] MEDS: levETIRAcetam 500 MG Tab PO SCH ×2 (08:03→19:41)
[2023-05-14] MEDS: Acetaminophen 325 MG Tab PO SCH ×3 (08:04→17:17)
[2023-05-14] MEDS: Diclofenac Sodium 1% Gel 100 GM Tube TOP SCH ×2 (08:04→19:41)
[2023-05-14] MEDS: Sertraline 50 MG Tab PO SCH (08:04)
[2023-05-14] MEDS ORDERED: FLU (Fluad Quad) 2023-24(65UP)/MF59C/PF 60 MCG/0.5 ML Syringe IM ONE (13:00)
[2023-05-15] MEDS: MEMANTINE 5 MG PO SCH ×2 (08:39→17:30)
[2023-05-15] MEDS: Sertraline 50 MG Tab PO SCH (08:39)
[2023-05-15] MEDS: levETIRAcetam 500 MG Tab PO SCH ×2 (08:39→19:23)
[2023-05-15] MEDS: DEXAMETHASONE 4 MG PO SCH (08:39)
[2023-05-15] MEDS: Diclofenac Sodium 1% Gel 100 GM Tube TOP SCH ×2 (08:40→19:23)
[2023-05-15] MEDS: Acetaminophen 325 MG Tab PO SCH ×3 (08:40→17:31)
[2023-05-15] MEDS: Morphine Oral Concentrate 20 MG/ML 30 ML Bottle PO PRN (10:32)
[2023-05-16] MEDS: DEXAMETHASONE 4 MG PO SCH (08:20)
[2023-05-16] MEDS: MEMANTINE 5 MG PO SCH ×2 (08:20→17:58)
[2023-05-16] MEDS: levETIRAcetam 500 MG Tab PO SCH ×2 (08:20→19:24)
[2023-05-16] MEDS: Acetaminophen 325 MG Tab PO SCH ×3 (08:21→17:59)
[2023-05-16] MEDS: Diclofenac Sodium 1% Gel 100 GM Tube TOP SCH ×2 (08:22→19:24)
[2023-05-16] MEDS: Sertraline 50 MG Tab PO SCH (08:22)
[2023-05-16] MEDS: Morphine Oral Concentrate 20 MG/ML 30 ML Bottle PO PRN ×2 (13:12→20:21)
[2023-05-17] MEDS: MEMANTINE 5 MG PO SCH ×2 (08:26→17:47)
[2023-05-17] MEDS: levETIRAcetam 500 MG Tab PO SCH ×2 (08:26→20:19)
[2023-05-17] MEDS: DEXAMETHASONE 4 MG PO SCH (08:26)
[2023-05-17] MEDS: Acetaminophen 325 MG Tab PO SCH ×3 (08:27→17:48)
[2023-05-17] MEDS: Diclofenac Sodium 1% Gel 100 GM Tube TOP SCH ×2 (08:28→20:14)
[2023-05-17] MEDS: Sertraline 50 MG Tab PO SCH (08:28)
[2023-05-17] MEDS: Morphine Oral Concentrate 20 MG/ML 30 ML Bottle PO PRN ×2 (10:40→13:30)
[2023-05-18] MEDS: levETIRAcetam 500 MG Tab PO SCH ×2 (08:18→19:28)
[2023-05-18] MEDS: DEXAMETHASONE 4 MG PO SCH (08:18)
[2023-05-18] MEDS: MEMANTINE 5 MG PO SCH ×2 (08:18→17:33)
[2023-05-18] MEDS: Diclofenac Sodium 1% Gel 100 GM Tube TOP SCH ×2 (08:19→19:29)
[2023-05-18] MEDS: Acetaminophen 325 MG Tab PO SCH ×3 (08:19→17:34)
[2023-05-18] MEDS: Sertraline 50 MG Tab PO SCH (08:20)
[2023-05-19] MEDS: Sertraline 50 MG Tab PO SCH (08:41)
[2023-05-19] MEDS: Acetaminophen 325 MG Tab PO SCH ×3 (08:41→17:01)
[2023-05-19] MEDS: levETIRAcetam 500 MG Tab PO SCH ×2 (08:41→19:25)
[2023-05-19] MEDS: MEMANTINE 5 MG PO SCH ×2 (08:41→17:02)
[2023-05-19] MEDS: DEXAMETHASONE 4 MG PO SCH (08:41)
[2023-05-19] MEDS: Morphine Oral Concentrate 20 MG/ML 30 ML Bottle PO PRN ×2 (08:43→10:41)
[2023-05-19] MEDS: Diclofenac Sodium 1% Gel 100 GM Tube TOP SCH ×2 (08:49→19:25)
[2023-05-20] MEDS: levETIRAcetam 500 MG Tab PO SCH ×2 (07:52→19:54)
[2023-05-20] MEDS: DEXAMETHASONE 4 MG PO SCH (07:52)
[2023-05-20] MEDS: MEMANTINE 5 MG PO SCH ×2 (07:52→17:05)
[2023-05-20] MEDS: Acetaminophen 325 MG Tab PO SCH ×3 (07:52→17:05)
[2023-05-20] MEDS: Sertraline 50 MG Tab PO SCH (07:53)
[2023-05-20] MEDS: Diclofenac Sodium 1% Gel 100 GM Tube TOP SCH ×2 (07:53→19:54)
[2023-05-21] MEDS: MEMANTINE 5 MG PO SCH ×2 (09:31→17:00)
[2023-05-21] MEDS: DEXAMETHASONE 4 MG PO SCH (09:31)
[2023-05-21] MEDS: levETIRAcetam 500 MG Tab PO SCH ×2 (09:31→19:56)
[2023-05-21] MEDS: Sertraline 50 MG Tab PO SCH (09:31)
[2023-05-21] MEDS: Acetaminophen 325 MG Tab PO SCH ×3 (09:31→17:00)
[2023-05-21] MEDS: Diclofenac Sodium 1% Gel 100 GM Tube TOP SCH ×2 (09:32→19:59)
[2023-05-21] MEDS: Morphine Oral Concentrate 20 MG/ML 30 ML Bottle PO PRN ×3 (09:34→15:05)
[2023-05-21] MEDS: Morphine Oral Concentrate 20 MG/ML 30 ML Bottle SL SCH ×2 (15:11→19:57)
[2023-05-22] MEDS: Sertraline 50 MG Tab PO SCH (08:14)
[2023-05-22] MEDS: levETIRAcetam 500 MG Tab PO SCH ×2 (08:14→19:50)
[2023-05-22] MEDS: MEMANTINE 5 MG PO SCH ×2 (08:14→17:29)
[2023-05-22] MEDS: DEXAMETHASONE 4 MG PO SCH (08:14)
[2023-05-22] MEDS: Acetaminophen 325 MG Tab PO SCH ×3 (08:15→17:29)
[2023-05-22] MEDS: Morphine Oral Concentrate 20 MG/ML 30 ML Bottle SL SCH ×4 (08:16→19:53)
[2023-05-22] MEDS: Diclofenac Sodium 1% Gel 100 GM Tube TOP SCH ×2 (08:17→19:55)
[2023-05-22] MEDS: Morphine Oral Concentrate 20 MG/ML 30 ML Bottle PO PRN ×2 (11:03→13:33)
[2023-05-23] MEDS: Morphine Oral Concentrate 20 MG/ML 30 ML Bottle PO PRN (05:24)
[2023-05-23] MEDS: levETIRAcetam 500 MG Tab PO SCH ×2 (08:26→19:27)
[2023-05-23] MEDS: MEMANTINE 5 MG PO SCH ×2 (08:27→17:42)
[2023-05-23] MEDS: Sertraline 50 MG Tab PO SCH (08:27)
[2023-05-23] MEDS: DEXAMETHASONE 4 MG PO SCH (08:27)
[2023-05-23] MEDS: Acetaminophen 325 MG Tab PO SCH ×3 (08:29→17:40)
[2023-05-23] MEDS: Diclofenac Sodium 1% Gel 100 GM Tube TOP SCH ×2 (08:30→19:28)
[2023-05-23] MEDS: Morphine Oral Concentrate 20 MG/ML 30 ML Bottle SL SCH ×4 (08:30→19:28)
[2023-05-23] MEDS: LORazepam 0.5 MG Tab PO PRN (20:09)
[2023-05-23] MEDS ORDERED: LORazepam 1 MG Tab PO ONE (20:30)
[2023-05-24] MEDS: Morphine Oral Concentrate 20 MG/ML 30 ML Bottle PO PRN (00:07)
[2023-05-24] MEDS: Haloperidol Lactate 2 MG/ML Oral Soln 15 ML Bottle PO PRN ×2 (04:43→19:21)
[2023-05-24] MEDS: Diclofenac Sodium 1% Gel 100 GM Tube TOP SCH ×2 (08:01→19:32)
[2023-05-24] MEDS: levETIRAcetam 500 MG Tab PO SCH ×2 (08:34→19:20)
[2023-05-24] MEDS: Morphine Oral Concentrate 20 MG/ML 30 ML Bottle SL SCH ×4 (08:36→19:20)
[2023-05-24] MEDS: MEMANTINE 5 MG PO SCH ×2 (08:39→17:10)
[2023-05-24] MEDS: DEXAMETHASONE 4 MG PO SCH ×2 (08:39→12:36)
[2023-05-24] MEDS: Acetaminophen 325 MG Tab PO SCH ×3 (08:39→17:10)
[2023-05-24] MEDS: Sertraline 50 MG Tab PO SCH (08:39)
[2023-05-24] MEDS: LORazepam 0.5 MG Tab PO PRN ×2 (11:02→17:11)
[2023-05-25] MEDS: levETIRAcetam 500 MG Tab PO SCH ×2 (08:11→19:30)
[2023-05-25] MEDS: Morphine Oral Concentrate 20 MG/ML 30 ML Bottle SL SCH ×4 (08:11→19:31)
[2023-05-25] MEDS: DEXAMETHASONE 4 MG PO SCH ×2 (08:13→12:34)
[2023-05-25] MEDS: Sertraline 50 MG Tab PO SCH (08:13)
[2023-05-25] MEDS: MEMANTINE 5 MG PO SCH ×2 (08:13→17:04)
[2023-05-25] MEDS: Acetaminophen 325 MG Tab PO SCH ×3 (08:15→17:05)
[2023-05-25] MEDS: Diclofenac Sodium 1% Gel 100 GM Tube TOP SCH ×2 (08:16→19:31)
[2023-05-25] MEDS: LORazepam 0.5 MG Tab PO PRN (16:45)
[2023-05-25] MEDS: Haloperidol Lactate 2 MG/ML Oral Soln 15 ML Bottle PO PRN (20:25)
[2023-05-25] MEDS ORDERED: Polyethylene Glycol 3350 Powder 17 GM Packet PO ONE (20:42)
[2023-05-26] MEDS: Morphine Oral Concentrate 20 MG/ML 30 ML Bottle PO PRN ×3 (02:04→10:55)
[2023-05-26] MEDS: LORazepam 0.5 MG Tab PO PRN ×2 (02:05→08:17)
[2023-05-26] MEDS: levETIRAcetam 500 MG Tab PO SCH ×2 (08:07→19:11)
[2023-05-26] MEDS: DEXAMETHASONE 4 MG PO SCH ×2 (08:08→13:58)
[2023-05-26] MEDS: Sertraline 50 MG Tab PO SCH (08:08)
[2023-05-26] MEDS: MEMANTINE 5 MG PO SCH ×2 (08:08→18:26)
[2023-05-26] MEDS: Acetaminophen 325 MG Tab PO SCH ×3 (08:09→18:22)
[2023-05-26] MEDS: Diclofenac Sodium 1% Gel 100 GM Tube TOP SCH ×2 (08:09→19:15)
[2023-05-26] MEDS: Haloperidol Lactate 2 MG/ML Oral Soln 15 ML Bottle PO PRN ×3 (08:10→22:30)
[2023-05-26] MEDS: Morphine Oral Concentrate 20 MG/ML 30 ML Bottle SL SCH ×4 (08:11→19:12)
[2023-05-26] MEDS ORDERED: LORazepam 1 MG Tab PO SCH (16:00)
[2023-05-26] MEDS: LORazepam 0.5 MG Tab PO SCH (22:19)
[2023-05-27] MEDS: Morphine Oral Concentrate 20 MG/ML 30 ML Bottle PO PRN ×6 (01:35→22:40)
[2023-05-27] MEDS: LORazepam 0.5 MG Tab PO SCH ×4 (04:02→22:10)
[2023-05-27] MEDS: Haloperidol Lactate 2 MG/ML Oral Soln 15 ML Bottle PO PRN ×3 (06:36→19:22)
[2023-05-27] MEDS: levETIRAcetam 500 MG Tab PO SCH ×2 (07:01→19:24)
[2023-05-27] MEDS: DEXAMETHASONE 4 MG PO SCH ×2 (07:01→11:20)
[2023-05-27] MEDS: Sertraline 50 MG Tab PO SCH (07:02)
[2023-05-27] MEDS: MEMANTINE 5 MG PO SCH ×2 (07:04→17:40)
[2023-05-27] MEDS: Acetaminophen 325 MG Tab PO SCH ×2 (07:05→11:20)
[2023-05-27] MEDS: Diclofenac Sodium 1% Gel 100 GM Tube TOP SCH ×2 (07:06→19:28)
[2023-05-27] MEDS: Morphine Oral Concentrate 20 MG/ML 30 ML Bottle SL SCH ×4 (07:39→19:25)
[2023-05-28] MEDS: Morphine Oral Concentrate 20 MG/ML 30 ML Bottle SL SCH ×7 (00:14→23:11)
[2023-05-28] MEDS: Haloperidol Lactate 2 MG/ML Oral Soln 15 ML Bottle PO PRN ×2 (01:40→11:00)
[2023-05-28] MEDS: LORazepam 0.5 MG Tab PO SCH ×3 (03:45→16:06)
[2023-05-28] MEDS: DEXAMETHASONE 4 MG PO SCH ×2 (08:04→12:19)
[2023-05-28] MEDS: levETIRAcetam 500 MG Tab PO SCH ×2 (08:04→19:43)
[2023-05-28] MEDS: Sennosides/Docusate Sodium 50-8.6 MG Tab PO SCH (08:06)
[2023-05-28] MEDS: Diclofenac Sodium 1% Gel 100 GM Tube TOP SCH ×2 (08:07→19:48)
[2023-05-28] MEDS: MEMANTINE 5 MG PO SCH ×2 (08:08→17:43)
[2023-05-28] MEDS: Sertraline 50 MG Tab PO SCH (08:08)
[2023-05-28] MEDS: Morphine Oral Concentrate 20 MG/ML 30 ML Bottle PO PRN (13:20)
[2023-05-28] MEDS ORDERED: Haloperidol Lactate 2 MG/ML Oral Soln 15 ML Bottle PO PRN (16:28)
[2023-05-28] MEDS ORDERED: Haloperidol Lactate 2 MG/ML Oral Soln 15 ML Bottle PO SCH (16:30)
[2023-05-28] MEDS: HALOPERIDOL LACTATE 2 MG/ML PO SCH (22:22)
[2023-05-29] MEDS: Morphine Oral Concentrate 20 MG/ML 30 ML Bottle PO PRN ×5 (02:51→21:57)
[2023-05-29] MEDS: HALOPERIDOL LACTATE 2 MG/ML PO PRN ×2 (03:22→11:30)
[2023-05-29] MEDS: Morphine Oral Concentrate 20 MG/ML 30 ML Bottle SL SCH ×6 (04:52→23:55)
[2023-05-29] MEDS: HALOPERIDOL LACTATE 2 MG/ML PO SCH ×2 (06:17→13:32)
[2023-05-29] MEDS: levETIRAcetam 500 MG Tab PO SCH ×2 (08:20→19:03)
[2023-05-29] MEDS: DEXAMETHASONE 4 MG PO SCH ×2 (08:20→12:16)
[2023-05-29] MEDS: MEMANTINE 5 MG PO SCH ×2 (08:21→17:34)
[2023-05-29] MEDS: Sennosides/Docusate Sodium 50-8.6 MG Tab PO SCH (08:21)
[2023-05-29] MEDS: Sertraline 50 MG Tab PO SCH (08:21)
[2023-05-29] MEDS: Diclofenac Sodium 1% Gel 100 GM Tube TOP SCH ×2 (08:27→19:03)
[2023-05-29] MEDS: Haloperidol Lactate 2 MG/ML Oral Soln 15 ML Bottle PO SCH ×2 (16:24→20:46)
[2023-05-29 17:25] VITALS: BP 131/62; PULSE 70
[2023-05-29] MEDS: Haloperidol Lactate 2 MG/ML Oral Soln 15 ML Bottle PO PRN (19:07)
[2023-05-30] MEDS: Haloperidol Lactate 2 MG/ML Oral Soln 15 ML Bottle PO SCH ×7 (00:04→20:49)
[2023-05-30] MEDS: Morphine Oral Concentrate 20 MG/ML 30 ML Bottle PO PRN ×9 (01:19→17:54)
[2023-05-30] MEDS: Haloperidol Lactate 2 MG/ML Oral Soln 15 ML Bottle PO PRN ×2 (02:01→10:43)
[2023-05-30] MEDS: Morphine Oral Concentrate 20 MG/ML 30 ML Bottle SL SCH ×6 (03:13→23:33)
[2023-05-30] MEDS: DEXAMETHASONE 4 MG PO SCH ×2 (07:04→11:39)
[2023-05-30] MEDS: levETIRAcetam 500 MG Tab PO SCH ×2 (07:04→19:44)
[2023-05-30] MEDS: MEMANTINE 5 MG PO SCH ×2 (07:04→17:04)
[2023-05-30] MEDS: Sennosides/Docusate Sodium 50-8.6 MG Tab PO SCH (07:05)
[2023-05-30] MEDS: Sertraline 50 MG Tab PO SCH (07:05)
[2023-05-30] MEDS: Diclofenac Sodium 1% Gel 100 GM Tube TOP SCH ×2 (07:05→19:50)
[2023-05-31] MEDS: Morphine Oral Concentrate 20 MG/ML 30 ML Bottle PO PRN ×5 (00:33→16:49)
[2023-05-31] MEDS: Haloperidol Lactate 2 MG/ML Oral Soln 15 ML Bottle PO SCH ×6 (01:31→20:55)
[2023-05-31] MEDS: Morphine Oral Concentrate 20 MG/ML 30 ML Bottle SL SCH ×6 (03:43→23:00)
[2023-05-31] MEDS: MEMANTINE 5 MG PO SCH (07:42)
[2023-05-31] MEDS: Sennosides/Docusate Sodium 50-8.6 MG Tab PO SCH (07:42)
[2023-05-31] MEDS: DEXAMETHASONE 4 MG PO SCH (07:42)
[2023-05-31] MEDS: levETIRAcetam 500 MG Tab PO SCH (07:42)
[2023-05-31] MEDS: Sertraline 50 MG Tab PO SCH (07:43)
[2023-05-31] MEDS: Diclofenac Sodium 1% Gel 100 GM Tube TOP SCH (07:43)
[2023-05-31] MEDS ORDERED: Diclofenac Sodium 1% Gel 100 GM Tube TOP PRN (10:42)
[2023-05-31] MEDS ORDERED: Diazepam 5 MG/ML ML Oral Soln 30 ML Bottle PO PRN ×2 (11:13→12:02)
[2023-06-01] MEDS: Haloperidol Lactate 2 MG/ML Oral Soln 15 ML Bottle PO SCH ×6 (01:06→21:05)
[2023-06-01] MEDS: Morphine Oral Concentrate 20 MG/ML 30 ML Bottle SL SCH ×6 (03:28→23:51)
[2023-06-01] MEDS: Morphine Oral Concentrate 20 MG/ML 30 ML Bottle PO PRN ×5 (06:53→19:03)
[2023-06-01] MEDS ORDERED: Bisacodyl 10 MG Supp RECTAL SCH (08:00)
[2023-06-02] MEDS: Haloperidol Lactate 2 MG/ML Oral Soln 15 ML Bottle PO SCH ×3 (00:46→09:06)
[2023-06-02] MEDS: Morphine Oral Concentrate 20 MG/ML 30 ML Bottle SL SCH ×3 (04:01→11:07)
[2023-06-03] MEDS ORDERED: MEMANTINE 5 MG PO SCH (08:00)
== END 2023-06-02 13:30 | disposition expired | DRG 57 ==
LOC: LL.SWG 09:55
PROVIDERS: ADMIT Nurse Practitioner Family; ATTEND Nurse Practitioner Family
DX: G30.9 Alzheimer's disease, unspecified (principal); F02.80 Dementia in other diseases classified elsewhere, unspecified severity, without behavioral disturbance, psychotic disturbance, mood disturbance, and anxiety; D49.6 Neoplasm of unspecified behavior of brain; M10.9 Gout, unspecified; Z51.5 Encounter for palliative care; Z66 Do not resuscitate; M15.9 Polyosteoarthritis, unspecified; I73.9 Peripheral vascular disease, unspecified; M13.0 Polyarthritis, unspecified; Z79.899 Other long term (current) drug therapy
CPT/HCPCS: 36415; 80048; 80177; 81001; 84550; 85025; 90694; A9270-GY; G0008